=== PATIENT | male | born 1985 | race Two or more races ===

== ENCOUNTER 2021-07-25 11:15 | Inpatient (IN) | payer OTHER ==
[~2021-07-25] VITALS: Ht 170.2 cm; Wt 53.1 kg
[2021-07-25] MEDS ORDERED: LORAZEPAM 1 MG TABLET FOR AGITATION PO PRN (15:00)
[2021-07-25] MEDS ORDERED: IBUPROFEN 200 MG TABLET PO PRN (15:00)
[2021-07-25] MEDS ORDERED: MAG HYDROX/AL HYDROX/SIMETH 30 ML UDC PO PRN (15:00)
[2021-07-25] MEDS ORDERED: MAGNESIUM HYDROXIDE 30 ML UDC PO PRN (15:00)
[2021-07-25 15:25] VITALS: BP 100/80
--- NOTE | 2021-07-25 15:25 | NUR ---
MS ACOUSTICAL LOGGING ENGINEER NOTES RECEIVED PATIENT FROM HOME. FOR CLINICAL TRIAL. PATIENT IS A/O X4. ON ROOM AIR TOLERATING WELL. NO SOB NOTED. NOT IN DISTRESS. WITH NO COMPLAINTS OF PAIN OR DISCOMFORT AT THIS TIME. WITH NO IV LINE. SKIN IS INTACT. MADE COMFORTABLE ON BED. SAFETY MEASURES IN PLACE. CALL LIGHT WITHIN REACH. BED ON LOWEST LOCKED POSITION, SIDE RAILS UP X2. WILL CONTINUE TO MONITOR.
[2021-07-25 16:00] VITALS: BP 100/81
--- NOTE | 2021-07-25 19:30 | NUR ---
MS RN CLOSING NOTES PATIENT RESTING ON BED AND A/O X4. O CLINICAL TRIAL. ON ROOM AIR TOLERATING WELL. NO SOB NOTED. NOT IN DISTRESS. WITH NO COMPLAINTS OF PAIN OR DISCOMFORT AT THIS TIME. SKIN IS INTACT. MADE COMFORTABLE ON BED. SAFETY MEASURES IN PLACE. CALL LIGHT WITHIN REACH. BED ON LOWEST LOCKED POSITION, SIDE RAILS UP X2. WILL ENDORSE TO NEXT SHIFT FOR [facility].
--- NOTE | 2021-07-25 19:40 | NUR ---
MS RN OPENING NOTES PATIENT WAS SEEN SLEEPING IN BED. PATIENT'S A/O X4. PATIENT'S STABLE ON ROOM AIR. NO IV ACCESS NOTED DUE TO CLINICAL TRIAL STATUS. PATIENT'S IN NO ACUTE DISTRESS AT THIS TIME. SAFETY MEASURES IN PLACE: BED LOCKED, SR UPX2, AND CALL LIGHT WITHIN REACH OF THE PATIENT. WILL CONTINUE TO MONITOR THE PATIENT.
[2021-07-25 20:00] VITALS: BP 105/73
[2021-07-25] MEDS ORDERED: RISPERIDONE 2 MG PO SCH (22:00)
--- NOTE | 2021-07-25 23:59 | NUR ---
MS RN NOTES OBTAINED SPECIMEN IN PATIENT'S L NARE TO SCREEN FOR MRSA. SPECIMEN PLACED IN FRIDGE FOR LAB TO CRIME PREVENTION POLICE OFFICER.
--- NOTE | 2021-07-26 07:08 | NUR ---
MS RN CLOSING NOTES PATIENT WAS SEEN SLEEPING IN BED. PATIENT'S A/O X4. PATIENT'S STABLE ON ROOM AIR. NO IV ACCESS NOTED DUE TO CLINICAL TRIAL STATUS. PATIENT'S IN NO ACUTE DISTRESS AT THIS TIME. SAFETY MEASURES IN PLACE: BED LOCKED, SR UP X2, AND CALL LIGHT WITHIN REACH OF THE PATIENT. WILL ENDORSE CARE TO THE DAY SHIFT NURSE.
--- NOTE | 2021-07-26 07:30 | NUR ---
MS RN OPENING NOTES RECEIVED PATIENT SLEEPING ON BED. ON ROOM AIR TOLERATING WELL. NO SOB NOTED. NOT IN DISTRESS. WITH NO IV LINE. ON CLINICAL TRIAL. WITH NO COMPLAINTS OF PAIN OR DISCOMFORT AT THIS TIME. SAFETY MEASURES IN PLACE. CALL LIGHT WITHIN REACH. BED ON LOWEST AND LOCKED POSITION, SIDE RAILS UP X2. WILL CONTINUE TO MONITOR.
--- NOTE | 2021-07-26 18:35 | NUR ---
MS RN CLOSING NOTES PATIENT RESTING ON BED. ON ROOM AIR TOLERATING WELL. NO SOB NOTED. NOT IN DISTRESS. WITH NO IV LINE. ON CLINICAL TRIAL. WITH NO COMPLAINTS OF PAIN OR DISCOMFORT AT THIS TIME. SAFETY MEASURES IN PLACED. CALL LIGHT WITHIN REACH. BED ON LOWEST AND LOCKED POSITION, SIDE RAILS UP X2. WILL ENDORSE TO NEXT SHIFT FOR [facility].
--- NOTE | 2021-07-26 19:50 | NUR ---
MS RN OPENING NOTES RECEIVED PT IN BED, AWAKE. AOx4. ABLE TO MAKE NEEDS KNOWN. ON RA AND TOLERATING WELL/. NO SOB NOTED. NO S/SX OF RESPIRATORY DISTRESS NOTED. CLINICAL TRIAL PATIENT. NO IV ACCESS. SAFETY PRECAUTIONS IN PLACE: BED IN LOWEST, LOCKED POSITION, BRAKES ON AND SIDERAILS UPx2. TABLE AND CALL LIGHT WITHIN REACH. WILL CONTINUE TO MONITOR.
[2021-07-26 20:00] VITALS: BP 123/70
[2021-07-26] MEDS: RISPERIDONE 2 MG PO SCH (21:54)
--- NOTE | 2021-07-27 06:52 | NUR ---
MS RN CLOSING NOTES PT IN BED, AWAKE. AOx4. ABLE TO MAKE NEEDS KNOWN. ON RA AND TOLERATING WELL/. NO SOB NOTED. NO S/SX OF RESPIRATORY DISTRESS NOTED. CLINICAL TRIAL PATIENT. NO IV ACCESS. ALL NEEDS MET. PT KEPT CLEAN AND DRY. SAFETY PRECAUTIONS IN PLACE: BED IN LOWEST, LOCKED POSITION, BRAKES ON AND SIDERAILS UPx2. TABLE AND CALL LIGHT WITHIN REACH. WILL ENDORSE TO ONCOMING SHIFT FOR [facility].
--- NOTE | 2021-07-27 07:38 | NUR ---
RN OPENING NOTES RECEIVED PATIENT SLEEPING ON BED. ON ROOM AIR TOLERATING WELL. NO SOB NOTED, NOT IN ACUTE DISTRESS. WITH NO IV LINE. ON CLINICAL TRIAL. WITH NO COMPLAINTS OF PAIN OR DISCOMFORT AT THIS TIME. SAFETY MEASURES IN PLACE, BED ON LOWEST AND LOCKED POSITION, SIDE RAILS UP X2. CALL LIGHT WITHIN REACH. WILL CONTINUE TO MONITOR.
[2021-07-27 08:00] VITALS: BP 93/55
--- NOTE | 2021-07-27 18:54 | NUR ---
RN CLOSING NOTES PATIENT RESTING ON BED, AWAKE, VERBALLY RESPONSIVE. ON ROOM AIR TOLERATING WELL. NO SOB NOTED, NOT IN ACUTE DISTRESS. ON CLINICAL TRIAL, WITH NO IV ACCESS. NO COMPLAINTS OF PAIN OR DISCOMFORT AT THIS TIME. DENIES ANY HALLUCINATIONS. SAFETY MEASURES IN PLACE, BED ON LOWEST AND LOCKED POSITION, SIDE RAILS UP X2. CALL LIGHT WITHIN REACH. WILL ENDORSE TO ONCOMING SHIFT.
[2021-07-27 20:00] VITALS: BP 100/64
--- NOTE | 2021-07-27 20:09 | NUR ---
MS RN NOTE TRANSFERRED [facility] TO ALLY GLEASON.
[2021-07-27] MEDS: RISPERIDONE 2 MG PO SCH (21:34)
--- NOTE | 2021-07-28 06:30 | NUR ---
MS RN CLOSING NOTE PT REMAINED STABLE THROUGHOUT SHIFT. WILL ENDORSE TO ONCOMING RN FOR [facility].
--- NOTE | 2021-07-28 07:30 | NUR ---
RN NOTES PATIENT RESTING IN ROOM, AWAKE AND VERBALLY RESPONSIVE. ON CLINICAL TRIAL. NO ADVERSE CHANGE NOTED. SAFETY MEASURES IN PLACE. WILL CONTINUE TO MONITOR.
--- NOTE | 2021-07-28 18:15 | NUR ---
RN NOTES SEEN PATIENT IN THE ROOM WATCHING TV, FINISHED EATING DINNER. NO ADVERSE CHANGE NOTED. CONTINUES ON CLINICAL TRIAL. SAFETY MEASURES MAINTAINED. WILL ENDORSE TO CENTRAL SUPPLY AIDE RN FOR AV[facility].
--- NOTE | 2021-07-28 19:10 | NUR ---
RN NOTE RECEIVED PATIENT IN BED RESTING ALERT ORIENTED X4 VERBALLY RESPONSIVE ABLE TO MAKE NEEDS KNOWN,ON ROOM AIR,SAFETY MEASURE IMPLEMENT BED IN LOW POSITION AND LOCKED CALL LIGHT WITHIN REACH CONTINUE TO MONITOR.
[2021-07-28 20:00] VITALS: BP 108/69
[2021-07-28] MEDS: RISPERIDONE 2 MG PO SCH (22:06)
--- NOTE | 2021-07-29 06:45 | NUR ---
RN NOTE PATIENT REMAINS ON ALERT ORIENTEDX4 ABLE TO MAKE NEEDS KNOWN VERBALLY RESPONSIVE ON ROOM AIR NO SOB NOT ACUTE DISTRESS NOTED,ENDORSE NEXT COMING SHIFT FOR CONTINUATION OF CARE.
--- NOTE | 2021-07-29 07:50 | NUR ---
RN OPENING NOTE- PT ALERT ORIENTED X 4 ABLE TO MAKE NEEDS KNOWN / VERBALLY RESPONSIVE ON ROOM AIR NO SOB NOT ACUTE DISTRESS NOTED,MONITOR / ASSIST PRN.
[2021-07-29 08:00] VITALS: BP 90/54
--- NOTE | 2021-07-29 18:24 | NUR ---
RN NOTE- PT LAST SEEN AT AROUND 9AM. PT LEFT TO GO OUTSIDE AND NEVER RETURNED. DR CARBAJAL NOTIFIED THIS MORNING AROUND LUNCHTIME.
--- NOTE | 2021-07-29 18:40 | NUR ---
RN CLOSING NOTE- PT STILL HAS NOT RETURNED TO FACILITY. AWARE
--- NOTE | 2021-07-29 19:30 | NUR ---
MS RN NOTE PATIENT ABSENT FROM PREMISES ON THE AVANI REPORT. ENDORSED TO ME BY KEYONNA THAT PATIENT HAS BEEN GONE SINCE THIS MORNING. WILL RECHECKED ON MY ROUNDINGS.
[2021-07-29 20:00] VITALS: BP 116/82
--- NOTE | 2021-07-29 20:35 | NUR ---
MS RN NOTE PATIENT CAME BACK AT THIS TIME. SIGNED THE LOG BOOK. REMINDED OF HIS 2200 MEDICATION, PATIENT ACKNOWLEDGED.
[2021-07-29] MEDS: RISPERIDONE 2 MG PO SCH (22:10)
--- NOTE | 2021-07-29 22:18 | NUR ---
MS CANALES NOTE PATIENT GIVEN 0.25 MG OF RISPERIDONE HOME MEDICATION ORDERED. Addendum: 07/29/21 at 2221 by MARK KAPLAN RN RN NOTE PATIENT GIVEN 0.25 MG OF RISPERIDONE HOME MEDICATION ORDERED. THE ONE IN THE CASSETTE IS 0.5 MG DOSE AND THE ONE IN THE EMAR IS 2MG DOSE. PILL CUT IN HALF TO GET 0.25 DOSE
--- NOTE | 2021-07-30 07:00 | NUR ---
MS RN NOTE PATIENT IN BED STILL SLEEPING. A/OX4. NO S/S OF APPARENT DISTRESS. NO C/O PAIN. NO SIGNIFICANT CHANGE SINCE LAST ENDORSEMENT. WILL ENDORSE TO MORNING SHIFT RN.
--- NOTE | 2021-07-30 07:49 | NUR ---
RN OPENING NOTE- PT IN BED, ALERT ORIENTED X 4 ABLE TO MAKE NEEDS KNOWN / VERBALLY RESPONSIVE ON ROOM AIR NO SOB, NO ACUTE DISTRESS NOTED, NO PAIN, MONITOR / ASSIST PRN.
[2021-07-30 08:00] VITALS: BP 89/52
[2021-07-30 16:00] VITALS: BP 115/93
--- NOTE | 2021-07-30 18:50 | NUR ---
RN CLOSING NOTE- PT IN BED, ALERT ORIENTED X 4 ABLE TO MAKE NEEDS KNOWN / VERBALLY RESPONSIVE ON ROOM AIR NO SOB, NO ACUTE DISTRESS NOTED, NO PAIN, MONITOR / ASSIST PRN.
--- NOTE | 2021-07-30 19:25 | NUR ---
RN OPENING NOTE RECEIVED PT IN ROOM, AMBULATING WITH STEADY GAIT. ABLE TO MAKE NEEDS KNOWN. DENIES ANY PAIN/DISCOMFORT AT THIS TIME. RESPIRATIONS EVEN/UNLABORED. SAFETY INSTRUCTIONS REINFORCED. PT VERBALIZED UNDERSTANDING. CALL LIGHT WITHIN REACH. WILL CONT TO MONITOR.
[2021-07-30 20:29] VITALS: BP 107/71
[2021-07-30] MEDS: RISPERIDONE 2 MG PO SCH (21:01)
[2021-07-30] MEDS: ZOLPIDEM TARTRATE 10 MG TABLET PO PRN (22:26)
--- NOTE | 2021-07-31 07:12 | NUR ---
RN CLOSING NOTE PT SLEPT WELL DURING THE NIGHT. NO ACUTE DISTRESS NOTED. NO BEHAVIORAL ISSUES THIS SHIFT. SAFETY MEASURES MAINTAINED. ALL NEEDS ATTENDED TO.
--- NOTE | 2021-07-31 07:30 | NUR ---
RN MS NOTES PT IN BED, AWAKE, ALERT AND ORIENTED, DENIES PAIN, NOT IN DISTRESS, NO BEHAVIOR PROBLEM AT THIS TIME, WILL CONTINUE TO MONITOR.
[2021-07-31 08:00] VITALS: BP 116/63
[2021-07-31 16:00] VITALS: BP 115/80
--- NOTE | 2021-07-31 18:22 | NUR ---
RN MS NOTES PT IN BED, RESTING, WATCHING TV, NO COMPLAINT OF PAIN OR ANY DISCOMFORT, NO BEHAVIOR PROBLEM DURING THE SHIFT, CALL LIGHT WITHIN REACH.
--- NOTE | 2021-07-31 19:30 | NUR ---
MS RN OPENING NOTE RECEIVED PT AWAKE IN BED. A/O X4. PT STABLE ON ROOM AIR. NO SOB OR S/S OF RESPIRATORY DISTRESS. NO IV ACCESS DUE TO CLINICAL TRIAL STATUS. SAFETY PRECAUTIONS MAINTAINED. BED IN LOWEST LOCKED POSITION, HOB ELEVATED, SIDE RAILS UP X2, AND CALL LIGHT AND TABLE WITHIN REACH. WILL CONTINUE TO MONITOR.
[2021-07-31] MEDS: ZOLPIDEM TARTRATE 10 MG TABLET PO PRN (23:47)
--- NOTE | 2021-07-31 23:47 | NUR ---
RN NOTE ADMINISTERED AMBIEN ORDERED PER ASSESSMENT OF PATIENT. WILL REASSESS FOR SLEEP WITHIN 1 HOUR.
--- NOTE | 2021-08-01 06:47 | NUR ---
MS RN CLOSING NOTE PT IN BED EYES CLOSED, EASILY AROUSABLE. A/O X4. PT STABLE ON ROOM AIR. NO SOB OR S/S OF RESPIRATORY DISTRESS. NO IV ACCESS DUE TO CLINICAL TRIAL STATUS. ALL NEEDS MET AT THIS TIME. SAFETY PRECAUTIONS MAINTAINED AT ALL TIMES. BED IN LOWEST LOCKED POSITION, HOB ELEVATED, SIDE RAILS UP X2, AND CALL LIGHT AND TABLE WITHIN REACH. WILL ENDORSE TO ONCOMING NURSE FOR [facility].
--- NOTE | 2021-08-01 07:30 | NUR ---
MS RN OPENING NOTES RECEIVED PATIENT RESTING ON BED AND A/O X4. ON ROOM AIR SATURATING WELL AT 95%. NO SOB NOTED. NOT IN DISTRESS. WITH NO COMPLAINTS OF PAIN OR DISCOMFORT AT THIS TIME. WITH NO CHANGE OF BEHAVIORS NOTED. WITH NO IV ACCESS PRESENT. ON CLINICAL TRIAL. SAFETY MEASURES IN PLACE. CALL LIGHT WITHIN REACH. BED ON LOWEST LOCKED POSITION, SIDE RAILS UP X2. WILL CONTINUE TO MONITOR.
[2021-08-01 08:00] VITALS: BP 89/60
--- NOTE | 2021-08-01 18:40 | NUR ---
MS ALLY OPENING NOTES PATIENT RESTING ON BED AND A/O X4. ON ROOM AIR SATURATING WELL AT 98%. NO SOB NOTED. NOT IN DISTRESS. WITH NO COMPLAINTS OF PAIN OR DISCOMFORT AT THIS TIME. WITH NO CHANGE OF BEHAVIORS NOTED. WITH NO IV ACCESS PRESENT. ON CLINICAL TRIAL. SAFETY MEASURES IN PLACE. CALL LIGHT WITHIN REACH. BED ON LOWEST LOCKED POSITION, SIDE RAILS UP X2. WILL ENDORSE TO NEXT SHIFT FOR [facility]. Addendum: 08/01/21 at 1841 by CIARA ARREOLA RN ERROR
--- NOTE | 2021-08-01 19:00 | NUR ---
MS RN CT OPENING NOTE RECEIVED PT AWAKE IN BED AT THIS TIME. A/OX4. PT ABLE TO MAKE NEEDS KNOWN. NO SOB NOTED, NO C/O PAIN AT THIS TIME, NO S/S OF ANY ACUTE DISTRESS NOTED. RESPIRATIONS EVEN AND UNLABORED, STABLE ON RA. NO IV ACCESS IN PLACE. PT DENIES SI/HI, VISUAL/AUDITORY HALLUCINATION. NO C/O TREMORS, EPS, OR AKATHASIA. SAFETY PRECAUTIONS IN PLACE AND MAINTAINED AT ALL TIMES. BED IN LOWEST, LOCKED POSITION, HOB ELEVATED, SIDE RAILS UP X2, CALL LIGHT AND TABLE WITHIN REACH. WILL CONTINUE TO MONITOR.
[2021-08-01 20:00] VITALS: BP 109/76
[2021-08-01] MEDS: ZOLPIDEM TARTRATE 10 MG TABLET PO PRN (21:15)
--- NOTE | 2021-08-01 21:15 | NUR ---
CT RN NOTE PT C/O INABILITY TO SLEEP, PER PT REQUEST AMBIEN 10MG/1 TAB PO HS PRN ADMINISTERED AT THIS TIME PER ORDER FRO SLEEP. WILL CONTINUE WITH PLAN OF CARE
--- NOTE | 2021-08-02 06:26 | NUR ---
MS RN CT CLOSING PT AWAKE IN BED AT THIS TIME. A/OX4. PT REMAINED TABLE THROUGHOUT SHIFT. PT DENIES SI/HI, VISUAL/AUDITORY HALLUCINATION. NO C/O TREMORS, EPS, OR AKATHASIA. SAFETY PRECAUTIONS IN PLACE AND MAINTAINED AT ALL TIMES. BED IN LOWEST, LOCKED POSITION, HOB ELEVATED, SIDE RAILS UP X2, CALL LIGHT AND TABLE WITHIN REACH. WILL ENDORSE TO AM NURSE FOR [facility].
--- NOTE | 2021-08-02 07:53 | NUR ---
RN NOTE RECEIVED PT AWAKE IN BED, ALERT AND ORIENTED X4 , VERBALLY RESPONSIVE. NOT IN DISTRESS. MEASURES FOLLOWED. NO SS OF AKATHISIA AND EPS NOTED AT THIS TIME. WILL CONTINUE TO MONITOR.
[2021-08-02 08:11] VITALS: BP 126/61
[2021-08-02] MEDS ORDERED: LORAZEPAM 1 MG TABLET FOR AGITATION PO PRN (12:00)
[2021-08-02 16:18] VITALS: BP 99/51
[2021-08-02] MEDS: INVEST MED MK-8189-008-02 MISC 1 DOSE PO SCH (20:00)
--- NOTE | 2021-08-02 20:05 | NUR ---
RN NOTES PATIENT WAS STILL NOT IN THE ROOM, LOCATE DOWNSTAIRS FOR DUE MEDICATION AT 1999 NOT SEEN DOWNSTAIRS, CALLED PATIENT CONTACT NUMBER NOBODY ANSWERS LEFT MESSAGE AWAITING FOR REPLY.
--- NOTE | 2021-08-02 20:55 | NUR ---
RN NOTES: PATIENT CAME BACK ON HIS ROOM DUE MEDICATION GIVEN
[2021-08-02] MEDS: ZOLPIDEM TARTRATE 10 MG TABLET PO PRN (22:49)
--- NOTE | 2021-08-03 07:45 | NUR ---
MS CLOSING NOTES PATIENT SLEEP IN BED COMFORTABLY, IN BED, BED IN LOW POSITION, CALL LIGHTS WITHIN REACH, NO COMPLAIN OF PAIN AND DISCOMFORT AT THIS TIME, A/OX4 AMBULATORY ABLE TO MAKE NEEDS KNOWN, ON CLINICAL TRIAL, NO CHANGES ON BEHAVIOR HAS BEEN OBSERVED DURING THE SHIFT, ENDORSE TO INCOMING SHIFT.
[2021-08-03 08:00] VITALS: BP 90/54
--- NOTE | 2021-08-03 08:06 | NUR ---
MS RN OPENING NOTE Patient in bed, awake. A/O x 4, able to make needs known. On room air, breathing evenly and unlabored. No SOB or s/s of distress noted. No IV access due to clinical trial status. Safety precautions in place: bed in low,locked position; siderails up x 2; call light within reach. Will continue to monitor.
--- NOTE | 2021-08-03 19:15 | NUR ---
RN NOTES: RECEIVED AWAKE ON BED, SITTING COMFORTABLY HE IS READING HIS BOOK, A/0X 4, PLEASANT,CONVERSANT.ORIENTED TO UNIT AND STAFF, FOR MONITORING.
--- NOTE | 2021-08-03 19:30 | NUR ---
RN NOTES: PATIENT WAS TRANSFERRED IN FROM ICU, RN/BETS GAVE BED SIDE ENDORSEMENT, PATIENT IS ON MORPHINE DRIP AT 2MG/HR VIA DRIP, DNR-DNI,SHE WAS TRANSFERRED FROM O TO ICU YESTERDAY, PCR AND RAPID BOTH NEGATIVE, MRSA NARES-(=), ON NON RE BREATHER MASK AT 10L/MIN,ON COMFORT MEASURE ONLY, PER ENDORSEMENT SON DOESNT WANT TO COME ONCE PATIENT PASS AWAY, TO NOTIFY [facility]. --UPON ADMISSION PATIENT LOOKS VERY PALE,COMATOSE, RESPIRATION 13 B/MINUTES ASSESSED MANUALLY, [place], WARM TO TOUCH, ON [employer] CATH. Addendum: 08/03/21 at 2058 by KASH SILVERMAN RN added notes: ABOVE CHARTING IS NOT FOR THIS PATIENT. WRONG ENTRY OF CHARTING, NOT FOR THIS PATIENT
--- NOTE | 2021-08-03 19:45 | NUR ---
MS RN CLOSING NOTE Patient in bed, awake. A/O x 4, able to make needs known. Stable on room air. No SOB or s/s of distress noted. No IV access due to clinical trial status. No significant changes noted. Safety precautions maintained: bed in low,locked position; siderails up x 2; call light within reach. Will endorse to electronic heat seal operator nurse for AVANI.
[2021-08-03 20:00] VITALS: BP 103/81
[2021-08-03] MEDS: INVEST MED MK-8189-008-02 MISC 1 DOSE PO SCH (20:14)
[2021-08-03] MEDS: ZOLPIDEM TARTRATE 10 MG TABLET PO PRN (22:39)
--- NOTE | 2021-08-03 22:39 | NUR ---
RN NOTES: PATIENT REQUEST HIS MEDICATION FOR SLEEP, GIVEN PER PATIENT REQUEST, KEEP COMFORTABLE IN BED.
--- NOTE | 2021-08-04 00:40 | NUR ---
RN NOTES: -HE SAID HE CANNOT SLEEP HE WANTS SOME FRESH AIR, HE SIGNED OUT AND WENT DOWN.
--- NOTE | 2021-08-04 03:01 | NUR ---
RN NOTES: DURING ROUNDS HE WAS ALREADY ASLEEP, KEPT CALL LIGHT WITHIN EASY REACH.
--- NOTE | 2021-08-04 06:45 | NUR ---
RN NOTES: ASLEEP IN BED, NO OTHER CHANGE OF BEHAVIOR NOTED, NO CALLS MADE, SLEEP WELL FROM AROUND 0230, NO LABS THIS MORNING, ENDORSED FOR CONTINUITY OF CARE.
[2021-08-04 08:00] VITALS: BP 85/55
--- NOTE | 2021-08-04 18:21 | NUR ---
MS RN CLOSING NOTES PATIENT RESTING ON BED AND A/O X4. ON ROOM AIR SATURATING WELL AT 98%. NO SOB NOTED. NOT IN DISTRESS. WITH NO COMPLAINTS OF PAIN OR DISCOMFORT AT THIS TIME. WITH NO CHANGE OF BEHAVIORS NOTED. WITH NO IV ACCESS PRESENT. ON CLINICAL TRIAL. SAFETY MEASURES IN PLACE. CALL LIGHT WITHIN REACH. BED ON LOWEST LOCKED POSITION, SIDE RAILS UP X2. WILL ENDORSE TO ONCOMING SHIFT
[2021-08-04] MEDS: INVEST MED MK-8189-008-02 MISC 1 DOSE PO SCH (20:07)
[2021-08-04 20:55] VITALS: BP 110/69
--- NOTE | 2021-08-05 07:25 | NUR ---
RN OPENING NOTES RECEIVED PT ON BED. AWAKE AND A/O X4. ABLE TO MAKE NEEDS KNOWN. NO C/O PAIN OR DISCOMFORT AT THIS TIME. REMAINS ON CLINICAL TRIAL, NO IV ACCESS. SAFETY MEASURES IN PLACE: BED LOCKED AND IN LOWEST POSITION, SR UP X2, CALL LIGHT PLACED WITHIN EASY REACH. WILL CONTINUE TO MONITOR.
[2021-08-05 08:00] VITALS: BP 104/52
--- NOTE | 2021-08-05 18:30 | NUR ---
RN NOTES PATIENT STILL NOT BACK FROM [facility] ON PASS. DR CARBAJAL AWARE.
[2021-08-05 20:00] VITALS: BP 114/74
--- NOTE | 2021-08-05 21:00 | NUR ---
RN MS NOTE PATIENT IS NOT IN HIS ROOM. HE HAS BEEN OUT SINCE BEFORE MED PASS. CHARGE NURSE, DAYANA, NOTIFIED. FACE SHEET ONLY REVEALS HOME NUMBER BUT NO CELL NUMBER. PATIENT SIGNED OUT TO GO FOR A SMOKE. WILL FOLLOW-UP TO SEE IF AND WHEN PATIENT RETURNS TO UNIT.
[2021-08-05] MEDS: INVEST MED MK-8189-008-02 MISC 1 DOSE PO SCH ×2 (21:05→23:01)
--- NOTE | 2021-08-05 23:01 | NUR ---
RN MS NOTE PATIENT JUST RETURNED TO UNIT SO MEDICATION WILL BE ADMINISTERED.
[2021-08-06] MEDS: ZOLPIDEM TARTRATE 10 MG TABLET PO PRN ×2 (00:26→19:57)
--- NOTE | 2021-08-06 08:03 | NUR ---
MS RN OPENING NOTES PATIENT IN BED, AWAKE, A/O X4, ABLE TO MAKE NEED KNOWN. PATIENT ON ROOM AIR; BREATHING EVEN AND UNLABORED, NO SOB NOTED AT THIS TIME. NO COMPLAINS OF PAIN AT THE MOMENT. NO IV. SAFETY PRECAUTIONS IN PLACE; BED IN LOW POSITION AND LOCKED, RAILS UP X2, CALL LIGHT WITHIN REACH. WILL CONTINUE TO MONITOR PATIENT.
[2021-08-06 16:00] VITALS: BP 116/78
--- NOTE | 2021-08-06 18:47 | NUR ---
MS RN CLOSING NOTES PATIENT IN BED, AWAKE, A/O X4, ABLE TO MAKE NEED KNOWN. PATIENT ON ROOM AIR; BREATHING EVEN AND UNLABORED, NO SOB NOTED AT THIS TIME. NO COMPLAINS OF PAIN DURING SHIFT. NO IV. SAFETY PRECAUTIONS IN PLACE; BED IN LOW POSITION AND LOCKED, RAILS UP X2, CALL LIGHT WITHIN REACH. WILL ENDORSE TO DISASTER RESPONSE DIRECTOR NURSE FOR [facility].
--- NOTE | 2021-08-06 19:30 | NUR ---
MS RN OPENING NOTE PATIENT RECEIVED AWAKE IN BED. A/OX3. NO S/S OF DISTRESS, BREATHING SYMMETRICAL. SAFETY MEASURES IN PLACE: BED AT LOWEST POSITION, RAILS UP X2, CALL KAUFFMAN WITHIN REACH. WILL CONTINUE TO MONITOR PATIENT.
[2021-08-06] MEDS: INVEST MED MK-8189-008-02 MISC 1 DOSE PO SCH (19:57)
[2021-08-06 20:46] VITALS: BP 135/83
--- NOTE | 2021-08-06 21:01 | NUR ---
MS RN NOTE PATIENT WENT FOR A CIGARETTE BEFORE REASSESSMENT CHECK ON AMBIEN. WILL F/U W/ PATIENT UPON HIS RETURN.
--- NOTE | 2021-08-06 21:05 | NUR ---
MS RN NOTE PATIENT HAS RETURNED FROM HAVING HIS CIGARETTE. HE STATES HE FEELS COMFORTABLE AND READY FOR SLEEP/BED. GIDEONIEN IS SUCCESSFUL.
--- NOTE | 2021-08-07 05:37 | NUR ---
MS RN NOTE PATIENT NOTIFIED ME THAT HE WOULD BE HAVING SEVERAL ERRANDS/APPOINTMENTS TODAY. D/T THIS, THE PATIENT STATED HE WANTED ME TO CANCELL ALL MEALS FOR THE DAY (BREAKFAST, LUNCH, DINNER). I NOTIFIED MY CHARGE NURSE, SUAD. SHE INSTRUCTED ME TO REACH OUT TO DR. CARBAJAL TO VERIFY WHETHER THIS MET WITH THE CONTRACTUAL OBLIGATIONS FOR THE STUDY THE PATIENT IS A PART OF. CONTACTED DR. CARBAJAL AND LEFT A MESSAGE ON HIS LINE ([phone]). WILL CONTINUE TO MONITOR PATIENT.
--- NOTE | 2021-08-07 06:10 | NUR ---
MS RN CLOSING NOTE PATIENT ASLEEP IN BED. A/OX4. PATIENT IS A VERY PLEASANT YOUNG MAN. NO IV INSERTED - NO ORDER. NO PAIN REPORTED THROUGHOUT SHIFT. NO S/S OF DISTRESS, BREATHING SYMMETRICAL. SAFETY MEASURES IN PLACE: BED AT LOWEST POSITION, RAILS UP X2, CALL KAUFFMAN WITHIN REACH. WILL ENDORSE TO DAY SHIFT FOR [facility].
--- NOTE | 2021-08-07 07:20 | NUR ---
MS RN OPENING NOTES RECEIVED PT IN BED, AWAKE, PATIENT IS ALERT AND ORIENTEDx4, ABLE TO MAKE NEEDS KNOWN. ON ROOM AIR, TOLERATING WELL, WITH EQUAL AND UNLABORED BREATHING. NO SOB NOTED. WITH NO IV ACCESS. PATIENT VERBALIZED DESIRE TO GO OUT THE WHOLE DAY TODAY. DR. CARBAJAL NOTIFIED. SAFETY MEASURES ENSURED WITH SIDE RAILS RAISED, BED IN LOWEST, LOCKED POSITION WITH BRAKES ON. CALL LIGHT WITHIN REACH AT ALL TIMES. WILL CONTINUE TO MONITOR PATIENT.
[2021-08-07 08:00] VITALS: BP 90/57
--- NOTE | 2021-08-07 14:10 | NUR ---
MS RN NOTE PATIENT IN STABLE CONDITION, WITH NO UNTOWARD BEHAVIOR NOTED AT THIS TIME.
[2021-08-07 16:00] VITALS: BP 121/81
--- NOTE | 2021-08-07 18:46 | NUR ---
MS RN CLOSING NOTES PT IN BED, AWAKE, PATIENT IS ALERT AND ORIENTEDx4, ABLE TO MAKE NEEDS KNOWN. ON ROOM AIR, TOLERATING WELL, WITH EQUAL AND UNLABORED BREATHING. NO SOB NOTED. WITH NO IV ACCESS. SAFETY MEASURES ENSURED WITH SIDE RAILS RAISED, BED IN LOWEST, LOCKED POSITION WITH BRAKES ON. CALL LIGHT WITHIN REACH AT ALL TIMES. NO UNTOWARD BEHAVIOR NOTED. IN STABLE CONDITION. WILL ENDORSE TO NEXT SHIFT FOR CONTINUITY OF CARE.
--- NOTE | 2021-08-07 19:40 | NUR ---
MS/RN OPENING NOTE RECEIVED PATIENT AMBULATING IN ROOM. ALERT AND ORIENTED X 4. ABLE TO MAKE NEEDS KNOWN. DENIES PAIN AT THIS TIME. CONTINUES ON ROOM AIR WITH NO S/SX OF RESPIRATORY DISTRESS NOTED. NO IV ACCESS AT THIS TIME. CONTINUES ON REGULAR DIET. CONTINUES ON CLINICAL TRIAL AND INVESTIGATIONAL MEDICATIONS. CALL LIGHT WITHIN REACH. ASPIRATION, FALL AND SAFETY PRECAUTIONS MAINTAINED. WILL CONTINUE TO MONITOR.
[2021-08-07 20:00] VITALS: BP 115/60
[2021-08-07] MEDS: INVEST MED MK-8189-008-02 MISC 1 DOSE PO SCH (20:06)
[2021-08-07] MEDS: ZOLPIDEM TARTRATE 10 MG TABLET PO PRN (20:15)
--- NOTE | 2021-08-08 06:50 | NUR ---
MS/RN CLOSING NOTE PATIENT CURRENTLY SLEEPING IN BED. ALERT AND ORIENTED X 4. ABLE TO MAKE NEEDS KNOWN. DENIES PAIN AT THIS TIME. CONTINUES ON ROOM AIR WITH NO S/SX OF RESPIRATORY DISTRESS NOTED. NO IV ACCESS AT THIS TIME. CONTINUES ON REGULAR DIET. CONTINUES ON CLINICAL TRIAL AND INVESTIGATIONAL MEDICATIONS. CALL LIGHT WITHIN REACH. ASPIRATION, FALL AND SAFETY PRECAUTIONS MAINTAINED. WILL ENDORSE PLAN OF CARE TO ONCOMING SHIFT.
--- NOTE | 2021-08-08 07:19 | NUR ---
MS RN OPENING NOTES RECEIVED PT IN BED, AWAKE, PATIENT IS ALERT AND ORIENTEDx4, ABLE TO MAKE NEEDS KNOWN. ON ROOM AIR, TOLERATING WELL, WITH EQUAL AND UNLABORED BREATHING. NO SOB NOTED. WITH NO IV ACCESS. PATIENT VERBALIZED DESIRE TO GO OUT THE WHOLE DAY TODAY. DR. ACRBAJAL NOTIFIED. SAFETY MEASURES ENSURED WITH SIDE RAILS RAISED, BED IN LOWEST, LOCKED POSITION WITH BRAKES ON. CALL LIGHT WITHIN REACH AT ALL TIMES. WILL CONTINUE TO MONITOR PATIENT.
[2021-08-08 08:00] VITALS: BP 79/43
[2021-08-08 16:00] VITALS: BP 115/83
--- NOTE | 2021-08-08 19:01 | NUR ---
MS RN CLOSING NOTES PT IN BED, AWAKE, PATIENT IS ALERT AND ORIENTEDx4, ABLE TO MAKE NEEDS KNOWN. ON ROOM AIR, TOLERATING WELL, WITH EQUAL AND UNLABORED BREATHING. NO SOB NOTED. WITH NO IV ACCESS. SAFETY MEASURES ENSURED WITH SIDE RAILS RAISED, BED IN LOWEST, LOCKED POSITION WITH BRAKES ON. CALL LIGHT WITHIN REACH AT ALL TIMES. WILL CENDORSE PATIENT FOR CONTINUITY OF CARE.
--- NOTE | 2021-08-08 19:30 | NUR ---
RN OPENING NOTE PATIENT IN THE ROOM WATCHING TV, PATIENT IS ABLE TO MAKE NEEDS KNOWN, A/O X 4. PATIENT CALM AND COOPERATIVE AT THIS TIME. INFORMED PATIENT THAT AMBIEN AND ATIVAN WILL BE HELD TONIGHT AT 2200. PATIENT INDEPENDENT. SAFETY MEASURES IN PLACE: BED LOCKED AND IN LOWEST POSITION, CALL LIGHT WITHIN REACH, SIDE RAILS UP. WILL MONITOR PATIENT FOR ANY BEHAVIORAL CHANGES
[2021-08-08 20:00] VITALS: BP 112/77
[2021-08-08] MEDS: INVEST MED MK-8189-008-02 MISC 1 DOSE PO SCH (20:09)
--- NOTE | 2021-08-09 06:53 | NUR ---
RN CLOSING NOTE PATIENT IN BED, SLEEPING. EASILY AWAKENED. PATIENT IS ABLE TO MAKE NEEDS KNOWN, A/O X 4. PATIENT CALM AND COOPERATIVE THROUGHOUT THE SHIFT. INVESTIGATIONAL MED GIVEN ORDERED. PATIENT INDEPENDENT. SAFETY MEASURES IN PLACE: BED LOCKED AND IN LOWEST POSITION, CALL LIGHT WITHIN REACH, SIDE RAILS UP. ALL NEEDS MET AND ATTENDED. ALL ORDERS CARRIED OUT. WILL ENDORSE TO DAY SHIFT NURSE FOR [facility].
--- NOTE | 2021-08-09 07:30 | NUR ---
RN MS NOTES PT IN BED, AWAKE, ALERT AND ORIENTED, NO COMPLAINT AT THIS TIME, CALL LIGHT WITHIN REACH.
[2021-08-09 08:00] VITALS: BP 119/86
[2021-08-09] MEDS ORDERED: LORAZEPAM 1 MG TABLET FOR AGITATION PO PRN (12:00)
[2021-08-09 16:00] VITALS: BP 87/47
--- NOTE | 2021-08-09 18:09 | NUR ---
RN MS NOTES PT IN HIS ROOM RESTING, NO COMPLAINT OF PAIN OR ANY DISCOMFORT, NO BEHAVIOR PROBLEM NOTED DURING THE SHIFT, CALL LIGHT WITHIN REACH, NEEDS ATTENDED.
[2021-08-09 20:00] VITALS: BP 122/73
--- NOTE | 2021-08-09 20:00 | NUR ---
RECEIVED THE PATIENT IN HIS ROOM AMBULATING IN THE ROOM AND STEADY ON HIS FEET SMILING AND JOKING NOTED READING A BOOK TITLED "HOW TO TALK TO WOMEN" WE BOTH LAUGHED OVER THIS HE IS COOPERATIVE ALERT AND ORIENTATED REVIEVED THE CALL LIGHT WITH HIM
[2021-08-09] MEDS: INVEST MED MK-8189-008-02 MISC 1 DOSE PO SCH (20:02)
[2021-08-09 20:03] VITALS: BP 122/73
--- NOTE | 2021-08-09 21:00 | NUR ---
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
--- NOTE | 2021-08-10 05:20 | NUR ---
CLOSING NOTES: SLEPT 8 HOURS OF THIS 12 HOURS COOPERATIVE AND FRIENDLY REMINDED HOW TO USE THE CALL LIGHT WHEN NEEDING ASSIST QUIET COMFORTABLE NUGHT
--- NOTE | 2021-08-10 07:28 | NUR ---
N OPENING NOTES RECEIVED PT RESTING ON BED. A/O X4. ABLE TO MAKE NEEDS KNOWN. NO SOB NOTED, BREATHING EVEN AND UNLABORED. NO C/O PAIN OR DISCOMFORT AT THIS TIME. REMAINS ON CLINICAL TRIAL, NO IV ACCESS. SAFETY MEASURES IN PLACE: BED LOCKED AND IN LOWEST POSITION, SR UP X2, CALL LIGHT PLACED WITHIN EASY REACH. WILL CONTINUE TO MONITOR.
[2021-08-10 08:00] VITALS: BP 98/55
[2021-08-10 16:01] VITALS: BP 107/73
--- NOTE | 2021-08-10 18:49 | NUR ---
MS RN CLOSING NOTES PT IN BED, AWAKE, ALERT AND ORIENTED X4, ABLE TO MAKE NEEDS KNOWN. REMAINS ON ROOM AIR, TOLERATING WELL, BREATHING EVEN AND UNLABORED.NO SOB NOTED. WITH NO IV ACCESS, CONTINUE ON CLINICAL TRIAL. SAFETY MEASURES IN PLACE. BED IN LOWEST, LOCKED POSITION WITH BRAKES ON, SR UP X2, CALL LIGHT PLACED WITHIN REACH AT ALL TIMES. WILL ENDORSE PATIENT TO THE NEXT SHIFT.
--- NOTE | 2021-08-10 19:37 | NUR ---
MS RN OPENING NOTE PATIENT RECEIEVED AWAKE IN HIS BED, SITTING ON THE EDGE READING. PATIENT PRESENTS IN A PLEASANT MOOD. A/OX4. NO S/S OF DISTRESS, BREATHING SYMMETRICAL. NO IV IN PLACE. SAFETY MEASURES IN PLACE: BED AT LOWEST POSITION, RAILS UP X2, CALL KAUFFMAN WITHIN REACH.
[2021-08-10 20:00] VITALS: BP 114/76
[2021-08-10] MEDS: INVEST MED MK-8189-008-02 MISC 1 DOSE PO SCH (20:18)
[2021-08-10] MEDS: ZOLPIDEM TARTRATE 10 MG TABLET PO PRN (20:19)
--- NOTE | 2021-08-11 06:42 | NUR ---
MS RN CLOSING NOTE PATIENT IS ASLEEP IN BED. A/OX4. NO S/S OF DISTRESS, BREATHING SYMMETRICAL; NO IV OR IVF. NO PAIN NOTED. SAFETY MEASURES IN PLACE: BED AT LOWEST POSITION, RAILS UP X2, CALL KAUFFMAN WITHIN REACH. WILL ENDORSE TO NEXT SHIFT FOR AVANI.
--- NOTE | 2021-08-11 07:55 | NUR ---
MS RN OPENING NOTES RECEIVED PT IN BED, AWAKE, PATIENT IS ALERT AND ORIENTEDx 4, ABLE TO MAKE NEEDS KNOWN. ON ROOM AIR, TOLERATING WELL. BREATHING IS UNLABORED AND EVEN. NO SOB NOTED. WITH NO IV ACCESS. SAFETY MEASURES ENSURED WITH SIDE RAILS RAISED, BED IN LOWEST, LOCKED POSITION WITH BRAKES ON. CALL LIGHT WITHIN REACH AT ALL TIMES. WILL CONTINUE TO MONITOR PATIENT.
[2021-08-11 08:00] VITALS: BP 95/58
--- NOTE | 2021-08-11 19:22 | NUR ---
MS RN OPENING NOTE PATIENT RECEIVED IN ROOM. A/OX4. NO S/S OF DISTRESS; NO IV OR IVF. SAFETY MEASURES IN PLACE: BED AT LOWEST POSITION, RAILS UP X2, CALL KAUFFMAN WITHIN REACH. WILL CONTINUE TO MONITOR PATIENT THROUGHOUT SHIFT.
[2021-08-11] MEDS: INVEST MED MK-8189-008-02 MISC 1 DOSE PO SCH (20:32)
[2021-08-11 20:34] VITALS: BP 115/78
--- NOTE | 2021-08-12 06:34 | NUR ---
MS RN CLOSING NOTE PATIENT ASLEEP IN BED. A/OX4. NO S/S OF DISTRESS, BREATHING SYMMETRICAL. SAFETY MEASURES IN PLACE. BED AT LOWEST POSITION, RAILS UP X2, CALL KAUFFMAN WITHIN REACH. WILL ENDORSE TO NEXT SHIFT FOR AVANI.
[2021-08-12 08:00] VITALS: BP 100/60
--- NOTE | 2021-08-12 08:03 | NUR ---
RN note Patient received in bed, AO x 4, able to responds all stimuli. Skin is warm to touch, keep clean/dry. Patient does no c/o pain or discomfort at this time. Patient able to reposition self. Respiratory even and unlabored on room air, no SOB observed. Call light within reach, kept elevated HOB and lower bed position for safety. Will continue to monitor.
--- NOTE | 2021-08-12 18:00 | NUR ---
RN Closing Note Patient remains AO x 4. Respiratory even and unabashed on room air. Denies pain or discomfort. Skin is warm to touch, keep clean/dry, intact. Kept elevated HOB for airway and lower position of the bed for safety. Call light within reach, all needs met. will endorse shift leader.
--- NOTE | 2021-08-12 19:00 | NUR ---
Patient left room at 0800 and has no been back yet. Who investigational med at 1999. Informed Dr. Reynaga.
--- NOTE | 2021-08-12 19:10 | NUR ---
RN NOTES PATIENT CURRENTLY NOT IN HIS ROOM AT THIS TIME. PER ENDORSEMENT FROM DAY SHIFT NURSE PATIENT HAS BEEN GONE SINCE 8:[address] CARBAJAL NOTIFIED BY AM SHIFT RN. WELL CHARGE NURSE DAYANA MADE AWARE.
[2021-08-12] MEDS: INVEST MED MK-8189-008-02 MISC 1 DOSE PO SCH ×2 (20:00→22:27)
[2021-08-12 22:23] VITALS: BP 116/77
--- NOTE | 2021-08-12 22:23 | NUR ---
MS RN NOTES PATIENT CAME BACK TO THE UNIT AT 2222. PATIENT SIGNED THE LOG BOOK. DR. CARBAJAL NOTIFIED THAT PATIENT RETURNED AT THIS TIME. ADMINISTERED INVESTIGATIONAL MEDS AT 7. AWARE. WILL CONTINUE TO MONITOR THROUGHOUT THE SHIFT.
[2021-08-13] VITALS: BP 116/77
--- NOTE | 2021-08-13 06:29 | NUR ---
MS RN CLOSING NOTES PATIENT IN BED SLEEPING COMFORTABLY, AROUSES EASILY. ON ROOM AIR TOLERATING WELL, WITH EQUAL AND UNLABORED BREATHING. NO SOB, NO S/S OF RESPIRATORY DISTRESS NOTED. WITH NO COMPLAINTS OF PAIN OR DISCOMFORT. NO IV ACCESS. AMBULATORY. DENIES SI/HI/AVH AT THIS TIME. PATIENT IS COMPLIANT WITH TREATMENT AND MEDS. SAFETY MEASURES ENSURED WITH BED LOCKED AND AT LOWEST POSITION. CALL LIGHT WITHIN REACH AT ALL TIMES. WILL ENDORSE TO AM NURSE FOR CONTINUITY OF CARE.
--- NOTE | 2021-08-13 07:30 | NUR ---
RN MS NOTES PT IN BED, ASLEEP, EASY TO AROUSE, ALERT AND ORIENTED, NO BEHAVIOR PROBLEM AT THIS TIME.
[2021-08-13 08:00] VITALS: BP 90/52
[2021-08-13 16:00] VITALS: BP 127/79
--- NOTE | 2021-08-13 18:19 | NUR ---
RN MS NOTES PT NOT IN HIS ROOM AT THIS TIME, STEPPED OUT AT AROUND 5:30PM BUT DID NOT LOG OUT, DR. CARBAJAL MADE ROUNDS AND IS AWARE, NO BEHAVIOR PROBLEM NOTED DURING THE SHIFT, PT STAYED MOST OF THE DAY IN HIS ROOM, NO OTHER COMPLAINT NOTED.
--- NOTE | 2021-08-13 19:30 | NUR ---
MS RN OPENING PATIENT BARELY CAME BACK AND LEFT AGAIN PER CHARGE NURSE. PER PATIENT HE'S GOING TO TAKE 15 MINUTES ONLY.
[2021-08-13] MEDS: INVEST MED MK-8189-008-02 MISC 1 DOSE PO SCH (20:09)
--- NOTE | 2021-08-13 20:09 | NUR ---
MS RN NOTE PATIENT CAME BACK AT THIS TIME HENCE INVESTIGATIONAL DRUG GIVEN LATE. AT THIS TIME. PER PATIENT HE WENT TO SEE HIS BROTHER DOWNSTAIRS THAT HE HAS NOT SEEN FOR DECADES.
[2021-08-13 20:41] VITALS: BP 119/87
[2021-08-13] MEDS: ZOLPIDEM TARTRATE 10 MG TABLET PO PRN (22:28)
--- NOTE | 2021-08-13 22:30 | NUR ---
MS RN NOTE PATIENT GIVEN AMBIEN PER PATIENT REQUEST. NEXT HOLD DATE 08/15/21.
--- NOTE | 2021-08-13 22:36 | NUR ---
MS RN NOTE PATIENT SEEMS RESTLESS, JITTERY. TALKED TO THE PATIENT AND DID FURTHER INVESTIGATION. PER PATIENT HE HAS BEEN DRINKING TOO MUCH CAFFEINE HE SUPPOSED AND HE HAS ADHD. I DID SEE TWO LARGE CANS OF RED BULL AT PATIENT BED SIDE TABLE AND A LITTER OF [place]. DID PATIENT TEACHING WITH PATIENT ABOUT LIMITING CAFFEINE INTAKE ESPECIALLY WITH ALL THE MEDICATION HE IS TAKING. PATIENT ACKNOWLEDGED AND PER PATIENT HE JUST HAD 1 CAN OF RED BULL THIS MORNING. ASKED PATIENT IF HE IS EXPERIENCING ANY PILL ROLLING OUT OF NOWHERE AND PATIENT DENIES. PATIENT SEEM TO BE STILL WHEN SITTING DOWN. DENIES ANY HALLUCINATIONS/HEARING VOICES -- WILL CONTINUE TO MONITOR PATIENT FOR NOW.
--- NOTE | 2021-08-14 07:41 | NUR ---
ms rn note report given to Negrita for continuity of care.
[2021-08-14 08:25] VITALS: BP 106/73
--- NOTE | 2021-08-14 18:11 | NUR ---
RN Closing Note Patient remains AO x 4. Respiratory even and unabashed on room air. Denies pain or discomfort. Skin is warm to touch, keep clean/dry, intact. Kept elevated HOB for airway and lower position of the bed for safety. Call light within reach, all needs met. will endorse windows support engineer.
--- NOTE | 2021-08-14 19:45 | NUR ---
MS RN OPENING NOTE PATIENT RECEIVED AWAKE IN BED. A/OX4. NO S/S OF DISTRESS, BREATHING SYMMETRICAL. SAFETY MEASURES IN PLACE: BED AT LOWEST POSITION, RAILS UP X2, CALL KAUFFMAN WITHIN REACH. WILL CONTINUE TO MONITOR PATIENT.
[2021-08-14 20:00] VITALS: BP 117/76
[2021-08-14] MEDS: ZOLPIDEM TARTRATE 10 MG TABLET PO PRN (20:14)
[2021-08-14] MEDS: INVEST MED MK-8189-008-02 MISC 1 DOSE PO SCH (20:14)
--- NOTE | 2021-08-15 07:02 | NUR ---
MS RN CLOSING NOTE PATIENT IS ASLEEP IN BED. A/OX4. NO S/S OF DISTRESS, BREATHING SYMMETRICAL AND UNLABORED. SAFETY MEASURES IN PLACE: BED AT LOWEST POSITION, RAILS UP X2, CALL KAUFFMAN WITHIN REACH. WILL ENDORSE TO NEXT SHIFT FOR AVANI.
--- NOTE | 2021-08-15 07:54 | NUR ---
RN OPENING NOTES PATIENT IN BED RESTING, AWAKE. A/O X4. NO S/S OF PAIN NOTED AT THIS TIME. ON ROOM AIR, NO DISTRESS OR SHORTNESS OF BREATH NOTED. NO IV ACCESS. FALL AND SAFETY MEASURES IN PLACE, BED IN LOW AND LOCK POSITION, CALL LIGHT AND TABLE WITHIN EASY REACH. WILL CONTINUE TO MONITOR.
[2021-08-15 08:26] VITALS: BP 95/52
[2021-08-15] MEDS ORDERED: LORAZEPAM 1 MG TABLET FOR AGITATION PO PRN (12:00)
[2021-08-15 16:24] VITALS: BP 108/78
--- NOTE | 2021-08-15 19:04 | NUR ---
RN CLOSING NOTES PATIENT IN BED RESTING, AWAKE. A/O X4. NO S/S OF PAIN NOTED AT THIS TIME. ON ROOM AIR, NO DISTRESS OR SHORTNESS OF BREATH NOTED. NO IV ACCESS. FALL AND SAFETY MEASURES IN PLACE, BED IN LOW AND LOCK POSITION, CALL LIGHT AND TABLE WITHIN EASY REACH. WILL ENDORSE TO GAS METER REPAIRER.
[2021-08-15 20:00] VITALS: BP 116/79
[2021-08-15] MEDS: INVEST MED MK-8189-008-02 MISC 1 DOSE PO SCH (20:49)
--- NOTE | 2021-08-16 07:53 | NUR ---
RN OPENING NOTES RECEIVED PATIENT IN BED RESTING, AWAKE. A/O X4. NO S/S OF PAIN NOTED AT THIS TIME. ON ROOM AIR, NO DISTRESS OR SHORTNESS OF BREATH NOTED. NO IV ACCESS. FALL AND SAFETY MEASURES IN PLACE, BED IN LOW AND LOCK POSITION, CALL LIGHT AND TABLE WITHIN EASY REACH.
[2021-08-16 08:00] VITALS: BP 104/57
--- NOTE | 2021-08-16 09:28 | NUR ---
RN NOTES RECEIVED REPORT FROM MS HAIRSTON. PATIENT IS ON BED, AWAKE, IN NO ACUTE DISTRESS NOTED. NO UNTOWARD BEHAVIOR NOTED. WILL CONTINUE TO MONITOR ACCORDINGLY.
[2021-08-16 10:28] VITALS: BP 84/47
[2021-08-16 11:58] VITALS: BP 104/57
--- NOTE | 2021-08-16 18:49 | NUR ---
MS RN CLOSING NOTES PATIENT IN BED RESTING, AWAKE. A/O X4. NO S/S OF PAIN NOTED AT THIS TIME. ON ROOM AIR, NO DISTRESS OR SHORTNESS OF BREATH NOTED. NO IV ACCESS. FALL AND SAFETY MEASURES IN PLACE, BED IN LOW AND LOCK POSITION, NO S/SX OF EMS, NO HALLUCINATIONS NOTED DURING THE SHIFT. CALL LIGHT AND TABLE WITHIN EASY REACH. ALL NEEDS ATTENDED AND MET. WILL ENDORSE TO ONCOMING SHIFT FOR AVANI.
--- NOTE | 2021-08-16 19:10 | NUR ---
MS RN OPENING NOTES: RECEIVED PATIENT INSIDE THE ROOM, A/O X4. NO COMPLAIN OF PAIN. NO S/S OF DISTRESS NOTED. PATIENT IS CALM, HAPPY AND COOPERATIVE.
[2021-08-16 20:00] VITALS: BP 110/74
[2021-08-16] MEDS: INVEST MED MK-8189-008-02 MISC 1 DOSE PO SCH (20:55)
--- NOTE | 2021-08-17 07:30 | NUR ---
RN MS NOTES PT IN HIS ROOM SLEEPING, NO SIGN OF PAIN OR DISTRESS, CALL LIGHT WITHIN REACH.
[2021-08-17 08:00] VITALS: BP 105/50
[2021-08-17 16:00] VITALS: BP 108/68
--- NOTE | 2021-08-17 18:26 | NUR ---
RN MS NOTES PT AWAKE, ALERT AND ORIENTED, AMBULATES WITH STEADY GAIT, STATED THAT HE WILL BE GOING DOWN TO SMOKE, REMINDED PT TO SIGN AT THE LOG BOOK, NO BEHAVIOR PROBLEM DURING THE SHIFT.
--- NOTE | 2021-08-17 19:25 | NUR ---
RN NOTE PT IN ROOM, ALERT/ORIENTED, DENIES ANY PAIN OR DISCOMFORT. INDEPENDENT WITH ADL'S. AMBULATORY WITH STEADY GAIT. SAFETY INSTRUCTIONS PROVIDED AND PT VERBALIZED UNDERSTANDING. WILL CONT TO MONITOR.
[2021-08-17 20:00] VITALS: BP 118/74
[2021-08-17] MEDS: INVEST MED MK-8189-008-02 MISC 1 DOSE PO SCH (20:12)
[2021-08-17] MEDS: ZOLPIDEM TARTRATE 10 MG TABLET PO PRN (23:27)
--- NOTE | 2021-08-18 07:06 | NUR ---
RN CLOSING NOTE PT SLEPT WELL DURING THE NIGHT. NO ACUTE EVENTS. NO BEHAVIORAL ISSUES THIS SHIFT. SAFETY MEASURES MAINTAINED.
[2021-08-18 08:00] VITALS: BP 83/49
--- NOTE | 2021-08-18 08:15 | NUR ---
MS RN OPENING NOTE Patient in bed, asleep. A/O x 4, able to make needs known. On room air, breathing evenly and unlabored. No SOB or s/s of distress noted. No IV access due to clinical trial status. Safety measures in place: bed in low, locked position; siderails up x 2; call light within reach. Will continue to monitor.
[2021-08-18 16:00] VITALS: BP 106/77
--- NOTE | 2021-08-18 19:10 | NUR ---
POLL WATCHER OPENING NOTES RECEIVED PATIENT LAYING AWAKE IN BED. A/O X4. PATIENT WITH REGULAR AND UNLABORED BREATHING ON ROOM AIR TOLERATED WELL. NO SIGNS AND SYMPTOMS OF DISTRESS NOTED AT THIS TIME. NO COMPLAINS OF PAIN OR DISCOMFORT AT THIS TIME. SAFETY PRECAUTIONS ENFORCED BED LOCKED AND AT LOWEST POSITION. SIDERAILS UP X2. CALL LIGHT WITHIN REACH AT ALL TIMES. WILL CONTINUE TO MONITOR PATIENT. Addendum: 08/18/21 at 2308 by SAMINA ZUNIGA RN MS RN OPENING NOTES
--- NOTE | 2021-08-18 19:27 | NUR ---
MS RN CLOSING NOTE Patient in bed, awake. A/O x 4, able to make needs known. On room air, breathing evenly and unlabored. No SOB or s/s of distress noted. No IV access due to clinical trial status. Safety measures maintained: bed in low, locked position; siderails up x 2; call light within reach. Will endorse to aircraft maintenance supervisor nurse for AV[facility].
[2021-08-18 20:00] VITALS: BP 111/79
[2021-08-18] MEDS: INVEST MED MK-8189-008-02 MISC 1 DOSE PO SCH (20:18)
[2021-08-18] MEDS: ZOLPIDEM TARTRATE 10 MG TABLET PO PRN (22:52)
--- NOTE | 2021-08-19 07:14 | NUR ---
MS RN CLOSING NOTES PATIENT STILL LAYING AWAKE IN BED. A/O X4. PATIENT WITH REGULAR AND UNLABORED BREATHING ON ROOM AIR TOLERATED WELL. NO SIGNS AND SYMPTOMS OF DISTRESS NOTED AT THIS TIME. NO COMPLAINS OF PAIN OR DISCOMFORT AT THIS TIME. SAFETY PRECAUTIONS ENFORCED BED LOCKED AND AT LOWEST POSITION. SIDERAILS UP X2. CALL LIGHT WITHIN REACH AT ALL TIMES. WILL ENDOSE CONTINUITY OF CARE TO DAY SHIFT NURSE.
--- NOTE | 2021-08-19 07:39 | NUR ---
RN OPENING NOTES Patient seen comfortably lying in bed, no apparent distress noted, respirations even and unlabored, no SOB, denies any pain or discomfort at this time, no grimacing. Call light left within reach, safety precautions in place, brakes locked, side rails up X 2, will monitor closely for any changes.
[2021-08-19 08:16] VITALS: BP 90/56
--- NOTE | 2021-08-19 18:22 | NUR ---
RN CLOSING NOTES Patient lying in bed, AO X 4, no SOB, breathing even and unlabored, denies any pain or discomfort, no apparent distress noted. Patient on monitoring for tremors, none noted during shift, no hallucinations, and no delusions during shift. Kept clean and dry, all needs attended, call light left within reach, safety precautions in place, brakes locked, side rails up X 2, will endorse to next shift for continuity of care.
--- NOTE | 2021-08-19 19:15 | NUR ---
MS RN OPENING NOTES: RECEIVED PATIENT THE ROOM, AWAKE, AMBULATORY. NO S/S OF DISTRESS NOTED. NO COMPLAIN OF PAIN. A/O X4. APPEARS HAPPY.
[2021-08-19] MEDS: INVEST MED MK-8189-008-02 MISC 1 DOSE PO SCH (19:59)
[2021-08-19 20:00] VITALS: BP 114/72
[2021-08-19] MEDS: ZOLPIDEM TARTRATE 10 MG TABLET PO PRN (21:58)
--- NOTE | 2021-08-20 08:00 | NUR ---
RN OPENING NOTES PATIENT IS IN BED RESTING, AWAKE. A/O X4. NO S/S OF PAIN NOTED AT THIS TIME. ON ROOM AIR, NO DISTRESS OR SHORTNESS OF BREATH NOTED. NO IV ACCESS. FALL AND SAFETY MEASURES IN PLACE, BED IN LOW AND LOCK POSITION, CALL LIGHT AND TABLE WITHIN EASY REACH. WILL CONTINUE TO MONITOR.
[2021-08-20 08:34] VITALS: BP 82/52
[2021-08-20 20:00] VITALS: BP 120/79
[2021-08-20] MEDS: INVEST MED MK-8189-008-02 MISC 1 DOSE PO SCH (20:07)
--- NOTE | 2021-08-20 20:10 | NUR ---
RN CLOSING NOTES PATIENT IS IN BED RESTING, AWAKE. A/O X4. NO S/S OF PAIN NOTED AT THIS TIME. ON ROOM AIR, NO DISTRESS OR SHORTNESS OF BREATH NOTED. NO IV ACCESS. FALL AND SAFETY MEASURES IN PLACE, BED IN LOW AND LOCK POSITION, CALL LIGHT AND TABLE WITHIN EASY REACH. WILL ENDORSE TO INDUSTRIAL PLANT CUSTODIAN.
--- NOTE | 2021-08-20 20:11 | NUR ---
PER PATIENT HE WENT OUTSIDE THE BUILDING TO [employer] [facility] AND TO SMOKE. PATIENT IS INSIDE THE ROOM, MEDS GIVEN PO. NO S/S OF DISTRESS NOTED. NO COMPLAIN OF PAIN. A/O X4. ASKED PATIENT IF HE IS HEARING VOICES, PATIENT REPLIED NO, HE SAID" I LIKE MY ROOM". PATIENT APPEARS HAPPY.
--- NOTE | 2021-08-21 07:45 | NUR ---
RN OPENING NOTES RECEIVED Pt RESTING IN BED, AWAKE. A/O X4. NO S/S OF PAIN NOTED AT THIS TIME. ON ROOM AIR, NO DISTRESS OR SHORTNESS OF BREATH NOTED. NO IV ACCESS. FALL AND SAFETY MEASURES IN PLACE, BED IS LOCKED AND IN LOWEST POSITION, CALL LIGHT AND BED SIDE TABLE WITHIN REACH. WILL CONTINUE TO MONITOR THROUGHOUT THE SHIFT.
[2021-08-21 08:18] VITALS: BP 90/48
[2021-08-21 16:21] VITALS: BP 116/72
--- NOTE | 2021-08-21 18:27 | NUR ---
RN MS CLOSING NOTES Pt IS IN HIS ROOM RESTING, AWAKE. A/O X4. NO S/S OF PAIN NOTED AT THIS TIME. ON ROOM AIR, NO DISTRESS OR SHORTNESS OF BREATH NOTED. NO IV ACCESS DUE TO CLINICAL TRIAL. FALL AND SAFETY MEASURES IN PLACE, BED IS LOCKED AND IN LOWEST POSITION, CALL LIGHT AND BEDSIDE TABLE WITHIN EASY REACH. WILL ENDORSE TO ONCOMING SHIFT.
[2021-08-21 20:00] VITALS: BP 118/76
[2021-08-21] MEDS: INVEST MED MK-8189-008-02 MISC 1 DOSE PO SCH (20:00)
[2021-08-21] MEDS: ZOLPIDEM TARTRATE 10 MG TABLET PO PRN (20:06)
--- NOTE | 2021-08-22 07:30 | NUR ---
RN MS NOTES PT IN BED, ASLEEP, EASY TO AROUSE, ALERT AND ORIENTED, NO COMPLAINT OF PAIN OR ANY DISCOMFORT, NO BEHAVIOR PROBLEM AT THIS TIME.
[2021-08-22 08:00] VITALS: BP 88/48
[2021-08-22 10:49] VITALS: BP 88/48
[2021-08-22 16:00] VITALS: BP 103/61
--- NOTE | 2021-08-22 18:23 | NUR ---
RN MS NOTES PT AWAKE, WALKING INSIDE HIS ROOM, ALERT AND ORIENTED, NO BEHAVIOR PROBLEM DURING THE SHIFT, COOPERATIVE WITH STAFF.
--- NOTE | 2021-08-22 19:43 | NUR ---
RN OPENING NOTES RECEIVED PT IN BED, AWAKE. AOx4, ABLE TO MAKE NEEDS KNOWN. ON RA AND TOLERATING WELL. NO SOB NOTED. CLINICAL TRIAL PATIENT SO NO IV ACCESS. SAFETY PRECAUTIONS IN PLACE: BED IN LOWEST, LOCKED POSITION, SIDERAILS UPx2, AND BRAKES ON. TABLE AND CALL LIGHT WITHIN REACH. WILL CONTINUE TO MONITOR.
[2021-08-22] MEDS: INVEST MED MK-8189-008-02 MISC 1 DOSE PO SCH (19:58)
--- NOTE | 2021-08-22 20:00 | NUR ---
ADMINISTERED ATIVAN PER PATIENT REQUEST. VS WNL. WILL CONTINUE TO MONITOR.
[2021-08-22 21:04] VITALS: BP 109/79
--- NOTE | 2021-08-23 06:29 | NUR ---
RN CLOSING NOTES PT IN BED, AWAKE. AOx4, ABLE TO MAKE NEEDS KNOWN. ON RA AND TOLERATING WELL. NO SOB NOTED. CLINICAL TRIAL PATIENT SO NO IV ACCESS. ALL NEEDS MET. PT KEPT CLEAN AND DRY. ADMINISTERED INVESTIGATIONAL MEDICATION. SAFETY PRECAUTIONS IN PLACE: BED IN LOWEST, LOCKED POSITION, SIDERAILS UPx2, AND BRAKES ON. TABLE AND CALL LIGHT WITHIN REACH. WILL ENDORSE TO ONCOMING SHIFT FOR AVANI.
--- NOTE | 2021-08-23 07:45 | NUR ---
MS RN OPENING NOTES PT IN BED, AWAKE. AOx4, ABLE TO MAKE NEEDS KNOWN. ON RA AND TOLERATING WELL. NO SOB NOTED. CLINICAL TRIAL PATIENT SO NO IV ACCESS. SAFETY PRECAUTIONS IN PLACE: BED IN LOWEST, LOCKED POSITION, SIDE RAILS UPx2, AND BRAKES ON, CALL LIGHT WITHIN REACH. WILL CONTINUE TO MONITOR PATIENT.
[2021-08-23 08:37] VITALS: BP 96/49
[2021-08-23] MEDS ORDERED: ZOLPIDEM TARTRATE 10 MG TABLET PO PRN (12:00)
[2021-08-23 16:18] VITALS: BP 110/81
[2021-08-23 20:00] VITALS: BP 106/72
[2021-08-23] MEDS: INVEST MED MK-8189-008-02 MISC 1 DOSE PO SCH (20:10)
[2021-08-23] MEDS: LORAZEPAM 1 MG TABLET FOR AGITATION PO PRN (20:44)
--- NOTE | 2021-08-23 20:58 | NUR ---
MS RN NOTES PRN ATIVAN GIVEN PER PT REQUEST PT TOLERATED WELL. WILL CONTINUE TO MONITOR.
[2021-08-24] MEDS: ACETAMINOPHEN ES 500 MG TABLET PO PRN ×2 (04:39→04:43)
--- NOTE | 2021-08-24 06:57 | NUR ---
MS RN CLOSING NOTES PT IN BED, AWAKE. AOx4, ABLE TO MAKE NEEDS KNOWN. ON RA AND TOLERATING WELL. NO SOB NOTED. CLINICAL TRIAL PATIENT SO NO IV ACCESS. SAFETY PRECAUTIONS IN PLACE: BED IN LOWEST, LOCKED POSITION, SIDE RAILS UPx2, AND BRAKES ON, CALL LIGHT WITHIN REACH. WILL ENDORSE CARE TO DAY SHIFT NURSE.
--- NOTE | 2021-08-24 07:30 | NUR ---
M/S TIMBER TREATMENT PLANT OPERATOR: NOTES RECEIVED PT IN BED ASLEEP, BUT EASILY AROUSABLE. NO DISTRESS NOTED. WILL CONTINUE TO MONITOR.
--- NOTE | 2021-08-24 10:00 | NUR ---
m/s carbide grinder: notes up and about in floor. no distress noted. will continue to monitor.
[2021-08-24 16:00] VITALS: BP 102/62
--- NOTE | 2021-08-24 19:00 | NUR ---
m/s medical billing associate: notes report given to yamileth (rn) for continuity of care.
--- NOTE | 2021-08-24 19:50 | NUR ---
MS RN OPENING NOTES RECEIVED PATIENT LAYING AWAKE IN BED. A/O X4. PATIENT WITH REGULAR AND UNLABORED BREATHING ON ROOM AIR TOLERATED WELL. NO SIGNS AND SYMPTOMS OF DISTRESS NOTED AT THIS TIME. NO COMPLAINS OF PAIN OR DISCOMFORT AT THIS TIME. SAFETY PRECAUTIONS ENFORCED BED LOCKED AND AT LOWEST POSITION. SIDERAILS UP X2. CALL LIGHT WITHIN REACH AT ALL TIMES. WILL CONTINUE TO MONITOR PATIENT.
[2021-08-24 20:00] VITALS: BP 114/80
[2021-08-24] MEDS: INVEST MED MK-8189-008-02 MISC 1 DOSE PO SCH (21:31)
[2021-08-24] MEDS: LORAZEPAM 1 MG TABLET FOR AGITATION PO PRN (21:40)
[2021-08-25 08:00] VITALS: BP 91/61
--- NOTE | 2021-08-25 08:01 | NUR ---
MS RN CLOSING NOTES PATIENT STILL LAYING AWAKE IN BED. A/O X4. PATIENT WITH REGULAR AND UNLABORED BREATHING ON ROOM AIR TOLERATED WELL. NO SIGNS AND SYMPTOMS OF DISTRESS NOTED AT THIS TIME. NO COMPLAINS OF PAIN OR DISCOMFORT AT THIS TIME. SAFETY PRECAUTIONS ENFORCED BED LOCKED AND AT LOWEST POSITION. SIDERAILS UP X2. CALL LIGHT WITHIN REACH AT ALL TIMES. WILL ENDORSE AVANI TO DAY SHIFT NURSE..
--- NOTE | 2021-08-25 08:02 | NUR ---
MS RN OPENING NOTE Patient in bed, asleep. A/O x 4. On room air, breathing evenly and unlabored. No SOB or s/s of distress noted. No IV access due to clinical trial status. Safety precautions in place: bed in low, locked position; siderails up x 2; call light within reach. Will continue to monitor.
[2021-08-25 16:00] VITALS: BP 115/81
--- NOTE | 2021-08-25 18:59 | NUR ---
MS RN CLOSING NOTE Patient in bed, awake. A/O x 4, able to make needs known. Stable on room air. No SOB or s/s of distress noted. Patient denies any tremors or hallucinations at this time. No IV access due to clinical trial status. Safety precautions maintained: bed in low, locked position; siderails up x 2; call light within reach. Will endorse to ergonomics consultant nurse for AVANI.
--- NOTE | 2021-08-25 20:00 | NUR ---
PATIENT IN ROOM, ENJOYING DINNER, CALM, PLEASANT, NO REPORT OF HALLUCINATIONS, VISUAL OR AUDITORY, WILL GIVE INVESTIGATIONAL DRUG ON TIME.
[2021-08-25] MEDS: INVEST MED MK-8189-008-02 MISC 1 DOSE PO SCH (20:28)
[2021-08-25 20:36] VITALS: BP 112/78
[2021-08-25] MEDS: LORAZEPAM 1 MG TABLET FOR AGITATION PO PRN (22:55)
[2021-08-26 09:26] VITALS: BP 86/46
[2021-08-26 16:05] VITALS: BP 113/65
--- NOTE | 2021-08-26 19:25 | NUR ---
MS RN CLOSING NOTE Patient standing in room, talking to someone on the phone. A/O x 4, able to make needs known. Stable on room air. No SOB or s/s of distress noted. Patient denies any tremors or hallucinations, auditory or visual, at this time. No IV access due to clinical trial status. Safety precautions maintained: bed in low, locked position; siderails up x 2; call light within reach. Will endorse to shift production associate nurse for [facility].
--- NOTE | 2021-08-26 19:50 | NUR ---
MS RN OPENING NOTE Patient in bed, awake. A/O x 4. On room air, breathing evenly and unlabored. No SOB or s/s of distress noted. No IV access due to clinical trial status. goes for smoke breaks. Safety precautions in place: bed in low, locked position; side rails up x 2; call light within reach. Will continue to monitor.
[2021-08-26 19:55] VITALS: BP 98/73
--- NOTE | 2021-08-26 20:15 | NUR ---
RN NOTE PATIENT WENT FOR SMOKE BREAK AND CAM BACK TO THE UNIT.
[2021-08-26] MEDS: INVEST MED MK-8189-008-02 MISC 1 DOSE PO SCH (20:23)
[2021-08-26 20:41] VITALS: BP 98/73
[2021-08-26] MEDS: LORAZEPAM 1 MG TABLET FOR AGITATION PO PRN (21:27)
--- NOTE | 2021-08-26 21:29 | NUR ---
MS RN NOTE: ANXIETY PATIENT C/O FEELING ANXIOUS AND RESTLESS AND REQUESTED TO TAKE ATIVAN AT THIS TIME. PER PATIENT REQUEST, PRN ATIVAN 1 MG PO ADMINISTERED.
--- NOTE | 2021-08-27 06:25 | NUR ---
MS RN CLOSING NOTE PATIENT SLEPT WELL AT NIGHT. A & O X 4, NO BEHAVIOR EPISODE NOTED. PATIENT WAS CALM, COOPERATIVE AND REDIRECTABLE. PATIENT DENIES TREMORS, AUDITORY/VISUAL HALLUCINATIONS. HAD SNACK AT NIGHT AND TOLERATED WELL. MED COMPLAINT. AMBULATORY, STEADY, TAKES SMOKE BREAKS. WILL ENDORSE TO AM RN FOR CONTINUITY OF CARE.
--- NOTE | 2021-08-27 08:00 | NUR ---
RN Note Patient received in bed AO x 4, able to responds all stimuli. Respiratory even and unlabored on room air, no SOB observed. Skin is warm to touch, keep clean/dry. Patient does no appears pain or discomfort this morning. Call light within reach, kept elevated HOB for ensure airway and lower bed position for safety. Will continue to monitor.
--- NOTE | 2021-08-27 18:31 | NUR ---
RN Closing Note Patient remains AO x 4. Denies pain or discomfort, respiratory even and unlabored on room air. Skin is warm to touch, keep clean/dry, intact. Kept elevated HOB for ensure airway and lower position of the bed for safety. Call light within reach, all needs met. will endorse warehouse shift supervisor.
[2021-08-27 20:00] VITALS: BP 111/74
[2021-08-27] MEDS: INVEST MED MK-8189-008-02 MISC 1 DOSE PO SCH (20:05)
--- NOTE | 2021-08-28 06:52 | NUR ---
RN NOTE: Patient resting his room, awake alert. A/O x 4. On room air, breathing evenly and unlabored. No SOB or s/s of distress noted. pt. clinical trial status. goes for smoke breaks. Safety precautions in place: bed in low, locked position; side rails up x 2; call light within reach. Will continue to monitor.
--- NOTE | 2021-08-28 06:53 | NUR ---
RN NOTE: PATIENT SLEPT WELL AT NIGHT, NO BEHAVIOR EPISODE NOTED. PATIENT WAS CALM, COOPERATIVE AND REDIRECTABLE. PATIENT DENIES TREMORS, AUDITORY/VISUAL HALLUCINATIONS. HAD SNACK AT NIGHT AND TOLERATED WELL. MED COMPLAINT. AMBULATORY, STEADY, TAKES SMOKE BREAKS. WILL ENDORSE TO AM RN FOR CONTINUITY OF CARE.
--- NOTE | 2021-08-28 07:50 | NUR ---
RN OPENING NOTES PATIENT AWAKE IN BED RESTING, AWAKE. A/O X4. NO S/S OF PAIN NOTED AT THIS TIME,ON ROOM AIR NO DISTRESS OR SHORTNESS OF BREATH NOTED. NO IV ACCESS, INTACT AND PATENT. FALL AND SAFETY MEASURES IN PLACE, BED IN LOW AND LOCK POSITION, CALL LIGHT AND TABLE WITHIN EASY REACH, SIDE RAILS UP X2. WILL CONTINUE TO MONITOR.
[2021-08-28 08:25] VITALS: BP 83/53
[2021-08-28 16:14] VITALS: BP 111/75
--- NOTE | 2021-08-28 19:12 | NUR ---
RN CLOSING NOTES PATIENT AWAKE IN BED RESTING, AWAKE. A/O X4. NO S/S OF PAIN NOTED AT THIS TIME,ON ROOM AIR NO DISTRESS OR SHORTNESS OF BREATH NOTED. NO IV ACCESS, INTACT AND PATENT. FALL AND SAFETY MEASURES IN PLACE, BED IN LOW AND LOCK POSITION, CALL LIGHT AND TABLE WITHIN EASY REACH, SIDE RAILS UP X2. WILL ENDORSE TO TREATMENT COUNSELOR.
[2021-08-28] MEDS: INVEST MED MK-8189-008-02 MISC 1 DOSE PO SCH (20:03)
--- NOTE | 2021-08-28 21:50 | NUR ---
CT RN NOTE PATIENT AWAKE IN ROOM WATCHING TV, ALERT/ORIENTED X 4, PT ABLE TO MAKE NEEDS KNOWN. PATIENT DENIES PAIN OR DISCOMFORT AT THIS TIME. PATIENT AMBULATORY AND STEADY. NO IV ACCESS DUE TO CLINICAL TRIAL STATUS. PT STABLE ON RA, NO S/S OF DISTRESS OR SOB NOTED, BREATHING EVEN AND UNLABORED. SAFETY MEASURES IN PLACE: CALL LIGHT WITHIN REACH, SIDE RAILS UP X 2, BED LOCKED IN LOW POSITION. WILL CONTINUE TO MONITOR PATIENT
--- NOTE | 2021-08-29 07:22 | NUR ---
RN CLOSING NOTES PATIENT RESTING IN BED. NO S/S OF DISTRESS OR SOB NOTED AT THIS TIME, PT STABLE ON ROOM AIR, BREATHING EVEN AND UNLABORED. PT DENIES ADVERSE SYMPTOMS FROM INVESTIGATIONAL MEDS. MEDICATION GIVEN ORDERED, PT NEEDS MET THROUGHOUT SHIFT. SAFETY PRECAUTIONS IN PLACE: BED LOCKED IN LOW POSITION, SIDE RAILS UP X 2, CALL LIGHT AND TABLE WITHIN EASY REACH. WILL ENDORSE TO DAY SHIFT NURSE FOR CONTINUITY OF CARE
--- NOTE | 2021-08-29 19:30 | NUR ---
MS RN OPENING RECEIVED PATIENT IN ROOM DURING [facility] REPORT. NO S/S OF APPARENT DISTRESS. NO C/O PAIN. PATIENT REMINDED THAT HE IS TO BE NPO AFTER TONIGHT, PATIENT STATE ACKNOWLEDGEMENT. ALSO HOLDING ATIVAN AND GIDEONIEN, PATIENT AWARE. WILL CONTINUE WITH PLAN OF CARE.
--- NOTE | 2021-08-29 19:46 | NUR ---
RN CLOSING NOTES PATIENT AWAKE IN BED RESTING, AWAKE. A/O X4. NO S/S OF PAIN NOTED AT THIS TIME,ON ROOM AIR NO DISTRESS OR SHORTNESS OF BREATH NOTED. NO IV ACCESS, INTACT AND PATENT. FALL AND SAFETY MEASURES IN PLACE, BED IN LOW AND LOCK POSITION, CALL LIGHT AND TABLE WITHIN EASY REACH, SIDE RAILS UP X2. WILL CONTINUE TO MONITOR. Addendum: 08/29/21 at 1950 by Dorothy Rivas RN WILL ENDORSE TO BULB TESTER.
[2021-08-29 20:00] VITALS: BP 106/69
[2021-08-29] MEDS: INVEST MED MK-8189-008-02 MISC 1 DOSE PO SCH (20:21)
--- NOTE | 2021-08-29 20:24 | NUR ---
RN NOTE INVESTIGATIONAL DRUG GIVEN LATE. PATIENT WENT DOWN AND JUST GOT BACK AT THIS TIME.
--- NOTE | 2021-08-30 06:35 | NUR ---
CT RN CLOSING NOTE NO SIGNIFICANT CHANGE THE WHOLE SHIFT. DID NOT EXHIBIT ANY EPS, AKATHISIA, NOR ANY PSYCH INSTABILITY. NO S/S OF APPARENT DISTRESS. NO PAIN. KEPT NPO THE WHOLE SHIFT, NO PRN'S GIVEN DOCTOR'S ORDER. PATIENT AWARE AND ACKNOWLEDGES BEING NPO AND CANNOT TAKE ANY AMBIEN AND ATIVAN. WILL ENDORSE TO MORNING SHIFT RN FOR CONTINUITY OF CARE.
[2021-08-30 08:27] VITALS: BP 95/65
--- NOTE | 2021-08-30 08:37 | NUR ---
MS RN OPENING NOTE Patient in bed, awake. A/O x 4, able to make needs known. On room air, breathing evenly and unlabored. No SOB or s/s of distress noted. No IV access due to clinical trial status. Patient kept on NPO, per MD order; for labs this AM. Patient aware and acknowledged being NPO. Safety precautions in place: bed in low, locked position; siderails up x 2; call light within reach. Will continue to monitor.
[2021-08-30] MEDS ORDERED: ZOLPIDEM TARTRATE 10 MG TABLET PO PRN (12:00)
[2021-08-30 16:12] VITALS: BP 116/63
[2021-08-30 20:00] VITALS: BP 114/63
--- NOTE | 2021-08-30 20:04 | NUR ---
MS RN CLOSING NOTE Patient in bed, awake. A/O x 4, able to make needs known. Stable on room air, breathing evenly and unlabored. No SOB or s/s of distress noted. No IV access due to clinical trial status. Patient denies any hallucinations and tremors. Safety precautions maintained: bed in low, locked position; siderails up x 2; call light within reach. Will endorse to security shift manager nurse for AVANI.
--- NOTE | 2021-08-30 20:15 | NUR ---
MS RN OPENING NOTE: RECEIVED REPORT. APPROACHED PATIENT IN ROOM. PATIENT IS COMMUNICATIVE, PLEASANT AND COOPERATIVE. ALERT AND ORIENTED TO PERSON, PLACE, TIME AND SITUATION. PATIENT IS ON UNIT FOR CLINICAL TRIAL MEDICAL DX SCHIZOPHRENIA -- DENIES SI/HI/AH/VH AT PRESENT. NO ASE OBSERVED R/T RX TREATMENT. IN NAD AND VSS AT THIS TIME. OBSERVED TO AMBULATE WITH STEADY GAIT. BED IN LOW, LOCKED POSITION. SIDE RAILS UP X2. DEMONSTRATES ABILITY TO USE CALL LIGHT AND VERBALIZE NEEDS EFFECTIVELY. CALL LIGHT AND FREQUENTLY USED ITEMS WITHIN REACH.
[2021-08-30] MEDS: INVEST MED MK-8189-008-02 MISC 1 DOSE PO SCH (20:30)
--- NOTE | 2021-08-31 06:18 | NUR ---
MS RN CLOSING NOTE: PATIENT SLEPT THROUGHOUT MAJORITY OF SHIFT. EASILY AROUSED BY VOICE COMMAND. MENTATION TO BASELINE. PATIENT IS ON UNIT FOR CLINICAL TRIAL MEDICAL DX SCHIZOPHRENIA -- DENIES SI/HI/AH/VH AT PRESENT. RECEIVED CLINICAL TRIAL MEDICATION PER ORDER. NO ASE OBSERVED/REPORTED R/T RX TREATMENT. IN NAD AND VSS AT THIS TIME. OBSERVED TO AMBULATE WITH STEADY GAIT. BED IN LOW, LOCKED POSITION. SIDE RAILS UP X2. DEMONSTRATES ABILITY TO USE CALL LIGHT AND VERBALIZE NEEDS EFFECTIVELY. CALL LIGHT AND FREQUENTLY USED ITEMS WITHIN REACH.
[2021-08-31 08:00] VITALS: BP 95/57
--- NOTE | 2021-08-31 09:00 | NUR ---
ms rn received patient in room,awake,alert,oriented x4,clinical trial patient,not in any form of distress, will monitor accordingly.
--- NOTE | 2021-08-31 10:00 | NUR ---
ms rn ate breakfast, no due meds at this time.
[2021-08-31 16:00] VITALS: BP 107/67
--- NOTE | 2021-08-31 18:59 | NUR ---
ms rn in the room ,no distress noted,all needs attended.
--- NOTE | 2021-08-31 19:25 | NUR ---
RN OPENING NOTE PATIENT IN THE ROOM, JUST CAME BACK FROM DOWNSTAIRS. PATIENT IS ABLE TO MAKE NEEDS KNOWN, A/O X 4. PATIENT CALM AND COOPERATIVE AT THIS TIME. PATIENT IS ON RA, NO APPARENT DISTRESS TOLERATING WELL. NO REPORTS OF PAIN OR DISCOMFORT. NO IV ACCESS NOTED. SAFETY MEASURES IN PLACE: BED LOCKED AND IN LOWEST POSITION, CALL LIGHT WITHIN REACH, SIDE RAILS UP. WILL MONITOR PATIENT CLOSELY.
--- NOTE | 2021-08-31 20:00 | NUR ---
RN NOTE PATIENT TOOK INVESTIGATIONAL MEDS SUCCESSFULLY. WILL MONITOR PATIENT FOR ANY ADVERSE EFFECTS.
[2021-08-31] MEDS: INVEST MED MK-8189-008-02 MISC 1 DOSE PO SCH (20:01)
--- NOTE | 2021-09-01 07:02 | NUR ---
RN CLOSING NOTE PATIENT IN THE ROOM, SLEEPING. PATIENT IS ABLE TO MAKE NEEDS KNOWN, A/O X 4. PATIENT CALM AND COOPERATIVE AT THIS TIME. PATIENT IS ON RA, NO APPARENT DISTRESS TOLERATING WELL. NO REPORTS OF PAIN OR DISCOMFORT. NO IV ACCESS NOTED. SAFETY MEASURES IN PLACE: BED LOCKED AND IN LOWEST POSITION, CALL LIGHT WITHIN REACH, SIDE RAILS UP. ENDORSED TO DAY SHIFT NURSE FOR AVANI.
--- NOTE | 2021-09-01 07:17 | NUR ---
RN OPENING NOTE RECEIVED PATIENT IN BED A&O X 4. PATIENT IS ABLE TO MAKE NEEDS KNOWN. PATIENT CALM AND COOPERATIVE AT THIS TIME. PATIENT IS ON RA, NO APPARENT DISTRESS TOLERATING WELL. NO REPORTS OF PAIN OR DISCOMFORT. NO IV ACCESS NOTED. SAFETY MEASURES IN PLACE: BED LOCKED AND IN LOWEST POSITION, CALL LIGHT WITHIN REACH, SIDE RAILS UP. WILL MONITOR PATIENT CLOSELY.
[2021-09-01 08:58] VITALS: BP 88/51
[2021-09-01 16:03] VITALS: BP 92/64
--- NOTE | 2021-09-01 18:40 | NUR ---
RN CLOSING NOTE PATIENT IN THE ROOM, WATCHING TV. PATIENT IS ABLE TO MAKE NEEDS KNOWN, A/O X 4. PATIENT CALM AND COOPERATIVE AT THIS TIME. PATIENT IS ON RA, NO APPARENT DISTRESS TOLERATING WELL. NO REPORTS OF PAIN OR DISCOMFORT. NO IV ACCESS NOTED. SAFETY MEASURES IN PLACE: BED LOCKED AND IN LOWEST POSITION, CALL LIGHT WITHIN REACH, SIDE RAILS UP. NO BEHAVIORAL INSTABILITY NOTED. WILL ENDORSE TO ONCOMING SHIFT FOR AVANI.
[2021-09-01 20:00] VITALS: BP 112/82
[2021-09-01] MEDS: INVEST MED MK-8189-008-02 MISC 1 DOSE PO SCH (20:13)
[2021-09-01] MEDS: LORAZEPAM 1 MG TABLET FOR AGITATION/ANXIETY PO PRN (23:26)
[2021-09-02 08:00] VITALS: BP 90/46
--- NOTE | 2021-09-02 18:35 | NUR ---
RN Closing Note Patient remains AO x 4. No distress observed, respiratory even and unlabored on room air. Skin is warm to touch, keep clean/dry, intact. Kept elevated HOB for ensure airway and lower position of the bed for safety. Call light within reach, all needs met. will endorse rn shift mgr.
--- NOTE | 2021-09-02 19:40 | NUR ---
MSRN PATIENT IN HIS ROOM JUST CAME BACK, STATED WILL TAKE HIS MEDS ON TIME. HAS BEEN OFF THE FLOOR FOR AWHILE PER OUTGOING RN. DENIES ANY DISCOMFORTS, NO COMPLAINTS MADE, NO NEEDS AT THIS TIME. BEHAVIOR CALM, CONVERSANT.
[2021-09-02 20:00] VITALS: BP 113/78
[2021-09-02] MEDS: INVEST MED MK-8189-008-02 MISC 1 DOSE PO SCH (20:07)
--- NOTE | 2021-09-03 06:54 | NUR ---
MS RN CLOSING NOTES PATIENT SLEPT WELL AT NIGHT. A/O X4. PATIENT WITH REGULAR AND UNLABORED BREATHING. ON ROOM AIR AND TOLERATED WELL. NO C/O HALLUCINATIONS VERBALIZED BY THE PATIENT THROUGH OUT THE NIGHT. NO PRN'S REQUESTED AT NIGHT. NO SIGNS AND SYMPTOMS OF DISTRESS NOTED AT THIS TIME. NO COMPLAINS OF PAIN OR DISCOMFORT AT THIS TIME. SAFETY PRECAUTIONS ENFORCED. BED LOCKED AND AT LOWEST POSITION. SIDE RAILS UP X2. CALL LIGHT WITHIN REACH AT ALL TIMES. WILL ENDORSE CONTINUITY OF CARE TO DAY SHIFT NURSE.
[2021-09-03 08:00] VITALS: BP 96/50
--- NOTE | 2021-09-03 08:00 | NUR ---
m/s rosin barrel filler: notes resting comfortable in bed. no distress noted.
--- NOTE | 2021-09-03 12:00 | NUR ---
m/s guest house manager: notes up and about in unit. no distress noted.
[2021-09-03 16:00] VITALS: BP 119/78
--- NOTE | 2021-09-03 19:05 | NUR ---
m/s life scientist: notes report given to lolita (barbara) for continuity of care. pt resting quietly in his room at this time.
[2021-09-03 20:00] VITALS: BP 105/70
--- NOTE | 2021-09-03 20:00 | NUR ---
MSRN AWAKE, PATIENT VERY PLEASANT. BEHAVIOR CALM AND COOPERATIVE. NO OTHER NEEDS MADE. DUE MEDS ADMINISTERED,SAFETY PRECAUTIONS EMPHASIZED WELL UNDERSTOOD.
[2021-09-03] MEDS: INVEST MED MK-8189-008-02 MISC 1 DOSE PO SCH (20:06)
--- NOTE | 2021-09-04 07:06 | NUR ---
MSRN IN THE ROOM. NO NEEDS THIS TIME
--- NOTE | 2021-09-04 07:30 | NUR ---
MS RN OPENING NOTES RECEIVED PATIENT ON BED AWAKE AND A/O X4. ON ROOM AIR TOLERATING WELL. NO SOB NOTED. NOT IN DISTRESS. WITH NO IV ACCESS. ON CLINICAL TRIAL. SAFETY MEASURES IN PLACED. CALL LIGHT WITHIN REACH. BED ON LOWEST LOCKED POSITION, SIDE RAILS UP X2. WILL CONTINUE TO MONITOR.
[2021-09-04 08:00] VITALS: BP 110/68
[2021-09-04 16:00] VITALS: BP 108/65
--- NOTE | 2021-09-04 19:36 | NUR ---
MS RN CLOSING NOTES PATIENT ON BED AWAKE AND A/O X4. ON ROOM AIR TOLERATING WELL. NO SOB NOTED. NOT IN DISTRESS. WITH NO IV ACCESS. ON CLINICAL TRIAL. SAFETY MEASURES IN PLACED. CALL LIGHT WITHIN REACH. BED ON LOWEST LOCKED POSITION, SIDE RAILS UP X2. WILL ENDORSE TO NEXT SHIFT FOR AVANI.
[2021-09-04 20:00] VITALS: BP 119/69
[2021-09-04] MEDS: INVEST MED MK-8189-008-02 MISC 1 DOSE PO SCH (20:35)
[2021-09-04] MEDS: LORAZEPAM 1 MG TABLET FOR AGITATION/ANXIETY PO PRN (22:44)
--- NOTE | 2021-09-05 08:05 | NUR ---
MS RN OPENING NOTES PATIENT LAYING AWAKE IN BED. A/O X4. PATIENT WITH REGULAR AND UNLABORED BREATHING ON ROOM AIR TOLERATED WELL. NO SIGNS AND SYMPTOMS OF DISTRESS NOTED AT THIS TIME. NO COMPLAINS OF PAIN. SAFETY PRECAUTIONS IN PLACE; BED IN LOW POSITION AND LOCKED, RAILS UP X2, CALL LIGHT WITHIN REACH. WILL CONTINUE TO MONITOR PATIENT.
[2021-09-05] MEDS ORDERED: ZOLPIDEM TARTRATE 10 MG TABLET PO PRN (12:00)
--- NOTE | 2021-09-05 18:42 | NUR ---
MS RN CLOSING NOTES PATIENT IN ROOM, A/O X4. PATIENT WITH REGULAR AND UNLABORED BREATHING ON ROOM AIR TOLERATED WELL. NO SIGNS AND SYMPTOMS OF DISTRESS NOTED AT THIS TIME. NO COMPLAINS OF PAIN. ALL NEEDS ATTENDED DURING THE DAY. SAFETY PRECAUTIONS IN PLACE; BED IN LOW POSITION AND LOCKED, RAILS UP X2, CALL LIGHT WITHIN REACH. WILL ENDORSE TO QUALITY IMPROVEMENT CONSULTANT NURSE FOR AV[facility].
--- NOTE | 2021-09-05 19:23 | NUR ---
MS RN OPENING NOTES: RECEIVED PATIENT AWAKE IN BED, BED IN LOW POSITION CALL LIGHTS WITHIN REACH, ON ROOM AIR SATURATING WELL, NO COMPLAIN OF PAIN AND DISCOMFORT AT THIS TIME, PATIENT IS ON CLINICAL TRIAL A/OX4 AMBULATORY AND ABLE TO MAKE NEEDS KNOWN, WILL CONTINUE TO MONITOR.
[2021-09-05 20:00] VITALS: BP_SYST 108; BP_SYST 118; BP_DIAS 63; BP_DIAS 83
[2021-09-05] MEDS: INVEST MED MK-8189-008-02 MISC 1 DOSE PO SCH (20:23)
--- NOTE | 2021-09-05 21:00 | NUR ---
RN NOTES: PATRICIA ARTIE REPORTED THAT PATIENT WAS KEEPING AMBIEN AND BUSPIRONE ON HER BEDSIDE PACCORDING TO GIFT BASKET PACKER THESE MEDICATIONS WAS TAKEN/REFILL AT [facility] WENT TO HIS ROOM VALIDATE THE INFORMATION AND REMIND PATIENT THAT MEDICATIONS LIKE THAT WAS NOT ALLOWED IN HIS ROOM, THERE ARE DAYS THAT SOME MEDICATIONS ARE PUT ON HOLD, MEDICATIONS WAS TAKEN FOR SAFEKEEPING, CHARGE NURSE WAS MADE AWARE.
[2021-09-06 04:00] VITALS: BP 135/89
--- NOTE | 2021-09-06 06:36 | NUR ---
RN CLOSING NOTES: PATIENT SLEEP IN BED COMFORTABLY, BED IN LOW POSITION, CALL LIGHTS WITHIN REACH, NO COMPLAIN OF PAIN AND DISCOMFORT AT THIS TIME, PATIENT ON CLINICAL TRIAL, A/O X4 AMBULATORY, ON ROOM AIR SATURATING WELL, NO CHANGES IN BEHAVIOR HAS BEEN OBSERVE, PATIENT KEPT CLEAN AND DRY ALL NEEDS MET ENDORSE TO INCOMING SHIFT.
--- NOTE | 2021-09-06 07:30 | NUR ---
MS RN OPENING NOTES: RECEIVED PATIENT AWAKE IN BED, BED IN LOW POSITION CALL LIGHTS WITHIN REACH, ON ROOM AIR SATURATING WELL, NO COMPLAIN OF PAIN AND DISCOMFORT AT THIS TIME, PATIENT IS ON CLINICAL TRIAL A/OX4 AMBULATORY AND ABLE TO MAKE NEEDS KNOWN. VALVE AND REGULATOR REPAIRER NURSE ENDORSED THAT THEY FOUND AMBIEN AND BUSPAR BOTTLES OF PILLS AT THE PATIENT'S BED SIDE. CALLED DR. CARBAJAL OFFICE AND INFORMED THEM. THEY WILL COME FROM OFFICE TO PICK THE PILLS UP. WILL CONTINUE TO MONITOR.
[2021-09-06 10:35] VITALS: BP 98/52
--- NOTE | 2021-09-06 19:00 | NUR ---
MS RN CLOSING NOTES: PATIENT AWAKE IN BED, BED IN LOW POSITION CALL LIGHTS WITHIN REACH, ON ROOM AIR SATURATING WELL, NO COMPLAIN OF PAIN AND DISCOMFORT AT THIS TIME, PATIENT IS ON CLINICAL TRIAL A/OX4 AMBULATORY AND ABLE TO MAKE NEEDS KNOWN. NO BEHAVIORAL ISSUE NOTED DURING SHIFT. PATIENT COMPLIANT AND COOPERATIVE. WILL ENDORSE INCOMING SHIFT FOR AVANI.
--- NOTE | 2021-09-06 19:30 | NUR ---
MS RN OPENING NOTES: RECEIVED PATIENT INSIDE THE ROOM, A/O X4. NO S/S OF DISTRESS NOTED. NO COMPLAIN OF PAIN. AMBULATORY.
[2021-09-06 20:00] VITALS: BP 135/85
[2021-09-06] MEDS: INVEST MED MK-8189-008-02 MISC 1 DOSE PO SCH (20:13)
--- NOTE | 2021-09-07 07:17 | NUR ---
MS RN OPENING NOTES: RECEIVED PATIENT AWAKE IN BED IN NO ACUTE SIGNS OF DISTRESS. A/OX4. ABLE TO MAKE NEEDS KNOWN, DENIES PAIN OR ANY DISCOMFORTS AT THIS TIME. ON ROOM AIR, TOLERATING WELL, BREATHING EVEN AND UNLABORED. SAFETY MEASURES IN PLACE; BED IN LOWEST LOCKED POSITION WITH SR-UP X2. CALL LIGHT W/I EASY REACH OF PT. WILL CONTINUE TO MONITOR.
[2021-09-07 08:00] VITALS: BP 124/76
[2021-09-07 16:00] VITALS: BP 125/76
--- NOTE | 2021-09-07 18:45 | NUR ---
MS RN CLOSING NOTES: PATIENT RESTING IN BED WATCHING TV AT THIS TIME. A/OX4. ABLE TO MAKE NEEDS KNOWN. AMBULATORY WITH STEADY GAIT. ON ROOM AIR, TOLERATING WELL, BREATHING EVEN AND UNLABORED. NO INAPPROPRIATE BEHAVIOR NOTED DURING SHIFT. SAFETY MEASURES IN PLACE; BED IN LOWEST LOCKED POSITION WITH SR-UP X2. CALL LIGHT W/I EASY REACH OF PT. WILL ENDORSED AVANI TO HARDWARE TEST ENGINEER NURSE.
--- NOTE | 2021-09-07 19:30 | NUR ---
MS RN OPENING NOTE: RECEIVED PATIENT IN ROOM, AWAKE, A/O X4. ANXIOUS, COOPERATIVE. DENIES ANY PAIN. RESPIRATION EVEN AND UNLABORED WITH EQUAL RISE AND FALL OF THE CHEST, ON ROOM AIR. DENIES SI/HI AT THIS TIME. DENIES V/A HALLUCINATIONS. OFFERED FLUID AND SNACKS TOLERATED. BED IN LOWEST POSITION AND LOCKED. WILL CONTINUE TO MONITOR.
[2021-09-07 20:00] VITALS: BP 116/82
[2021-09-07] MEDS: INVEST MED MK-8189-008-02 MISC 1 DOSE PO SCH (20:29)
--- NOTE | 2021-09-08 07:00 | NUR ---
GPS RN CLOSING NOTES: PATIENT IS CURRENTLY IN BED, AWAKE A/O X4. PATIENT HAS NO S/S OF DISTRESS. RESPIRATION EVEN AND UNLABORED WITH EQUAL RISE AND FALL OF THE CHEST, ON ROOM AIR. NO BEHAVIORAL ISSUES THIS SHIFT. ALL PATIENT CARE NEEDS HAVE BEEN MET ANTICIPATED. WILL CONTINUE TO MONITOR AND ENDORSE TO AM SHIFT.
[2021-09-08 08:00] VITALS: BP 116/86
--- NOTE | 2021-09-08 08:07 | NUR ---
RN OPENING NOTES PATIENT IS AWAKE IN BED RESTING, A/O X4. NO S/S OF PAIN NOTED AT THIS TIME. ON ROOM AIR, NO DISTRESS OR SHORTNESS OF BREATH NOTED. NO IV ACCESS. FALL AND SAFETY MEASURES IN PLACE, BED ALARM ON, BED IN LOW AND LOCK POSITION, CALL LIGHT AND TABLE WITHIN EASY REACH, SIDE RAIL UP X2. WILL CONTINUE TO MONITOR.
[2021-09-08] MEDS: LORAZEPAM 1 MG TABLET FOR AGITATION/ANXIETY PO PRN ×2 (08:21→16:31)
[2021-09-08 11:00] VITALS: BP 121/65
[2021-09-08 13:36] VITALS: BP 118/62
[2021-09-08 16:00] VITALS: BP 114/87
--- NOTE | 2021-09-08 19:00 | NUR ---
RN CLOSING NOTES PATIENT IS AWAKE IN BED RESTING, A/O X4. NO S/S OF PAIN NOTED AT THIS TIME. ON ROOM AIR, NO DISTRESS OR SHORTNESS OF BREATH NOTED. NO IV ACCESS. FALL AND SAFETY MEASURES IN PLACE, BED ALARM ON, BED IN LOW AND LOCK POSITION, CALL LIGHT AND TABLE WITHIN EASY REACH, SIDE RAIL UP X2. WILL ENDORSE TO ENERGY EFFICIENT SITE MANAGER.
--- NOTE | 2021-09-08 19:15 | NUR ---
MS RN NOTES: RECEIVED REPORT AT PATIENT'S BEDSIDE. PATIENT IN NAD AND VSS AT THIS TIME. PATIENT IS A&O X4. COMMUNICATIVE AND COOPERATIVE WITH CARE. DENIES SI/HI/AH/VH. BED IN LOW/LOCKED POSITION. SIDE RAILS UP X2. DEMONSTRATES ABILITY TO USE CALL LIGHT AND VERBALIZE NEEDS EFFECTIVELY. CALL LIGHT AND FREQUENTLY USED ITEMS WITHIN REACH.
[2021-09-08] MEDS: INVEST MED MK-8189-008-02 MISC 1 DOSE PO SCH (20:15)
[2021-09-08 21:22] VITALS: BP 96/71
--- NOTE | 2021-09-09 07:30 | NUR ---
MS RN OPENING NOTES RECEIVED PATIENT ON BED RESTING AND A/O X4. ON ROOM AIR BREATHING EVENLY AND UNLABORED. NO SOB NOTED. NOT IN DISTRESS. WITH NO COMPLAINTS OF PAIN OR DISCOMFORT AT THIS TIME. WITH NO IV ACCESS PRESENT. ON CLINICAL TRIAL STATUS. SAFETY MEASURES IN PLACED. CALL LIGHT WITHIN REACH. BED ON LOWEST LOCKED POSITION, SIDE RAILS UP X2. WILL CONTINUE TO MONITOR.
--- NOTE | 2021-09-09 07:39 | NUR ---
MS RN CLOSING NOTES: REPORTED OFF TO AM RN. PATIENT IN NAD AND VSS AT THIS TIME. PATIENT SLEEPING AROUSES EASILY TO VOICE COMMAND. PATIENT IS A&O X4. COMMUNICATIVE AND COOPERATIVE WITH CARE. DENIES SI/HI/AH/VH. BED IN LOW/LOCKED POSITION. SIDE RAILS UP X2. DEMONSTRATES ABILITY TO USE CALL LIGHT AND VERBALIZE NEEDS EFFECTIVELY. CALL LIGHT AND FREQUENTLY USED ITEMS WITHIN REACH.
[2021-09-09 08:00] VITALS: BP 85/53
[2021-09-09 16:00] VITALS: BP 109/72
--- NOTE | 2021-09-09 18:28 | NUR ---
MS RN CLOSING NOTES PATIENT ON BED RESTING AND A/O X4. ON ROOM AIR BREATHING EVENLY AND UNLABORED. NO SOB NOTED. NOT IN DISTRESS. WITH NO COMPLAINTS OF PAIN OR DISCOMFORT AT THIS TIME. WITH NO IV ACCESS PRESENT. ON CLINICAL TRIAL STATUS. SAFETY MEASURES IN PLACED. CALL LIGHT WITHIN REACH. BED ON LOWEST LOCKED POSITION, SIDE RAILS UP X2. WILL ENDORSE TO NEXT SHIFT FOR AVANI.
--- NOTE | 2021-09-09 19:20 | NUR ---
RN NOTE: PATIENT IN ROOM, AWAKE, A/O X4, COOPERATIVE AT THIS TIME. NO ACUTE DISTRESS NOTED. DENIES SI/HI AT THIS TIME. DENIES V/A HALLUCINATIONS. OFFERED FLUID AND SNACKS TOLERATED. WILL CONTINUE TO MONITOR.
[2021-09-09] MEDS: INVEST MED MK-8189-008-02 MISC 1 DOSE PO SCH ×2 (20:29→20:30)
[2021-09-09 21:27] VITALS: BP 131/76
[2021-09-09 23:00] VITALS: BP 113/76
[2021-09-10 08:00] VITALS: BP 90/50
--- NOTE | 2021-09-10 08:00 | NUR ---
m/s photo technologist: notes received pt in bed asleep, but easily arousable. no distress noted. call light within reach.
[2021-09-10 16:00] VITALS: BP 103/72
--- NOTE | 2021-09-10 18:00 | NUR ---
m/s structured cabling technician: notes resting comfortable in bed. no distress noted. needs attended. will continue to monitor.
--- NOTE | 2021-09-10 19:05 | NUR ---
m/s sucker machine operator: notes report given to lópez (rn) for continuity of care.
--- NOTE | 2021-09-10 19:22 | NUR ---
MS RN OPENING NOTES PATIENT IN ROOM, AWAKE, A/O X4, COOPERATIVE AT THIS TIME. NO ACUTE DISTRESS NOTED. DENIES SI/HI AT THIS TIME. DENIES V/A HALLUCINATIONS. OFFERED FLUID AND SNACKS TOLERATED. WILL CONTINUE TO MONITOR.
[2021-09-10] MEDS: INVEST MED MK-8189-008-02 MISC 1 DOSE PO SCH (20:17)
[2021-09-10 22:50] VITALS: BP 104/78
--- NOTE | 2021-09-11 07:00 | NUR ---
MS RN NOTES PATIENT IN ROOM, AWAKE, A/O X4, COOPERATIVE AT THIS TIME. NO ACUTE DISTRESS NOTED. DENIES SI/HI AT THIS TIME. DENIES V/A HALLUCINATIONS. OFFERED FLUID AND SNACKS TOLERATED. WILL ENDORSE CARE TO DAY SHIFT NURSE.
--- NOTE | 2021-09-11 07:30 | NUR ---
MS RN OPENING NOTES RECEIVED PATIENT AWAKE AND A/O X4. ON ROOM AIR TOLERATING WELL. NO SOB NOTED. NOT IN DISTRESS.. WITH NO COMPLAINTS OF PAIN OR DISCOMFORT AT THIS TIME. WITH NO IV LINE. ON CLINICAL TRIAL. SAFETY MEASURES IN PLACED. CALL LIGHT WITHIN REACH. BED ON LOWEST LOCKED POSITION, SIDE RAILS UP X2. WILL CONTINUE TO MONITOR.
[2021-09-11 08:55] VITALS: BP 75/37
--- NOTE | 2021-09-11 12:30 | NUR ---
MS RN OPENING NOTES RECEIVED PATIENT AWAKE AND A/O X4. ON ROOM AIR TOLERATING WELL. NO SOB NOTED. NOT IN DISTRESS.. WITH NO COMPLAINTS OF PAIN OR DISCOMFORT AT THIS TIME. WITH NO IV LINE. ON CLINICAL TRIAL. SAFETY MEASURES IN PLACED. CALL LIGHT WITHIN REACH. BED ON LOWEST LOCKED POSITION, SIDE RAILS UP X2. WILL CONTINUE TO MONITOR. Addendum: 09/11/21 at 1319 by CIARA ARREOLA RN ERROR
--- NOTE | 2021-09-11 12:30 | NUR ---
RN NOTES PATIENT IS TRANSFERRED TO [facility] UNIT FOR AVANI AND ENDORSED TO RN NOVEM.
[2021-09-11 12:35] VITALS: BP 94/71
--- NOTE | 2021-09-11 12:35 | NUR ---
PATIENT ADMITTED FROM [facility], REPORT GIVEN BY ALLY URBINA. PATIENT IS ON A VOLUNTARY STATUS FOR CLINICAL TRIAL UNDER THE CARE OF DR CARBAJAL. DR. CARBAJAL WAS NOTIFIED OF PATIENT'S ADMISSION TO [facility]. PATIENT IS ALERT AND ORIENTED X3. PATIENT IS CALM, COOPERATIVE, SPEECH IS CLEAR. NO S/S OF ACUTE DISTRESS NOTED. PATIENT IS CONTINENT AND AMBULATORY WITH GOOD STEADY GAIT. PATIENT IS ORIENTED TO UNIT. PT DENIES SUICIDAL AND HOMICIDAL IDEATION AT THIS TIME. PT DENIES AUDITORY/VISUAL HALLUCINATION. NO C/O PAIN OR DISCOMFORT. PT PRESENTS WITH INTACT SKIN. SAFETY MEASURES IN PLACE. WILL CONTINUE TO MONITOR FOR SAFETY, COMFORT AND BEHAVIOR Q15 MINUTES PER [facility] PROTOCOL.
[2021-09-11 16:00] VITALS: BP 112/71
[2021-09-11 20:00] VITALS: BP 104/66
--- NOTE | 2021-09-11 20:10 | NUR ---
GPS RN OPENING NOTE: PATIENT IS RESTING IN HIS ROOM, A & O X 3, CALM/COOPERATIVE AT THIS TIME, ANXIOUS AT TIMES BUT REDIRECTABLE. MED COMPLAINT. AMBULATORY/STEADY. SMOKER AND TAKES SMOKE BREAKS OUT SIDE OF [facility] UNIT. NO BEHAVIOR EPISODES NOTED AT THIS TIME. SAFETY MEASURES IN PLACE. WILL CONTINUE TO MONITOR Q 15 MIN FOR SAFETY AND BEHAVIOR PER PROTOCOL.
[2021-09-11] MEDS: INVEST MED MK-8189-008-02 MISC 1 DOSE PO SCH (20:11)
[2021-09-11 20:43] VITALS: BP 104/66
--- NOTE | 2021-09-11 22:00 | NUR ---
RN NOTE PATIENT WENT OUT OF [facility] UNIT FOR SMOKE BREAK.
--- NOTE | 2021-09-11 22:51 | NUR ---
RN NOTE PATIENT IS BACK FROM HIS SMOKE BREAK. WILL CONTINUE TO MONITOR.
[2021-09-12 08:00] VITALS: BP 100/59
--- NOTE | 2021-09-12 10:00 | NUR ---
RN Notes: Received pt. awake in bed, responsive to staffs, no distress and no agitation noted. Pt. refused to eat breakfast, isolates in room. Encouraged to verbalize feelings and motivated to attend group activity. Needs attended and will continue to monitor for safety.
--- NOTE | 2021-09-12 14:03 | NUR ---
Pt. refused to eat breakfast and lunch and went to the station and asking permission if he can go to [employer] to buy something to eat. Called the office of Dr. Reynaga and said ok to go to [employer].
[2021-09-12 16:00] VITALS: BP 115/69
--- NOTE | 2021-09-12 19:30 | NUR ---
GPS RN NOTE, RECEIVED PATIENT AWAKE AND IN BED, NO S/S OR COMPLAINTS OF PAIN AT THIS TIME. PATIENT IS DISPLAYING NO S/S OF APPARENT DISTRESS AT THIS TIME. PATIENT BREATHING IS UNLABORED WITH EQUAL RISE AND FALL OF THE CHEST. PATIENT IS ALERT AND ORIENTED X 2 ON ROOM AIR WITH A SPO2 97%. PATIENT IS COMPLIANT WITH MEDICATIONS, CALM, POLITE, MAKES NEEDS KNOWN, ISOLATIVE, AND COOPERATIVE. PATIENT DENIES SUICIDAL AND HOMICIDAL IDEATIONS AT THIS TIME. PATIENT ASSISTED WITH TURNING AND REPOSITIONING Q2HR AND PRN FOR COMFORT AND CIRCULATION. PATIENT HAS NO NEEDS AT THIS TIME. PATIENT EDUCATED ON THE USE OF THE CALL KAUFFMAN. PATIENT BED SIDE RAILS UP X 2 FOR SAFETY. PATIENT BED IS LOCKED, LOW, WITH BED ALARM ON. WILL CONTINUE TO MONITOR THIS PATIENT Q15 MINUTES WITH THE HELP OF STAFF TO MAINTAIN SAFETY.
[2021-09-12 20:00] VITALS: BP 108/69
[2021-09-12] MEDS: INVEST MED MK-8189-008-02 MISC 1 DOSE PO SCH (20:15)
[2021-09-13 08:00] VITALS: BP 100/50
--- NOTE | 2021-09-13 09:14 | NUR ---
RN Notes: Received pt. awake in bed, responsive to staffs, no distress and no agitation noted. Pt. refused to eat breakfast and in room most of the time. Pt. was picked up by Dr. Reynaga's staff at 0900. Pt. left in the unit, ambulatory and without distress.
--- NOTE | 2021-09-13 11:33 | NUR ---
Pt. came from the office and escorted by the staff.
[2021-09-13] MEDS ORDERED: ZOLPIDEM TARTRATE 10 MG TABLET PO PRN (12:00)
[2021-09-13] MEDS ORDERED: LORAZEPAM 1 MG TABLET FOR AGITATION/ANXIETY PO PRN (12:00)
[2021-09-13 16:00] VITALS: BP 90/51
--- NOTE | 2021-09-13 19:30 | NUR ---
GPS RN NOTE, RECEIVED PATIENT AWAKE AND IN BED, NO S/S OR COMPLAINTS OF PAIN AT THIS TIME. PATIENT IS DISPLAYING NO S/S OF APPARENT DISTRESS AT THIS TIME. PATIENT BREATHING IS UNLABORED WITH EQUAL RISE AND FALL OF THE CHEST. PATIENT IS ALERT AND ORIENTED X 3 ON ROOM AIR WITH A SPO2 97%. PATIENT IS COMPLIANT WITH MEDICATIONS, CALM, POLITE, MAKES NEEDS KNOWN, ISOLATIVE, AND COOPERATIVE. PATIENT DENIES SUICIDAL AND HOMICIDAL IDEATIONS AT THIS TIME. PATIENT ASSISTED WITH TURNING AND REPOSITIONING Q2HR AND PRN FOR COMFORT AND CIRCULATION. PATIENT HAS NO NEEDS AT THIS TIME. PATIENT EDUCATED ON THE USE OF THE CALL KAUFFMAN. PATIENT BED SIDE RAILS UP X 2 FOR SAFETY. PATIENT BED IS LOCKED, LOW, WITH BED ALARM ON. WILL CONTINUE TO MONITOR THIS PATIENT Q15 MINUTES WITH THE HELP OF STAFF TO MAINTAIN SAFETY.
[2021-09-13] MEDS: INVEST MED MK-8189-008-02 MISC 1 DOSE PO SCH (20:36)
[2021-09-13 21:48] VITALS: BP 116/69
--- NOTE | 2021-09-14 03:14 | NUR ---
GPS RN NOTE, PATIENT HAS A COMPLAINT OF FEELING ANXIOUS AND IS REQUESTING ATIVAN AT THIS TIME. PATIENT VITAL SIGNS ARE STABLE. GAVE ATIVAN 1MG PO Q6HR PRN ORDERED. WILL REASSESS FOR ANXIETY AND I WILL CONTINUE TO MONITOR THIS PATIENT WITH THE HELP OF STAFF.
[2021-09-14 08:00] VITALS: BP 111/73
[2021-09-14 16:00] VITALS: BP 116/86
[2021-09-14 20:00] VITALS: BP 133/94
[2021-09-14] MEDS: INVEST MED MK-8189-008-02 MISC 1 DOSE PO SCH (20:26)
[2021-09-15 08:00] VITALS: BP 92/58
[2021-09-15 16:00] VITALS: BP 102/79
--- NOTE | 2021-09-15 19:30 | NUR ---
GPS RN NOTE: RECEIVED PATIENT AWAKE AND IN BED, NO S/S OR COMPLAINTS OF PAIN AT THIS TIME. PATIENT IS DISPLAYING NO S/S OF APPARENT DISTRESS AT THIS TIME. PATIENT BREATHING IS UNLABORED WITH EQUAL RISE AND FALL OF THE CHEST. PATIENT IS ALERT AND ORIENTED X 3 ON ROOM AIR WITH A SPO2 97%, VSS. PATIENT IS COMPLIANT WITH MEDICATIONS, CALM, POLITE, MAKES NEEDS KNOWN, ISOLATIVE, AND COOPERATIVE. PATIENT DENIES SUICIDAL AND HOMICIDAL IDEATIONS AT THIS TIME. PATIENT ASSISTED WITH TURNING AND REPOSITIONING Q2HR AND PRN FOR COMFORT AND CIRCULATION. PATIENT HAS NO NEEDS AT THIS TIME. PATIENT EDUCATED ON THE USE OF THE CALL KAUFFMAN. PATIENT BED SIDE RAILS UP X 2 FOR SAFETY. PATIENT BED IS LOCKED, LOW, WITH BED ALARM ON. WILL CONTINUE TO MONITOR THIS PATIENT Q15 MINUTES WITH THE HELP OF STAFF TO MAINTAIN SAFETY.
[2021-09-15] MEDS: INVEST MED MK-8189-008-02 MISC 1 DOSE PO SCH (20:17)
[2021-09-15 21:07] VITALS: BP 119/66
--- NOTE | 2021-09-16 07:00 | NUR ---
RN NOTE: PATIENT RESTING WELL , CALM/COOPERATIVE THROUGH OUT IN SHIFT, REDIRECTABLE. MED COMPLAINT. AMBULATORY. NO BEHAVIOR EPISODES NOTED IN SHIFT. SAFETY MEASURES IN PLACE. WILL CONTINUE TO MONITOR Q 15 MIN FOR SAFETY AND BEHAVIOR .
[2021-09-16 08:00] VITALS: BP 90/55
--- NOTE | 2021-09-16 08:43 | NUR ---
RN NOTE: PATIENT IS RESTING IN HIS ROOM, CALM/COOPERATIVE AT THIS TIME, EASILY AGITED BUT REDIRECTABLE. MED COMPLAINT. AMBULATORY. NO BEHAVIOR EPISODES NOTED AT THIS TIME. SAFETY MEASURES IN PLACE. WILL CONTINUE TO MONITOR Q 15 MIN FOR SAFETY AND BEHAVIOR .
[2021-09-16 16:00] VITALS: BP 115/70
--- NOTE | 2021-09-16 18:32 | NUR ---
RN NOTE: Pt. RESTING IN HIS ROOM, CALM/COOPERATIVE AT THIS TIME, EASILY AGITED BUT REDIRECTABLE. MED COMPLAINT. AMBULATORY. NO BEHAVIOR EPISODES NOTED AT THIS TIME. SAFETY MEASURES IN PLACE. WILL CONTINUE TO MONITOR Q 15 MIN FOR SAFETY AND BEHAVIOR .
[2021-09-16 19:40] VITALS: BP 108/66
--- NOTE | 2021-09-16 19:50 | NUR ---
GPS RN OPENING NOTE: RECEIVED PATIENT AWAKE AND IN BED, NO S/S OR C/O PAIN AT THIS TIME. NO S/S OF APPARENT DISTRESS AT THIS TIME. PATIENT BREATHING IS UNLABORED WITH EQUAL RISE AND FALL OF THE CHEST. PATIENT IS A & O X 3, ON ROOM AIR. PATIENT IS COMPLIANT WITH MEDICATIONS, CALM, COOPERATIVE, PASSIVE, RESTLESS AT TIMES BUT MAKES NEEDS KNOWN, ISOLATIVE, PATIENT DENIES SUICIDAL AND HOMICIDAL IDEATIONS AT THIS TIME. PATIENT EDUCATED ON THE USE OF THE CALL [employer]. AMBULATORY/STEADY. PATIENT BED SIDE RAILS UP X 2 FOR SAFETY. PATIENT BED IS LOCKED, LOW. WILL CONTINUE TO MONITOR THIS PATIENT Q15 MINUTES WITH THE HELP OF STAFF TO MAINTAIN SAFETY.
[2021-09-16] MEDS: INVEST MED MK-8189-008-02 MISC 1 DOSE PO SCH (20:09)
--- NOTE | 2021-09-17 06:25 | NUR ---
GPS RN NOTE PATIENT SLEPT WELL AT NIGHT, CALM, COOPERATIVE, ALL NEEDS MET. MED COMPLAINT. WILL ENDORSE TO AM RN FOR CONTINUITY OF CARE.
[2021-09-17 08:00] VITALS: BP 98/55
--- NOTE | 2021-09-17 09:00 | NUR ---
Patient alert ,verbally responsive ,poor insight ,poor judgment ,isolative and withdrawn,stay in his room all day ,mood depressed, will continue to monitor for safety q15 minutes, redirect as needed.
--- NOTE | 2021-09-17 13:00 | NUR ---
Patient resting in his room, isolative and withdrawn .preoccupied with his own thoughts no plan for self care .Will continue to monitor for safety q15 minutes . Addendum: 09/17/21 at 1833 by SIMÓN HUMPHRIES [id number] Patient resting in his room, isolative and withdrawn .preoccupied with his own thoughts no plan for self care .Will continue to monitor for safety q15 minutes .
--- NOTE | 2021-09-17 16:50 | NUR ---
Patient resting in his room, isolative and withdrawn .preoccupied with his own thoughts no plan for self care .Will continue to monitor for safety q15 minutes . Addendum: 09/17/21 at 1836 by SIMÓN HUMPHRIES Error
--- NOTE | 2021-09-17 18:36 | NUR ---
DOCTOR YAMIL NOTIFIED PATIENT OUT OFF UNIT FROM 1300 ,HE SAID IS OKAY .PATIENT CONTACTED HE" STATED HE WILL BE IN HOSPITAL IN 10 MINUTES ". HE IS STILL NOT IN THE UNIT NURSING PAYROLL AND BENEFITS MANAGER ,TOMAS DANIELSON AWARE .
--- NOTE | 2021-09-17 19:14 | NUR ---
Patient back in the unit ,left message for Dr. Reynaga .C Software Developer and [employer] carey . .
--- NOTE | 2021-09-17 19:25 | NUR ---
GPS RN NOTE: AM CHARGE NURSE CALLED DR. CARBAJAL AND INFORMED HIM THAT PATIENT IS BACK IN THE UNIT AT 1910. DR. CARBAJAL SPOKE TO THE PATIENT AND ORDERED URINE DRUG SCREEN ROUTINE. PATIENT MADE AWARE. ORDER NOTED AND CARRIED OUT.
--- NOTE | 2021-09-17 19:45 | NUR ---
GPS RN OPENING NOTE: PATIENT CAME BACK TO THE UNIT AT 1910, PER PATIENT,"I HAD AN DOCTOR'S APPOINTMENT TODAY AT 5 PM IN [place] FOR MY HAND SCARS." NO S/S OR C/O PAIN AT THIS TIME. NO S/S OF APPARENT DISTRESS AT THIS TIME. PATIENT IS A & O X 3, ON ROOM AIR. PATIENT IS COMPLIANT WITH MEDICATIONS, CALM, COOPERATIVE, PASSIVE, RESTLESS AT TIMES BUT MAKES NEEDS KNOWN AND REDIRECTABLE, ISOLATIVE, PATIENT DENIES SUICIDAL AND HOMICIDAL IDEATIONS AT THIS TIME. PATIENT EDUCATED ON THE USE OF THE CALL KAUFFMAN. AMBULATORY/STEADY. PATIENT BED SIDE RAILS UP X 2 FOR SAFETY. PATIENT BED IS LOCKED, LOW. WILL CONTINUE TO MONITOR THIS PATIENT Q15 MINUTES WITH THE HELP OF STAFF TO MAINTAIN SAFETY.
[2021-09-17 19:50] VITALS: BP 131/64
--- NOTE | 2021-09-17 20:15 | NUR ---
GPS RN NOTE: URINE SPECIMEN COLLECTED, CALLED LAB & INFORMED LADIES LOCKER ROOM ATTENDANT THAT URINE SPECIMEN IS READY TO BE PICKED UP FOR THIS PATIENT. WAITING FOR LAB TO AUDIENCE DEVELOPMENT MANAGER URINE SPECIMEN.
[2021-09-17] MEDS: INVEST MED MK-8189-008-02 MISC 1 DOSE PO SCH (20:30)
--- NOTE | 2021-09-18 06:40 | NUR ---
GPS RN NOTE: URINE SPECIMEN PICKED UP BY NICU RN.
--- NOTE | 2021-09-18 06:45 | NUR ---
GPS RN CLOSING NOTE PATIENT SLEPT WELL AT NIGHT, CALM, COOPERATIVE, ALL NEEDS MET. MED COMPLAINT. HAD SNACK AT NIGHT AND TOLERATED WELL. WILL ENDORSE TO AM RN FOR CONTINUITY OF CARE.
[2021-09-18 08:03] VITALS: BP 92/61
--- NOTE | 2021-09-18 13:24 | NUR ---
RN-CO: PATIENT WENT TO [facility] BETWEEN 12:24 TO 1300. HE PROMISED ME THAT HE WONT GO ANYWHERE WITHOUT PERMISSION LIKE WHAT HE DID YESTERDAY. HIS AFFECT IS APPROPRIATE AND HE DENIED ANY DISCOMFORTS AT THIS TIME.
[2021-09-18 15:39] VITALS: BP 106/77
--- NOTE | 2021-09-18 19:40 | NUR ---
GPS RN OPENING NOTES: RECEIVED PATIENT IN BED, AWAKE, A/O X3, CALM AND COOPERATIVE, ISOLATIVE, PASSIVE, NOT INTERACTING WITH PEERS. PATIENT DENIES SI, HI, PAIN AT THIS TIME. NO S/S OF DISTRESS NOTED. RESPIRATION EVEN AND UNLABORED WITH EQUAL RISE AND FALL OF THE CHEST, ON ROOM AIR. PATIENT IS ABLE TO MAKE NEEDS KNOWN. BED IN LOW LOCKED POSITION, SIDE RAILS UP X2 FOR SAFETY. CALL KAUFFMAN WITHIN REACH. OFFERED FLUID AND SNACKS TOLERATED. WILL CONTINUE TO MONITOR Q15 MIN FOR SAFETY, MOOD AND BEHAVIOR.
[2021-09-18] MEDS: INVEST MED MK-8189-008-02 MISC 1 DOSE PO SCH (21:06)
[2021-09-18 21:47] VITALS: BP 130/79
--- NOTE | 2021-09-19 07:25 | NUR ---
GPS RN CLOSING NOTES: PATIENT IS LAYING IN BED AWAKE, A/O X4. PATIENT SLEPT 7.5HR THIS SHIFT. PATIENT LEFT THE UNIT TWICE FOR SMOKE BREAKS. NO BEHAVIORAL ISSUES THIS SHIFT. NO S/S OF DISTRESS. RESPIRATION EVEN AND UNLABORED WITH EQUAL RISE AND FALL OF THE CHEST, ON ROOM AIR. NO C/O PAIN THIS SHIFT. ALL PATIENT CARE NEEDS HAVE BEEN MET ANTICIPATED. ENDORSING TO AM SHIFT.
--- NOTE | 2021-09-19 14:44 | NUR ---
RN-CO: Received pt, no acute distress and no agitation noted. Pt.is in his room most of the time. Encouraged to verbalize feelings and motivated to attend group activity. Needs attended and anticiptated. will continue to monitor q15min for safety.Patient refused hospital food 2x.
[2021-09-19 15:49] VITALS: BP 115/73
--- NOTE | 2021-09-19 19:30 | NUR ---
GPS RN NOTE, RECEIVED PATIENT AWAKE AND IN BED, NO S/S OR COMPLAINTS OF PAIN AT THIS TIME. PATIENT IS DISPLAYING NO S/S OF APPARENT DISTRESS AT THIS TIME. PATIENT BREATHING IS UNLABORED WITH EQUAL RISE AND FALL OF THE CHEST. PATIENT IS ALERT AND ORIENTED X 3 ON ROOM AIR WITH A SPO2 99%. PATIENT IS COMPLIANT WITH MEDICATIONS, CALM, POLITE, MAKES NEEDS KNOWN, AND COOPERATIVE. PATIENT DENIES SUICIDAL AND HOMICIDAL IDEATIONS AT THIS TIME. PATIENT ASSISTED WITH TURNING AND REPOSITIONING Q2HR AND PRN FOR COMFORT AND CIRCULATION. PATIENT HAS NO NEEDS AT THIS TIME. PATIENT EDUCATED ON THE USE OF THE CALL KAUFFMAN. PATIENT BED SIDE RAILS UP X 2 FOR SAFETY. PATIENT BED IS LOCKED, LOW, WITH BED ALARM ON. WILL CONTINUE TO MONITOR THIS PATIENT Q15 MINUTES WITH THE HELP OF STAFF TO MAINTAIN SAFETY.
[2021-09-19 20:00] VITALS: BP 124/88
[2021-09-19] MEDS: INVEST MED MK-8189-008-02 MISC 1 DOSE PO SCH (20:42)
[2021-09-20 08:00] VITALS: BP 91/54
--- NOTE | 2021-09-20 10:30 | NUR ---
RN Notes: Received pt. awake in bed, responsive to staffs, quiet and isolates in room. Ate 25% for breakfast, needs attended. Encouraged to verbalize feelings and motivated attend group activity. No distress and no agitation noted. Will continue to monitor for safety.
--- NOTE | 2021-09-20 11:30 | NUR ---
Pt. went to Dr. Reynaga's office and picked up by staff. Left without distress and ambulatory.
--- NOTE | 2021-09-20 12:58 | NUR ---
Pt. is back from the office of dr. Reynaga by himself.
[2021-09-20 16:00] VITALS: BP 112/71
[2021-09-20 20:00] VITALS: BP 116/70
[2021-09-20] MEDS: INVEST MED MK-8189-008-02 MISC 1 DOSE PO SCH (20:14)
[2021-09-21 08:00] VITALS: BP 91/51
--- NOTE | 2021-09-21 10:27 | NUR ---
RN Notes: Received pt. asleep in bed, breathing is even and unlabored. Ate 25% for breakfast, quiet, isolates in room. Encouraged to verbalize feelings and motived to attend group activity. Needs attended, no distress and no agitation noted. Will continue to monitor for safety.
[2021-09-21 16:00] VITALS: BP 125/93
--- NOTE | 2021-09-21 19:30 | NUR ---
GPS RN NOTE, RECEIVED PATIENT AWAKE AND IN BED, NO S/S OR COMPLAINTS OF PAIN AT THIS TIME. PATIENT IS DISPLAYING NO S/S OF APPARENT DISTRESS AT THIS TIME. PATIENT BREATHING IS UNLABORED WITH EQUAL RISE AND FALL OF THE CHEST. PATIENT IS ALERT AND ORIENTED X 3 ON ROOM AIR WITH A SPO2 99%. PATIENT IS COMPLIANT WITH MEDICATIONS, CALM, POLITE, MAKES NEEDS KNOWN, AND COOPERATIVE. PATIENT STATES, " I'VE BEEN PACING OFTEN IN MY ROOM AND I WANT TO GET A SCARE REMOVED FROM MY HAND ". PATIENT DENIES SUICIDAL AND HOMICIDAL IDEATIONS AT THIS TIME. PATIENT ASSISTED WITH TURNING AND REPOSITIONING Q2HR AND PRN FOR COMFORT AND CIRCULATION. PATIENT HAS NO NEEDS AT THIS TIME. PATIENT EDUCATED ON THE USE OF THE CALL KAUFFMAN. PATIENT BED SIDE RAILS UP X 2 FOR SAFETY. PATIENT BED IS LOCKED, LOW, WITH BED ALARM ON. WILL CONTINUE TO MONITOR THIS PATIENT Q15 MINUTES WITH THE HELP OF STAFF TO MAINTAIN SAFETY.
[2021-09-21 20:00] VITALS: BP 123/89
[2021-09-21] MEDS: INVEST MED MK-8189-008-02 MISC 1 DOSE PO SCH (20:23)
[2021-09-22 08:00] VITALS: BP 101/68
--- NOTE | 2021-09-22 13:00 | NUR ---
Patient remains isolative and withdrawn .Mood depressed ,flat affect Patient stay in her room Continue to monitor for safety q15 minutes encourage patient to verbalize feelings and thoughts redirect as needed.
[2021-09-22 16:00] VITALS: BP 104/68
[2021-09-22 20:00] VITALS: BP 119/72
--- NOTE | 2021-09-22 20:02 | NUR ---
GPS RN NOTE: PATIENT RESTING IN HIS BED. SLEEPING INTERMITTENTLY, CALM, COOPERATIVE, ISOLATIVE, WITHDRAWN, REDIRECTABLE. NO C/O PAIN VERBALIZED. NO ACUTE DISTRESS NOTED. PATIENT IS AMBULATORY/STEADY. MED COMPLAINT. PATIENT IS ABLE TO MAKE HIS NEEDS KNOWN. WILL CONTINUE TO MONITOR THE PATIENT Q 15 MIN FOR SAFETY AND BEHAVIOR.
[2021-09-22] MEDS: INVEST MED MK-8189-008-02 MISC 1 DOSE PO SCH (20:05)
--- NOTE | 2021-09-23 06:13 | NUR ---
GPS RN NOTE: PATIENT RESTING WELL, CALM, COOPERATIVE, THROUGH OUT SHIFT.NO BEHAVIOR PROBLEM NOTED NO ACUTE DISTRESS NOTED. WILL CONTINUE TO MONITOR THE PATIENT Q 15 MIN FOR SAFETY AND BEHAVIOR.
[2021-09-23 08:00] VITALS: BP 80/53
--- NOTE | 2021-09-23 09:00 | NUR ---
Patient alert ,verbally responsive ,isolative and withdrawn .Patient mood depressed ,flat affect ,isolative and withdrawn ,no interaction with peers.Patient stay in his room all day ,refused to attend groups. Continue to monitor for safety q15 minutes encourage patient to verbalize feelings and thoughts .
--- NOTE | 2021-09-23 13:00 | NUR ---
Patient remains isolative and withdrawn .Patient stay in his room all day Continue to monitor for saftey q15 minutes encourage patient to verbalize feelings and thoughts ,redirect as needed.
[2021-09-23 16:00] VITALS: BP 124/71
[2021-09-23 19:50] VITALS: BP 111/53
--- NOTE | 2021-09-23 20:13 | NUR ---
GPS RN NOTES: RECEIVED PATIENT IN BED, AWAKE, A/O X 4, APPROPRIATE AFFECT, CALM, COOPERATIVE, PASSIVE, WITHDRAWN, ISOLATIVE. DENIES SI, HI, A/V HALLUCINATIONS. DENIES PAIN AT THIS TIME. NO S/S OF DISTRESS NOTED. RESPIRATION EVEN AND UNLABORED WITH EQUAL RISE AND FALL OF THE CHEST, ON ROOM AIR. PATIENT IS ABLE TO MAKE HIS NEEDS KNOWN. OFFERED FLUID AND SNACKS TOLERATED. BED IN LOW LOCKED POSITION, SIDE RAILS UP X2 FOR SAFETY. WILL CONTINUE TO MONITOR Q15 MIN FOR SAFETY, MOOD AND BEHAVIOR.
[2021-09-23] MEDS: INVEST MED MK-8189-008-02 MISC 1 DOSE PO SCH (20:19)
[2021-09-24 08:00] VITALS: BP 97/50
--- NOTE | 2021-09-24 09:00 | NUR ---
Patient alert ,verbally responsive .Patient mood depressed ,flat affect isolative and withdrawn ,no interaction with peers.Patient stay in his room all day ,refused to attend groups. Continue to monitor for safety q15 minutes encourage patient to verbalize feelings and thoughts.
--- NOTE | 2021-09-24 13:00 | NUR ---
Patient remains isolative and withdrawn .Patient stay in his room all day Continue to monitor for safety q15 minutes encourage patient to verbalize feelings and thoughts ,redirect as needed.
[2021-09-24 16:00] VITALS: BP 120/69
--- NOTE | 2021-09-24 19:35 | NUR ---
GPS RN OPENING NOTE: RECEIVED PATIENT AWAKE, RESTING IN HIS BED. A & O X 3, CALM, COOPERATIVE, ISOLATIVE, NO C/O PAIN VERBALIZED. NO ACUTE DISTRESS NOTED. PATIENT IS AMBULATORY/STEADY. MED COMPLAINT. PATIENT IS ABLE TO MAKE HIS NEEDS KNOWN. BED IN LOW LOCKED POSITION. SIDE RAILS X 2 UP. WILL CONTINUE TO MONITOR THE PATIENT Q 15 MIN FOR SAFETY AND BEHAVIOR.
[2021-09-24 19:38] VITALS: BP 109/89
[2021-09-24 20:00] VITALS: BP 109/89
[2021-09-24] MEDS: INVEST MED MK-8189-008-02 MISC 1 DOSE PO SCH (20:07)
--- NOTE | 2021-09-25 06:08 | NUR ---
GPS RN CLOSING NOTE: PATIENT SLEPT WELL, CALM, COOPERATIVE THROUGH OUT THE SHIFT. NO BEHAVIOR PROBLEM NOTED. NO ACUTE DISTRESS NOTED. WILL CONTINUE TO MONITOR THE PATIENT Q 15 MIN FOR SAFETY AND BEHAVIOR.
[2021-09-25 08:00] VITALS: BP 95/70
[2021-09-25 16:00] VITALS: BP 122/65
--- NOTE | 2021-09-25 19:53 | NUR ---
GPS RN NOTES: RECEIVED PATIENT IN BED, AWAKE, A/O X 4, APPROPRIATE AFFECT, CALM, COOPERATIVE, PASSIVE, WITHDRAWN, ISOLATIVE. NOT INTERACTING WITH PEERS. DENIES PAIN AT THIS TIME. NO S/S OF DISTRESS NOTED. RESPIRATION EVEN AND UNLABORED WITH EQUAL RISE AND FALL OF THE CHEST, ON ROOM AIR. PATIENT IS ABLE TO MAKE HIS NEEDS KNOWN. OFFERED FLUID AND SNACKS TOLERATED. BED IN LOW LOCKED POSITION, SIDE RAILS UP X2 FOR SAFETY. WILL CONTINUE TO MONITOR Q15 MIN FOR SAFETY, MOOD AND BEHAVIOR.
[2021-09-25] MEDS: INVEST MED MK-8189-008-02 MISC 1 DOSE PO SCH (20:20)
[2021-09-25 20:43] VITALS: BP 142/68
--- NOTE | 2021-09-26 06:53 | NUR ---
GPS RN CLOSING NOTES: PATIENT IS CURRENTLY SLEEPING. PATIENT SLEPT 3.5 HR THIS SHIFT. PATIENT WAS UP MOST OF THE NIGHT WATCHING MOVIES. NO S/S OF DISTRESS. RESPIRATION EVEN AND UNLABORED WITH EQUAL RISE AND FALL OF THE CHEST, ON ROOM AIR. NO C/O PAIN THIS SHIFT. ALL PATIENT CARE NEEDS HAVE BEEN MET ANTICIPATED. WILL CONTINUE TO MONITOR AND ENDORSE TO AM SHIFT.
--- NOTE | 2021-09-26 07:15 | NUR ---
RN-NOTES RECEIVED PATIENT SLEEPING WITH BREATHING EVEN AND NONLABORED EASILY AROUSED,NO ACUTE DISTRESS NOTED. CALM AND COOPERATIVE. ABLE TO MAKE NEEDS KNOWN TO THE STAFF.
[2021-09-26 08:00] VITALS: BP 100/64
[2021-09-26 16:10] VITALS: BP 110/67
--- NOTE | 2021-09-26 19:01 | NUR ---
RN-NOTES PATIENT LYING IN BED AWAKE,ALERT ,CALM NO ACUTE DISTRESS NOTED. PATIENT WENT OUT THE UNIT SEVERAL TIMES FOR SMOKING. PATIENT WAS CALM AND COOPERATIVE THIS SHIFT. ALL NEEDS ATTENDED AND MET. WILL ENDORSE TO INCOMING NURSE FOR CONTINUITY OF CARE.
--- NOTE | 2021-09-26 19:30 | NUR ---
GPS RN NOTE, PATIENT IS OUTSIDE SMOKING AT THIS TIME.
--- NOTE | 2021-09-26 20:55 | NUR ---
GPS RN NOTE, PATIENT IS STILL OUT SMOKING UNABLE TO GIVE INVESTIGATIONAL MED AT THIS TIME.
--- NOTE | 2021-09-26 21:27 | NUR ---
GPS RN NOTE, PATIENT IS STILL OUT SMOKING. PAGED DR CARBAJAL AND INFORMED HIM OF MY FINDINGS. DR CARBAJAL GAVE ORDER TO GIVE INVESTIGATIONAL MEDS WHEN PATIENT RETURNS [facility]EN IF IT'S LATE. ALL ORDERS NOTED AND CARRIED OUT.
--- NOTE | 2021-09-26 21:30 | NUR ---
GPS RN NOTE, PATIENT IS BACK FROM SMOKING. WHEN ASKED WERE DID HE GO. PATIENT STATED, " I NEEDED TO BYE SOME THINGS FROM HOME DEPO. PATIENT CHECKED FOR CONTRABAND. NO NEW CONTRABAND FOUND. GAVE INVESTIGATIONAL MEDS LATE ORDERED. WILL CONTINUE TO MONITOR THIS PATIENT WITH THE HELP OF STAFF.
[2021-09-26] MEDS: INVEST MED MK-8189-008-02 MISC 1 DOSE PO SCH (21:34)
--- NOTE | 2021-09-27 07:10 | NUR ---
RN-NOTES RECEIVED PATIENT IN THE HALLWAY ABOUT TO GO OUT THE UNIT,STATED" I'M GOING HOME TODAY, I JUST BRINGING MY STAFF DOWNSTAIR AND I WILL BE BACK".
--- NOTE | 2021-09-27 07:25 | NUR ---
RN-NOTES CALLED DR. CARBAJAL TO VERIFY ABOUT THE DISCHARGE PATIENT CLAIMING. RECEIVED CALL FROM DR. CARBAJAL WITH T.O DISCHARGE ORDER. NOTED AND CARRIED OUT.
--- NOTE | 2021-09-27 09:00 | NUR ---
RN-NOTES DILLON CARBAJAL STAFF HUNTER PATIENT AND DILLON STATED THAT MR. MAXX QUEZADA WILL BE BACK IN THE UNIT FOR THE DISCHARGE.
--- NOTE | 2021-09-27 11:56 | NUR ---
RN-DISCHARGE NOTES PATIENT HAD A DISCHARGE ORDER FROM DR. CARBAJAL (PSYCHIATRIST). PATIENT LEFT THE UNIT IN STABLE CONDITION ,A/O X4,NO ACUTE DISTRESS NOTED. AMBULATORY WITH STEADY GAIT. PATIENT DID NOT VERBALIZE SI/HI,DENIES VISUAL/AUDITORY HALLUCINATIONS AT THE TIME OF DISCHARGE. PATIENT WAS DISCHARGE WITH ALL HER BELONGINGS .ASSISTANT HEALTH EDUCATOR INSTRUCTED PATIENT TO CALL 911 OR GO TO THE NEAREST ER FACILITY [facility]. ALSO ADVICE PATIENT TO FOLLOW WITH PSYCHIATRIST. PATIENT WAS ACCOMPANIED BY DILLON ( STAFF) OFF THE UNIT.
== END 2021-09-27 11:55 | disposition home or self-care (01) | DRG 951 ==
LOC: MEDOV2 14:47 → UNDOADMIN 14:47 → MED 14:47 → GPS 09-11 12:30 → MED 09-11 12:30 → MEDOV2 09-11 19:00
PROVIDERS: ADMIT Psychiatry & Neurology Psychiatry; ATTEND Psychiatry & Neurology Psychiatry
DX: Z00.6 Encounter for examination for normal comparison and control in clinical research program (principal); F20.0 Paranoid schizophrenia; G47.9 Sleep disorder, unspecified; F29 Unspecified psychosis not due to a substance or known physiological condition; Z79.899 Other long term (current) drug therapy; Z81.8 Family history of other mental and behavioral disorders
CPT/HCPCS: 87081-TC; G0378

== ENCOUNTER 2021-11-04 11:43 | Inpatient (IN) | payer OTHER ==
[~2021-11-04] VITALS: Ht 170.2 cm; Wt 54.4 kg
[2021-11-04] MEDS ORDERED: IBUPROFEN 200 MG TABLET PO PRN ×2 (14:30→17:00)
[2021-11-04] MEDS ORDERED: ACETAMINOPHEN ES 500 MG TABLET PO PRN (14:30)
[2021-11-04] MEDS ORDERED: MAG HYDROX/AL HYDROX/SIMETH 30 ML UDC PO PRN ×2 (14:30→17:00)
[2021-11-04] MEDS ORDERED: LORAZEPAM 1 MG TABLET FOR AGITATION/ANXIETY PO PRN (14:30)
[2021-11-04] MEDS ORDERED: MAGNESIUM HYDROXIDE 30 ML UDC PO PRN ×2 (14:30→16:30)
[2021-11-04 16:00] VITALS: BP 130/78
[2021-11-04] MEDS ORDERED: LORAZEPAM 0.5 MG TABLET PO PRN (16:30)
[2021-11-04] MEDS ORDERED: ZOLPIDEM TARTRATE 10 MG TABLET PO PRN (16:30)
[2021-11-04] MEDS ORDERED: ACETAMINOPHEN 325 MG TABLET PO PRN (16:30)
[2021-11-04] MEDS ORDERED: BLOOD SUGAR DIAGNOSTIC 1 EACH STRIP IN ONE (16:30)
--- NOTE | 2021-11-04 16:36 | NUR ---
CLINICAL TRIAL Pt admitted. Full Code. NKA. Pt is a 36 year old male. Alert and oriented x3. Admitted for clinical trial @ 1440. Pt is COVID RAPID negative as of 11/04/2021. Pt. is under the services of Dr. Reynaga. Pt. arrived to the unit, ambulatory and escorted by Dr. Reynaga's staff. Bed locked. bed on lowest position. bed alarm on. side rails up x2. Pt. denies suicidal and homicidal ideation at this time. Pt denies a/v hallucinations at this time. Pt is calm and cooperative upon admission. V/S taken: 130/78, 98.1, 20, 92, 98% RA. Accu check done 98. Covid vaccine hx imputed. MRSA swab done. All belongings in possession of patient. Pt. signed admission papers with RN. Pt skin is intact. Needs attended and will continue to monitor Q15 minutes for safety, comfort and behavior.
[2021-11-04 16:42] VITALS: BP 130/78
--- NOTE | 2021-11-04 19:35 | NUR ---
RN NOTES: PATIENT IN HIS ROOM AWAKE, ALERT AND ORIENTED X3, NO ACUTE DISTRESS NO SOB NOTED. PATIENT REMAINS ISOLATIVE, COOPERTIVE. PT. DENIES SI/HI AT THIS TIME. SAFETY PRECAUTIONS MAINTAINED. WILL CONTINUE TO MONITOR Q15MIN ROUNDS FOR SAFETY AND BEHAVIOR.
[2021-11-04 20:59] VITALS: BP 127/89
[2021-11-04] MEDS: risperiDONE 1 MG TABLET PO SCH (21:34)
--- NOTE | 2021-11-05 06:42 | NUR ---
RN NOTES: PATIENT IS RESTING COMFORTABLY IN BED. PATIENT SLEPT 8 HR THIS SHIFT. NO C/O PAIN THIS SHIFT. NO BEHAVIORAL ISSUES THIS SHIFT. NO S/S OF DISTRESS. RESPIRATION EVEN AND UNLABORED WITH EQUAL RISE AND FALL OF THE CHEST, ON ROOM AIR. ALL PATIENT CARE NEEDS HAVE BEEN MET ANTICIPATED. WILL CONTINUE TO MONITOR AND ENDORSE TO AM SHIFT.
[2021-11-05 07:12] LABS: ALBUMIN 3.7 g/dL (3.4-5.0); BILIRUBIN,TOTAL 0.4 mg/dL (0.2-1.0); CALCIUM, SERUM 8.5 mg/dL (8.5-10.1); CREATININE 0.9 mg/dL (0.6-1.3); POTASSIUM 3.8 mmol/L (3.5-5.1)
[2021-11-05 08:00] VITALS: BP 79/44
--- NOTE | 2021-11-05 08:47 | NUR ---
RN OPENING NOTE: PATIENT IN HIS ROOM AWAKE RESTING IN BED NO S/S DISTRESS NOTED PT ALERT AND ORIENTED X3, PATIENT REMAINS , COOPERATIVE. PT. DENIES SI/HI AVH AT THIS TIME. SAFETY PRECAUTIONS MAINTAINED. WILL CONTINUE TO MONITOR Q15MIN ROUNDS FOR SAFETY AND BEHAVIOR.
[2021-11-05 09:08] LABS: CHOLESTEROL 169 mg/dL (<200); HDL CHOLESTEROL 48 mg/dL (40-60); LDL 98 mg/dL (0-99); TRIGLYCERIDES 89 mg/dL (30-150)
--- NOTE | 2021-11-05 19:45 | NUR ---
RN NOTES, PATIENT IN HIS ROOM IN BED AWAKE, ALERT AND ORIENTED X3, AT ROOM AIR, NO SOB/ACUTE DISTRESS NOTED, NO C/O PAIN OR DISCOMFORT, . COOPERATIVE WITH CARE, DENIES SI/HI AT THIS TIME, SAFETY PRECAUTIONS MAINTAINED AT ALL TIME, WILL CONTINUE TO MONITOR Q15MIN ROUNDS FOR SAFETY AND BEHAVIOR, NO DISRUPTIVE BEHAVIOR NOTED AT TIS TIME.
[2021-11-05 20:00] VITALS: BP 113/76
[2021-11-05] MEDS: risperiDONE 1 MG TABLET PO SCH (21:24)
[2021-11-05] MEDS: ZOLPIDEM TARTRATE 10 MG TABLET PO PRN (21:31)
--- NOTE | 2021-11-06 07:40 | NUR ---
RN OPENING NOTES Patient seen comfortably lying in bed, no SOB, no apparent distress noted, breathing even and unlabored, denies any pain or discomfort at this time, no grimacing. Call light left within reach, safety precautions in place, brakes locked, side rails up X 2, will monitor closely for safety and behavior.
[2021-11-06 08:00] VITALS: BP 105/54
--- NOTE | 2021-11-06 18:11 | NUR ---
RN CLOSING NOTES Patient lying in bed, no shortness of breath, breathing even and unlabored, denies any pain or discomfort, no apparent distress noted. Patient on monitoring for tremors, none noted during shift, no hallucinations, and no delusions during shift. Kept clean and dry, all needs attended, call light left within reach, safety precautions in place, frequent visual check rendered, brakes locked, side rails up X 2, will endorse to next shift for continuity of care.
--- NOTE | 2021-11-06 21:30 | NUR ---
GPS RN NOTE PT WENT DOWN TO SMOKE CAME BACK IN 10 MINUTES.
[2021-11-06] MEDS ORDERED: risperiDONE 1 MG TABLET PO SCH (22:00)
--- NOTE | 2021-11-06 22:00 | NUR ---
GPS RN NOTE DUE MEDS GIVEN. PT REQUESTING FOR SLEEPING MED, AMBIEN 10 MG PO GIVEN.
[2021-11-06] MEDS: ZOLPIDEM TARTRATE 10 MG TABLET PO PRN (22:01)
--- NOTE | 2021-11-06 22:45 | NUR ---
GPS RN NOTE PT WANTS TO GO DOWN TO SMOKE, CAME BACK IN 15 MINUTES, STATES "IT'S LAST SMOKING BREAK FOR TONIGHT".
[2021-11-07 08:00] VITALS: BP 100/64
--- NOTE | 2021-11-07 13:42 | NUR ---
RN-NOTES PATIENT OFF THE UNIT FOR SMOKING .
--- NOTE | 2021-11-07 14:49 | NUR ---
RN-notes Patient back in the unit at 1415.
[2021-11-07 16:00] VITALS: BP 110/81
[2021-11-07 20:00] VITALS: BP 127/72
[2021-11-07] MEDS: ZOLPIDEM TARTRATE 10 MG TABLET PO PRN (23:37)
--- NOTE | 2021-11-07 23:37 | NUR ---
GPS RN NOTE, PATIENT HAS A COMPLAINT OF NOT BEING ABLE TO SLEEP AND IS REQUESTING AMBIEN AT THIS TIME. PATIENT VITAL SIGNS ARE STABLE. GAVE AMBIEN 10MG PO HS PRN ORDERED. WILL REASSESS FOR INSOMNIA AND I WILL CONTINUE TO MONITOR THIS PATIENT WITH THE HELP OF STAFF.
[2021-11-08 08:00] VITALS: BP 153/77
[2021-11-08 16:00] VITALS: BP 108/71
--- NOTE | 2021-11-08 19:00 | NUR ---
RN NOTES: UPON ENDORSEMENT PATIENT IS LYING ON BED, READING HIS BOOK, A/OX3-4, NO SIGN OF ANY DISCOMFORT,FALL AND SAFETY PRECAUTION OBSERVED, KEPT CALL LIGHT WITHIN EASY REACH.NO SIGN SI/HI.
[2021-11-08 20:00] VITALS: BP 94/54
[2021-11-08 20:37] VITALS: BP 94/54
--- NOTE | 2021-11-09 00:05 | NUR ---
ALLY NOTES: -ASKED PERMISSION TO GO OUT FOR FRESH AIR AND SMOKE, CN AWARE. Addendum: 11/09/21 at 41 by KASH SILVERMAN RN ADDED NOTES: HE CAME BACK FROM OUTSIDE AT 40.
[2021-11-09 08:00] VITALS: BP 90/50
[2021-11-09 16:00] VITALS: BP 112/60
[2021-11-09 19:56] VITALS: BP 101/69
[2021-11-10] MEDS: ZOLPIDEM TARTRATE 10 MG TABLET PO PRN (00:26)
[2021-11-10 08:00] VITALS: BP 99/59
[2021-11-10 16:00] VITALS: BP 143/61
[2021-11-10 20:00] VITALS: BP 106/74
--- NOTE | 2021-11-10 20:00 | NUR ---
GPS RN OPENING NOTE: RECEIVED PATIENT RESTING IS IN HIS BED. A & O X 3, ISOLATIVE, DENIES SI/HI AT THIS TIME. VSS. CALM AND COOPERATIVE. NO ACUTE DISTRESS NOTED. AMBULATORY, STEADY GAIT. ABLE TO MAKE NEEDS KNOWN. ALL NEEDS ATTENDED AND ANTICIPATED. SAFETY MEASURES IN PLACE. WILL CONTINUE MONITORING Q15MIN FOR SAFETY AND BEHAVIOR.
--- NOTE | 2021-11-10 20:20 | NUR ---
GPS RN NOTE PATIENT WENT OUT OF GPS UNIT TO SMOKE.
--- NOTE | 2021-11-10 20:50 | NUR ---
PATIENT CAME BACK TO GPS UNIT FROM SMOKE BREAK.
[2021-11-11 08:00] VITALS: BP 100/53
--- NOTE | 2021-11-11 09:00 | NUR ---
Patient alert ,verbally responsive ,poor insight ,poor judgment ,easily irritable and anxious ,no plan for self care .
--- NOTE | 2021-11-11 13:00 | NUR ---
Patient remains isolative and withdrawn ,no interaction with peers ,no plan for self care ,labile and uncooperative ,will continue to monitor for safety q15 minutes ,encourage patient to verbalize feelings and thoughts redirect as needed.
[2021-11-11 16:00] VITALS: BP 108/71
[2021-11-11 20:04] VITALS: BP 122/68
--- NOTE | 2021-11-11 20:31 | NUR ---
Patient remains isolative,withdrawn,no social interactions ,blunted affect,denies SI/HI,no s/s of acute distress noted.Will continue to monitor q15 min rounds for safety.
[2021-11-12 08:00] VITALS: BP 100/59
--- NOTE | 2021-11-12 09:00 | NUR ---
Patient alert ,verbally responsive ,poor insight, poor judgment ,easily irritable and anxious,disheveled and unkempt ,refused to shower ,no plan for self care .
--- NOTE | 2021-11-12 13:00 | NUR ---
Patient easily irritable and anxious,disheveled and unkempt ,refused to shower no plan for self care .
[2021-11-12 16:00] VITALS: BP 108/59
[2021-11-12 20:36] VITALS: BP 101/62
[2021-11-12] MEDS: ZOLPIDEM TARTRATE 10 MG TABLET PO PRN (21:50)
[2021-11-13 08:00] VITALS: BP 100/57
--- NOTE | 2021-11-13 10:58 | NUR ---
RN-CO: PATIENT REMAINS COOPERATIVE TO CARE. HE SAID HE HAS AH AND VH BUT DENIED COMMAND HALLUCINATIONS. HE DENIED ADVERSE REACTION FROM INVESTIGATIONAL MEDICATIONS.
[2021-11-13 16:00] VITALS: BP 132/69
--- NOTE | 2021-11-13 20:05 | NUR ---
Patient appears to be anxious,labile mood with blunted affect but pleasant upon approach.Patient requested to go downstairs for smoke break.No s/s of acute distress noted .Will continue to monitor q15 min rounds for safety.
[2021-11-13 20:16] VITALS: BP 109/76
[2021-11-14 08:00] VITALS: BP 114/71
--- NOTE | 2021-11-14 09:30 | NUR ---
RN-CO: Patient is polite to staff, he denied pain and discomforts. He listens to music inside his room most of the time and every 2-3 hours he goes out to smoke.
[2021-11-14 16:00] VITALS: BP 97/61
--- NOTE | 2021-11-14 19:20 | NUR ---
gps risk management intern opening noted: received patient sitting in bed, awake, calm. a/o x3. on room air, breathing even an unlabored. no acute distress noted. no c/o pain. patient denies si/hi at this time. all needs attended. safety measures in place. will continue monitoring q15 mins for safety and behavior.
[2021-11-14 20:00] VITALS: BP 101/68
[2021-11-15 08:00] VITALS: BP 91/57
[2021-11-15] MEDS: INVEST MED Kar XT OR PLACEBO 50/20 MG PO SCH ×2 (10:05→21:50)
--- NOTE | 2021-11-15 10:30 | NUR ---
RN Notes: Received pt. asleep in bed, breathing is even and unlabored. Refused for breakfast, compliant on meds. Encouraged to take shower and needs attended. No distress and no agitation noted. Will continue to monitor for safety.
--- NOTE | 2021-11-15 12:11 | NUR ---
Pt. went to the doctor's office and being picked up by staff.Left ambulatory and without distress.
[2021-11-15 16:00] VITALS: BP 109/73
--- NOTE | 2021-11-15 18:49 | NUR ---
Pt. left the unit about 1614 and until now not back yet and Dr. Reynaga made aware.
--- NOTE | 2021-11-15 19:00 | NUR ---
Pt. came back to the unit. dr. Reynaga made aware spoke to the pt.
--- NOTE | 2021-11-15 19:35 | NUR ---
RN OPENING NOTES: RECEIVED PATIENT IN BED, AWAKE, A/O X3. APPROPRIATE AFFECT, CALM AND COOPERATIVE, PASSIVE. PER PATIENT HE HEARS VOICES AND SEES THINGS ALWAYS. EDUCATION PROVIDED ON COPING STRATEGIES. NO S/S OF DISTRESS. RESPIRATION EVEN AND UNLABORED WITH EQUAL RISE AND FALL OF THE CHEST, ON ROOM AIR. OFFERED FLUID AND SNACKS TOLERATED. BED IN LOWEST POSITION AND LOCKED, SIDE RAILS UP X2 FOR SAFETY. CALL KAUFFMAN WITHIN REACH. WILL CONTINUE TO MONITOR Q15 MIN FOR SAFETY, MOOD AND BEHAVIOR.
[2021-11-15 20:09] VITALS: BP 106/77
[2021-11-16] MEDS: INVEST MED Kar XT OR PLACEBO 50/20 MG PO SCH ×2 (09:35→22:01)
[2021-11-16 16:00] VITALS: BP 113/78
[2021-11-16 20:00] VITALS: BP 104/68
[2021-11-16] MEDS: ZOLPIDEM TARTRATE 10 MG TABLET PO PRN (22:28)
[2021-11-17 08:00] VITALS: BP 98/57
--- NOTE | 2021-11-17 09:34 | NUR ---
RN-CO: PATIENT IS AWAKE, DENIED PAIN AND DISCOMFORTS. HE IS ISOLATIVE AND WITHDRAWN AND UP FOR NEEDS ONLY OTHERWISE PLEASANT TO STAFF. I WILL CONTINUE TO MONITOR.TODAY HE DENIED AH AND VH. I WILL CONTINUE TO MONITOR AND NOTIFY DR CARBAJAL.
--- NOTE | 2021-11-17 09:45 | NUR ---
RN-CO: MADE A FOLLOW UP ON THE INVESTIGATIONAL MEDICINE TO DELIVER IN THE UNIT.PER PHARMACY STAFF, "THEY" WILL DELIVER IT LATE.
--- NOTE | 2021-11-17 11:10 | NUR ---
RN-CO: MADE A FOLLOW UP AGAIN ON THE INVESTIGATIONAL MEDICINE TO DELIVER IN THE UNIT.PER PHARMACY STAFF, "THEY" WILL DELIVER IT LATE.
--- NOTE | 2021-11-17 14:01 | NUR ---
RN-CO: MADE A FOLLOW UP AGAIN 3x, ON THE INVESTIGATIONAL MEDICINE TO DELIVER IN THE UNIT.PER PHARMACY STAFF, "THEY" WILL DELIVER IT LATE.
[2021-11-17] MEDS: INVEST MED Kar XT OR PLACEBO 50/20 MG PO SCH ×2 (14:04→22:08)
[2021-11-17 16:00] VITALS: BP 99/62
--- NOTE | 2021-11-17 21:41 | NUR ---
Patient in bed bed awake,isolative,withdrawn,focused on his own thoughts and feelings.He goes out to smoke with MD order.No s/s of acute distress noted.Will continue to monitor q15min rounds for safety.
[2021-11-18 08:00] VITALS: BP 100/55
--- NOTE | 2021-11-18 09:00 | NUR ---
Patient alert ,verbally responsive ,poor insight ,poor judgment ,easily irritable and anxious ,isolative and withdrawn ,no plan for self care .
[2021-11-18] MEDS: INVEST MED Kar XT OR PLACEBO 50/20 MG PO SCH ×2 (10:07→22:02)
--- NOTE | 2021-11-18 13:00 | NUR ---
Patient remains isolative and withdrawn ,no interaction with peers ,no plan for self care ,labile,will continue to monitor for saftey q15 minutes encourage patient to verbalize feelings and thoughts redirect as needed.
[2021-11-18 16:00] VITALS: BP 112/71
--- NOTE | 2021-11-18 20:29 | NUR ---
Received patient in bed awake,blunted affect,goes out side the unit to smoke,appears to be restless,anxious.No s/s of tremors and EPS noted.Will continue to monitor q15 min rounds for safety.
[2021-11-18 20:47] VITALS: BP 101/64
[2021-11-19 08:00] VITALS: BP 101/55
--- NOTE | 2021-11-19 09:00 | NUR ---
Patient alert ,verbally responsive ,poor insight ,poor judgment ,easily irritable and anxious, preoccupied wit his own thought ,isolative and withdrawn ,no plan for self care .
[2021-11-19] MEDS: INVEST MED Kar XT OR PLACEBO 50/20 MG PO SCH ×2 (09:56→22:15)
--- NOTE | 2021-11-19 13:00 | NUR ---
Patient remains isolative and withdrawn ,labile,will continue to monitor for safety q15 minutes encourage patient to verbalize feelings and thoughts redirect as needed.
[2021-11-19 16:00] VITALS: BP 100/67
[2021-11-19 20:51] VITALS: BP 100/61
--- NOTE | 2021-11-20 05:39 | NUR ---
Patient is isolative,withdrawn,but pleasant upon approach,compliant with medication,no s/s of tremor and EPS noted.Will continue to m onitor q15 min rounds for safety.
[2021-11-20 08:00] VITALS: BP 98/67
[2021-11-20] MEDS: INVEST MED Kar XT OR PLACEBO 50/20 MG PO SCH ×2 (09:50→22:00)
--- NOTE | 2021-11-20 10:33 | NUR ---
RN-CO: PATIENT IS COOPERATIVE TO STAFF. HE STATED THAT HIS AH/VH IS BETTER. HE GOES OUT TO SMOKE BUT COMES BACK AFTER 15 MIN. HE DENIED S/E NOR ADVERSE REACTION TO IP.
[2021-11-20 16:00] VITALS: BP 109/63
[2021-11-20 20:30] VITALS: BP 115/84
[2021-11-21 08:00] VITALS: BP 105/69
--- NOTE | 2021-11-21 09:00 | NUR ---
PATIENT IN THE ROOM RESTING PATIENT IS COOPERATIVE COMPLIANT WITH MEDICATION NO S/S DISTRESS NOTED HE GOES OUT TO SMOKE BUT COMES BACK AFTER 15 MIN. HE DENIED S/S ADVERSE REACTION TO MEDICATION.
[2021-11-21] MEDS: INVEST MED Kar XT OR PLACEBO 50/20 MG PO SCH ×2 (10:00→21:54)
[2021-11-21 16:00] VITALS: BP 96/51
[2021-11-21 20:00] VITALS: BP 104/69
[2021-11-21] MEDS: ZOLPIDEM TARTRATE 10 MG TABLET PO PRN (22:10)
--- NOTE | 2021-11-22 03:48 | NUR ---
RN NOTES: Pleasent and Polite. Steady Gait. Investigational med given 2199 as ordered.
[2021-11-22 08:00] VITALS: BP 90/63
[2021-11-22] MEDS: INVEST MED Kar XT OR PLACEBO 50/20 MG PO SCH ×2 (10:05→22:10)
[2021-11-22 16:00] VITALS: BP 127/77
[2021-11-22 20:00] VITALS: BP 108/69
[2021-11-23 08:00] VITALS: BP 93/57
[2021-11-23] MEDS: INVEST MED Kar XT OR PLACEBO 50/20 MG PO SCH ×2 (10:12→21:52)
[2021-11-23 20:00] VITALS: BP 105/61
[2021-11-23] MEDS: ZOLPIDEM TARTRATE 10 MG TABLET PO PRN (21:53)
[2021-11-24] MEDS: INVEST MED Kar XT OR PLACEBO 50/20 MG PO SCH ×3 (09:53→23:37)
--- NOTE | 2021-11-24 21:14 | NUR ---
PATIENT OUT OF GPS UNIT ON SMOKE BREAK.
--- NOTE | 2021-11-24 23:36 | NUR ---
RN NOTES PATIENT CAME BACK TO GPS UNIT FROM SMOKE BREAK. AND PT. INVESTIGATIONAL MEDS GIVEN.
[2021-11-25 06:37] VITALS: BP 105/62
--- NOTE | 2021-11-25 06:44 | NUR ---
RN NOTES: PATIENT IS RESTING COMFORTABLY IN BED. PATIENT SLEPT 6 HR THIS SHIFT. NO C/O PAIN THIS SHIFT. NO BEHAVIORAL ISSUES THIS SHIFT. NO S/S OF DISTRESS. RESPIRATION EVEN AND UNLABORED WITH EQUAL RISE AND FALL OF THE CHEST, ON ROOM AIR. ALL PATIENT CARE NEEDS HAVE BEEN MET ANTICIPATED. WILL CONTINUE TO MONITOR AND ENDORSE TO AM SHIFT.
--- NOTE | 2021-11-25 07:27 | NUR ---
GPS RN NOTE PATIENT WAS OUT OF UNIT FOR ABOUT TWO HOURS AT NIGHT FOR SMOKE BREAK. NURSING SIMULATION ANALYST NOTIFIED. AM CHARGE NURSE ALSO NOTIFIED TO INFORM DR. CARBAJAL ABOUT PATIENT'S LONG OUTINGS FROM THE UNIT. PATIENT IS RESTING IN HIS BED AT THIS TIME.
[2021-11-25 08:00] VITALS: BP 99/52
--- NOTE | 2021-11-25 09:00 | NUR ---
Patient alert ,verbally responsive ,poor insight ,poor judgment,preoccupied with his own thoughts ,easily irritable and anxious no plan for self care.
--- NOTE | 2021-11-25 09:00 | NUR ---
Patient alert ,verbally responsive ,poor insight ,poor judgment,preoccupied with his own thoughts ,easily irritable and anxious ,no plan for self care.
[2021-11-25] MEDS: INVEST MED Kar XT OR PLACEBO 50/20 MG PO SCH ×2 (09:43→21:24)
--- NOTE | 2021-11-25 13:00 | NUR ---
Patient remains isolative and withdrawn ,no interaction with peers ,no plan for self care ,labile and cooperative ,will continue to monitor for safety q15 minutes ,encourage patient to verbalize feelings and thoughts redirect as needed.
[2021-11-25 16:00] VITALS: BP 104/70
[2021-11-25 20:12] VITALS: BP 118/69
[2021-11-25] MEDS: ZOLPIDEM TARTRATE 10 MG TABLET PO PRN (22:01)
--- NOTE | 2021-11-25 22:03 | NUR ---
GPS RN NOTES: PATIENT REQUESTED FOR AMBIEN D/T INSOMNIA. AMBIEN 10MG GIVEN PO AT 2201. WILL CONTINUE TO MONITOR.
--- NOTE | 2021-11-26 06:50 | NUR ---
GPS RN CLOSING NOTES: PATIENT IS CURRENTLY SLEEPING IN BED. PATIENT SLEPT 7HR THIS SHIFT. PATIENT LEFT THE UNIT TWICE FOR A SMOKE THIS SHIFT. NO S/S OF DISTRESS NOTED. RESPIRATION EVEN AND UNLABORED WITH EQUAL RISE AND FALL OF THE CHEST, ON ROOM AIR. ALL PATIENT CARE NEEDS HAVE BEEN MET ANTICIPATED. WILL CONTINUE TO MONITOR AND ENDORSE TO AM SHIFT.
[2021-11-26] MEDS: INVEST MED Kar XT OR PLACEBO 50/20 MG PO SCH ×2 (10:02→22:02)
--- NOTE | 2021-11-26 19:35 | NUR ---
GPS RN OPENING NOTE: RECEIVED PATIENT RESTING IS IN HIS BED. A & O X 3, VSS, CALM AND COOPERATIVE. TALKS TO HIMSELF AT TIMES, REDIRECTABLE. NO ACUTE DISTRESS NOTED. AMBULATORY STEADY GAIT. TAKES SMOKE BREAKS. ABLE TO MAKE NEEDS KNOWN. ALL NEEDS ATTENDED AND ANTICIPATED. WILL CONTINUE MONITORING Q15MIN FOR SAFETY AND BEHAVIOR.
[2021-11-26 19:59] VITALS: BP 101/52
--- NOTE | 2021-11-26 21:30 | NUR ---
GPS RN NOTE: PATIENT WENT OUT OF UNIT TO SMOKE BREAK. REMINDED THE PATIENT TO COME BACK IN 15-20 MINUTE SINCE PATIENT IS DUE FOR HIS SCHEDULED MEDICATION AT 2200. PATIENT AGREED.
--- NOTE | 2021-11-26 21:49 | NUR ---
PATIENT CAME BACK TO GPS UNIT AFTER SMOKE BREAK.
[2021-11-26] MEDS: ZOLPIDEM TARTRATE 10 MG TABLET PO PRN (22:04)
--- NOTE | 2021-11-26 22:06 | NUR ---
GPS RN NOTE: INSOMNIA PATIENT VERBALIZED INABILITY TO SLEEP AND REQUESTED TO TAKE AMBIEN. PRN AMBIEN 10 MG 1 TAB PO ADMINISTERED.
[2021-11-26] MEDS: LORAZEPAM 1 MG TABLET FOR AGITATION/ANXIETY PO PRN (23:32)
--- NOTE | 2021-11-26 23:34 | NUR ---
GPS RN NOTE: PATIENT VERBALIZED FEELING ANXIOUS/RESTLESS AND REQUESTED TO TAKE ATIVAN. PRN ATIVAN 1 MG PO ADMINISTERED.
--- NOTE | 2021-11-27 07:01 | NUR ---
PATIENT SLEPT WELL AT NIGHT. COOPERATIVE. MED COMPLAINT. NO BEHAVIORAL EPISODE NOTED.
[2021-11-27 08:00] VITALS: BP 100/67
--- NOTE | 2021-11-27 09:46 | NUR ---
RN-CO:PATIENT IN HIS ROOM, CALM AND COOPERATIVE TO CARE. POLITE TO STAFF, AND WAIT PATIENTLY IF HE NEEDS SOMETHING. PATIENT STATED HE STILL HAS AUDITORY AND VISUAL HALLUCINATIONS BUT GOT BETTER AFTER TAKING INVESTIGATIONAL DRUG.
[2021-11-27] MEDS: INVEST MED Kar XT OR PLACEBO 50/20 MG PO SCH ×2 (09:58→22:01)
[2021-11-27 16:00] VITALS: BP 108/71
[2021-11-27 20:00] VITALS: BP 107/79
--- NOTE | 2021-11-27 20:05 | NUR ---
Patient is in room,quiet,blunted affect,appears to be depressed,no verbalization of thoughts and feelings,no c/o tremors .Will continue to monitor q15 min rounds for safety.
[2021-11-27] MEDS: ZOLPIDEM TARTRATE 10 MG TABLET PO PRN (22:09)
[2021-11-27] MEDS: LORAZEPAM 1 MG TABLET FOR AGITATION/ANXIETY PO PRN (23:27)
[2021-11-28 08:00] VITALS: BP 90/60
--- NOTE | 2021-11-28 09:49 | NUR ---
RN-CO: PATIENT IS CALM AND COOPERATIVE TO CARE. RESPECTFUL TO STAFF. DENIED ADVERSE REACTION FROM INVESTIGATIONAL MEDICATIONS. HE DID NOT C/O PAIN AND DISCOMFORTS THIS MORNING. I WILL CONTINUE TO MONITOR.
[2021-11-28] MEDS: INVEST MED Kar XT OR PLACEBO 50/20 MG PO SCH ×2 (09:52→21:58)
[2021-11-28 16:00] VITALS: BP_SYST 100; BP_SYST 105; BP_DIAS 60
[2021-11-28] MEDS: LORAZEPAM 1 MG TABLET FOR AGITATION/ANXIETY PO PRN ×2 (17:43→23:55)
--- NOTE | 2021-11-28 17:43 | NUR ---
RN-CO: REQUESTED FOR ATIVAN FOR C/O ANXIETY. ATIVAN 1MG PO GIVEN.
[2021-11-28] MEDS: ZOLPIDEM TARTRATE 10 MG TABLET PO PRN (21:59)
--- NOTE | 2021-11-28 21:59 | NUR ---
GPS RN NOTE, PATIENT HAS A COMPLAINT OF NOT BEING ABLE TO SLEEP AND IS REQUESTING AMBIEN AT THIS TIME. PATIENT VITAL SIGNS ARE STABLE. GAVE AMBIEN 10 MG PO HS PRN ORDERED. WILL REASSESS FOR INSOMNIA AND I WILL CONTINUE TO MONITOR THIS PATIENT WITH THE HELP OF STAFF.
[2021-11-29 08:00] VITALS: BP_SYST 90; BP_SYST 92; BP_DIAS 60; BP_DIAS 67
[2021-11-29] MEDS: INVEST MED Kar XT OR PLACEBO 50/20 MG PO SCH ×2 (10:02→21:57)
--- NOTE | 2021-11-29 10:36 | NUR ---
RN Notes: Received pt. asleep inbed, breating is even and unlabored. Pt. refused to eat breakfast and said he is not hungry and compliant on the investigational meds. Encouraged to take shower and encouraged to attend group activity. Needs attended and will continue to monitor for safety.
[2021-11-29 16:00] VITALS: BP 92/67
--- NOTE | 2021-11-29 19:30 | NUR ---
GPS RN NOTE, RECEIVED PATIENT AWAKE AND IN BED, NO S/S OR COMPLAINTS OF PAIN AT THIS TIME. PATIENT IS DISPLAYING NO S/S OF APPARENT DISTRESS AT THIS TIME. PATIENT BREATHING IS UNLABORED WITH EQUAL RISE AND FALL OF THE CHEST. PATIENT IS ALERT AND ORIENTED X 3 ON ROOM AIR WITH A SPO2 99%. PATIENT IS COMPLIANT WITH MEDICATIONS, ANXIOUS, POLITE, MAKES NEEDS KNOWN, AND COOPERATIVE. PATIENT DENIES SUICIDAL AND HOMICIDAL IDEATIONS AT THIS TIME. PATIENT ASSISTED WITH TURNING AND REPOSITIONING Q2HR AND PRN FOR COMFORT AND CIRCULATION. PATIENT HAS NO NEEDS AT THIS TIME. PATIENT EDUCATED ON THE USE OF THE CALL KAUFFMAN. PATIENT BED SIDE RAILS UP X 2 FOR SAFETY. PATIENT BED IS LOCKED, LOW, WITH BED ALARM ON. WILL CONTINUE TO MONITOR THIS PATIENT Q15 MINUTES WITH THE HELP OF STAFF TO MAINTAIN SAFETY.
[2021-11-29] MEDS: LORAZEPAM 1 MG TABLET FOR AGITATION/ANXIETY PO PRN (19:37)
[2021-11-29 20:00] VITALS: BP 107/68
[2021-11-29] MEDS: ZOLPIDEM TARTRATE 10 MG TABLET PO PRN (22:00)
[2021-11-30 08:00] VITALS: BP 100/69
[2021-11-30] MEDS: INVEST MED Kar XT OR PLACEBO 50/20 MG PO SCH ×2 (10:00→21:59)
--- NOTE | 2021-11-30 10:37 | NUR ---
RN Notes: Received pt. asleep in bed, breathing is even and unlabored. Pt. refused to eat breakfast and said Im ok and compliant on the investigational meds. Encouraged to take shower and encouraged to attend group activity. Needs attended and will continue to monitor for safety.
[2021-11-30 16:00] VITALS: BP 100/69
--- NOTE | 2021-11-30 19:30 | NUR ---
GPS RN NOTE, RECEIVED PATIENT AWAKE AND IN BED, NO S/S OR COMPLAINTS OF PAIN AT THIS TIME. PATIENT IS DISPLAYING NO S/S OF APPARENT DISTRESS AT THIS TIME. PATIENT BREATHING IS UNLABORED WITH EQUAL RISE AND FALL OF THE CHEST. PATIENT IS ALERT AND ORIENTED X 3 ON ROOM AIR WITH A SPO2 96%. PATIENT IS COMPLIANT WITH MEDICATIONS, ANXIOUS, POLITE, MAKES NEEDS KNOWN, AND COOPERATIVE. PATIENT DENIES SUICIDAL AND HOMICIDAL IDEATIONS AT THIS TIME. PATIENT ASSISTED WITH TURNING AND REPOSITIONING Q2HR AND PRN FOR COMFORT AND CIRCULATION. PATIENT HAS NO NEEDS AT THIS TIME. PATIENT EDUCATED ON THE USE OF THE CALL KAUFFMAN. PATIENT BED SIDE RAILS UP X 2 FOR SAFETY. PATIENT BED IS LOCKED, LOW, WITH BED ALARM ON. WILL CONTINUE TO MONITOR THIS PATIENT Q15 MINUTES WITH THE HELP OF STAFF TO MAINTAIN SAFETY.
[2021-11-30 20:00] VITALS: BP 104/76
[2021-11-30] MEDS: LORAZEPAM 1 MG TABLET FOR AGITATION/ANXIETY PO PRN (21:01)
[2021-11-30] MEDS: ZOLPIDEM TARTRATE 10 MG TABLET PO PRN (22:00)
[2021-12-01 08:00] VITALS: BP 99/55
[2021-12-01] MEDS: INVEST MED Kar XT OR PLACEBO 50/20 MG PO SCH ×2 (09:55→21:58)
--- NOTE | 2021-12-01 10:24 | NUR ---
RN-CO: PATIENT IS AWAKE, TOOK HIS MEDICATIONS. DENIED PAIN AND DISCOMFORTS. HE STATED THAT HE DOES NOT HAVE AH/VH. HE REMAIN POLITE TO PEERS AND STAFF.
[2021-12-01 16:00] VITALS: BP 104/66
[2021-12-01 20:19] VITALS: BP 98/80
--- NOTE | 2021-12-01 20:38 | NUR ---
Received patient in the hallway @ 1900,but requested to go out to smoke.Patient was allowed to smoke outside as ordered by psych MD.Awaiting patient to come back from smoking outside.Will monitor for s/s of EPS and tremors from the investigational medication that they are taking .No s/s of acute distress noted when I saw him in the hallway earlier.Will continue to monitor q15 min rounds for safety.
[2021-12-01] MEDS: ZOLPIDEM TARTRATE 10 MG TABLET PO PRN (22:00)
--- NOTE | 2021-12-01 23:47 | NUR ---
Patient refused skin assessment.
[2021-12-02 08:00] VITALS: BP 100/58
--- NOTE | 2021-12-02 09:08 | NUR ---
GPS RN NOTE: RECEIVED PATIENT AWAKE AND IN BED, NO S/S DISTRESS NOTED AT THIS TIME. PATIENT VITAL SIGNS WNL PATIENT BREATHING IS UNLABORED WITH EQUAL RISE AND FALL OF THE CHEST. PATIENT IS ALERT AND ORIENTED X 3 ON ROOM AIR WITH A SPO2 96%. PATIENT IS COMPLIANT WITH MEDICATIONS, ANXIOUS, POLITE, MAKES NEEDS KNOWN, AND COOPERATIVE. PATIENT DENIES SUICIDAL AND HOMICIDAL IDEATIONS AT THIS TIME. WILL CONTINUE MONITORING FOR SAFETY AND BEHAVIOR Q 15 MIN.
[2021-12-02] MEDS: INVEST MED Kar XT OR PLACEBO 50/20 MG PO SCH ×2 (10:00→22:02)
[2021-12-02 16:00] VITALS: BP 108/82
[2021-12-02 19:35] VITALS: BP 100/70
--- NOTE | 2021-12-02 19:56 | NUR ---
Received patient in his room,awake,quiet,blunted affect,no c/o adverse reaction of the medication he is taking.Patient appears to be depressed,blunted affect,no verbalization of thoughts and feelings.Patient requested to go out to smoke and was allowed to smoke outside as ordered by psych MD.Will continue to monitor q15 min rounds fo safety.
[2021-12-02] MEDS: ZOLPIDEM TARTRATE 10 MG TABLET PO PRN (22:02)
[2021-12-02] MEDS: LORAZEPAM 1 MG TABLET FOR AGITATION/ANXIETY PO PRN (23:13)
[2021-12-03 08:44] VITALS: BP 84/59
[2021-12-03] MEDS: INVEST MED Kar XT OR PLACEBO 50/20 MG PO SCH ×2 (10:03→22:05)
--- NOTE | 2021-12-03 10:54 | NUR ---
bp rechecked as earlier bp low.at this time bp 88/59,heart rate 62.
[2021-12-03 10:56] VITALS: BP 88/59
--- NOTE | 2021-12-03 14:02 | NUR ---
mostly isolative,no complaints offered.
[2021-12-03 15:16] VITALS: BP 104/77
--- NOTE | 2021-12-03 19:30 | NUR ---
RN OPENING NOTE: RECEIVED PATIENT RESTING IS IN HIS BED, CALM AND COOPERATIVE. TALKS TO HIMSELF AT TIMES, REDIRECTABLE. NO ACUTE DISTRESS NOTED. AMBULATORY STEADY GAIT. TAKES SMOKE BREAKS. ABLE TO MAKE NEEDS KNOWN. ALL NEEDS ATTENDED AND ANTICIPATED. WILL CONTINUE MONITORING Q15MIN FOR SAFETY AND BEHAVIOR.
[2021-12-03] MEDS: LORAZEPAM 1 MG TABLET FOR AGITATION/ANXIETY PO PRN (20:24)
--- NOTE | 2021-12-03 20:25 | NUR ---
RN NOTES: PT. C/O ANXIETY PRN ATIVAN 1 MG PO GIVEN PER PT. REQUEST, WILL CONTINUE TO MONITOR.
[2021-12-03 20:28] VITALS: BP 110/77
[2021-12-03] MEDS: ZOLPIDEM TARTRATE 10 MG TABLET PO PRN (22:46)
--- NOTE | 2021-12-03 22:47 | NUR ---
RN NOTES:INSOMNIA PT. C/O INSOMNIA PRN AMBIEN 10 MG PO GIVEN PER PT. REQUEST , WILL CONTINUE TO MONITOR.
--- NOTE | 2021-12-04 09:31 | NUR ---
RN-CO: PATIENT DENIED PAIN AND DISCOMFORTS. HE STATED THAT HE STILL HAS MINIMAL AH AND VH HOWEVER GETTING BETTER. DENIED SIDE EFFECTS FRO, EPS. HE IS RESPECTFUL TO STAFF AND PEERS. I WILL CONTINUE TO MONITOR.
[2021-12-04] MEDS: INVEST MED Kar XT OR PLACEBO 50/20 MG PO SCH ×2 (09:58→22:00)
--- NOTE | 2021-12-04 15:31 | NUR ---
RN-CO: PT EQUESTED FOR ATIVAN FOR ANXIETY.
--- NOTE | 2021-12-04 19:32 | NUR ---
GPS RN NOTES Received patient in his room, alert and oriented x3. No s/s of acute respiratory distress noted. Patient is calm, cooperative to care, quiet, blunted affect, appears depressed. No verbalization of thoughts and feelings. Pt interacts pleasantly to staff. No s/s of EPS or tremors noted. Denies SI/HI/AVH at this time. Safety precautions in place. Will continue to monitor q15 min rounds for safety and behavior.
[2021-12-04 20:00] VITALS: BP 108/80
[2021-12-05 08:00] VITALS: BP 90/63
--- NOTE | 2021-12-05 09:10 | NUR ---
Pt. went to the doctor's office and escorted by staff. Ambulatory and without distress.
--- NOTE | 2021-12-05 10:00 | NUR ---
Pt. came back just to take the investigational meds and went back to the doctor's office after the meds and escorted by staff.
[2021-12-05] MEDS: INVEST MED Kar XT OR PLACEBO 50/20 MG PO SCH ×2 (10:03→22:01)
--- NOTE | 2021-12-05 11:29 | NUR ---
Pt. is back from the office, ambulatory and without distress. Will continue to monitor for safety.
[2021-12-05 16:00] VITALS: BP 108/73
--- NOTE | 2021-12-05 19:45 | NUR ---
GPS RN OPENING NOTES: RECEIVED PATIENT IN BED, AWAKE, A/O X3. APPROPRIATE AFFECT, PASSIVE, CALM AND COOPERATIVE. DENIES A/V HALLUCINATIONS, DENIES SI/HI AT THIS TIME. NO S/S OF DISTRESS. RESPIRATION EVEN AND UNLABORED WITH EQUAL RISE AND FALL OF THE CHEST, ON ROOM AIR. OFFERED FLUID AND SNACKS TOLERATED. BED IN LOW LOCKED POSITION, CALL KAUFFMAN WITHIN REACH. WILL CONTINUE TO MONITOR Q15 FOR MOOD, SAFETY AND BEHAVIOR.
[2021-12-05 20:00] VITALS: BP 106/80
[2021-12-05] MEDS: ZOLPIDEM TARTRATE 10 MG TABLET PO PRN (22:38)
--- NOTE | 2021-12-05 22:39 | NUR ---
GPS RN NOTES: PATIENT REQUESTED FOR SLEEP MEDICATION. AMBIEN 10MG GIVEN PO AT 2238. WILL CONTINUE TO MONITOR.
--- NOTE | 2021-12-06 06:34 | NUR ---
GPS RN CLOSING NOTES: PATIENT IS SLEEPING COMFORTABLY IN BED. PATIENT SLEPT 7HR THIS SHIFT. PATIENT LEFT THE UNIT ONCE FOR A SMOKE THIS SHIFT. NO S/S OF DISTRESS NOTED. RESPIRATION EVEN AND UNLABORED WITH EQUAL RISE AND FALL OF THE CHEST, ON ROOM AIR. ALL PATIENT CARE NEEDS HAVE BEEN MET ANTICIPATED. WILL CONTINUE TO MONITOR AND ENDORSE TO AM SHIFT.
[2021-12-06 08:00] VITALS: BP 90/54
[2021-12-06] MEDS: INVEST MED Kar XT OR PLACEBO 50/20 MG PO SCH ×2 (10:04→22:10)
--- NOTE | 2021-12-06 10:20 | NUR ---
RN Notes: Received pt. asleep in bed, breathing is even and unlabored. Pt. refused to eat breakfast and said he is good, compliant on investigational meds. Pt. isolates in room with poor hygiene. Encouraged to take shower and encouraged to attend group activity. Will continue to monitor for safety.
--- NOTE | 2021-12-06 13:09 | NUR ---
RN Notes: Pt. ate 100% for lunch, with minimal visibility in the unit and in room most of the time. Pt. had shower, no distress and no agitation noted. Will continue to monitor for safety.
[2021-12-06 16:00] VITALS: BP 107/70
--- NOTE | 2021-12-06 19:50 | NUR ---
GPS RN OPENING NOTES: RECEIVED PATIENT IN BED, AWAKE, A/O X3. PASSIVE, WITHDRAWN, CALM AND COOPERATIVE. DENIES A/V HALLUCINATIONS, DENIES SI/HI AT THIS TIME. NO S/S OF DISTRESS. RESPIRATION EVEN AND UNLABORED WITH EQUAL RISE AND FALL OF THE CHEST, ON ROOM AIR. OFFERED FLUID AND SNACKS TOLERATED. BED IN LOW LOCKED POSITION, CALL KAUFFMAN WITHIN REACH. WILL CONTINUE TO MONITOR Q15 FOR MOOD, SAFETY AND BEHAVIOR.
[2021-12-06 20:16] VITALS: BP 109/74
[2021-12-06] MEDS: ZOLPIDEM TARTRATE 10 MG TABLET PO PRN (22:39)
--- NOTE | 2021-12-06 22:43 | NUR ---
GPS RN NOTES: PATIENT REQUESTED FOR SLEEP MEDICATION. AMBIEN 10MG GIVEN PO AT 2239. WILL CONTINUE TO MONITOR.
--- NOTE | 2021-12-07 07:01 | NUR ---
GPS RN CLOSING NOTES: PATIENT LAYING CALMLY IN BED. PATIENT SLEPT 7HR THIS SHIFT. NO S/S OF DISTRESS NOTED. RESPIRATION EVEN AND UNLABORED WITH EQUAL RISE AND FALL OF THE CHEST, ON ROOM AIR. ALL PATIENT CARE NEEDS HAVE BEEN MET ANTICIPATED. BED IN LOW LOCKED POSITION, SIDE RAILS UP X2 FOR SAFETY. CALL KAUFFMAN WITHIN REACH. WILL CONTINUE TO MONITOR AND ENDORSE TO AM SHIFT.
--- NOTE | 2021-12-07 07:30 | NUR ---
GPS/RN RECEIVED PATIENT RESTING IN THE ROOM NO S/S DISTRESS NOTED AT THIS TIME DENIES SI/HI AVH. DENIED PAIN AND DISCOMFORTS. DAILY MEDS COMPLIANT.ALL NEEDS ATTENDED AND ANTICIPATED. WILL CONTINUE MONITORING FOR SAFETY AND BEHAVIOR Q 15 MIN
[2021-12-07 08:00] VITALS: BP 90/52
[2021-12-07] MEDS: INVEST MED Kar XT OR PLACEBO 50/20 MG PO SCH ×2 (10:01→21:56)
[2021-12-07 16:00] VITALS: BP 133/83
[2021-12-07] MEDS: LORAZEPAM 1 MG TABLET FOR AGITATION/ANXIETY PO PRN (20:15)
[2021-12-07 20:19] VITALS: BP 106/68
[2021-12-07] MEDS: ZOLPIDEM TARTRATE 10 MG TABLET PO PRN (21:56)
[2021-12-08 08:00] VITALS: BP 97/59
--- NOTE | 2021-12-08 09:50 | NUR ---
RN-CO: PATIENT IS IN HIS ROOM, RESPECTFUL TO STAFF AND COMPLAINT WITH MEDICATIONS. DENIED PAIN AND DISCOMFORTS. SHE STATED HE FEELS BETTER , LESSER AH/VH. I WILL CONTINUE TO MONITOR.
[2021-12-08] MEDS: INVEST MED Kar XT OR PLACEBO 50/20 MG PO SCH ×2 (10:02→22:02)
[2021-12-08 16:00] VITALS: BP 112/83
[2021-12-08 20:58] VITALS: BP 101/56
[2021-12-08] MEDS: ZOLPIDEM TARTRATE 10 MG TABLET PO PRN (21:53)
--- NOTE | 2021-12-08 22:00 | NUR ---
patient c/o difficulty falling asleep,requested and given Ambien 10 mg PO as ordered.
--- NOTE | 2021-12-08 22:45 | NUR ---
Patient took his investigational medications,no s/s pof EPS and tremors noted.Patient appears to hyperactive,restless and requested to step out for cigarette or smoke outside the unit and was allowed to smoke outside as per psych MD order.Patient came back from the outside with 2 bags of food and soda .Patient is compliant and encourage him to inform staff on any s/s of EPS or tremors.Will continue to monitor q15 min rounds for safety.
--- NOTE | 2021-12-08 23:27 | NUR ---
Refused skin assessment.
--- NOTE | 2021-12-09 06:33 | NUR ---
patient awake,requested to go outside to smoke,no s/s of acute distress noted.No c/o EPS or tremors.Will continue to monitor q15 min rounds for safety.
[2021-12-09 08:00] VITALS: BP 111/75
--- NOTE | 2021-12-09 09:00 | NUR ---
Received patient alert verbally responsive disorganized thoughts ,med compliant ,preoccupied with his own thoughts .Continue to monitor for safety q15 minutes ,redirect as needed .Encourage patient to verbalize feelings and thoughts .
[2021-12-09] MEDS: INVEST MED Kar XT OR PLACEBO 50/20 MG PO SCH ×2 (10:00→21:54)
--- NOTE | 2021-12-09 13:00 | NUR ---
Patient sitting in his bed ,isolative and withdrawn ,refused to attend groups ,preoccupied with his own thoughts ,no plan for self care .will continue to monitor for Safety ,encourage patient to verbalize feelings and thoughts ,redirect as needed.
[2021-12-09 16:00] VITALS: BP 100/56
--- NOTE | 2021-12-09 19:20 | NUR ---
GPS RN OPENING NOTE RECEIVED PATIENT RESTING IN BED. ALERT AND ORIENTED X 4. DENIES PAIN AT THIS TIME. WITHDRAWN AND QUIET. AMBULATORY WITH STEADY GAIT. CONTINUES ON CLINICAL TRIAL. ENCOURAGED PATIENT TO VERBALIZE FEELINGS OR NEEDS. HAS SMOKE BREAKS. WILL CONTINUE TO MONITOR FOR SAFETY.
[2021-12-09 19:57] VITALS: BP 108/72
[2021-12-09] MEDS: LORAZEPAM 1 MG TABLET FOR AGITATION/ANXIETY PO PRN (21:54)
--- NOTE | 2021-12-09 22:03 | NUR ---
GPS NOTE PATIENT REQUESTING ATIVAN FOR INCREASED ANXIETY. PRN ATIVAN ADMINISTERED PER MD ORDER.
[2021-12-09] MEDS: ZOLPIDEM TARTRATE 10 MG TABLET PO PRN (22:43)
--- NOTE | 2021-12-10 06:19 | NUR ---
GPS RN CLOSING NOTE PATIENT IS CURRENTLY SLEEPING IN BED. ALERT AND ORIENTED X 4. DENIES PAIN AT THIS TIME. WITHDRAWN AND QUIET. AMBULATORY WITH STEADY GAIT. COMPLIANT WITH MEDICATIONS. CONTINUES ON CLINICAL TRIAL. ENCOURAGED PATIENT TO VERBALIZE FEELINGS OR NEEDS. HAS SMOKE BREAKS. WILL ENDORSE PLAN OF CARE TO ONCOMING SHIFT.
[2021-12-10] MEDS: INVEST MED Kar XT OR PLACEBO 50/20 MG PO SCH ×2 (09:24→22:00)
--- NOTE | 2021-12-10 19:15 | NUR ---
GPS RN NOTES: Received patient in his room, alert and oriented x3, No s/s of acute distress noted. Able to make needs known. Patient goes out to smoke. Patient is anxious, cooperative to care, quiet, blunted affect, interacts pleasantly to staff. No s/s of EPS or tremors noted. Denies SI/HI at this time. Patient still hearing voices. Patient states "Aliens are telling him to go to [employer]". No visual hallucinations at this time. Safety precautions in place. Will continue to monitor q15 min rounds for safety and behavior.
[2021-12-10 19:46] VITALS: BP 102/62
[2021-12-10] MEDS: LORAZEPAM 1 MG TABLET FOR AGITATION/ANXIETY PO PRN (22:23)
--- NOTE | 2021-12-11 09:57 | NUR ---
RN-CO: PATIENT IS AWAKE, DENIED PAIN AND DISCOMFORTS. HE STATED THAT HIS HALLUCINATIONS ARE BETTER. HE DENIED THAT HE EXPERIENCE SIDE EFFECTS FROM THE MEDICATIONS. HE IS POLITE TO STAFF. I WILL CONTINUE TO MONITOR.
[2021-12-11] MEDS: INVEST MED Kar XT OR PLACEBO 50/20 MG PO SCH ×2 (10:01→22:07)
--- NOTE | 2021-12-11 19:44 | NUR ---
GPS RN OPENING NOTES: RECEIVED PATIENT IN ROOM, AWAKE, A/O X3. APPROPRIATE AFFECT, CALM AND COOPERATIVE, PASSIVE. DENIES A/V HALLUCINATIONS, DENIES SI/HI AT THIS TIME. PATIENT IS COMPLIANT WITH TREATMENT REGIMEN. NO S/S OF DISTRESS. RESPIRATION EVEN AND UNLABORED WITH EQUAL RISE AND FALL OF THE CHEST, ON ROOM AIR. OFFERED FLUID AND SNACKS TOLERATED. BED IN LOW LOCKED POSITION, CALL KAUFFMAN WITHIN REACH. WILL CONTINUE TO MONITOR Q15 FOR MOOD, SAFETY AND BEHAVIOR.
[2021-12-11 20:00] VITALS: BP 108/62
[2021-12-11] MEDS: LORAZEPAM 1 MG TABLET FOR AGITATION/ANXIETY PO PRN (22:32)
--- NOTE | 2021-12-11 22:35 | NUR ---
GPS RN NOTES: PATIENT REQUESTED FOR ATIVAN D/T ANXIETY. ATIVAN 1MG GIVEN PO AT 2232. PATIENT IS COMPLIANT WITH MEDICATIONS THIS SHIFT.
[2021-12-12 08:00] VITALS: BP 90/56
[2021-12-12] MEDS: INVEST MED Kar XT OR PLACEBO 50/20 MG PO SCH ×2 (10:00→22:02)
[2021-12-12 16:00] VITALS: BP 115/75
--- NOTE | 2021-12-12 19:30 | NUR ---
GPS RN NOTE, RECEIVED PATIENT AWAKE AND IN BED, NO S/S OR COMPLAINTS OF PAIN AT THIS TIME. PATIENT IS DISPLAYING NO S/S OF APPARENT DISTRESS AT THIS TIME. PATIENT BREATHING IS UNLABORED WITH EQUAL RISE AND FALL OF THE CHEST. PATIENT IS ALERT AND ORIENTED X 3 ON ROOM AIR WITH A SPO2 97%. PATIENT IS COMPLIANT WITH MEDICATIONS, ANXIOUS, POLITE, MAKES NEEDS KNOWN, AND COOPERATIVE. PATIENT DENIES SUICIDAL AND HOMICIDAL IDEATIONS AT THIS TIME. PATIENT ASSISTED WITH TURNING AND REPOSITIONING Q2HR AND PRN FOR COMFORT AND CIRCULATION. PATIENT HAS NO NEEDS AT THIS TIME. PATIENT EDUCATED ON THE USE OF THE CALL KAUFFMAN. PATIENT BED SIDE RAILS UP X 2 FOR SAFETY. PATIENT BED IS LOCKED, LOW, WITH BED ALARM ON. WILL CONTINUE TO MONITOR THIS PATIENT Q15 MINUTES WITH THE HELP OF STAFF TO MAINTAIN SAFETY.
[2021-12-12 20:00] VITALS: BP 105/69
[2021-12-13] MEDS: ZOLPIDEM TARTRATE 10 MG TABLET PO PRN ×2 (00:26→23:05)
[2021-12-13 08:00] VITALS: BP 97/60
[2021-12-13] MEDS: INVEST MED Kar XT OR PLACEBO 50/20 MG PO SCH ×2 (10:00→22:00)
--- NOTE | 2021-12-13 10:15 | NUR ---
Received pt. asleep inbed, breathing is even and unlabored. Refused to eat breakfast and said he is good and compliant on the investigational meds. Pt. isolates in room and quiet. Needs attended, no distress and no agitation noted. Will continue to monitor for safety.
[2021-12-13 16:00] VITALS: BP 103/69
[2021-12-13 19:56] VITALS: BP 107/69
[2021-12-13 20:00] VITALS: BP 107/69
--- NOTE | 2021-12-13 20:00 | NUR ---
GPS RN OPENING NOTES: RECEIVED PATIENT RESTING IN ROOM, AWAKE, A/O X3. APPROPRIATE AFFECT, CALM AND COOPERATIVE, PASSIVE. DENIES A/V HALLUCINATIONS, DENIES SI/HI AT THIS TIME. PATIENT IS COMPLIANT WITH TREATMENT REGIMEN. NO S/S OF DISTRESS. RESPIRATION EVEN AND UNLABORED WITH EQUAL RISE AND FALL OF THE CHEST, ON ROOM AIR. OFFERED FLUID AND SNACKS TOLERATED. BED IN LOW LOCKED POSITION, CALL KAUFFMAN WITHIN REACH. WILL CONTINUE TO MONITOR Q15 FOR MOOD, SAFETY AND BEHAVIOR.
--- NOTE | 2021-12-13 23:08 | NUR ---
GPS RN NOTE: INSOMNIA PATIENT C/O INABILITY TO SLEEP AND REQUESTED TO TAKE AMBIEN AT THIS TIME. PRN AMBIEN 10 MG PO ADMINISTERED.
[2021-12-14 08:00] VITALS: BP 101/63
[2021-12-14] MEDS: INVEST MED Kar XT OR PLACEBO 50/20 MG PO SCH ×2 (10:01→21:59)
--- NOTE | 2021-12-14 10:15 | NUR ---
Received pt. awake in bed abd responsive to staffs. No distress and no agitation noted. Refused to eat breakfast and said he is good and compliant on the investigational meds. Pt. isolates in room and quiet. Pt. took shower and needs attneded. Will continue to monitor for safety.
[2021-12-14 16:00] VITALS: BP 100/60
[2021-12-14 20:22] VITALS: BP 104/70
[2021-12-14] MEDS: ZOLPIDEM TARTRATE 10 MG TABLET PO PRN (21:59)
[2021-12-15 08:00] VITALS: BP 114/79
[2021-12-15] MEDS: INVEST MED Kar XT OR PLACEBO 50/20 MG PO SCH ×2 (10:00→22:04)
[2021-12-15 16:00] VITALS: BP 111/79
[2021-12-15 20:06] VITALS: BP 102/51
--- NOTE | 2021-12-15 22:36 | NUR ---
Patient appears to be labile,unpredictable mood,easily gets irritable stating "F....when he requested to have Ambien or Ativan at 10 pm and was informed to him that his Ambien and Ativan was being held tonight as per psych MD.Patient apologized right away after explanations was given.No s/s of EPS ,tremors noted at this time.Will c cruz to monitor q15 min rounds for safety.
--- NOTE | 2021-12-16 09:00 | NUR ---
Patient alert verbally responsive, flat affect ,easily irritable and anxious ,isolative and withdrawn .Patient stay in his room all day ,no s/s of distress noted will continue to monitor for safety q15 minutes .
[2021-12-16] MEDS: INVEST MED Kar XT OR PLACEBO 50/20 MG PO SCH ×2 (09:06→22:01)
--- NOTE | 2021-12-16 13:00 | NUR ---
Patient isolative and withdrawn ,refused to attend groups ,preoccupied with his own thoughts ,no plan for self care .will continue to monitor for safety ,encourage patient to verbalize feelings and thoughts ,redirect as needed.
[2021-12-16 20:36] VITALS: BP 138/66
[2021-12-17] MEDS: ZOLPIDEM TARTRATE 10 MG TABLET PO PRN ×2 (00:05→21:12)
--- NOTE | 2021-12-17 09:00 | NUR ---
Received patient alert verbally responsive ,poor insight ,poor judgment easily irritable and anxious , med compliant. Continue to monitor for safety q15 minutes ,redirect as needed. Encourage patient to verbalize feelings and thoughts .
[2021-12-17] MEDS: INVEST MED Kar XT OR PLACEBO 50/20 MG PO SCH ×2 (09:54→22:01)
--- NOTE | 2021-12-17 13:00 | NUR ---
Patient isolative and withdrawn ,refused to attend groups, stay in his room all day ,no plan for self care will continue to monitor for safety ,encourage patient to verbalize feelings and thoughts ,redirect as needed.
[2021-12-17 16:00] VITALS: BP 117/76
--- NOTE | 2021-12-18 06:54 | NUR ---
Remain isolative,hyperactive,compliant with medications,no s/s of EPS /tremors noted.Will continue to monitor q15 min rounds for safety.
[2021-12-18] MEDS: INVEST MED Kar XT OR PLACEBO 50/20 MG PO SCH ×2 (09:55→22:16)
--- NOTE | 2021-12-18 11:25 | NUR ---
RN-CO: Patient is awake, denied pain and discomforts. He denied adverse reactions and side effects from investigational meds. He is polite to staff and motivated to self care.
[2021-12-18 16:00] VITALS: BP 119/85
--- NOTE | 2021-12-18 19:30 | NUR ---
GPS RN OPENING NOTES: RECEIVED PATIENT IN ROOM, AWAKE, A/O X3. APPROPRIATE AFFECT, CALM AND COOPERATIVE, PASSIVE. EXPLAINED TO PATIENT HE IS NPO TONIGHT(NO FOOD). PATIENT VERBALIZED UNDERSTANDING. DENIES A/V HALLUCINATIONS, DENIES SI/HI AT THIS TIME. PATIENT IS COMPLIANT WITH TREATMENT REGIMEN. NO S/S OF DISTRESS. RESPIRATION EVEN AND UNLABORED WITH EQUAL RISE AND FALL OF THE CHEST, ON ROOM AIR. OFFERED FLUID AND SNACKS TOLERATED. BED IN LOW LOCKED POSITION, CALL KAUFFMAN WITHIN REACH. WILL CONTINUE TO MONITOR Q15 FOR MOOD, SAFETY AND BEHAVIOR.
[2021-12-18 20:00] VITALS: BP 115/83
[2021-12-18] MEDS: ZOLPIDEM TARTRATE 10 MG TABLET PO PRN (22:59)
--- NOTE | 2021-12-18 23:02 | NUR ---
GPS RN NOTES: PATIENT REQUESTED FOR SLEEP MEDICATION. AMBIEN 10MG GIVEN PO AT 2259. WILL CONTINUE TO MONITOR.
[2021-12-19 08:00] VITALS: BP 98/60
--- NOTE | 2021-12-19 09:22 | NUR ---
RN-CO: PATIENT IN BED , AWAKE WITH APPROPRIATE AFFECT. COOPERATIVE TO CARE. HE BUYS HIS FOOD OUTSIDE. HE STATED HE HAS AH/VH BUT DOES NOT BOTHER HIM . HE DENIED PAIN AND DISCOMFORTS. HE DENIED SIDE EFFECTS OR ADVERSE REACTION FROM INVESTIGATIONAL MEDICATION.
[2021-12-19] MEDS: INVEST MED Kar XT OR PLACEBO 50/20 MG PO SCH (10:01)
[2021-12-19 16:00] VITALS: BP 126/70
[2021-12-19 20:00] VITALS: BP 120/78
--- NOTE | 2021-12-19 20:33 | NUR ---
RN NOTES: RECEIVED PATIENT AWAKE AND IN BED, NO S/S OR C/O PAIN AT THIS TIME. NO S/S OF APPARENT DISTRESS AT THIS TIME. PATIENT IS COMPLIANT WITH MEDICATIONS, ANXIOUS, POLITE, MAKES NEEDS KNOWN, AND COOPERATIVE. PATIENT DENIES SUICIDAL AND HOMICIDAL IDEATIONS AT THIS TIME. WILL CONTINUE TO MONITOR Q15 MINUTES WITH MAINTAIN SAFETY AND BEHAVIOR .
[2021-12-20] MEDS: LORAZEPAM 1 MG TABLET FOR AGITATION/ANXIETY PO PRN (00:14)
--- NOTE | 2021-12-20 00:16 | NUR ---
RN NOTES: ANXIETY PT. C/O FEELING ANXIOUS , PARANOID, LOUD HYPERVERBAL ,PACING PRN ATIVAN 1MG PO GIVEN PER PT. REQUEST , WILL CONTINUE TO MONITOR.
[2021-12-20 08:00] VITALS: BP 90/60
--- NOTE | 2021-12-20 09:00 | NUR ---
GPS/RN RECEIVED PATIENT RESTING IN THE ROOM NO S/S DISTRESS NOTED AT THIS TIME DENIES SI/HI AVH.DENIED PAIN AND DISCOMFORTS. DAILY MEDS COMPLIANT.ALL NEEDS ATTENDED AND ANTICIPATED. WILL CONTINUE MONITOING FOR SAFETY AND BEHAVIOR Q 15 MIN
[2021-12-20] MEDS: INVEST MED Kar XT OR PLACEBO 50/20 MG PO SCH ×2 (10:19→22:07)
--- NOTE | 2021-12-20 19:43 | NUR ---
RN NOTES: PATIENT AWAKE ALERT LISTING MUSIC , NO S/S OR C/O PAIN AT THIS TIME. NO S/S OF APPARENT DISTRESS AT THIS TIME. PATIENT IS COMPLIANT WITH MEDICATIONS, ANXIOUS, POLITE, MAKES NEEDS KNOWN, AND COOPERATIVE. PATIENT DENIES SUICIDAL AND HOMICIDAL IDEATIONS AT THIS TIME. WILL CONTINUE TO MONITOR Q15 MINUTES WITH MAINTAIN SAFETY AND BEHAVIOR .
[2021-12-20] MEDS: ZOLPIDEM TARTRATE 10 MG TABLET PO PRN (22:28)
--- NOTE | 2021-12-20 22:29 | NUR ---
RN NOTES: INSOMNIA PT. C/O UNABLE TO SLEEP PRN AMBIEN 10 MG PO GIVEN PER PT. REQUEST , WILL CONTINUE TO MONITOR.
--- NOTE | 2021-12-21 06:45 | NUR ---
RN NOTES: PATIENT IS RESTING COMFORTABLY IN BED. NO C/O PAIN THIS SHIFT. NO BEHAVIORAL ISSUES THIS SHIFT. NO S/S OF DISTRESS. RESPIRATION EVEN AND UNLABORED WITH EQUAL RISE AND FALL OF THE CHEST, ON ROOM AIR. ALL PATIENT CARE NEEDS HAVE BEEN MET ANTICIPATED. WILL CONTINUE TO MONITOR AND ENDORSE TO AM SHIFT.
[2021-12-21 08:00] VITALS: BP 92/56
[2021-12-21] MEDS: INVEST MED Kar XT OR PLACEBO 50/20 MG PO SCH ×2 (10:00→22:00)
--- NOTE | 2021-12-21 10:44 | NUR ---
RN Notes: Received pt. awake in bed, responsive to staffs, no distress and no agitation noted. Refused to eat breakfast and said he is normally not eat breakfast, Pt. is compliant on the investigational med. Encouraged to take shower and encouraged to attend group activity. Needs attended and will continue to monitor for safety.
[2021-12-21 17:00] VITALS: BP 115/81
--- NOTE | 2021-12-21 19:30 | NUR ---
GPS RN NOTE, RECEIVED PATIENT AWAKE AND IN BED, NO S/S OR COMPLAINTS OF PAIN AT THIS TIME. PATIENT IS DISPLAYING NO S/S OF APPARENT DISTRESS AT THIS TIME. PATIENT BREATHING IS UNLABORED WITH EQUAL RISE AND FALL OF THE CHEST. PATIENT IS ALERT AND ORIENTED X 3 ON ROOM AIR WITH A SPO2 95%. PATIENT IS COMPLIANT WITH MEDICATIONS, ANXIOUS, POLITE, MAKES NEEDS KNOWN, AND COOPERATIVE. PATIENT DENIES SUICIDAL AND HOMICIDAL IDEATIONS AT THIS TIME. PATIENT ASSISTED WITH TURNING AND REPOSITIONING Q2HR AND PRN FOR COMFORT AND CIRCULATION. PATIENT HAS NO NEEDS AT THIS TIME. PATIENT EDUCATED ON THE USE OF THE CALL KAUFFMAN. PATIENT BED SIDE RAILS UP X 2 FOR SAFETY. PATIENT BED IS LOCKED, LOW, WITH BED ALARM ON. WILL CONTINUE TO MONITOR THIS PATIENT Q15 MINUTES WITH THE HELP OF STAFF TO MAINTAIN SAFETY.
[2021-12-21 20:08] VITALS: BP 122/79
[2021-12-21] MEDS: LORAZEPAM 1 MG TABLET FOR AGITATION/ANXIETY PO PRN (21:20)
[2021-12-21] MEDS: ZOLPIDEM TARTRATE 10 MG TABLET PO PRN (22:07)
[2021-12-22 08:00] VITALS: BP 99/59
[2021-12-22] MEDS: [UNRECOGNIZED DRUG - OTHER] PO SCH ×2 (09:59→22:05)
[2021-12-22 16:00] VITALS: BP 120/79
--- NOTE | 2021-12-22 19:20 | NUR ---
GPS RN NOTES: PATIENT NOT IN UNIT, PER AM SHIFT PATIENT WENT OUT FOR A SMOKE.
--- NOTE | 2021-12-22 19:47 | NUR ---
GPS RN NOTES: PATIENT IS BACK IN UNIT FROM A SMOKE BREAK OUTSIDE
--- NOTE | 2021-12-22 19:50 | NUR ---
GPS RN OPENING NOTES: PATIENT IS LAYING IN BED, AWAKE, A/O X3. APPROPRIATE AFFECT, GUARDED, PASSIVE, CALM AND COOPERATIVE. ABLE TO MAKE NEEDS KNOWN. DENIES A/V HALLUCINATIONS, DENIES SI/HI AT THIS TIME. NO S/S OF DISTRESS. RESPIRATION EVEN AND UNLABORED WITH EQUAL RISE AND FALL OF THE CHEST, ON ROOM AIR. OFFERED FLUID AND SNACKS TOLERATED. BED IN LOW LOCKED POSITION, CALL KAUFFMAN WITHIN REACH. WILL CONTINUE TO MONITOR Q15 FOR MOOD, SAFETY AND BEHAVIOR.
[2021-12-22 19:57] VITALS: BP 122/80
--- NOTE | 2021-12-22 21:25 | NUR ---
GPS RN NOTES: PATIENT REFUSED WEEKLY SKIN ASSESSMENT. PER PATIENT, "I'M OK".
--- NOTE | 2021-12-23 01:09 | NUR ---
GPS RN NOTES: Patient c/o indigestion. Maalox 30ml given PO at 0107. Will continue to monitor.
[2021-12-23] MEDS: ZOLPIDEM TARTRATE 10 MG TABLET PO PRN (01:33)
--- NOTE | 2021-12-23 01:34 | NUR ---
GPS RN NOTES: PATIENT REQUESTED FOR SLEEP MEDICATION. AMBIEN 10MG GIVEN PO AT 0133. BARCODE MANUALLY ENTERED, UNABLE TO SCAN. WILL CONTINUE TO MONITOR.
--- NOTE | 2021-12-23 07:30 | NUR ---
MS LYN RN OPENING NOTES: PATIENT IN BED, A/O X3. APPROPRIATE AFFECT, GUARDED, PASSIVE, CALM AND COOPERATIVE. ABLE TO MAKE NEEDS KNOWN. DENIES A/V HALLUCINATIONS, DENIES SI/HI AT THIS TIME. NO S/S OF DISTRESS. RESPIRATION EVEN AND UNLABORED, ON ROOM AIR. OFFERED FLUID AND SNACKS TOLERATED. BED IN LOW LOCKED POSITION, CALL KAUFFMAN WITHIN REACH. WILL CONTINUE TO MONITOR Q15 FOR MOOD, SAFETY AND BEHAVIOR.
[2021-12-23 08:00] VITALS: BP 98/66
[2021-12-23] MEDS: [UNRECOGNIZED DRUG - OTHER] PO SCH (10:00)
--- NOTE | 2021-12-23 11:54 | NUR ---
RN NOTES PATIENT DISCHARGED TO HOME PER MD, STABLE VS, PROVIDED DC INSTRUCTIONS AND HEALTH TEACHINGS. NO MEDICATIONS. ALL BELONGINGS CHECKED AND RETURNED. ALL PAPERWORKS SIGNED. PATIENT TO FOLLOW UP WITH HIS MD AND WILL MAKE OWN APPOINTMENT, VERBALIZED UNDERSTANDINGS. ACCOMPANIED TO LOBBY BY GABRIELA HERNANDEZ. TO GO HOME VIA PRIVATE TRANSPORTATION.
== END 2021-12-23 11:54 | disposition home or self-care (01) | DRG 951 ==
LOC: GPS 14:12 → MEDOV2 11-06 10:04 → GPSOV 11-26 18:51 → MEDOV2 11-26 18:58
PROVIDERS: ADMIT Psychiatry & Neurology Psychiatry; ATTEND Psychiatry & Neurology Psychiatry
DX: Z00.6 Encounter for examination for normal comparison and control in clinical research program (principal); F20.0 Paranoid schizophrenia; Z79.899 Other long term (current) drug therapy; Z81.8 Family history of other mental and behavioral disorders
CPT/HCPCS: 36415; 80053-TC; 80061-TC; 87081-TC; G0378

== ENCOUNTER 2022-03-20 11:36 | Inpatient (IN) | payer OTHER ==
[~2022-03-20] VITALS: Ht 170.2 cm; Wt 54.0 kg
[2022-03-20] MEDS ORDERED: MAG HYDROX/AL HYDROX/SIMETH 30 ML UDC PO PRN (15:00)
[2022-03-20] MEDS ORDERED: IBUPROFEN 200 MG TABLET PO PRN (15:00)
[2022-03-20] MEDS ORDERED: ACETAMINOPHEN ES 500 MG TABLET PO PRN (15:00)
[2022-03-20] MEDS ORDERED: MAGNESIUM HYDROXIDE 30 ML UDC PO PRN (15:00)
[2022-03-20] MEDS ORDERED: LORAZEPAM 1 MG TABLET FOR AGITATION PO PRN (15:00)
--- NOTE | 2022-03-20 15:30 | NUR ---
GAUGER CHIEF NOTE: RECEIVED PT. IN CHAIR, AWAKE, A0X4. ABLE TO MAKE NEEDS KNOWN. ON CLINICAL TRIAL UNDER DR. CARBAJAL. ON RA, BREATHING EVEN AND UNLABORED. ABLE TO AMBULATE INDEPENDENTLY. VS: BP - 101/41; RI - 74 BPM; RESP - 20; TEMP - 97.5 F; SPO2 - 99% ON ROOM AIR. PATIENT BELONGING LIST FORM SIGNED. PT. HAS NO IV ACCESS. SKIN INTACT. SAFETY PRECAUTIONS IN PLACE: BED IN LOWEST AND LOCKED POSITION, SIDE RAILS UP X2, CALL LIGHT AND BELONGINGS WITHIN EASY REACH. WILL CONTINUE TO MONITOR PT. FOR ANY CHANGES.
[2022-03-20 16:00] VITALS: BP 101/41
--- NOTE | 2022-03-20 19:15 | NUR ---
MS RN CLOSING NOTE: PT. IN BED, WATCHING TV, AWAKE, A0X4. ABLE TO VERBALIZE NEEDS. ON CLINICAL TRIAL UNDER DR. CARBAJAL. ON RA, NO S/S OF RESPIRATORY DISTRESS. ABLE TO AMBULATE INDEPENDENTLY. PT. HAS NO IV ACCESS. SKIN INTACT. SAFETY PRECAUTIONS MAINTAINED: BED IN LOWEST AND LOCKED POSITION, SIDE RAILS UP X2, CALL LIGHT AND BELONGINGS WITHIN EASY REACH. WILL ENDORSE CONTINUITY OF CARE TO SALES AND DISTRIBUTION CLERK RN.
--- NOTE | 2022-03-20 19:40 | NUR ---
RN OPENING NOTE PATIENT AWAKE IN ROOM. A/OX4. NO S/S OF DISTRESS, BREATHING W/O DIFFICULTY ON ROOM AIR. SAFETY MEASURES IN PLACE: BED LOCKED AND AT LOWEST POSITION, RAILS UP X2, CALL KAUFFMAN WITHIN REACH. WILL CONTINUE TO MONITOR PATIENT. Addendum: 03/20/22 at 1941 by MECHELLE DECKER RN RECEIVED REPORT FROM
[2022-03-20 20:00] VITALS: BP 102/77
[2022-03-20] MEDS: risperiDONE 1 MG TABLET PO SCH (21:37)
[2022-03-20] MEDS: ZOLPIDEM TARTRATE 10 MG TABLET PO PRN (21:37)
--- NOTE | 2022-03-21 06:53 | NUR ---
RN CLOSING NOTE PATIENT ASLEEP IN BED. A/OX4. NO S/S OF DISTRESS, BREATHING W/O DIFFICULTY ON ROOM AIR. SAFETY MEASURES IN PLACE: BED LOCKED AND AT LOWEST POSITION, RAILS UP X2, CALL KAUFFMAN WITHIN REACH. WILL ENDORSE TO NEXT SHIFT FOR AVANI.
--- NOTE | 2022-03-21 07:30 | NUR ---
RN OPENING NOTES RECEIVED PATIENT ON BED AWAKE AND A/O X4. ON ROOM AIR TOLERATING WELL. NO SOB NOTED. NOT IN DISTRESS. WITH NO COMPLAINTS OF PAIN OR DISCOMFORT AT THIS TIME. WITH NO IV ACCESS. ON CLINICAL TRIAL STATUS. SAFETY MEASURES IN PLACED. CALL LIGHT WITHIN REACH. BED ON LOWEST LOCKED POSITION, SIDE RAILS UP X2. WILL CONTINUE TO MONITOR.
[2022-03-21 08:00] VITALS: BP 85/52
[2022-03-21 16:00] VITALS: BP 117/66
--- NOTE | 2022-03-21 18:50 | NUR ---
RN CLOSING NOTES PATIENT IN BED AWAKE AND A/O X4. STABLE ON ROOM AIR TOLERATING WELL. NO SOB NOTED. NOT IN ACUTE DISTRESS. NO COMPLAINTS OF PAIN OR DISCOMFORT. NO IV ACCESS. REMAINS ON CLINICAL TRIAL STATUS. SAFETY MEASURES IN PLACED. CALL LIGHT WITHIN REACH. BED ON LOWEST LOCKED POSITION, SIDE RAILS UP X2. WILL ENDORSE TO NEXT SHIFT FOR AVANI.
[2022-03-21 20:00] VITALS: BP 105/65
--- NOTE | 2022-03-21 20:25 | NUR ---
MS/TELE/RN PATIENT IS INI ROOM AWAKE, ALERT, ORIENTED, NO C/O PAIN, NO DISTRESS NOTED, CALL LIGHT IN REACH, WILL MONITOR.
[2022-03-21] MEDS: risperiDONE 1 MG TABLET PO SCH (22:16)
[2022-03-21] MEDS: ZOLPIDEM TARTRATE 10 MG TABLET PO PRN (22:18)
--- NOTE | 2022-03-22 06:09 | NUR ---
MS/TELE/RN PATIENT IS SLEEPING, NO SIGNS OF DISTRESS NOTED, ALL NEEDS ATTENDED AT THIS TIME, WILL CONTINUE TO MONITOR.
--- NOTE | 2022-03-22 08:13 | NUR ---
RN OPENING NOTE PATIENT AWAKE IN BED RESTING. A/O X4. NO S/S OF PAIN NOTED AT THIS TIME. ON ROOM AIR, NO DISTRESS OR SHORTNESS OF BREATH NOTED. NO IV ACCESS, CLINICAL TRIAL PATIENT. FALL AND SAFETY MEASURES IN PLACE, BED IN LOW AND LOCK POSITION, CALL LIGHT AND TABLE WITHIN EASY REACH, SIDE RAILS UP X2. WILL CONTINUE TO MONITOR.
--- NOTE | 2022-03-22 18:44 | NUR ---
RN CLOSING NOTE PATIENT AWAKE IN BED RESTING. A/O X4. NO S/S OF PAIN NOTED AT THIS TIME. ON ROOM AIR, NO DISTRESS OR SHORTNESS OF BREATH NOTED. NO IV ACCESS, CLINICAL TRIAL PATIENT. FALL AND SAFETY MEASURES IN PLACE, BED IN LOW AND LOCK POSITION, CALL LIGHT AND TABLE WITHIN EASY REACH, SIDE RAILS UP X2. WILL ENDORSE TO MANAGER PROGRESSIVE CARE.
--- NOTE | 2022-03-22 20:00 | NUR ---
PATIENT IN ROOM, CALM, IN GOOD MOOD. JUMPY AT TIMES. KEPT SAFE, WILL CONTINUE TO MONITOR.
[2022-03-22 20:57] VITALS: BP 110/75
[2022-03-22] MEDS: risperiDONE 1 MG TABLET PO SCH (22:08)
[2022-03-22] MEDS: ZOLPIDEM TARTRATE 10 MG TABLET PO PRN (22:13)
--- NOTE | 2022-03-23 06:21 | NUR ---
CALM, COOPERATIVE, NO BEHAVIOR, GIVEN RISPERDAL AND REQUESTED AMBIEN, STAYED IN ROOM MOST OF THE NIGHT.
--- NOTE | 2022-03-23 07:30 | NUR ---
RN OPENING NOTE PATIENT AWAKE , VERBALLY RESPONSIVE . A/O X4. NO S/S OF PAIN NOTED AT THIS TIME. ON ROOM AIR, NO DISTRESS OR SHORTNESS OF BREATH NOTED. NO IV ACCESS, CLINICAL TRIAL PATIENT. FALL AND SAFETY MEASURES IN PLACE, BED IN LOW AND LOCK POSITION, CALL LIGHT AND TABLE WITHIN EASY REACH, SIDE RAILS UP X2. WILL CONTINUE TO MONITOR.
--- NOTE | 2022-03-23 18:48 | NUR ---
NUMERICAL CONTROL TOOL PROGRAMMER CLOSING NOTES PATIENT AWAKE , VERBALLY RESPONSIVE . A/O X4. NO S/S OF PAIN NOTED AT THIS TIME. ON ROOM AIR, NO DISTRESS OR SHORTNESS OF BREATH NOTED. NO IV ACCESS, CLINICAL TRIAL PATIENT. FALL AND SAFETY MEASURES IN PLACE, BED IN LOW AND LOCK POSITION, CALL LIGHT AND TABLE WITHIN EASY REACH, SIDE RAILS UP X2. ENDORSED TO NEXT SHIFT
--- NOTE | 2022-03-23 19:15 | NUR ---
MS RN NOTES: Received patient in his room, alert and oriented x3, No s/s of acute distress noted. Able to make needs known. Patient goes out to smoke. Patient is anxious, cooperative to care, quiet, blunted affect, interacts pleasantly to staff. Denies SI/HI at this time. Patient still hearing voices. Patient states "I hear aliens all the time". No visual hallucinations at this time. Safety precautions in place. Will continue to monitor q15 min rounds for safety and behavior.
[2022-03-23 20:00] VITALS: BP 112/58
[2022-03-23] MEDS: ZOLPIDEM TARTRATE 10 MG TABLET PO PRN (22:00)
--- NOTE | 2022-03-24 06:44 | NUR ---
RN MS CLOSING NOTES PATIENT IN BED ASLEEP, EASILY AROUSABLE. ABLE TO MAKE NEEDS KNOWN. ON ROOM AIR AND TOLERATING WELL. NO S/SX OF PAIN OR DISCOMFORT AT THIS TIME. NO IV ACCESS, CLINICAL TRIAL PATIENT. DENIES SI/HI AT THIS TIME. FALL AND SAFETY MEASURES IN PLACE, BED IN LOW AND IN LOCKED POSITION, CALL LIGHT AND TABLE WITHIN EASY REACH, SIDE RAILS UP X2. WILL ENDORSE TO DAY SHIFT NURSE FOR CONTINUITY OF CARE.
--- NOTE | 2022-03-24 07:49 | NUR ---
N OPENING NOTE PATIENT ABSENT FROM, UNIT. PER PM STAFF, PT STEPPED OUT, WILL ASSESS WHEN BACK IN THE UNIT.
--- NOTE | 2022-03-24 08:30 | NUR ---
RN OPENING NOTE PATIENT IS BACK TO UNIT, AWAKE , VERBALLY RESPONSIVE . A/O X4. NO S/S OF PAIN NOTED AT THIS TIME. ON ROOM AIR, NO DISTRESS OR SHORTNESS OF BREATH NOTED. NO IV ACCESS, CLINICAL TRIAL PATIENT. FALL AND SAFETY MEASURES IN PLACE, BED IN LOW AND LOCK POSITION, CALL LIGHT AND TABLE WITHIN EASY REACH, SIDE RAILS UP X2. WILL CONTINUE TO MONITOR.
--- NOTE | 2022-03-24 18:00 | NUR ---
MS RN NOTES: CALLED PT LEFT MSG ON VM TO CALL BACK AND CHECK IN, HAS BEEN AWAY FROM MS UNIT SINCE [id number].
--- NOTE | 2022-03-24 19:43 | NUR ---
MS RN CLOSING NOTES: PT HAS NOT CALLED BACK, CONTACT NUMBER ENDORSED TO PM SHIFT. LOG SHOWED PT LEFT AT 1650.
--- NOTE | 2022-03-24 19:45 | NUR ---
RN CALLED PT, LEFT MESSAGE ON VM TO CALL BACK. MADE PM RN AWARE.
[2022-03-24 20:00] VITALS: BP 122/87
--- NOTE | 2022-03-24 20:22 | NUR ---
RN OPENING NOTES: PATIENT WAS ENDORSE OUT OF THE FLOOR SINCE 0450 PER RN NURSE CALLED AND LEAVE MESSAGE TO PHONE BUT STILL NO REPLY WILL CONTINUE TO FOLLOW UP. Addendum: 03/25/22 at 0604 by CAMELIA LEWIS RN PATIENT CAME BACK AT 2130 ON STABLE CONDITION, V/S ARE TAKEN AND WNR,, WILL CONTINUE TO MONITOR.
[2022-03-24] MEDS: ZOLPIDEM TARTRATE 10 MG TABLET PO PRN (23:14)
--- NOTE | 2022-03-25 06:04 | NUR ---
MS RN CLOSING NOTES: PATENT SLEEP IN BED COMFORTABLY, AROUSABLE TO VERBAL STIMULI, PATIENT IS A/O4 AMBULATORY ABLE TO MAKE NEEDS KNOWN, ON CLINICAL TRIAL, NO CHANGES IN BEHAVIOR WAS OBSERVED, PATIENT KEPT CLEAN AND DRY ALL NEEDS MET ENDORSE TO INCOMING SHIFT.
[2022-03-25 08:00] VITALS: BP 92/66
--- NOTE | 2022-03-25 08:00 | NUR ---
RN OPENING NOTE PATIENT RECEIVED IN BED SLEEPING. A/O X4 AND AMBULATORY THROUGHOUT UNIT NEEDED. REMAINS ON CLINICAL TRIAL STATUS. NO S/SX OF DISTRESS, NO C/O PAIN. SAFETY MEASURES IN PLACE, CALL LIGHT WITHIN REACH. WILL CONTINUE TO MONITOR.
--- NOTE | 2022-03-25 18:45 | NUR ---
RN CLOSING NOTE PATIENT REMAINED IN ROOM AND OBSERVED AMBULATING THROUGHOUT UNIT. REMAINS ON CLINICAL TRIAL STATUS. ABLE TO VERBALIZE ALL NEEDS. NO S/SX OF PAIN OR DISTRESS OBSERVED OR REPORTED ON SHIFT. CONTINUES WITH NO IV ACCESS. SAFETY MEASURES IN PLACE, BED IN LOW AND IN LOCKED POSITION, CALL LIGHT AND TABLE WITHIN EASY REACH, SIDE RAILS UP X2. WILL CONTINUE TO MONITOR.
--- NOTE | 2022-03-25 19:58 | NUR ---
MS RN OPENING NOTE PATIENT IN ROOM DURING AVANI REPORT. A/OX4. NO S/S OF APPARENT DISTRESS IN ROOM AIR. NO C/O PAIN. WILL CONTINUE WITH PATIENT'S PLAN OF CARE.
[2022-03-25 20:00] VITALS: BP 116/76
[2022-03-25] MEDS: ZOLPIDEM TARTRATE 10 MG TABLET PO PRN (21:50)
--- NOTE | 2022-03-25 22:00 | NUR ---
MS RN NOTE GIVEN AMBIEN PRN PER PATIENT REQUEST.
--- NOTE | 2022-03-26 06:56 | NUR ---
MS RN NOTE DID NOT EXHIBIT ANY BEHAVIORAL CHANGES. WILL ENDORSE TO AM SHIFT FOR CONTINUITY OF CARE PLAN.
[2022-03-26 08:00] VITALS: BP 113/71
[2022-03-26 16:00] VITALS: BP 104/79
--- NOTE | 2022-03-26 19:30 | NUR ---
RN OPENING NOTES RECEIVED PT IN ROOM, AWAKE. AOx4, ABLE TO MAKE NEEDS KNOWN. ON RA AND TOLERATING WELL. NO SOB NOTED. NO S/SX OF RESPIRATORY DISTRESS NOTED.ON IV ACCESS DUE TO CLINICAL TRIAL. SAFETY PRECAUTIONS IN PLACE: BED IN LOWEST, LOCKED POSITION, SIDERAILS UPx2, AND BRAKES ON. TABLE AND CALL LIGHT WITHIN REACH. WILL CONTINUE TO MONITOR.
[2022-03-26] MEDS: ZOLPIDEM TARTRATE 10 MG TABLET PO PRN (19:58)
--- NOTE | 2022-03-26 19:58 | NUR ---
RN NOTES ADMINISTERED AMBIEN FOR SLEEP PER PT REQUEST.
[2022-03-26 20:00] VITALS: BP 129/68
--- NOTE | 2022-03-27 07:53 | NUR ---
RN CLOSING NOTES REPORT GIVEN TO DAYSHIFT RN. PT STABLE. NO DISTRESS NOTED.
[2022-03-27 08:00] VITALS: BP 95/57
--- NOTE | 2022-03-27 18:44 | NUR ---
RN CLOSING NOTES PATIENT IN BED AWAKE, A/O X4. REMAINS STABLE ON ROOM AIR TOLERATING WELL. NO SOB NOTED. NOT IN ACUTE DISTRESS. NO COMPLAINTS OF PAIN OR DISCOMFORT. NO IV ACCESS. REMAINS ON CLINICAL TRIAL STATUS. GOES OUT FOR SMOKE. SAFETY MEASURES IN PLACED. CALL LIGHT WITHIN REACH. BED ON LOWEST LOCKED POSITION, SIDE RAILS UP X2. WILL ENDORSE TO NEXT SHIFT FOR CONTINUITY OF CARE.
--- NOTE | 2022-03-27 19:30 | NUR ---
RN OPENING NOTE RECEIVED PATIENT AWAKE, A/O X4. PATIENT ON RA TOLERATING WELL. NO SOB NOTED. NOT S/S OF ACUTE DISTRESS. NO COMPLAINTS OF PAIN OR DISCOMFORT. NO IV ACCESS. PATIENT IS ON CLINICAL TRIAL. PATIENT IS AMBULATORY AND GOES OUTSIDE FOR SMOKE BREAKS. . SAFETY MEASURES IN PLACED. CALL LIGHT WITHIN REACH. BED ON LOWEST LOCKED POSITION, SIDE RAILS UP X2. WILL ENDORSE TO NEXT SHIFT FOR CONTINUITY OF CARE.
[2022-03-27 20:00] VITALS: BP 118/86
[2022-03-27 20:50] VITALS: BP 118/86
[2022-03-27] MEDS: ZOLPIDEM TARTRATE 10 MG TABLET PO PRN (22:01)
--- NOTE | 2022-03-28 06:50 | NUR ---
RN CLOSING NOTE PATIENT IN BED AWAKE, A/O X4. REMAINS STABLE ON ROOM AIR TOLERATING WELL. NO S/S OF ACUTE DISTRESS NOTED, NO COMPLAINTS OF PAIN OR DISCOMFORT. AMBEIN GIVEN SO PATIENT CAN SLEEP. PATIENT ABLE TO MAKE NEEDS KNOWN, NO IV ACCESS. PATIENT ABLE TO GO OUT TO SMOKE, REMAINS ON CLINICAL TRIAL STATUS. SAFETY MEASURES IN PLACED. CALL LIGHT WITHIN REACH. BED ON LOWEST LOCKED POSITION, SIDE RAILS UP X2. WILL ENDORSE TO MORNING SHIFT FOR CONTINUITY OF CARE
--- NOTE | 2022-03-28 07:30 | NUR ---
RN Opening Notes Pt AOx4, stable, no signs of distress, pt able to express needs and concerns . Pt states he is waiting on discharge info, will follow up with case management. Report received from RN. All safety precautions taken, bed at lowest procedure, table and call light within reach.
[2022-03-28 08:22] VITALS: BP 94/56
--- NOTE | 2022-03-28 09:30 | NUR ---
ms rn breakfast served,no due meds at this time,all needs attended.
--- NOTE | 2022-03-28 18:57 | NUR ---
ms rn inside the room, no distress noted.
--- NOTE | 2022-03-28 19:20 | NUR ---
MS RN OPENING NOTE RECEIVED PATIENT RESTING IN BED; AWAKE, AWAKE AND ORIENTED X4. BREATHING EVENLY AND NONLABORED. ON ROOM AIR; TOLERATING WELL. NOT IN ANY FORM OF RESPIRATORY DISTRESS. DENIES ANY PAIN OR DISCOMFORT OF THIS TIME. NO IV ACCESS. ON CLINICAL TRIAL. ABLE TO MAKE NEEDS KNOWN. SAFETY MEASURES IMPLEMENTED: CALL LIGHT AND TABLE WITHIN REACH, SIDE RAILS UP X2, BED IN LOWEST LOCKED POSITION. WILL CONTINUE TO MONITOR
[2022-03-28 20:00] VITALS: BP 104/68
[2022-03-28 20:33] VITALS: BP 104/68
[2022-03-28] MEDS: ZOLPIDEM TARTRATE 10 MG TABLET PO PRN (22:09)
--- NOTE | 2022-03-29 06:55 | NUR ---
MS RN CLOSING NOTE PATIENT IS RESTING IN BED; AWAKE, A/O X4. TOLERATED TREATMENT WELL. ALL NEEDS MET. SAFETY MEASURES MAINTAINED. ENDORSED TO MORNING SHIFT FOR AVANI.
--- NOTE | 2022-03-29 07:20 | NUR ---
ms rn received on bed, awake,alert,oriented x4,a clinical trial patient,no distress noted,all needs attended.
[2022-03-29 08:00] VITALS: BP 95/66
--- NOTE | 2022-03-29 09:00 | NUR ---
ms rn inside room, no due meds at this time.all needs attended.
[2022-03-29 15:53] VITALS: BP 111/78
--- NOTE | 2022-03-29 18:14 | NUR ---
ms rn inside roon,no distress noted.
--- NOTE | 2022-03-29 19:45 | NUR ---
MS RN NOTES RECEIVED INSIDE ROOM WATCHING TV PROGRAM,VERBALLY AGGRESSIVE WITH HIS NEEDS,CLINICAL TRIAL,NO IV ACCESS PER PSYCHE PROTOCOL,CALL LIGHT IN REACH,WILL CONTINUE TO MONITOR BEHAVIOR.
[2022-03-29 20:00] VITALS: BP 108/80
[2022-03-29] MEDS: ZOLPIDEM TARTRATE 10 MG TABLET PO PRN (21:55)
--- NOTE | 2022-03-29 21:55 | NUR ---
MS RN NOTES/CLINICAL TRIAL C/O INSOMNIA,AMBIEN 10MG PO GIVEN PER PATIENT REQUEST.WILL MONITOR HOUR OF SLEEP.
--- NOTE | 2022-03-29 23:08 | NUR ---
RN NOTE/CLINICAL TRIAL REPORT GIVEN TO MARK CANALES FOR AVANI
--- NOTE | 2022-03-30 07:00 | NUR ---
MS RN OPENING NOTE PATIENT LAYING IN BED, A/O X 4, ABLE TO MAKE NEEDS KNOWN. TOLERATING WELL ON ROOM AIR WITH NO S/S RESPIRATORY DISTRESS. NO COMPLAINTS OF PAIN OR DISCOMFORT AT THIS TIME. SAFETY MEASURES IN PLACE: BED IN LOWEST LOCKED POSITION, SIDE RAILS UP X 2, CALL LIGHT WITHIN REACH. WILL CONTINUE TO MONITOR.
--- NOTE | 2022-03-30 07:27 | NUR ---
MS RN CLOSING NOTE NEEDS ATTENDED. REPORT GIVEN TO ILEANA FOR CONTINUITY OF CARE.
[2022-03-30 08:00] VITALS: BP 87/47
[2022-03-30 16:00] VITALS: BP 105/83
--- NOTE | 2022-03-30 19:00 | NUR ---
MS RN CLOSING NOTE PATIENT LAYING IN BED, A/O X 4, ABLE TO MAKE NEEDS KNOWN. TOLERATING WELL ON ROOM AIR WITH NO S/S RESPIRATORY DISTRESS. NO COMPLAINTS OF PAIN OR DISCOMFORT AT THIS TIME. SAFETY MEASURES IN PLACE: BED IN LOWEST LOCKED POSITION, SIDE RAILS UP X 2, CALL LIGHT WITHIN REACH. ALL NEEDS MET. WILL ENDORSE TO STATE APPELLATE CLERK FOR AVANI.
--- NOTE | 2022-03-30 19:30 | NUR ---
MS RN OPENING NOTE RECEIVED PT AWAKE IN BED. A/O X4 AND ABLE TO MAKE NEEDS KNOWN. PT STABLE ON ROOM AIR. NO SOB OR S/S OF RESPIRATORY DISTRESS. BREATHING EVEN AND UNLABORED. NO IV ACCESS DUE TO CLINICAL TRAIL STATUS. SAFETY PRECAUTIONS IN PLACE. BED IN LOWEST LOCKED POSITION, HOB ELEVATED, SIDE RAILS UP X2, AND CALL LIGHT AND TABLE WITHIN REACH. ALL NEEDS MET AT THIS TIME.
[2022-03-30 20:17] VITALS: BP 105/72
--- NOTE | 2022-03-31 06:37 | NUR ---
MS RN CLOSING NOTE PT AWAKE IN BED. A/O X4 AND ABLE TO MAKE NEEDS KNOWN. PT STABLE ON ROOM AIR. NO SOB OR S/S OF RESPIRATORY DISTRESS. BREATHING EVEN AND UNLABORED. NO IV ACCESS DUE TO CLINICAL TRAIL STATUS. KEPT NPO AFTER 2100. SAFETY PRECAUTIONS IN PLACE. BED IN LOWEST LOCKED POSITION, HOB ELEVATED, SIDE RAILS UP X2, AND CALL LIGHT AND TABLE WITHIN REACH. ALL NEEDS MET AT THIS TIME AND WILL ENDORSE TO ONCOMING NURSE FOR AVANI.
--- NOTE | 2022-03-31 07:20 | NUR ---
MS RN OPENING NOTE RECEIVED PT AWAKE IN BED. A/O X4 AND ABLE TO MAKE NEEDS KNOWN. PT STABLE ON ROOM AIR. NO SOB OR S/S OF RESPIRATORY DISTRESS. BREATHING EVEN AND UNLABORED. NO IV ACCESS. PATIENT ON TO CLINICAL TRAIL STATUS. PATIENT KEPT ON NPO ORDERED, VERBALIZED UNDERSTANDING ON NPO STATUS. SAFETY PRECAUTIONS IN PLACE. BED IN LOWEST LOCKED POSITION, BED LOCKED, HOB ELEVATED, SIDE RAILS UP X2, AND CALL LIGHT AND TABLE WITHIN REACH. WILL CONTINUE WITH PLAN OF CARE.
--- NOTE | 2022-03-31 08:20 | NUR ---
MS RN NOTE PATIENT ACCOMPANIED BY NURSE TO CLINIC FOR BLOOD DRAW. IN STABLE CONDITION.
[2022-03-31 08:28] VITALS: BP 86/64
--- NOTE | 2022-03-31 11:30 | NUR ---
MS RN NOTE PATIENT BACK FROM CLINIC IN STABLE CONDITION. WITH GOOD DISPOSITION.
[2022-03-31] MEDS ORDERED: LORAZEPAM 1 MG TABLET FOR AGITATION PO PRN (13:00)
--- NOTE | 2022-03-31 13:00 | NUR ---
MS RN NOTE RECEIVED A CALL FROM DR. CARBAJAL. UPDATED OF PATIENT OBSERVATION. WILL CONTINUE WITH PLAN OF CARE.
[2022-03-31 15:54] VITALS: BP 103/75
--- NOTE | 2022-03-31 19:00 | NUR ---
MS RN CLOSING NOTE PT AWAKE IN BED. FA/O X3 AND ABLE TO MAKE NEEDS KNOWN. PT STABLE ON ROOM AIR. NO SOB OR S/S OF RESPIRATORY DISTRESS. BREATHING EVEN AND UNLABORED. NO COMPLAIN OF PAIN OR DISCOMFORT AT THIS TIME. SAFETY PRECAUTIONS IN PLACE. BED IN LOWEST LOCKED POSITION, HOB ELEVATED, SIDE RAILS UP X3, AND CALL LIGHT AND TABLE WITHIN REACH. PATIENT IN GOOD SPIRIT WITH NO UNTOWARD BEHAVIOR NOTED. WILL ENDORSE TO NEXT SHIFT FOR CONTINUITY OF CARE.
--- NOTE | 2022-03-31 19:44 | NUR ---
RN OPENING NOTE PATIENT AWAKE IN ROOM. A/OX4. NO S/S OF DISTRESS, BREATHING WITHOUT DIFFICULTY ON ROOM AIR. SAFETY MEASURES IN PLACE: 4 RAILS UP DUE TO SEIZURE PRECAUTIONS, BED LOCKED AND AT LOWEST POSITION, CALL KAUFFMAN WITHIN REACH. WILL CONTINUE TO MONITOR PATIENT. Addendum: 03/31/22 at 1945 by MECHELLE DECKER RN CORRECTION: RAILS UP X2.
[2022-03-31 20:00] VITALS: BP 106/57
[2022-03-31] MEDS: ZOLPIDEM TARTRATE 10 MG TABLET PO PRN (21:26)
--- NOTE | 2022-04-01 06:46 | NUR ---
RN CLOSING NOTE PATIENT ASLEEP IN BED. A/OX4. NO S/S OF DISTRESS, BREATHING WITHOUT DIFFICULT ON ROOM AIR. NO BEHAVIORAL ISSUES; COMPLETELY COMPLIANT; HAS BEEN IN A PLEASANT MOOD. SAFETY MEASURES IN PLACE: BED AT LOWEST POSITION, AND LOCKED, RAILS UP X2, CALL KAUFFMAN WITHIN REACH. WILL ENDORSE TO NEXT SHIFT FOR AVANI.
[2022-04-01 08:00] VITALS: BP 81/43
--- NOTE | 2022-04-01 08:03 | NUR ---
MS RN OPENING NOTE Patient in bed, asleep. A/O x 4, able to make needs known. On room air, breathing evenly and unlabored. No SOB or s/s of distress noted. No IV access due to clinical trial status. Patient denies any pain or discomfort at this time. Safety precautions in place: bed in low, locked position; siderails up x 2; call light within reach. Will continue to monitor.
[2022-04-01] MEDS: INVEST MED CVL-231-2002 PO SCH (10:35)
--- NOTE | 2022-04-01 19:12 | NUR ---
MS RN CLOSING NOTE Patient in bed, resting. A/O x 4, able to make needs known. Stable on room air, breathing evenly and unlabored. No SOB or s/s of distress noted. No IV access due to clinical trial status. Patient denies any pain or discomfort at this time. Safety precautions in place: bed in low, locked position; siderails up x 2; call light within reach. Will endorse to mine shifter nurse for AVANI. Addendum: 04/01/22 at 1913 by MARINA JOHNSON RN ADD: Investigational drug started today.
--- NOTE | 2022-04-01 19:30 | NUR ---
MS RN OPENING NOTE RECEIVED PT AWAKE IN BED. A/O X4 AND ABLE TO MAKE NEEDS KNOWN. PT STABLE ON ROOM AIR. NO SOB OR S/S OF RESPIRATORY DISTRESS. BREATHING EVEN AND UNLABORED. NO IV ACCESS. PATIENT ON TO CLINICAL TRAIL STATUS. SAFETY PRECAUTIONS IN PLACE. BED IN LOWEST LOCKED POSITION, BED LOCKED, HOB ELEVATED, SIDE RAILS UP X2, AND CALL LIGHT AND TABLE WITHIN REACH. WILL CONTINUE WITH PLAN OF CARE.
[2022-04-01 20:00] VITALS: BP 102/81
[2022-04-01 20:26] VITALS: BP 102/81
[2022-04-01] MEDS: ZOLPIDEM TARTRATE 10 MG TABLET PO PRN (21:32)
--- NOTE | 2022-04-01 21:34 | NUR ---
RN NOTE: INSOMNIA PATIENT VERBALIZED BEING UNABLE TO SLEEP AND PER PATIENT REQUEST AMBIEN 10 MG PO ADMINISTERED. WILL CONTINUE TO MONITOR FOR ANY CHANGES.
--- NOTE | 2022-04-02 07:03 | NUR ---
RN CLOSING NOTE PATIENT ASLEEP IN BED AT THIS TIME. A/OX4. NO S/S OF DISTRESS, BREATHING WITHOUT DIFFICULTY. ON ROOM AIR. NO BEHAVIORAL ISSUES NOTED. COOPERATIVE/COMPLIANT. SAFETY MEASURES IN PLACE: BED AT LOWEST POSITION, AND LOCKED, RAILS UP X2, CALL KAUFFMAN WITHIN REACH. WILL ENDORSE TO NEXT SHIFT FOR AVANI.
[2022-04-02 08:00] VITALS: BP 80/39
[2022-04-02] MEDS: INVEST MED CVL-231-2002 PO SCH (10:11)
[2022-04-02 16:07] VITALS: BP 115/83
--- NOTE | 2022-04-02 18:14 | NUR ---
RN CLOSING NOTE PATIENT RECEIVED LAYING IN BED; A/O X 4 & CONTINUES TO AMBULATE WITHOUT ASSIST THROUGHOUT UNIT. ABLE TO VERBALIZE NEEDS. RECEIVED SCHEDULED INVESTIGATIONAL DRUG FOR CLINICAL TRIAL ON SHIFT. TOLERATED WELL. REMAINS ON ROOM AIR WITH NO S/S RESPIRATORY DISTRESS. NO COMPLAINTS OF PAIN OR DISCOMFORT AT THIS TIME. SAFETY MEASURES IN PLACE: BED IN LOWEST LOCKED POSITION, SIDE RAILS UP X 2, CALL LIGHT WITHIN REACH. ALL NEEDS MET. WILL CONTINUE TO MONITOR.
[2022-04-02 20:00] VITALS: BP 110/86
--- NOTE | 2022-04-02 20:00 | NUR ---
RECEIVED PATIENT IN BED, ALERT/ORIENTED X4, CALM, NO DISTRESS, DISHEVELLED, FULL FACIAL HENRY. KEPT SAFE, WILL CONTINUE TO MONITOR.
[2022-04-02 20:56] VITALS: BP 110/86
[2022-04-02] MEDS: ZOLPIDEM TARTRATE 10 MG TABLET PO PRN (23:49)
--- NOTE | 2022-04-03 07:30 | NUR ---
MS RN OPENING NOTE PATIENT RECEIVED IN BED. PATIENT IS ALERT AND ORIENTED X4. PATIENT IS AMBULATORY. ABLE TO VERBALIZE NEEDS. PATIENT IS CURRENTLY ON CLINICAL TRIAL FOR INVESTIGATIONAL DRUG. PATIENT IS ON ROOM AIR WITH NO SIGNS OF PAIN OR DISCOMOFRT. ALL SAFETY MEASURES IN PLACE. BED LOCKED IN LOWEST POSITION, SIDE RAILS UP X2, CALL LIGHT WITHIN REACH. WILL CONTINUE TO ASSESS THROUGHOUT SHIFT
[2022-04-03 08:00] VITALS: BP 101/55
--- NOTE | 2022-04-03 09:45 | NUR ---
ms rn note lab [facility] labs before drug administration
[2022-04-03] MEDS: INVEST MED CVL-231-2002 PO SCH (10:00)
--- NOTE | 2022-04-03 10:00 | NUR ---
ms rn note administered investigational drug at 1000
--- NOTE | 2022-04-03 19:30 | NUR ---
ms rn closing note patient is alert and oriented x4. patient is ambulatory and independent. patient is on investigation drug clinical trial.
--- NOTE | 2022-04-03 19:36 | NUR ---
MS RN NOTE PATIENT IN ROOM DURING [facility] REPORT. INTRODUCED MY SELF. PATIENT IS A/OX4, AMBULATORY. NO S/S OF APPARENT DISTRESS. WILL MONITOR.
[2022-04-03 20:00] VITALS: BP 120/76
[2022-04-03] MEDS: ZOLPIDEM TARTRATE 10 MG TABLET PO PRN (21:12)
--- NOTE | 2022-04-04 07:04 | NUR ---
MS RN NOTE PATIENT IN ROOM. DID NO EXHIBIT ANY BEHAVIORAL CHANGES. WILL ENDORSE TO MORNING SHIFT RN FOR CONTINUITY OF CARE.
--- NOTE | 2022-04-04 07:30 | NUR ---
MS RN OPENING NOTES RECEIVED PATIENT ON BED, AWAKE AND A/O X4. ON ROOM AIR TOLERATING WELL. NO SOB NOTED. NOT IN DISTRESS. WITH NO SIGNS OF BEHAVIORAL CHANGES. WITH NO IV ACCESS. ON CLINICAL TRIAL STATUS. SAFETY MEASURES IN PLACED. CALL LIGHT WITHIN REACH. BED ON LOWEST LOCKED POSITION, SIDE RAILS UP X2. WILL CONTINUE TO MONITOR.
[2022-04-04 08:00] VITALS: BP 94/62
[2022-04-04] MEDS: INVEST MED CVL-231-2002 PO SCH (10:00)
[2022-04-04 17:15] VITALS: BP 96/75
--- NOTE | 2022-04-04 18:16 | NUR ---
MS RN CLOSING NOTES PATIENT ON BED, AWAKE AND A/O X4. ON ROOM AIR TOLERATING WELL. NO SOB NOTED. NOT IN DISTRESS. WITH NO SIGNS OF BEHAVIORAL CHANGES. WITH NO IV ACCESS. ON CLINICAL TRIAL STATUS. DUE MEDS GIVEN. SAFETY MEASURES IN PLACED. CALL LIGHT WITHIN REACH. BED ON LOWEST LOCKED POSITION, SIDE RAILS UP X2. WILL ENDORSE TO NEXT SHIFT FOR [facility].
[2022-04-04 20:00] VITALS: BP 115/81
[2022-04-04] MEDS: ZOLPIDEM TARTRATE 10 MG TABLET PO PRN (20:24)
--- NOTE | 2022-04-04 20:35 | NUR ---
MS RN OPENING NOTES PATIENT ON BED, AWAKE AND A/O X4. ON ROOM AIR TOLERATING WELL. NO SOB NOTED. NOT IN DISTRESS. WITH NO SIGNS OF BEHAVIORAL CHANGES. WITH NO IV ACCESS. ON CLINICAL TRIAL STATUS.SAFETY MEASURES IN PLACED. CALL LIGHT WITHIN REACH. BED ON LOWEST LOCKED POSITION, SIDE RAILS UP X2. PRN AMBIEN GIVEN PER PT REQUEST. WILL CONTINUE TO MONITOR.
--- NOTE | 2022-04-05 06:37 | NUR ---
MS RN CLOSING NOTES PATIENT ON BED, AWAKE AND A/O X4. ON ROOM AIR TOLERATING WELL. NO SOB NOTED. NOT IN DISTRESS. WITH NO SIGNS OF BEHAVIORAL CHANGES. WITH NO IV ACCESS. ON CLINICAL TRIAL STATUS.SAFETY MEASURES IN PLACED. CALL LIGHT WITHIN REACH. BED ON LOWEST LOCKED POSITION, SIDE RAILS UP X2. PRN AMBIEN GIVEN PER PT REQUEST. WILL ENDORSE CARE.
--- NOTE | 2022-04-05 07:20 | NUR ---
RN OPENING NOTES RECEIVED PATIENT IN BED AWAKE, A/O X4, NO SIGNS OF ACUTE DISTRESS NOTED.STABLE ON ROOM AIR, NO SOB NOTED, BREATHING EVEN AND UNLABORED. NO C/O PAIN OR DISCOMFORT. REMAINS ON CLINICAL TRIAL, NO IV ACCESS. SAFETY MEASURE IN PLACE. WILL CONTINUE TO MONITOR PATIENT.
[2022-04-05 08:00] VITALS: BP 78/55
[2022-04-05] MEDS: INVEST MED CVL-231-2002 PO SCH (10:14)
[2022-04-05 16:00] VITALS: BP 110/78
--- NOTE | 2022-04-05 18:58 | NUR ---
RN CLOSING NOTES PATIENT IN BED AWAKE, A/O X4. REMAINS STABLE ON ROOM AIR TOLERATING WELL. NO SOB NOTED. NOT IN ACUTE DISTRESS. NO COMPLAINTS OF PAIN OR DISCOMFORT. NO IV ACCESS. REMAINS ON CLINICAL TRIAL STATUS. GOES OUT FOR SMOKE. INVESTIGATIONAL MEDS GIVEN ORDERED. NO ADVERSE REACTION NOTED. SAFETY MEASURES IN PLACED. CALL LIGHT WITHIN REACH. BED ON LOWEST LOCKED POSITION, SIDE RAILS UP X2. WILL ENDORSE TO NEXT SHIFT FOR CONTINUITY OF CARE.
[2022-04-05 20:00] VITALS: BP 116/78
[2022-04-05] MEDS: ZOLPIDEM TARTRATE 10 MG TABLET PO PRN (20:17)
--- NOTE | 2022-04-05 20:43 | NUR ---
MS/RN OPENING NOTE RECEIVED PATIENT UP IN ROOM. ALERT AND ORIENTED X 4. ABLE TO MAKE NEEDS KNOWN. DENIES PAIN AT THIS TIME. CONTINUES ON ROOM AIR WITH NO S/SX OF RESPIRATORY DISTRESS NOTED. NO IV ACCESS AT THIS TIME. CONTINUES ON CLINICAL TRIAL AND INVESTIGATIONAL MEDICATIONS. CONTINUES ON REGULAR DIET. PATIENT IS AMBULATORY WITH STEADY GAIT. SMOKE BREAKS PERMITTED PER DR. CARBAJAL. CALL LIGHT WITHIN REACH. ASPIRATION, FALL AND SAFETY PRECAUTIONS MAINTAINED. ALL NEEDS ATTENDED TO AT THIS TIME.
--- NOTE | 2022-04-05 20:45 | NUR ---
MS/RN NOTE PATIENT WITH C/O INSOMNIA. REQUESTING MEDICATION. ADMINISTERED AMBIEN PRN PER MD ORDERS.
[2022-04-05 23:58] VITALS: BP 116/78
--- NOTE | 2022-04-06 06:10 | NUR ---
MS/RN CLOSING NOTE PATIENT CURRENTLY RESTING IN BED. ALERT AND ORIENTED X 4. ABLE TO MAKE NEEDS KNOWN. DENIES PAIN AT THIS TIME. CONTINUES ON ROOM AIR WITH NO S/SX OF RESPIRATORY DISTRESS NOTED. NO IV ACCESS AT THIS TIME. CONTINUES ON CLINICAL TRIAL AND INVESTIGATIONAL MEDICATIONS. CONTINUES ON REGULAR DIET. PATIENT IS AMBULATORY WITH STEADY GAIT. SMOKE BREAKS PERMITTED PER DR. CARBAJAL. CALL LIGHT WITHIN REACH. ASPIRATION, FALL AND SAFETY PRECAUTIONS MAINTAINED. WILL ENDORSE PLAN OF CARE TO ONCOMING SHIFT RN.
[2022-04-06 08:25] VITALS: BP 108/71
[2022-04-06] MEDS: INVEST MED CVL-231-2002 PO SCH (10:05)
--- NOTE | 2022-04-06 13:40 | NUR ---
MS ALLY OPENING NOTES RECEIVED PATIENT IN ROOM. A/O X 4. ABLE TO MAKE NEEDS KNOWN. DENIES PAIN AT THIS TIME. STABLE ON RA WITH NO SOB OR DISTRESS NOTED. NO IV ACCESS AT THIS TIME. CONTINUES ON CLINICAL TRIAL AND INVESTIGATIONAL MEDICATIONS. SMOKE BREAKS PERMITTED PER DR. CARBAJAL. CALL LIGHT WITHIN REACH. ASPIRATION, FALL AND SAFETY PRECAUTIONS IN PLACE. WILL CONTINUE TO MONITOR Addendum: 04/06/22 at 1342 by CANDELARIA SHAW RN ABOVE NOTE FOR 0715 THIS AM
--- NOTE | 2022-04-06 18:51 | NUR ---
RN CLOSING NOTES PATIENT IN BED AWAKE, A/O X4. REMAINS STABLE IN ROOM AIR TOLERATING WELL. NO SOB NOTED. NOT IN ACUTE DISTRESS. NO COMPLAINTS OF PAIN OR DISCOMFORT. NO IV ACCESS. REMAINS ON CLINICAL TRIAL STATUS. INVESTIGATIONAL MEDS GIVEN ORDERED. NO ADVERSE REACTION NOTED. PATIENT COOPERATIVE. SAFETY MEASURES IN PLACED. CALL LIGHT WITHIN REACH. BED ON LOWEST LOCKED POSITION, SIDE RAILS UP X2. WILL ENDORSE TO NEXT SHIFT FOR CONTINUITY OF CARE.
[2022-04-06 18:57] VITALS: BP 96/58
--- NOTE | 2022-04-06 19:30 | NUR ---
RN OPENING NOTES RECEIVED PT IN BED, AWAKE. AOx4, ABLE TO MAKE NEEDS. NO IV ACCESS D/T CLINICAL TRIAL STATUS. SAFETY PRECAUTIONS IN PLACE: BED IN LOWEST, LOCKED POSITION, SIDERAILS UPx2, AND BRAKES ON. TABLE AND CALL LIGHT WITHIN REACH. WILL CONTINUE TO MONITOR.
[2022-04-06 20:00] VITALS: BP 109/77
[2022-04-06] MEDS: ZOLPIDEM TARTRATE 10 MG TABLET PO PRN (20:13)
--- NOTE | 2022-04-06 20:13 | NUR ---
RN NOTES ADMINISTERED AMBIEN FOR SLEEP PER PT REQUEST.
--- NOTE | 2022-04-07 06:41 | NUR ---
RN CLOSING NOTES PT IN BED, AWAKE. AOx4, ABLE TO MAKE NEEDS. NO IV ACCESS D/T CLINICAL TRIAL STATUS. ALL ORDERS CARRIED OUT. ALL NEEDS MET. PT KEPT CLEAN AND DRY. SAFETY PRECAUTIONS IN PLACE: BED IN LOWEST, LOCKED POSITION, SIDERAILS UPx2, AND BRAKES ON. TABLE AND CALL LIGHT WITHIN REACH. WILL ENDORSE TO ONCOMING SHIFT FOR [facility].
--- NOTE | 2022-04-07 07:37 | NUR ---
RN OPENING NOTES RECEIVED PT IN BED, AWAKE. AOx4, ABLE TO MAKE NEEDS. NO IV ACCESS D/T CLINICAL TRIAL STATUS. SAFETY PRECAUTIONS IN PLACE: BED IN LOWEST, LOCKED POSITION, SIDERAILS UPx2, AND BRAKES ON. TABLE AND CALL LIGHT WITHIN REACH. WILL CONTINUE PLAN OF CARE.
[2022-04-07 08:00] VITALS: BP 90/50
[2022-04-07] MEDS: INVEST MED CVL-231-2002 PO SCH (10:01)
[2022-04-07] MEDS ORDERED: LORAZEPAM 1 MG TABLET FOR AGITATION PO PRN (13:00)
--- NOTE | 2022-04-07 17:00 | NUR ---
RN NOTES PATIENT LEFT THE FLOOR BEFORE LUNCH, DR CARBAJAL WAS DOING ROUNDS AND INFORMED THAT THE PATIENT HAS NOT RETURNED YET SINCE. DR CARBAJAL STATED THAT HE WILL CALL HIM.
--- NOTE | 2022-04-07 19:25 | NUR ---
RN CLOSING NOTES RECEIVED PATIENT IN STANDING IN ROOM, AWAKE. AOx4, ABLE TO MAKE NEEDS. NO IV ACCESS D/T CLINICAL TRIAL STATUS. ALL ORDERS CARRIED OUT. ALL NEEDS MET. PATIENT DIDN'T HAVE ANY PHYSICAL AND BEHAVIORAL CHANGES DURING MY SHIFT. PT KEPT CLEAN AND DRY. SAFETY PRECAUTIONS IN PLACE: BED IN LOWEST, LOCKED POSITION, SIDERAILS UPx2, AND BRAKES ON. TABLE AND CALL LIGHT WITHIN REACH. ENDORSED TO NIGHT NURSE DEMARIO.
--- NOTE | 2022-04-07 19:30 | NUR ---
RN OPENING NOTES RECEIVED PT IN ROOM, AWAKE. AOx4. ON RA AND TOLERATING WELL. NO SOB NOTED. NO S/SX OF RESPIRATORY DISTRESS NOTED. NO IV ACCESS DUE TO CLINICAL TRIAL PATIENT. SAFETY PRECAUTIONS IN PLACE: BED IN LOWEST, LOCKED POSITION, SIDERAILS UPx2, AND BRAKES ON. TABLE AND CALL LIGHT WITHIN REACH. WILL CONTINUE TO MONITOR.
[2022-04-07] MEDS: ZOLPIDEM TARTRATE 10 MG TABLET PO PRN (21:51)
--- NOTE | 2022-04-08 07:20 | NUR ---
MS RN OPENING NOTES RECEIVED PATIENT AWAKE AND RESTING IN BED. A/O X4, ABLE TO VERBALIZED NEEDS. DENIES ANY DISCOMFORTS AT THIS TIME. STABLE ON ROOM AIR, NO SOB NOTED, BREATHING EVEN AND UNLABORED. PT ON CLINICAL TRIAL, NO IV ACCESS PER PROTOCOL. CALL LIGHT W/I REACH. WILL CONTINUE TO MONITOR PATIENT.
--- NOTE | 2022-04-08 07:35 | NUR ---
RN CLOSING NOTES PT STABLE IN ROOM. NO DISTRESS NOTED. REPORT GIVEN TO DAYSHIFT RN FOR [facility].
[2022-04-08] MEDS: INVEST MED CVL-231-2002 PO SCH (09:59)
--- NOTE | 2022-04-08 18:44 | NUR ---
MS RN CLOSING NOTES PATIENT IN HIS ROOM TALKING TO SOMEBODY ON HIS CELLPHONE. A/O x4, ABLE TO MAKE NEEDS KNOWN. AMBULATORY. NO IV ACCESS D/T CLINICAL TRIAL STATUS. PATIENT EXHIBITS NO PHYSICAL AND BEHAVIORAL CHANGES DURING SHIFT. SAFETY PRECAUTIONS IN PLACE: CALL LIGHT WITHIN REACH. WILL ENDORSE PLAN OF CARE TO ORNAMENTER HAND NURSE.
--- NOTE | 2022-04-08 19:30 | NUR ---
MS RN OPENING NOTE RECEIVED PATIENT, WAS IN THE HALLWAY, GOING D0WN. NO S/S OF APPARENT DISTRESS IN ROOM AIR, AND AMBULATES. A/OX4. WILL CONTINUE WITH PATIENT'S CARE PLAN.
[2022-04-08 20:00] VITALS: BP 102/65
[2022-04-08] MEDS: ZOLPIDEM TARTRATE 10 MG TABLET PO PRN (22:13)
--- NOTE | 2022-04-09 07:30 | NUR ---
MS RN CLOSING NOTE REPORT GIVEN TO ILYA FOR CONTINUITY OF CARE. NEEDS ATTENDED.
--- NOTE | 2022-04-09 07:42 | NUR ---
MS RN OPENING NOTE Patient sitting in bed. A/O x 4, able to make needs known. On room air, breathing evenly and unlabored. No SOB or s/s of distress noted. No IV access due to clinical trial status. Patient denies any pain or discomfort at this time. Safety precautions in place: bed in low, locked position; siderailsup x 2; call light within reach. Will continue to monitor.
[2022-04-09] MEDS: INVEST MED CVL-231-2002 PO SCH (09:59)
--- NOTE | 2022-04-09 18:45 | NUR ---
MS RN CLOSING NOTE Patient in bed, resting. A/O x 4, able to make needs known. Stable on room air, breathing evenly and unlabored. No SOB or s/s of distress noted. No IV access due to clinical trial status. Patient denies any adverse reactions to investigational drug. All needs attended to. Safety precautions maintained: bed in low, locked position; siderails up x 2; call light within reach. Will endorse to early breastfeeding care specialist nurse for AVANI.
--- NOTE | 2022-04-09 19:29 | NUR ---
MS RN OPENING NOTE Patient in bed, resting. A/O x 4, able to make needs known. Stable on room air, breathing evenly and unlabored. No SOB or s/s of distress noted. No IV access due to clinical trial status. Patient denies any adverse reactions to investigational drug. All needs attended to. Safety precautions maintained: bed in low, locked position; siderails up x 2; call light within reach. Will continue to monitor.
[2022-04-09 20:17] VITALS: BP 112/79
[2022-04-09] MEDS: ZOLPIDEM TARTRATE 10 MG TABLET PO PRN (23:13)
[2022-04-10 08:00] VITALS: BP 69/37
--- NOTE | 2022-04-10 08:02 | NUR ---
RN OPENING NOTE PATIENT RECEIVED IN BED, AO X 4, ABLE TO RESPONDS ALL STIMULI. IN NO ACUTE DISTRESS NOTED. RESPIRATORY EVEN AND UNLABORED ON ROOM AIR. SKIN IS WARM TO TOUCH, KEEP CLEAN/DRY. KEPT ELEVATED HOB FOR ENSURE AIRWAY AND ASPIRATION PRECAUTION, ALSO LOWEST POSITION OF THE BED, S/R UP X 2, BED ALARM IS ON AT ALL THE TIMES. ALL SAFETY PRECAUTION APPLIED. CALL LIGHT WITHIN REACH, WILL CONTINUE TO MONITOR.
[2022-04-10] MEDS: INVEST MED CVL-231-2002 PO SCH (10:03)
--- NOTE | 2022-04-10 18:46 | NUR ---
RN CLOSING NOTE PATIENT IN BED RESTING. IN NO ACUTE DISTRESS NOTED. RESPIRATORY EVEN AND UNLABORED ON ROOM AIR. SKIN IS WARM TO TOUCH, KEEP CLEAN/DRY, INTACT IV LINE. KEPT ELEVATED HOB FOR ENSURE AIRWAY AND ASPIRATION PRECAUTION. BED IN LOWEST POSITION AND LOCKED. BED ALARM IS ON AT ALL THE TIMES. ALL SAFETY MEASURED IN PLACED. CALL LIGHT WITHIN REACH, WILL ENDORSED TO NEXT SHIFT.
--- NOTE | 2022-04-10 19:30 | NUR ---
MS RN OPENING NOTE PATIENT ALERT X3,PT. WAS IN THE HALLWAY. NO S/S OF APPARENT DISTRESS IN ROOM AIR, WILL CONTINUE WITH PATIENT'S CARE PLAN.
[2022-04-10 20:00] VITALS: BP 112/61
[2022-04-10] MEDS: ZOLPIDEM TARTRATE 10 MG TABLET PO PRN (22:08)
--- NOTE | 2022-04-10 22:09 | NUR ---
RN NOTES: INSOMNIA PT. C/O UNABLE TO SLEEP , PRN AMBIEN 10 MG PO GIVEN PER PT. REQUEST, WILL CONTINUE TO MONITOR.
--- NOTE | 2022-04-11 06:24 | NUR ---
RN NOTES PATIENT ON BED RESTING. NO SOB NOTED. NOT IN DISTRESS. WITH NO COMPLAINTS OF PAIN OR DISCOMFORT AT THIS TIME.. SAFETY MEASURES IN PLACED. CALL LIGHT WITHIN REACH. BED ON LOWEST LOCKED POSITION, SIDE RAILS UP X2. WILL ENDORSE TO NEXT SHIFT FOR [facility].
--- NOTE | 2022-04-11 07:00 | NUR ---
MS RN OPENING NOTES: RECEIVED PATIENT IN BED ASLEEP, EASILY AROUSED WITH STIMULI. A/O X3 AND ABLE TO VERBALIZED NEEDS. NO SOB OR CARDIAC DISTRESS NOTED. NO CHANGES IN BEHAVIOR NOTED PER VB DEVELOPER. KEPT RESTED AND COMFORTABLE. SAFETY PRECAUTIONS MAINTAINED: BED LOCKED AND IN LOWEST POSITION, SIDE RAILS UP X 2, CALL LIGHT IN EASY REACH FOR HELP. WILL MONITOR PATIENT FOR ANY SIGNIFICANT CHANGES.
[2022-04-11 08:00] VITALS: BP 90/69
[2022-04-11] MEDS: INVEST MED CVL-231-2002 PO SCH (09:57)
[2022-04-11 16:00] VITALS: BP 100/65
--- NOTE | 2022-04-11 18:40 | NUR ---
MS RN CLOSING NOTES: PATIENT IN BED, AWAKE. A/O X4 VERBALIZED NEEDS. NO SOB OR CARDIAC DISTRESS NOTED. NO CHANGES IN BEHAVIOR NOTED. NO IV ACCESS NOTED. KEPT RESTED AND COMFORTABLE. SAFETY PRECAUTIONS MAINTAINED: BED LOCKED AND IN LOWEST POSITION, SIDE RAILS UP X 2, CALL LIGHT IN EASY REACH FOR HELP. ENDORSED TO IMAGE CONSULTANT IN [facility].
--- NOTE | 2022-04-11 19:28 | NUR ---
MS RN OPENING NOTES: PATIENT IN BED, AWAKE. A/O X4 VERBALIZED NEEDS. NO SOB OR CARDIAC DISTRESS NOTED. NO CHANGES IN BEHAVIOR NOTED. NO IV ACCESS NOTED. KEPT RESTED AND COMFORTABLE. SAFETY PRECAUTIONS MAINTAINED: BED LOCKED AND IN LOWEST POSITION, SIDE RAILS UP X 2, CALL LIGHT IN EASY REACH FOR HELP. WILL CONTINEU TO MONITOR.
[2022-04-11 20:00] VITALS: BP 104/76
[2022-04-11] MEDS: ZOLPIDEM TARTRATE 10 MG TABLET PO PRN (21:49)
--- NOTE | 2022-04-12 06:45 | NUR ---
MS RN CLOSING NOTES: PATIENT IN BED, AWAKE. A/O X4 VERBALIZED NEEDS. NO SOB OR CARDIAC DISTRESS NOTED. NO CHANGES IN BEHAVIOR NOTED. NO IV ACCESS NOTED. KEPT RESTED AND COMFORTABLE. SAFETY PRECAUTIONS MAINTAINED: BED LOCKED AND IN LOWEST POSITION, SIDE RAILS UP X 2, CALL LIGHT IN EASY REACH FOR HELP. WILL ENDORSE CARE TO DAY SHIFT NURSE.
[2022-04-12 08:00] VITALS: BP 90/69
[2022-04-12] MEDS: INVEST MED CVL-231-2002 PO SCH (10:00)
--- NOTE | 2022-04-12 18:17 | NUR ---
MS RN CLOSING NOTES PATIENT ON BED, RESTING AND A/O X4. ON ROOM AIR TOLERATING WELL. NO SOB NOTED. NOT IN DISTRESS. WITH NO SIGNS OF BEHAVIORAL CHANGES. WITH NO IV ACCESS. ON CLINICAL TRIAL STATUS. DUE MEDS GIVEN. SAFETY MEASURES IN PLACED. CALL LIGHT WITHIN REACH. BED ON LOWEST LOCKED POSITION, SIDE RAILS UP X2. WILL ENDORSE TO NEXT SHIFT FOR [facility].
--- NOTE | 2022-04-12 19:50 | NUR ---
MS RN OPENING NOTES: PATIENT IN ROOM, AWAKE, PATIENT A/O X 4, PT ABLE TO MAKE NEEDS KNOWN. PATIENT STABLE ON RA, NO S/S OF DISTRESS OR SOB NOTED, BREATHING EVEN AND UNLABORED. NO IV ACCESS NOTED. SAFETY PRECAUTIONS IN PLACE: BED LOCKED AND IN LOWEST POSITION, SIDE RAILS UP X 2, CALL LIGHT WITHIN REACH. WILL CONTINUE TO MONITOR
[2022-04-12 20:00] VITALS: BP 116/57
[2022-04-12] MEDS: ZOLPIDEM TARTRATE 10 MG TABLET PO PRN (21:04)
--- NOTE | 2022-04-12 21:05 | NUR ---
RN NOTE PATIENT REQUESTED AMBIEN, PART OF BARCODE ON MEDICATION MISSING SO UNABLE TO SCAN. AMBIEN 10 MG ADMINISTERED WITNESSED BY ALLY JEWELL
--- NOTE | 2022-04-13 06:36 | NUR ---
MS RN CLOSING NOTE PATIENT IN ROOM, AWAKE, PATIENT A/O X 4, PT ABLE TO MAKE NEEDS KNOWN. PATIENT STABLE ON RA, NO S/S OF DISTRESS OR SOB NOTED, BREATHING EVEN AND UNLABORED. NO IV ACCESS NOTED. NO BEHAVIOR CHANGES, EPS OR TREMORS NOTED. MEDICATIONS GIVEN ORDERED, PT NEEDS MET THROUGHOUT SHIFT. SAFETY PRECAUTIONS IN PLACE: BED LOCKED AND IN LOWEST POSITION, SIDE RAILS UP X 2, CALL LIGHT WITHIN REACH. WILL ENDORSE TO DAY SHIFT NURSE FOR CONTINUITY OF CARE
--- NOTE | 2022-04-13 07:50 | NUR ---
MS RN OPENING NOTES PATIENT LAYING IN BED, A/O X 4, ABLE TO MAKE NEEDS KNOWN. TOLERATING WELL ON ROOM AIR WITH NO S/S RESPIRATORY DISTRESS. NO IV ACCESS, MD AWARE. SAFETY MEASURES IN PLACE: BED IN LOWEST LOCKED POSITION, SIDE RAILS UP X 2, CALL LIGHT WITHIN REACH. WILL CONTINUE TO MONITOR.
[2022-04-13] MEDS: INVEST MED CVL-231-2002 PO SCH (09:07)
--- NOTE | 2022-04-13 19:00 | NUR ---
MS RN CLOSING NOTES PATIENT LAYING IN BED, A/O X 4, ABLE TO MAKE NEEDS KNOWN. TOLERATING WELL ON ROOM AIR WITH NO S/S RESPIRATORY DISTRESS. NO IV ACCESS, MD AWARE. SAFETY MEASURES IN PLACE: BED IN LOWEST LOCKED POSITION, SIDE RAILS UP X 2, CALL LIGHT WITHIN REACH. ALL NEEDS MET. WILL ENDORSE TO CHEF [place]ENCH FOR [facility].
--- NOTE | 2022-04-13 19:37 | NUR ---
MS RN NOTES RECEIVED PATIENT EXERCISING AROUND THE UNIT; A/OX3, ABLE TO MAKE NEEDS KNOWN; DENIES PAIN AT THIS TIME; BREATHING EVEN AND UNLABORED; NO SOB NOTED; TOLERATING ROOM AIR WELL; NO IV NOTED; PER ORION, HOLD LORAZEPAM AND AMBIEN @2100 AND RESUME ON 04/14 @1300. PATIENT AMBULATING WELL, WITH STEADY GAIT;
[2022-04-13 20:00] VITALS: BP 119/70
[2022-04-13] MEDS: ZOLPIDEM TARTRATE 10 MG TABLET PO PRN (20:36)
--- NOTE | 2022-04-14 06:23 | NUR ---
MS RN CLOSING NOTES PATIENT RESTING IN BED; A/OX4, ABLE TO MAKE NEEDS KNOWN; DENIES PAIN AT THIS TIME; BREATHING EVEN AND UNLABORED; NO SOB NOTED; TOLERATING ROOM AIR WELL; NO IV NOTED; ALL NEEDS RENDERED; SAFETY PRECAUTIONS IMPLEMENTED; BED LOCKED IN LOW POSITION; SIDE RAILSX2, CALL LIGHT WITHIN REACH; WILL ENDORSE [facility] TO ONCOMING SHIFT
--- NOTE | 2022-04-14 07:30 | NUR ---
RN OPENING NOTES RECEIVED PATIENT RESTING IN BED. NO SIGNS OF ACUTE DISTRESS NOTED. STABLE ON ROOM AIR, BREATHING EVEN AND UNLABORED. REMAINS ON CLINICAL TRIAL. NO IV ACCESS. SAFETY MEASURE IN PLACE. BED IN LOWEST AND LOCKED POSITION, SIDE RAILS UP X2, CALL LIGHT PLACED WITHIN EASY REACH. WILL CONTINUE TO MONITOR PATIENT FOR SAFETY AND BEHAVIOR.
--- NOTE | 2022-04-14 10:00 | NUR ---
RN NOTES WENT TO PATIENT ROM TO GIVE INVESTIGATIONAL MEDICATION, BUT PATIENT IS NOT IN HIS ROOM. WILL WAIT FOR PATIENT TO COME BACK.
[2022-04-14] MEDS ORDERED: LORAZEPAM 1 MG TABLET FOR AGITATION PO PRN (13:00)
--- NOTE | 2022-04-14 14:03 | NUR ---
RN NOTE CALLED DR. CARBAJAL'S OFFICE, SPOKE WITH BRITNEY. PER BRITNEY PATIENT IS IN THEIR OFFICE AND I MAY GIVE THE INVESTIGATIONAL MEDS ONCE PATIENT COMES BACK.
[2022-04-14] MEDS: INVEST MED CVL-231-2002 PO SCH (15:03)
[2022-04-14 16:00] VITALS: BP 112/76
--- NOTE | 2022-04-14 18:46 | NUR ---
RN CLOSING NOTES PATIENT IN BED AWAKE, A/O X4. REMAINS STABLE ON ROOM AIR TOLERATING WELL. NO SOB NOTED. NOT IN ACUTE DISTRESS. NO COMPLAINTS OF PAIN OR DISCOMFORT. NO IV ACCESS. REMAINS ON CLINICAL TRIAL STATUS. INVESTIGATIONAL MEDS GIVEN. NO ADVERSE REACTION NOTED. SAFETY MEASURES IN PLACED. CALL LIGHT WITHIN REACH. BED ON LOWEST LOCKED POSITION, SIDE RAILS UP X2. WILL ENDORSE TO NEXT SHIFT FOR CONTINUITY OF CARE.
--- NOTE | 2022-04-14 19:21 | NUR ---
MS RN OPENING NOTES RECEIVED PATIENT RESTING IN BED; A/OX4, ABLE TO MAKE NEEDS KNOWN; DENIES PAIN AT THIS TIME; BREATHING EVEN AND UNLABORED; NO SOB NOTED; TOLERATING ROOM AIR WELL; NO IV NOTED; PER NOTES, OK TO RESUME LORAZEPAM AND AMBIEN; SAFETY PRECAUTIONS IMPLEMENTED; BED LOCKED IN LOW POSITION; SIDE RAILSX2, CALL LIGHT WITHIN REACH; PATIENT MENTIONED HE WILL WATCH [facility]; WILL CONT PLAN OF CARE
[2022-04-14 20:00] VITALS: BP 114/68
[2022-04-14] MEDS: ZOLPIDEM TARTRATE 10 MG TABLET PO PRN (20:46)
--- NOTE | 2022-04-15 07:19 | NUR ---
MS RN OPENING NOTE RECEIVED PATIENT RESTING IN BED ASLEEP. PATIENT EASILY WOKEN UP, A/OX4, ABLE TO MAKE NEEDS KNOWN; DENIES ANY PAIN. ON ROOM AIR WITH EQUAL AND UNLABORED BREATHING, NOT IN DISTRESS. PATIENT IS UNDER CLINICAL TRIAL AND BEING MONITORED FOR ANY BEHAVIORAL ISSUES. NONE NOTED AT THIS TIME. SAFETY PRECAUTIONS IMPLEMENTED WITH BED IN LOW LOCKED POSITION; SIDE RAILSX2, CALL LIGHT WITHIN REACH. IN STABLE CONDITION. WILL CONTINUE TO MONITOR PATIENT.
--- NOTE | 2022-04-15 07:25 | NUR ---
RN OPENING NOTE PATIENT AWAKE, ALERT X4. ON ROOM AIR, NO SOB OR RESPIRATORY DISTRESS NOTED. NO IV SITE. PATIENT IS ON A CLINICAL TRIAL BEING MONITORED FOR BEHAVIORAL CHANGES. NONE NOTED AT THIS TIME. PATIENT IS RESTING COMFORTABLY IN BED. SAFETY CHECK: BED IN LOWEST POSITION, BED LOCKED, SIDE RAILS UP X2, CALL LIGHT IS WITHIN REACH. WILL CONTINUE TO MONITOR PT.
[2022-04-15 08:24] VITALS: BP 88/46
[2022-04-15] MEDS: INVEST MED CVL-231-2002 PO SCH (10:00)
[2022-04-15 16:02] VITALS: BP 100/67
--- NOTE | 2022-04-15 18:49 | NUR ---
MS RN CLOSING NOTE PATIENT AWAKE, ALERT X4. ON ROOM AIR, NO SOB OR RESPIRATORY DISTRESS NOTED. NO IV SITE. PATIENT IS ON A CLINICAL TRIAL BEING MONITORED FOR BEHAVIORAL CHANGES. NONE NOTED AT THIS TIME. PATIENT IS RESTING COMFORTABLY IN BED. SAFETY CHECK: BED IN LOWEST POSITION, BED LOCKED, SIDE RAILS UP X2, CALL LIGHT IS WITHIN REACH. PATIENT DID NOT EXHIBIT ANY UNTOWARD BEHAVIOR THE ENTIRE SHIFT. WILL ENDORSE PATIENT FOR CONTINUITY OF CARE.
--- NOTE | 2022-04-15 19:35 | NUR ---
MS RN OPENING NOTE PATIENT AWAKE, ALERT X4. ON ROOM AIR, NO SOB OR RESPIRATORY DISTRESS NOTED. NO IV SITE. PATIENT IS ON A CLINICAL TRIAL BEING MONITORED FOR BEHAVIORAL CHANGES. NONE NOTED AT THIS TIME. PATIENT IS RESTING COMFORTABLY IN BED. SAFETY CHECK: BED IN LOWEST POSITION, BED LOCKED, SIDE RAILS UP X2, CALL LIGHT IS WITHIN REACH.
[2022-04-15] MEDS: ZOLPIDEM TARTRATE 10 MG TABLET PO PRN (21:06)
--- NOTE | 2022-04-15 21:09 | NUR ---
RN NOTES PRN AMBIEN GIVEN AND TOLERATED WELL.
--- NOTE | 2022-04-16 06:44 | NUR ---
MS RN CLOSING NOTE PATIENT AWAKE, ALERT X4. ON ROOM AIR, NO SOB OR RESPIRATORY DISTRESS NOTED. NO IV SITE. PATIENT IS ON A CLINICAL TRIAL BEING MONITORED FOR BEHAVIORAL CHANGES. NONE NOTED AT THIS TIME. PATIENT IS RESTING COMFORTABLY IN BED. SAFETY CHECK: BED IN LOWEST POSITION, BED LOCKED, SIDE RAILS UP X2, CALL LIGHT IS WITHIN REACH.
--- NOTE | 2022-04-16 07:45 | NUR ---
MS RN OPENING NOTE PATIENT ASLEEP ALERT X4. ON ROOM AIR, NO SOB OR RESPIRATORY DISTRESS NOTED. NO IV SITE. PATIENT IS ON A CLINICAL TRIAL BEING MONITORED FOR BEHAVIORAL CHANGES. NONE NOTED AT THIS TIME. SAFETY CHECK: BED IN LOWEST POSITION, BED LOCKED, SIDE RAILS UP X2, CALL LIGHT IS WITHIN REACH.
[2022-04-16 08:00] VITALS: BP 101/60
[2022-04-16] MEDS: INVEST MED CVL-231-2002 PO SCH (09:54)
--- NOTE | 2022-04-16 19:15 | NUR ---
MS CANALES OPENING NOTE PATIENT IS RESTING COMFORTABLY IN BED. AWAKE, ALERT AND ORIENTED X4. ON ROOM AIR, NO SOB OR RESPIRATORY DISTRESS NOTED. NO IV SITE. PATIENT IS ON A CLINICAL TRIAL. ON INVESTIGATIONAL DRUG WITH NO ADVERSE REACTIONS NOTED. DENIES SI/HI AT THIS TIME. SAFETY CHECK. BED IN LOWEST POSITION, BED LOCKED, SIDE RAILS UP X2, CALL LIGHT IS WITHIN REACH. Addendum: 04/17/22 at 0226 by DARI REYES RN PATIENT STILL HEARING VOICES. PATIENT STATES "ALIENS ARE TELLING HIM TO GO TO THE STORE". NO VISUAL HALLUCINATIONS AT THIS TIME.
--- NOTE | 2022-04-16 19:30 | NUR ---
MS RN OPENING NOTE PATIENT ASLEEP ALERT X4. ON ROOM AIR, NO SOB OR RESPIRATORY DISTRESS NOTED. NO IV SITE. PATIENT IS ON A CLINICAL TRIAL BEING MONITORED FOR BEHAVIORAL CHANGES. NONE NOTED AT THIS TIME. SAFETY CHECK: BED IN LOWEST POSITION, BED LOCKED, SIDE RAILS UP X2, CALL LIGHT IS WITHIN REACH, ENDORSED TO PM SHIFT.
[2022-04-16 20:00] VITALS: BP 117/71
[2022-04-16] MEDS: ZOLPIDEM TARTRATE 10 MG TABLET PO PRN (23:56)
--- NOTE | 2022-04-17 06:20 | NUR ---
MS CANALES OPENING NOTE PATIENT IS ASLEEP, AROUSES EASILY. ON ROOM AIR, NO SOB OR RESPIRATORY DISTRESS NOTED. PT HAS NO IV SITE. PATIENT IS ON A CLINICAL TRIAL. ON INVESTIGATIONAL DRUG WITH NO ADVERSE REACTIONS NOTED. NO EPS OR TREMORS NOTED. DENIES SI/HI AT THIS TIME. PATIENT STILL HEARING VOICES. PATIENT STATES "ALIENS ARE TELLING HIM TO GO TO THE STORE". NO VISUAL HALLUCINATIONS AT THIS TIME. SAFETY CHECK. BED IN LOWEST POSITION, BED LOCKED, SIDE RAILS UP X2, CALL LIGHT IS WITHIN REACH. WILL ENDORSE TO THE DAY SHIFT NURSE FOR CONTINUITY OF CARE. Addendum: 04/17/22 at 0624 by DARI REYES RN MS CANALES CLOSING NOTE
--- NOTE | 2022-04-17 07:45 | NUR ---
MS RN OPENING NOTES: PATIENT AWAKE, ALERT X4. ON ROOM AIR, NO SOB OR RESPIRATORY DISTRESS NOTED. NO IV SITE. PATIENT IS ON A CLINICAL TRIAL BEING MONITORED FOR BEHAVIORAL CHANGES. NONE NOTED AT THIS TIME. PATIENT IS RESTING COMFORTABLY IN BED. SAFETY CHECK: BED IN LOWEST POSITION, BED LOCKED, SIDE RAILS UP X2, CALL LIGHT IS WITHIN REACH, WILL CONT TO MONITOR.
[2022-04-17 08:00] VITALS: BP 85/57
[2022-04-17] MEDS: INVEST MED CVL-231-2002 PO SCH (10:38)
--- NOTE | 2022-04-17 19:35 | NUR ---
MS RN OPENING NOTES RECEIVED PATIENT RESTING IN BED; AWAKE, ALERT AND ORIENTED X4. VERBALLY RESPONSIVE. ON ROOM AIR; TOLERATING WELL. RESPIRATIONS EVEN AND NONLABORED. NO S/SX OF RESPIRATORY DISTRESS. DENIES ANY PAIN OR DISCOMFORT AT THIS TIME. ON CLINICAL TRIAL. NO IV ACCESS NOTED. ABLE TO MAKE NEEDS KNOWN. FALL AND SAFETY PRECAUTIONS IMPLEMENTED: CALL LIGHT AND TABLE WITHIN EASY REACH, SIDE RAILS UP X2, BED IN LOWEST LOCKED POSITION. WILL CONTINUE PLAN OF CARE
[2022-04-17 20:00] VITALS: BP 99/53
[2022-04-17 20:47] VITALS: BP 99/53
[2022-04-17] MEDS: ZOLPIDEM TARTRATE 10 MG TABLET PO PRN (22:57)
--- NOTE | 2022-04-18 06:50 | NUR ---
MS RN CLOSING NOTES PATIENT RESTING IN BED; AWAKE, A/O X4. VERBALLY RESPONSIVE. STABLE ON ROOM AIR. RESPIRATIONS EVEN AND NONLABORED. NO S/SX OF RESPIRATORY DISTRESS. NO C/O PAIN OR DISCOMFORT AT THIS TIME. ON CLINICAL TRIAL. NO IV ACCESS NOTED. ALL NEEDS MET. FALL AND SAFETY PRECAUTIONS IMPLEMENTED: CALL LIGHT AND TABLE WITHIN EASY REACH, SIDE RAILS UP X2, BED IN LOWEST LOCKED POSITION. ENDORSED TO MORNING SHIFT FOR AVANI.
--- NOTE | 2022-04-18 07:30 | NUR ---
MS RN OPENING NOTES RECEIVED PATIENT RESTING ON BED, AWAKE AND A/O X4. ON ROOM AIR TOLERATING WELL. NO SOB NOTED. NOT IN DISTRESS. WITH NO SIGNS OF BEHAVIORAL CHANGES. WITH NO IV ACCESS. ON CLINICAL TRIAL STATUS. SAFETY MEASURES IN PLACED. CALL LIGHT WITHIN REACH. BED ON LOWEST LOCKED POSITION, SIDE RAILS UP X2. WILL CONTINUE TO MONITOR.
[2022-04-18 08:00] VITALS: BP 100/60
[2022-04-18] MEDS: INVEST MED CVL-231-2002 PO SCH (10:00)
[2022-04-18 16:00] VITALS: BP 100/54
--- NOTE | 2022-04-18 19:10 | NUR ---
MS RN OPENING NOTES: RECEIVED PATIENT AWAKE IN BED, BED IN LOW POSITION CALL LIGHTS WITHIN REACH, NO COMPLAIN OF PAIN AND DISCOMFORT AT THIS TIME ON ROOM AIR SATURATING WELL, PATIENT IS A/OX4 ON CLINICAL TRIAL NO CHANGES IN BEHAVIOR HAS BEEN OBSERVED, WILL CONTINUE TO MONITOR.
--- NOTE | 2022-04-18 19:30 | NUR ---
MS RN CLOSING NOTES PATIENT RESTING ON BED, AWAKE AND A/O X4. ON ROOM AIR TOLERATING WELL. NO SOB NOTED. NOT IN DISTRESS. WITH NO SIGNS OF BEHAVIORAL CHANGES. WITH NO IV ACCESS. ON CLINICAL TRIAL STATUS. DUE MEDS GIVEN. SAFETY MEASURES IN PLACED. CALL LIGHT WITHIN REACH. BED ON LOWEST LOCKED POSITION, SIDE RAILS UP X2. WILL ENDORSE TO NEXT SHIFT FOR AVANI.
[2022-04-18 20:00] VITALS: BP 92/54
[2022-04-18] MEDS: ZOLPIDEM TARTRATE 10 MG TABLET PO PRN (23:55)
--- NOTE | 2022-04-19 07:00 | NUR ---
MS RN OPENING NOTES PATIENT LAYING IN BED, A/O X 4, ABLE TO MAKE NEEDS KNOWN. TOLERATING WELL ON ROOM AIR WITH NO S/S RESPIRATORY DISTRESS. NO COMPLAINTS OF PAIN OR DISCOMFORT AT THIS TIME. SAFETY MEASURES IN PLACE: BED IN LOWEST LOCKED POSITION, SIDE RAILS UP X 2, CALL LIGHT WITHIN REACH. WILL CONTINUE TO MONITOR.
--- NOTE | 2022-04-19 07:15 | NUR ---
MS RN CLOSING NOTES: PATIENT SLEEP IN BED COMFORTABLY, AROUSABLE TO VERBAL STIMULI, BED IN LOW POSITION, CALL LIGHTS WITHIN REACH, NO COMPLAIN OF PAIN AN D DISCOMFORT AT THIS TIME, ON ROOM AIR SATURATING WELL, PATIENT IS AMBULATORY ABLE TO MAKE NEEDS KNOWN, ON CLINICAL TRIAL, NO CHANGES IN BEHAVIOR WAS OBSERVED, ENDORSE TO INCOMING SHIFT.
[2022-04-19 08:00] VITALS: BP 96/52
[2022-04-19] MEDS: INVEST MED CVL-231-2002 PO SCH (09:00)
[2022-04-19 16:00] VITALS: BP 103/72
[2022-04-19 20:00] VITALS: BP 106/76
--- NOTE | 2022-04-19 20:00 | NUR ---
RECEIVED IN ROOM, NO COMPLAIN OF PAIN, CALM, UNKEMPT, ROOM IS MESSY. WILL CONTINUE TO MONITOR.
[2022-04-19 20:33] VITALS: BP 106/76
--- NOTE | 2022-04-20 06:54 | NUR ---
CLINICAL TRIAL, NO PRN MEDICATION GIVEN DURING SHIFT, INDEPENDENT, KEPT TO SELF, AT 2100, NPO AND HOLD AMBIEN
--- NOTE | 2022-04-20 07:40 | NUR ---
MS RN OPENING NOTES RECEIVED PATIENT AWAKE AND RESTING IN BED. A/O X4, ABLE TO VERBALIZED NEEDS. DENIES ANY DISCOMFORTS AT THIS TIME. STABLE ON ROOM AIR, NO SOB NOTED, BREATHING EVEN AND UNLABORED. PT ON CLINICAL TRIAL, NO IV ACCESS PER PROTOCOL. CALL LIGHT W/I REACH. REMINDED THE PATIENT NPO TODAY AFTER 2100. WILL INFORM NURSE TO HOLD AMBIEN AND LORAZEPAM WILL CONTINUE TO MONITOR PATIENT.
[2022-04-20 08:00] VITALS: BP_SYST 103; BP_SYST 110; BP_DIAS 65; BP_DIAS 70
[2022-04-20] MEDS: INVEST MED CVL-231-2002 PO SCH (10:01)
--- NOTE | 2022-04-20 18:50 | NUR ---
MS RN CLOSING NOTES PATIENT AWAKE AND RESTING IN BED. A/O X4, ABLE TO VERBALIZED NEEDS. DENIES ANY DISCOMFORTS AT THIS TIME. STABLE ON ROOM AIR, NO SOB NOTED, BREATHING EVEN AND UNLABORED. PT ON CLINICAL TRIAL, NO IV ACCESS PER PROTOCOL. CALL LIGHT W/I REACH. REMINDED THE PATIENT NPO TODAY AFTER 2100. WILL INFORM NURSE TO HOLD AMBIEN AND LORAZEPAM AT 2100 WELL. ALL NEEDS MET. WILL ENDORSE TO THE SENIOR ANIMAL TRAINER NURSE.
--- NOTE | 2022-04-20 19:45 | NUR ---
MS RN OPENING NOTES RECEIVED PATIENT AWAKE, ROAMING AROUND THE HALLWAY, ALERT AND ORIENTED X4. VERBALLY RESPONSIVE. ON ROOM AIR; TOLERATING WELL. RESPIRATIONS EVEN AND NONLABORED. NO S/SX OF RESPIRATORY DISTRESS. DENIES ANY PAIN OR DISCOMFORT AT THIS TIME. ON CLINICAL TRIAL. NO IV ACCESS NOTED. ABLE TO MAKE NEEDS KNOWN. FALL AND SAFETY PRECAUTIONS IMPLEMENTED: CALL LIGHT AND TABLE WITHIN EASY REACH, SIDE RAILS UP X2, BED IN LOWEST AND LOCKED POSITION. WILL CONTINUE TO MONITOR.
[2022-04-20 20:00] VITALS: BP 90/53
[2022-04-20] MEDS: ZOLPIDEM TARTRATE 10 MG TABLET PO PRN (20:53)
[2022-04-20 22:00] VITALS: BP 114/62
--- NOTE | 2022-04-21 06:56 | NUR ---
MS RN CLOSING NOTES PATIENT IN BED SLEEPING BUT EASILY AROUSABLE TO TOUCH AND VOICE, A/O X4. VERBALLY RESPONSIVE. ON ROOM AIR; TOLERATING WELL. RESPIRATIONS EVEN AND UNLABORED. NO S/SX OF RESPIRATORY DISTRESS. DENIES ANY PAIN OR DISCOMFORT AT THIS TIME. ON CLINICAL TRIAL. NO IV ACCESS NOTED. NPO STATUS MAINTAINED THROUGHOUT THE SHIFT. FALL AND SAFETY PRECAUTIONS IMPLEMENTED: CALL LIGHT AND TABLE WITHIN EASY REACH, SIDE RAILS UP X2, BED IN LOWEST AND LOCKED POSITION. WILL ENDORSE TO AM SHIFT NURSE.
--- NOTE | 2022-04-21 07:30 | NUR ---
MS RN OPENING NOTES RECEIVED PATIENT AWAKE AND RESTING IN BED. A/O X4, ABLE TO VERBALIZED NEEDS. DENIES ANY DISCOMFORTS AT THIS TIME. STABLE ON ROOM AIR, NO SOB NOTED, BREATHING EVEN AND UNLABORED. PT ON CLINICAL TRIAL, NO IV ACCESS PER PROTOCOL. CALL LIGHT WITHIN REACH. REMINDED THE PATIENT NPO TODAY UNITL BLOOD WILL BE DRAWN AND RESUME WHEN DONE . WILL CONTINUE TO MONITOR PATIENT.
[2022-04-21] MEDS: INVEST MED CVL-231-2002 PO SCH (09:26)
[2022-04-21] MEDS ORDERED: LORAZEPAM 1 MG TABLET FOR AGITATION PO PRN (13:00)
[2022-04-21 16:15] VITALS: BP 100/66
--- NOTE | 2022-04-21 19:05 | NUR ---
MS RN CLOSING NOTES PATIENT AWAKE AND RESTING IN BED. A/O X4, ABLE TO VERBALIZED NEEDS. INVESTIGATIONAL DRUG GIVEN AT 1000 AND TOLERATED WELL , WENT TO DR LIAT DANIELS FOR LAB DRAW AND CAME BACK STABLE , DENIES ANY DISCOMFORTS AT THIS TIME. STABLE ON ROOM AIR, NO SOB NOTED, BREATHING EVEN AND UNLABORED. PT ON CLINICAL TRIAL, NO IV ACCESS PER PROTOCOL. CALL LIGHT WITHIN REACH. NPO DONE AND RESUME DIET ORDERED . WILL ENDORSED TO NEXT SHIFT .
--- NOTE | 2022-04-21 19:46 | NUR ---
RN NOTES RECEIVED REPORT. PT NOT IN ROOM AT THIS TIME.
[2022-04-21 20:00] VITALS: BP 115/82
[2022-04-21] MEDS: ZOLPIDEM TARTRATE 10 MG TABLET PO PRN (21:46)
--- NOTE | 2022-04-21 21:46 | NUR ---
RN NOTES ADMINISTERED AMBIEN PER PT REQUEST FOR INSOMNIA.
--- NOTE | 2022-04-22 07:27 | NUR ---
RN CLOSING NOTES PT IN ROOM, AWAKENS TO VERBAL STIMULI. AOx4, ABLE TO MAKE NEEDS KNOWN. ON RA AND TOLERATING WELL. NO SOB NOTED. NO S/SX OF RESPIRATORY DISTRESS NOTED. IV ACCESS NOT PRESENT DUE TO CLINICAL TRIAL STATUS. ALL ORDERS CARRIED OUT. ALL NEEDS MET. PT KEPT CLEAN AND DRY. SAFETY PRECAUTIONS IN PLACE: BED IN LOWEST, LOCKED POSITION, SIDERAILS UPx2, AND BRAKES ON. TABLE AND CALL LIGHT WITHIN REACH. WILL ENDORSE TO ONCOMING SHIFT FOR AVANI.
--- NOTE | 2022-04-22 07:40 | NUR ---
RN OPENING NOTE PATIENT RECEIVED IN BED AND ASLEEP. A/O X4. NO C/O OF PAIN OR RESPIRATORY DISTRESS DURING ASSESSMENT. NO IV ACCESS PATIENT IS A CLINICAL TRIAL. SAFETY MEASURES INTACT WITH BED IN LOWEST POSITION AND LOCKED. SIDERAIL UPX2, CALL LIGHT WITHIN REACH. WILL CONTINUE TO MONITOR.
[2022-04-22 08:00] VITALS: BP 80/50
[2022-04-22] MEDS: INVEST MED CVL-231-2002 PO SCH (09:59)
--- NOTE | 2022-04-22 18:08 | NUR ---
RN CLOSING NOTE PATIENT REMAINED A/O X4. ABLE TO AMBULATE AND VERBALIZE ALL NEEDS. INVESTIGATIONAL MEDICATION ADMINISTERED ON SHIFT @ 1000AM. TOLERATED WELL. NO S/SX OF PAIN OR DISTRESS OBSERVED OR REPORTED. SAFETY MEASURES IN PLACE, CALL LIGHT WITHIN REACH. WILL CONTINUE TO MONITOR.
--- NOTE | 2022-04-22 19:25 | NUR ---
RN OPENING NOTE PATIENT SEEN IN ROOM, A/O X 4, ABLE TO MAKE NEEDS KNOWN. PATIENT IS A CLINICAL TRIAL PATIENT OF DR. CARBAJAL. DANIEL IS ONRA, TOLERATING WELL, NO SOB OR RESPIRATORY DISTRESS NOTED. DOES NOT REPORT ANY PAIN AT THIS TIME. INDEPENDENT WITH ACTIVITIES. PATIENT IS CALM AND COOPERATIVE AT THIS TIME. SAFETY MEASURES IN PLACE: BED LOCKED AND IN LOWEST POSITION, CALL LIGHT WITHIN REACH, SIDE RAILS UP. WILL MONITOR PATIENT CLOSELY.
[2022-04-22 20:00] VITALS: BP 112/77
[2022-04-23] MEDS: ZOLPIDEM TARTRATE 10 MG TABLET PO PRN ×2 (00:53→21:05)
--- NOTE | 2022-04-23 00:55 | NUR ---
ALLY OPENING NOTE ADMINISTERED ELIU PATIENT REQUESTED TO HELP HIM SLEEP. Addendum: 04/23/22 at 0625 by ADEEL ROMERO RN ALLY NOTE
--- NOTE | 2022-04-23 06:58 | NUR ---
RN CLOSING NOTE PATIENT IN ROOM, A/O X 4, ABLE TO MAKE NEEDS KNOWN. PATIENT IS ON RA, TOLERATING WELL, NO SOB OR RESPIRATORY DISTRESS NOTED. DOES NOT REPORT ANY PAIN AT THIS TIME. PATIENT WAS CALM AND COOPERATIVE DURING THE SHIFT. SAFETY MEASURES IN PLACE: BED LOCKED AND IN LOWEST POSITION, CALL LIGHT WITHIN REACH, SIDE RAILS UP. ALL NEEDS MET AND ATTENDED. ALL ORDERS CARRIED OUT. WILL ENDORSE TO DAY SHIFT FOR AVANI.
--- NOTE | 2022-04-23 07:10 | NUR ---
RN OPENING NOTE PT IS A CLINICAL TRIAL. PT IS AWAKE AND ALERT X4. COOPERATIVE AND CALM. ON RA, NO SIGNS OF RESPIRATORY DISTRESS OR SOB NOTED. NO IV. PT IS INDEPENDENT WITH ALL ACTIVITIES. SAFETY CHECKS: CALL LIGHT IS WITHIN REACH, BED IN LOWEST POSITION, SIDE RAILS UP X2. WILL CONTINUE TO MONITOR.
[2022-04-23 08:10] VITALS: BP 74/41
[2022-04-23] MEDS: INVEST MED CVL-231-2002 PO SCH (09:59)
--- NOTE | 2022-04-23 19:51 | NUR ---
MS RN OPENING NOTES: RECEIVED PATIENT AWAKE IN BED, BE DIN LOW POSITION CALL LIGHTS WITHIN REACH, NOC OMPLAIN OF APIN AND DISCOMFORT AT THIS TIME, ON ROOM AIR SATURATING WELL, PATIENT IS A/O4 ABLE TO MAKE NEEDS KNOWN, ON CLINICAL TRIAL, NO CHANGES IN BEHAVIOR HAS BEEN OBSERVED PATIENT KEPT CLEAN AND DRY ALL NEEDS MET WILL CONTINUE TO MONITOR.
[2022-04-23 20:00] VITALS: BP 110/72
--- NOTE | 2022-04-24 06:49 | NUR ---
MS RN CLOSING NOTES: PATIENT SLEEP IN BED COMFORTABLY, AROUSABLE TO VERBAL STIMULI, BED IN LOW POSITION CALL LIGHTS WITHIN REACH, NO COMPLAIN OF PAIN AND DISCOMFORT AT THIS TIME , ON ROOM AIR SATURATING WELL, PATIENT IS A/OX4 AMBULATORY ABLE TO MAKE NEEDS KNOWN, NO CHANGES IN BEHAVIOR WAS OBSERVED, PATIENT KEPT CLEAN AND DRY ALL NEED MET ENDORSE TO INCOMING SHIFT.
--- NOTE | 2022-04-24 07:25 | NUR ---
RN OPENING NOTE RECEIVED PT AWAKE IN BED A/O X4. NO SIGNS OF RESPIRATORY DISTRESS OR SOB NOTED, STABLE ON RA. NO IV SITE. NO PAIN AT THIS TIME. ABLE TO MAKE NEEDS KNOWN. CALM AND COOPERATIVE. SAFETY MEASURES: BED LOCKED, IN LOWEST POSITION,SIDE RAILS X2, CALL LIGHT WITHIN REACH. WILL CONTINUE TO MONITOR CLOSELY.
[2022-04-24 08:00] VITALS: BP 100/59
[2022-04-24] MEDS: INVEST MED CVL-231-2002 PO SCH ×2 (09:52→10:00)
[2022-04-24 16:00] VITALS: BP 97/66
--- NOTE | 2022-04-24 18:30 | NUR ---
RN CLOSING NOTE PT IS RESTING COMFORTABLY IN ROOM. PT IS ON CLINICAL TRIAL, CLINICAL MEDS GIVEN AT SCHEDULED TIME. ABLE TO MAKE NEEDS KNOWN. NO RESPIRATORY DISTRESS NOTED. VITAL SIGNS WITHIN NORMAL LIMITS. SAFETY MEASURES: CALL LIGHT WITHIN REACH, BED LOCKED IN LOW POSITION, SIDE RAILS UP X2. WILL ENDORSE TO PROCESS HELPER FOR AVANI.
--- NOTE | 2022-04-24 19:46 | NUR ---
RN OPENING NOTES RECEIVED PT IN ROOM, AWAKE. AOx4, ABLE TO MAKE NEEDS KNOWN. ON RA AND TOLERATING SETTINGS WELL. NO SOB NOTED. NO S/SX OF RESPIRATORY DISTRESS NOTED. NO IV ACCESS SINCE PATIENT IS IN CLINICAL TRIAL. SAFETY PRECAUTIONS IN PLACE: BED IN LOWEST, LOCKED POSITION, SIDERAILS UPx2, AND BRAKES ON. TABLE AND CALL LIGHT WITHIN REACH. ALL NEEDS MET AT THIS TIME.
[2022-04-24 20:00] VITALS: BP 110/84
[2022-04-24] MEDS: ZOLPIDEM TARTRATE 10 MG TABLET PO PRN (20:08)
--- NOTE | 2022-04-24 20:08 | NUR ---
RN NOTES ADMINISTERED AMBIEN PER PT REQUEST.
--- NOTE | 2022-04-25 06:49 | NUR ---
RN CLOSING NOTES PT IN ROOM, ASLEEP, AWAKENS TO VERBAL STIMULI. AOx4, ABLE TO MAKE NEEDS KNOWN. ON RA AND TOLERATING SETTINGS WELL. NO SOB NOTED. NO S/SX OF RESPIRATORY DISTRESS NOTED. NO IV ACCESS SINCE PATIENT IS IN CLINICAL TRIAL. ALL ORDERS CARRIED OUT. ALL NEEDS MET. PT KEPT CLEAN AND DRY. SAFETY PRECAUTIONS IN PLACE: BED IN LOWEST, LOCKED POSITION, SIDERAILS UPx2, AND BRAKES ON. TABLE AND CALL LIGHT WITHIN REACH. ALL NEEDS MET AT THIS TIME. WILL ENDORSE TO ONCOMING SHIFT FOR AVANI.
--- NOTE | 2022-04-25 07:00 | NUR ---
MS RN OPENING NOTES: RECEIVED PATIENT IN BED, ASLEEP, EASILY AROUSED WITH STIMULI. NO SOB OR CARDIAC DISTRESS NOTED. DENIES ANY PAIN AT THIS TIME. NO IV ACCESS. NO BEHAVIORAL CHANGES REPORTED FROM STRATEGIC CONSULTANT. WILL MONITOR FOR ANY SIGNIFICANT CHANGES ESPECIALLY IN BEHAVIOR. SAFETY PRECAUTIONS MAINTAINED: BED LOCKED AND IN LOWEST POSITION, SIDE RAILS UP X 2. CALL LIGHT IN EASY REACH FOR HELP. KEPT RESTED AND COMFORTABLE.
[2022-04-25 08:00] VITALS: BP_SYST 86; BP_SYST 96; BP_DIAS 54; BP_DIAS 56
[2022-04-25] MEDS: INVEST MED CVL-231-2002 PO SCH (10:05)
--- NOTE | 2022-04-25 11:32 | NUR ---
RN NOTES: RECEIVED A CALL FROM SECURITY. PATIENT LEFT THE HOSPITAL RIDING UBER CAR WITHOUT INFORMING STAFFS. INFORMED DR CARBAJAL, DR CARBAJAL STATED: " PATIENT HAS APPOINTMENT".
--- NOTE | 2022-04-25 12:00 | NUR ---
RN NOTES: PATIENT CAME BACK, REMIND HIM TO INFORM HIS NURSES IF HE WILL LEAVE THE UNIT/HOSPITAL. PATIENT VERBALIZED UNDERSTANDING. PATIENT CALM AND POLITE.
[2022-04-25 16:00] VITALS: BP 108/60
--- NOTE | 2022-04-25 19:21 | NUR ---
MS RN OPENING NOTES: RECEIVED PATIENT IN BED, AWAKE, EASILY AROUSED WITH STIMULI. NO SOB OR CARDIAC DISTRESS NOTED. DENIES ANY PAIN AT THIS TIME. NO IV ACCESS. NO BEHAVIORAL CHANGES REPORTED FROM DAY SHIFT. WILL MONITOR FOR ANY SIGNIFICANT CHANGES ESPECIALLY IN BEHAVIOR. SAFETY PRECAUTIONS MAINTAINED: BED LOCKED AND IN LOWEST POSITION, SIDE RAILS UP X 2. CALL LIGHT IN EASY REACH FOR HELP. KEPT RESTED AND COMFORTABLE.
[2022-04-25 20:00] VITALS: BP 108/77
--- NOTE | 2022-04-26 06:39 | NUR ---
MS RN CLOSING NOTES: PATIENT IN BED, AWAKE, EASILY AROUSED WITH STIMULI. NO SOB OR CARDIAC DISTRESS NOTED. DENIES ANY PAIN AT THIS TIME. NO IV ACCESS. NO BEHAVIORAL CHANGES. NO SIGNIFICANT CHANGES ESPECIALLY IN BEHAVIOR. SAFETY PRECAUTIONS MAINTAINED: BED LOCKED AND IN LOWEST POSITION, SIDE RAILS UP X 2. CALL LIGHT IN EASY REACH FOR HELP. KEPT RESTED AND COMFORTABLE.
--- NOTE | 2022-04-26 07:15 | NUR ---
RN OPENING NOTE RECEIVED PT IN BED RESTING COMFORTABLY. NO RESPIRATORY DISTRESS OR SOB NOTED. ABLE TO MAKE NEEDS KNOWN. CLINICAL TRAIL PT. NO BEHAVIORAL CHANGES REPORTED. CALM AND COOPERATIVE. NO IV ACCESS. SAFETY CHECKS: BED LOCKED IN LOWEST POSITION, CALL LIGHT WITHIN REACH, SIDE RAILS UP X2. WILL CONTINUE TO MONITOR.
[2022-04-26 08:00] VITALS: BP 90/50
[2022-04-26] MEDS: INVEST MED CVL-231-2002 PO SCH (10:00)
--- NOTE | 2022-04-26 18:35 | NUR ---
RN CLOSING NOTES PT IS AWAKE IN BED RESTING COMFORTABLY. NO CHANGE IN BEHAVIOR NOTED. CALM AND COOPERATIVE. SCHEDULED CLINICAL TRIAL MED GIVEN ON TIME. NO SIGNS OF SOB OR RESPIRATORY DISTRESS NOTED. VITAL SIGNS STABLE. SAFETY PRECAUTIONS: BED LOCKED IN LOWEST POSITION, SIDE RAILS X2, CALL LIGHT WITHIN REACH. WILL ENDORSE TO NEXT SHIFT FOR AVANI.
[2022-04-26 20:00] VITALS: BP 111/78
--- NOTE | 2022-04-26 20:18 | NUR ---
RN OPENING NOTES PT IS AWAKE IN BED RESTING COMFORTABLY. CALM AND COOPERATIVE. NO SIGNS OF SOB OR RESPIRATORY DISTRESS NOTED. VITAL SIGNS STABLE. SAFETY PRECAUTIONS: BED LOCKED IN LOWEST POSITION, SIDE RAILS X2, CALL LIGHT WITHIN REACH.
[2022-04-26] MEDS: ZOLPIDEM TARTRATE 10 MG TABLET PO PRN (23:17)
--- NOTE | 2022-04-26 23:20 | NUR ---
RN NOTES MD REQUESTED PRN GIDEONIEN GIVE AND TOLERATED WELL.
--- NOTE | 2022-04-27 06:48 | NUR ---
RN CLOSING NOTES PT IS AWAKE IN BED RESTING COMFORTABLY. CALM AND COOPERATIVE. NO SIGNS OF SOB OR RESPIRATORY DISTRESS NOTED. VITAL SIGNS STABLE. SAFETY PRECAUTIONS: BED LOCKED IN LOWEST POSITION, SIDE RAILS X2, CALL LIGHT WITHIN REACH.
--- NOTE | 2022-04-27 07:43 | NUR ---
RN NOTE PT RECEIVED IN ROOM, AWAKE. PT ON RA WITH NO SIGN SOF LABORED BREATHING. A&OX4. NO IV ACCESS. BED LOCKED AND IN LOWEST POSITION, CALL LIGHT WITHIN REACH, 2 SIDE RAILS UP.
[2022-04-27] MEDS: INVEST MED CVL-231-2002 PO SCH (09:53)
--- NOTE | 2022-04-27 19:29 | NUR ---
RN OPENING NOTE PATIENT AWAKE IN ROOM. A/OX4. NO S/S OF DISTRESS, BREATHING WITHOUT DIFFICULTY ON ROOM AIR. PATIENT APPEARS RELAXED, WITH NO ANXIETY OR AGITATION NOTED. SAFETY MEASURES IN PLACE: BED LOCKED AND AT LOWEST POSITION, RAILS UP X2, CALL KAUFFMAN WITHIN REACH. WILL CONTINUE TO MONITOR PATIENT.
[2022-04-27 20:00] VITALS: BP 108/82
[2022-04-27] MEDS ORDERED: ZOLPIDEM TARTRATE 10 MG TABLET ONE (21:31)
[2022-04-27] MEDS: ZOLPIDEM TARTRATE 10 MG TABLET PO PRN (21:35)
--- NOTE | 2022-04-28 06:16 | NUR ---
RN CLOSING NOTE PATIENT IS ASLEEP IN BED. A/OX4. NO S/S OF DISTRESS, BREATHING WITHOUT DIFFICULTY ON ROOM AIR. SAFETY MEASURES IN PLACE: BED LOCKED AND AT LOWEST POSITION, RAILS UP X2, CALL KAUFFMAN WITHIN REACH. WILL ENDORSE TO NEXT SHIFT FOR AVANI.
--- NOTE | 2022-04-28 07:13 | NUR ---
MS RN OPENING NOTES: RECEIVED PATIENT IN BED ASLEEP EASILY AWAKE WITH STIMULI. PATIENT ALERT ANS ORIENT X 4 AND ABLE TO VERBALIZED NEEDS. NO BEHAVIORAL ISSUES NOTED PER ENDORSEMENT FROM NOC SHIFT NURSE. NO IV ACCESS NOTED. KEPT RESTED AND COMFORTABLE. SAFETY MEASURES MAINTAINED: BED LOCKED AND IN LOWEST POSITION, SIDE RETAILS UP X 2. CALL LIGHT IN EASY REACH FOR HELP. WILL MONITOR ACCORDINGLY.
[2022-04-28 08:00] VITALS: BP 90/50
[2022-04-28] MEDS: INVEST MED CVL-231-2002 PO SCH (10:03)
[2022-04-28] MEDS ORDERED: LORAZEPAM 1 MG TABLET FOR AGITATION PO PRN (13:00)
[2022-04-28 16:00] VITALS: BP 106/76
[2022-04-28 20:00] VITALS: BP 133/79
--- NOTE | 2022-04-28 20:03 | NUR ---
MS RN OPENING NOTE RECEIVED PATIENT IN HIS ROOM. A/OX4. NO S/S OF APPARENT DISTRESS ON ROOM AIR. DENIES ANY PAIN NOR DISCOMFORT. WILL CONTINUE WITH PATIENT'S PLAN OF CARE.
[2022-04-28] MEDS: ZOLPIDEM TARTRATE 10 MG TABLET PO PRN (21:44)
--- NOTE | 2022-04-28 21:59 | NUR ---
GIVEN AMBIEN WHICH IS TO BE HOLD FOR TONIGHT, CALLED DOCTOR CARBAJAL TO REPORT ERROR. Addendum: 04/28/22 at 2246 by MARK KAPLAN RN GIVEN AMBIEN WHICH IS TO BE HOLD FOR TONIGHT, CALLED DOCTOR CARBAJAL TO REPORT ERROR. VOICE MAIL TO ANSWER. LEFT A MESSAGE.
--- NOTE | 2022-04-29 07:34 | NUR ---
report given to Dorothy for continuity of patient care. Charge Nurse Sourav aware of Ambien situation.
--- NOTE | 2022-04-29 07:42 | NUR ---
RN OPENING NOTE PATIENT AWAKE IN BED RESTING. A/O X 4. NO PAIN NOTED AT THIS TIME. ON ROOM AIR, NO DISTRESS OR SHORTNESS OF BREATH NOTED. NO IV ACCESS, CLINICAL TRIAL. FALL AND SAFETY MEASURES IN PLACE, BED IN LOW AND LOCK POSITION, CALL LIGHT AND TABLE WITHIN EASY REACH, SIDE RAILS UP X2. WILL CONTINUE TO MONITOR.
[2022-04-29 08:00] VITALS: BP 95/42
[2022-04-29] MEDS: INVEST MED CVL-231-2002 PO SCH (10:02)
[2022-04-29 16:00] VITALS: BP 92/59
--- NOTE | 2022-04-29 18:51 | NUR ---
RN CLOSING NOTE PATIENT AWAKE IN BED RESTING. A/O X 4. NO PAIN NOTED AT THIS TIME. ON ROOM AIR, NO DISTRESS OR SHORTNESS OF BREATH NOTED. NO IV ACCESS, CLINICAL TRIAL. FALL AND SAFETY MEASURES IN PLACE, BED IN LOW AND LOCK POSITION, CALL LIGHT AND TABLE WITHIN EASY REACH, SIDE RAILS UP X2. WILL ENDORSE TO LAUNDRY ROUTE DRIVER.
--- NOTE | 2022-04-29 19:19 | NUR ---
RN OPENING NOTE PATIENT SEEN IN ROOM, A/O X 4, ABLE TO MAKE NEEDS KNOWN. PATIENT IS A CLINICAL TRIAL PATIENT OF DR. CARBAJAL. DANIEL IS ON RA, TOLERATING WELL, NO SOB OR RESPIRATORY DISTRESS NOTED. DOES NOT REPORT ANY PAIN AT THIS TIME. INDEPENDENT WITH ACTIVITIES. PATIENT IS CALM AND COOPERATIVE AT THIS TIME. SAFETY MEASURES IN PLACE: BED LOCKED AND IN LOWEST POSITION, CALL LIGHT WITHIN REACH, SIDE RAILS UP. WILL MONITOR PATIENT CLOSELY.
[2022-04-29 20:00] VITALS: BP 112/74
[2022-04-29] MEDS: ZOLPIDEM TARTRATE 10 MG TABLET PO PRN (21:05)
--- NOTE | 2022-04-29 21:05 | NUR ---
RN NOTE AMBIEN GIVEN TO PATIENT REQUESTED. WILL REASSESS EFFECTIVENESS AT A LATER TIME
--- NOTE | 2022-04-30 06:58 | NUR ---
RN CLOSING NOTE PATIENT SEEN IN ROOM SLEEPING, ABLE TO MAKE NEEDS KNOWN. PATIENT IS A CLINICAL TRIAL PATIENT OF DR. CARBAJAL. PATIENT IS ON RA, TOLERATING WELL, NO SOB OR RESPIRATORY DISTRESS NOTED. DOES NOT REPORT ANY PAIN AT THIS TIME. SAFETY MEASURES IN PLACE: BED LOCKED AND IN LOWEST POSITION, CALL LIGHT WITHIN REACH, SIDE RAILS UP. ALL NEEDS MET AND ATTENDED. ALL ORDERS CARRIED OUT. WILL ENDORSE TO DAY SHIFT NURSE FOR AVANI.
--- NOTE | 2022-04-30 07:40 | NUR ---
RN OPENING NOTE RECEIVED PATIENT IN ROOM, A/O X 4, ABLE TO MAKE NEEDS KNOWN. PATIENT IS A CLINICAL TRIAL PATIENT OF DR. CARBAJAL. ON RA, TOLERATING WELL. NO SOB OF RESPIRATORY DISTRESS SEEN. DENIES PAIN OR DISCOMFORT AT THIS TIME. INDEPENDENT WITH ADLS. PATIENT IS CALM AND COOPERATIVE. BED IN LOW POSITION, CALL LIGHT WITHIN REACH, SIDE RAILS UP X 2. WILL CONTINUE TO MONITOR PATIENT.
[2022-04-30] MEDS: INVEST MED CVL-231-2002 PO SCH (09:55)
--- NOTE | 2022-04-30 19:08 | NUR ---
RN CLOSING NOTE LEFT PATIENT IN ROOM. PT A/O X 4, ABLE TO MAKE NEEDS KNOWN. NO S/S OF RESPIRATORY DISTRESS SEEN. RESPIRATIONS EVEN, AND UNLABORED. NO C/O PAIN OR DISCOMFORT AT THIS TIME. VS STABLE. PT COOPERATIVE. BED IN LOW POSITION, CALL LIGHT WITHIN REACH. WILL ENDORSE PT'S CARE TO ONCOMING NURSE.
--- NOTE | 2022-04-30 19:25 | NUR ---
RN OPENING NOTE PATIENT SEEN IN ROOM, A/O X 4, ABLE TO MAKE NEEDS KNOWN. PATIENT IS A CLINICAL TRIAL PATIENT OF DR. CARBAJAL. PATIENT IS ON RA, TOLERATING WELL, NO SOB OR RESPIRATORY DISTRESS NOTED. DOES NOT REPORT ANY PAIN AT THIS TIME. INDEPENDENT WITH ACTIVITIES. PATIENT IS CALM AND COOPERATIVE AT THIS TIME. SAFETY MEASURES IN PLACE: BED LOCKED AND IN LOWEST POSITION, CALL LIGHT WITHIN REACH, SIDE RAILS UP. WILL MONITOR PATIENT CLOSELY.
[2022-04-30 20:00] VITALS: BP 111/75
[2022-04-30] MEDS: ZOLPIDEM TARTRATE 10 MG TABLET PO PRN (21:27)
--- NOTE | 2022-04-30 21:27 | NUR ---
RN NOTE ADMINISTERED AMBIEN PER PATIENT'S REQUEST TO HELP HIM FALL ASLEEP.
--- NOTE | 2022-05-01 06:45 | NUR ---
RN CLOSING NOTE PATIENT SEEN IN HALLWAY GOING DOWN TO SMOKE, ABLE TO MAKE NEEDS KNOWN. PATIENT IS A CLINICAL TRIAL PATIENT OF DR. CARBAJAL. PATIENT IS ON RA, TOLERATING WELL, NO SOB OR RESPIRATORY DISTRESS NOTED. DOES NOT REPORT ANY PAIN AT THIS TIME. SAFETY MEASURES IMPLEMENTED. ALL ORDERS CARRIED OUT. WILL ENDORSE TO DAY SHIFT NURSE FOR AVANI.
[2022-05-01 08:00] VITALS: BP 121/57
[2022-05-01] MEDS: INVEST MED CVL-231-2002 PO SCH (09:55)
[2022-05-01 16:00] VITALS: BP 98/62
--- NOTE | 2022-05-01 18:24 | NUR ---
RN CLOSING NOTE PATIENT RECEIVED AWAKE AND AMBULATING ON UNIT. REMAINED A/O X4. ABLE TO AMBULATE AND VERBALIZE ALL NEEDS. INVESTIGATIONAL MEDICATION ADMINISTERED ON SHIFT @ 1000AM. TOLERATED WELL. NO S/SX OF PAIN OR DISTRESS OBSERVED OR REPORTED. NO PRN MEDICATION REQUESTED. SAFETY MEASURES IN PLACE, CALL LIGHT WITHIN REACH. WILL CONTINUE TO MONITOR.
--- NOTE | 2022-05-01 19:30 | NUR ---
CT RN OPENING NOTE PT AWAKE IN BED. A/O X4 AND ABLE TO MAKE NEEDS KNOWN. PT STABLE ON ROOM AIR. NO SOB OR S/S OF RESPIRATORY DISTRESS. BREATHING EVEN AND UNLABORED. NO IV ACCESS D/T CLINICAL TRAIL STATUS. SAFETY PRECAUTIONS IN PLACE. BED IN LOWEST LOCKED POSITION, SIDE RAILS UP X2, AND CALL LIGHT AND TABLE WITHIN REACH. ALL NEEDS MET AT THIS TIME.
[2022-05-01 20:00] VITALS: BP 118/65
[2022-05-01] MEDS: ZOLPIDEM TARTRATE 10 MG TABLET PO PRN (22:47)
--- NOTE | 2022-05-01 22:49 | NUR ---
RN NOTE PT REQUESTED SLEEPING PILL. ADMINISTERED AMBIEN FOR INSOMNIA ORDERED. ALL NEEDS MET AT THIS TIME.
--- NOTE | 2022-05-02 06:45 | NUR ---
CT RN CLOSING NOTE PT AWAKE IN BED. A/O X4 AND ABLE TO MAKE NEEDS KNOWN. PT STABLE ON ROOM AIR. NO SOB OR S/S OF RESPIRATORY DISTRESS. BREATHING EVEN AND UNLABORED. NO IV ACCESS D/T CLINICAL TRAIL STATUS. ALL DUE MEDS GIVEN ORDERED. SAFETY PRECAUTIONS IN PLACE AT ALL TIMES. BED IN LOWEST LOCKED POSITION, SIDE RAILS UP X2, AND CALL LIGHT AND TABLE WITHIN REACH. ALL NEEDS MET AT THIS TIME AND WILL ENDORSE TO ONCOMING NURSE FOR AVANI.
--- NOTE | 2022-05-02 07:15 | NUR ---
RN OPENING NOTE PT IN ROOM AWAKE. A/OX4. NO SIGNS OF RESPIRATORY DISTRESS OR SOB NOTED. CALM AND COOPERATIVE. PT IS A CLINICAL TRIAL. ABLE TO MAKE NEEDS KNOWN. SAFETY CHECKS: BED LOCKED IN LOWEST POSITION, CALL LIGHT WITHIN REACH, SIDE RAILS X2. WILL CONTINUE TO MONITOR.
[2022-05-02 09:28] VITALS: BP 132/90
[2022-05-02] MEDS: INVEST MED CVL-231-2002 PO SCH (10:00)
--- NOTE | 2022-05-02 18:50 | NUR ---
RN CLOSING NOTE PT IN ROOM AWAKE, A/OX4. NO SOB OR RESPIRATORY DISTRESS AT THIS TIME. CALM AND COOPERATIVE. NO BEHAVIORAL CHANGES DURING SHIFT. CLINICAL TRIAL MEDS GIVEN AT 1000. ALL SCHEDULED MEDS GIVEN. ALL NEEDS ATTENDED TO. SAFETY CHECKS IN PLACE: BED LOCKED, BED IN LOWEST POSITION, CALL LIGHT WITHIN REACH. WILL ENDORSE TO ORDER RUNNER NURSE FOR AVANI.
--- NOTE | 2022-05-02 19:30 | NUR ---
RN OPENING NOTES RECEIVED PT AWAKE IN ROOM. AOx4, PLEASANT AND COOPERATIVE. AOx4, ABLE TO MAKE NEEDS KNOWN. ON RA AND TOLERATING WELL. NO SOB NOTED. NO S/SX OF RESPIRATORY DISTRESS NOTED. NO IV ACCESS D/T CLINICAL TRIAL STATUS. SAFETY PRECAUTIONS IN PLACE: BED IN LOWEST, LOCKED POSITION, SIDERAILS UPx2, AND BRAKES ON. TABLE AND CALL LIGHT WITHIN REACH. ALL NEEDS MET AT THIS TIME.
[2022-05-02 20:00] VITALS: BP 101/76
--- NOTE | 2022-05-02 21:45 | NUR ---
RN NOTES ADMINISTERED AMBIEN PER PT REQUEST.
[2022-05-02] MEDS: ZOLPIDEM TARTRATE 10 MG TABLET PO PRN (22:44)
--- NOTE | 2022-05-03 06:44 | NUR ---
RN CLOSING NOTES PT AWAKE IN ROOM. AOx4, PLEASANT AND COOPERATIVE.ON RA AND TOLERATING WELL. NO SOB NOTED. NO S/SX OF RESPIRATORY DISTRESS NOTED. NO IV ACCESS D/T CLINICAL TRIAL STATUS. ALL ORDERS CARRIED OUT. ALL NEEDS MET. PT KEPT CLEAN AND DRY. SAFETY PRECAUTIONS IN PLACE: BED IN LOWEST, LOCKED POSITION, SIDERAILS UPx2, AND BRAKES ON. TABLE AND CALL LIGHT WITHIN REACH. WILL ENDORSE TO ONCOMING SHIFT FOR AVANI.
[2022-05-03] MEDS: INVEST MED CVL-231-2002 PO SCH (09:59)
[2022-05-03 16:00] VITALS: BP 105/68
[2022-05-03 20:00] VITALS: BP 102/77
[2022-05-03] MEDS: ZOLPIDEM TARTRATE 10 MG TABLET PO PRN (22:01)
--- NOTE | 2022-05-03 22:01 | NUR ---
RN NOTE PATIENT GIVEN AMBIEN PER REQUEST TO HELP PATIENT SLEEP
--- NOTE | 2022-05-04 07:08 | NUR ---
RN CLOSING NOTE PATIENT IN BED, SLEEPING EASILY AWAKENED, ABLE TO MAKE NEEDS KNOWN. PATIENT IS A CLINICAL TRIAL PATIENT OF DR. CARBAJAL. PATIENT IS ON RA, TOLERATING WELL, NO SOB OR RESPIRATORY DISTRESS NOTED. DOES NOT REPORT ANY PAIN AT THIS TIME. SAFETY MEASURES IMPLEMENTED. ALL ORDERS CARRIED OUT. WILL ENDORSE TO DAY SHIFT NURSE FOR AVANI.
[2022-05-04 08:43] VITALS: BP 86/52
[2022-05-04] MEDS: INVEST MED CVL-231-2002 PO SCH (09:59)
--- NOTE | 2022-05-04 19:40 | NUR ---
MS RN OPENING NOTES PATIENT OUT OF HOSPITAL DURING CHANGE OF SHIFT, WILL AWAIT FOR PATIENT ARRIVAL BACK ON UNIT, CHARGE NURSE AND HEAD AND NECK SURGEON BOTH AWARE
--- NOTE | 2022-05-04 21:00 | NUR ---
MS RN NOTES PATIENT BACK ON UNIT, A/OX4, BREATHING EVEN AND UNLABORED; NO SOB NOTED; NO DISTRESS, TOLERATING ROOM AIR WELL; PATIENT HAS NO IV ACCESS D/T CLINICAL TRIAL; PATIENT AWARE PRN MEDS ARE HELD TODAY; SAFETY PRECAUTIONS IMPLEMENTED; BED LOCKED IN LOW POSITION; SIDE RAILX2, CALL LIGHT WITHIN REACH; WILL CONT PLAN OF CARE
--- NOTE | 2022-05-05 07:15 | NUR ---
MS RN OPENING NOTES: RECEIVED PATIENT IN BED, ASLEEP, EASILY AROUSED WITH STIMULI. NO SOB OR CARDIAC DISTRESS NOTED. DENIES ANY PAIN AT THIS TIME. NO IV ACCESS. NO BEHAVIORAL CHANGES REPORTED FROM REFRIGERATION PERSON. WILL MONITOR FOR ANY SIGNIFICANT CHANGES ESPECIALLY IN BEHAVIOR. SAFETY PRECAUTIONS MAINTAINED: BED LOCKED AND IN LOWEST POSITION, SIDE RAILS UP X 2. CALL LIGHT IN EASY REACH FOR HELP. KEPT RESTED AND COMFORTABLE. WILL MONITOR ACCORDINGLY.
[2022-05-05 08:00] VITALS: BP 99/60
[2022-05-05] MEDS: INVEST MED CVL-231-2002 PO SCH (10:00)
[2022-05-05 10:17] VITALS: BP 89/57
[2022-05-05] MEDS ORDERED: LORAZEPAM 1 MG TABLET FOR AGITATION PO PRN (13:00)
[2022-05-05 16:00] VITALS: BP 106/68
[2022-05-05 18:13] VITALS: BP 106/68
--- NOTE | 2022-05-05 18:59 | NUR ---
MS RN CLOSING NOTES: PATIENT IN BED AWAKE. A/O X4 AND ABLE TO VERBALIZED NEEDS. ON ROOM AIR AND TOLERATING WELL. NO S/SX OF PAIN OR DISCOMFORT AT THIS TIME. NO IV ACCESS, CLINICAL TRIAL PATIENT.NO CHANGES IN BEHAVIOR NOTED IN OUR SHIFT, PATIENT REMAINED CALM AND PLEASANT. FALL AND SAFETY MEASURES IN PLACE, BED IN LOW AND IN LOCKED POSITION, CALL LIGHT AND TABLE WITHIN EASY REACH, SIDE RAILS UP X2. WILL ENDORSE TO NOC SHIFT NURSE FOR CONTINUITY OF CARE.
--- NOTE | 2022-05-05 19:15 | NUR ---
RN OPENING NOTE RECEIVED PT IN BED, AWAKE A/OX4. CLINICAL TRAIL. CALM AND COOPERATIVE. NO SOB OR RESPIRATORY DISTRESS NOTED. STABLE ON RA. NO IV ACCESS. SAFETY CHECKS IN PLACE: BED LOCKED, BED IN LOWEST POSITION, CALL LIGHT IS WITHIN REACH. WILL CONT PLAN OF CARE.
[2022-05-05 20:00] VITALS: BP 123/69
[2022-05-05] MEDS: ZOLPIDEM TARTRATE 10 MG TABLET PO PRN (23:11)
--- NOTE | 2022-05-06 06:55 | NUR ---
RN CLOSING NOTE PT IN BED, AWAKE A/OX4. CLINICAL TRIAL. CALM AND COOPERATIVE. NO SOB OR RESPIRATORY DISTRESS NOTED. STABLE ON RA. NO IV ACCESS. SAFETY CHECKS IN PLACE: BED LOCKED, BED IN LOWEST POSITION, CALL LIGHT IS WITHIN REACH. WILL ENDORSE TO DAY SHIFT FOR AVANI.
--- NOTE | 2022-05-06 07:29 | NUR ---
MS RN OPENING NOTE RECEIVED PT ASLEEP IN BED, EASILY AROUSED. A/O X4, ABLE TO MAKE NEEDS KNOWN. ON RA, TOLERATING WELL. NO SOB NOTED. NOT IN ANY SIGN OF RESPIRATORY DISTRESS. NO IV ACCESS. SAFETY MEASURES IN PLACE: BED IN LOWEST AND LOCKED POSITION, BED ALARM ON, SIDE RAILS UPX2, AND CALL LIGHT WITHIN REACH. WILL CONTINUE TO MONITOR PT.
[2022-05-06 08:00] VITALS: BP 108/69
[2022-05-06] MEDS: INVEST MED CVL-231-2002 PO SCH (10:01)
[2022-05-06 16:00] VITALS: BP 113/86
--- NOTE | 2022-05-06 19:28 | NUR ---
MS RN CLOSING NOTE PT ASLEEP IN BED, EASILY AROUSED. A/O X4, ABLE TO MAKE NEEDS KNOWN. ON RA, TOLERATING WELL. NO SOB NOTED. NOT IN ANY SIGN OF RESPIRATORY DISTRESS. NO IV ACCESS. PT IS CALM WITH NO EPISODES OF UNTOWARD BEHAVIOR TOWARDS STAFF. ALL NEEDS ATTENDED. KEPT CLEAN AND COMFORTABLE. SAFETY MEASURES IN PLACE: BED IN LOWEST AND LOCKED POSITION, BED ALARM ON, SIDE RAILS UPX2, AND CALL LIGHT WITHIN REACH. ENDORSED TO ENVELOPE ADJUSTER NURSE FOR AVANI.
--- NOTE | 2022-05-06 19:39 | NUR ---
MS RN OPENING NOTES PATIENT CURRENTLY OUT OF ROOM, PATIENT WENT DOWNSTAIRS; A/OX4, SIGNED SIGN OUT SHEET. PATIENT AMBULATORY WITH STEADY GAIT; WILL AWAIT FOR PATIENT ARRIVAL BACK ON UNIT
[2022-05-06 20:00] VITALS: BP 106/78
[2022-05-06] MEDS: ZOLPIDEM TARTRATE 10 MG TABLET PO PRN (21:13)
[2022-05-07 08:00] VITALS: BP 96/55
[2022-05-07] MEDS: INVEST MED CVL-231-2002 PO SCH (10:16)
[2022-05-07 16:00] VITALS: BP 126/72
--- NOTE | 2022-05-07 19:37 | NUR ---
CT RN OPENING NOTE RECEIVED PT AWAKE IN BED. A/O X4 AND ABLE TO MAKE NEEDS KNOWN. PT STABLE ON ROOM AIR. NO SOB OR S/S OF RESPIRATORY DISTRESS. BREATHING EVEN AND UNLABORED. NO IV ACCES D/T CLINICAL TRAIL STATUS. SAFETY PRECAUTIONS IN PLACE. BED IN LOWEST LOCKED POSITION, HOB ELEVATED, SIDE RAILS UP X2, AND CALL LIGHT AND TABLE WITHIN REACH. ALL NEEDS MET AT THIS TIME.
--- NOTE | 2022-05-07 19:40 | NUR ---
MS RN CLOSING NOTE PT ASLEEP IN BED, EASILY AROUSED. A/O X4, ABLE TO MAKE NEEDS KNOWN. ON RA, TOLERATING WELL. NO SOB NOTED. NOT IN ANY SIGN OF RESPIRATORY DISTRESS. NO IV ACCESS. PT IS CALM WITH NO EPISODES OF UNTOWARD BEHAVIOR TOWARDS STAFF. ALL NEEDS ATTENDED. KEPT CLEAN AND COMFORTABLE. SAFETY MEASURES IN PLACE: BED IN LOWEST AND LOCKED POSITION, BED ALARM ON, SIDE RAILS UPX2, AND CALL LIGHT WITHIN REACH. ENDORSED TO CAR PILOT NURSE FOR AVANI.
[2022-05-07] MEDS: ZOLPIDEM TARTRATE 10 MG TABLET PO PRN (23:05)
--- NOTE | 2022-05-08 00:13 | NUR ---
RN NOTE PATIENT CARE TRANSFERRED TO CHARGE NURSE LORETTA.
--- NOTE | 2022-05-08 07:30 | NUR ---
MS RN OPENING NOTES: RECEIVED PATIENT IN BED, ASLEEP, EASILY AROUSED WITH STIMULI. NO SOB OR CARDIAC DISTRESS NOTED. DENIES ANY PAIN AT THIS TIME. NO IV ACCESS. NO BEHAVIORAL CHANGES REPORTED FROM ELECTRICIAN SECOND. WILL MONITOR FOR ANY SIGNIFICANT CHANGES ESPECIALLY IN BEHAVIOR. SAFETY PRECAUTIONS MAINTAINED: BED LOCKED AND IN LOWEST POSITION, SIDE RAILS UP X 2. CALL LIGHT IN EASY REACH FOR HELP. KEPT RESTED AND COMFORTABLE. WILL MONITOR ACCORDINGLY.
[2022-05-08 08:00] VITALS: BP 104/68
[2022-05-08] MEDS: INVEST MED CVL-231-2002 PO SCH (10:02)
[2022-05-08 12:00] VITALS: BP 103/71
--- NOTE | 2022-05-08 19:04 | NUR ---
MS RN CLOSING NOTES: PATIENT IN BED WATCHING TELEVISION. AWAKE, ALERT AND ORIENTED X 4 AND ABLE TO VERBALIZED NEEDS. NO SOB OR CARDIAC DISTRESS NOTED, DENIES ANY PAIN AT THIS TIME,NO IV ACCESS.PATIENT AMBULATORY. NO BEHAVIORAL CHANGES NOTED THROUGHT OUT THE SHIFT, PATIENT PLEASANT.SAFETY MEASURES MAINTAINED: BED LOCKED AND IN LOWEST POSITION, SIDE RAILS UP X 2. CALL LIGHT IN EASY REACH FOR HELP. WILL NONITOR ACCORDINGLY. ENDORSED TO [facility] SHIFT NURSE FOR AVANI.
--- NOTE | 2022-05-08 19:50 | NUR ---
RN NOTES PATIENT NOT IN ROOM AT THIS TIME.
[2022-05-08 20:00] VITALS: BP 99/67
[2022-05-08 20:30] VITALS: BP 107/64
[2022-05-08] MEDS: ZOLPIDEM TARTRATE 10 MG TABLET PO PRN (20:37)
--- NOTE | 2022-05-08 20:38 | NUR ---
RN NOTES ADMINISTERED AMBIEN PER PT REQUEST.
--- NOTE | 2022-05-09 05:32 | NUR ---
RN NOTES PATIENT RESTING IN BED; A/OX3, ABLE TO MAKE NEEDS KNOWN; DENIES PAIN AT THIS TIME; BREATHING EVEN AND UNLABORED; NO SOB NOTED, NO BEHAVIOR PROBLEMS NOTED ALL NEEDS MET SAFETY PRECAUTIONS IMPLEMENTED; BED LOCKED IN LOW POSITION; SIDE RAILSX2, CALL LIGHT WITHIN REACH.
--- NOTE | 2022-05-09 07:55 | NUR ---
MS RN OPENING NOTES: RECEIVED PATIENT IN BED, ASLEEP, EASILY AROUSED WITH STIMULI. NO SOB OR CARDIAC DISTRESS NOTED. DENIES ANY PAIN AT THIS TIME. NO IV ACCESS. NO BEHAVIORAL CHANGES REPORTED FROM PULLER THROUGH. WILL MONITOR FOR ANY SIGNIFICANT CHANGES ESPECIALLY IN BEHAVIOR. SAFETY PRECAUTIONS MAINTAINED: BED LOCKED AND IN LOWEST POSITION, SIDE RAILS UP X 2. CALL LIGHT IN EASY REACH FOR HELP. KEPT RESTED AND COMFORTABLE. WILL MONITOR ACCORDINGLY.
[2022-05-09 08:00] VITALS: BP_SYST 74; BP_SYST 83; BP_DIAS 43; BP_DIAS 52
[2022-05-09] MEDS: INVEST MED CVL-231-2002 PO SCH (09:31)
[2022-05-09 16:00] VITALS: BP 93/63
--- NOTE | 2022-05-09 19:17 | NUR ---
MS RN CLOSING NOTES: PATIENT STANDING TO HIS BED SAYING HE IS LISTENING TO MUSIC. AWAKE, ALERT AND ORIENTED X 4 AND ABLE TO VERBALIZED NEEDS. NO SOB OR CARDIAC DISTRESS NOTED, DENIES ANY PAIN AT THIS TIME,NO IV ACCESS.PATIENT AMBULATORY. NO BEHAVIORAL CHANGES NOTED THROUGH OUT THE SHIFT, PATIENT PLEASANT.SAFETY MEASURES MAINTAINED: BED LOCKED AND IN LOWEST POSITION, SIDE RAILS UP X 2. CALL LIGHT IN EASY REACH FOR HELP. WILL MONITOR ACCORDINGLY. ENDORSED TO [facility] SHIFT NURSE FOR AVANI.
--- NOTE | 2022-05-09 19:30 | NUR ---
RN OPENING NOTE RECEIVED PT FROM OBED FOR AVANI. PT AWAKE IN BED, A/O X 4. NO SOB, PAIN OR CARDIAC DISTRESS NOTED UPON INITIAL ASSESSMENT. NO IV ACCESS. NO BEHAVIORAL CHANGES REPORTED FROM MORNING SHIFT. WILL MONITOR FOR ANY SIGNIFICANT CHANGES ESPECIALLY IN HIS BEHAVIOR. ALL SAFETY PRECAUTIONS IN PLACE: BED LOCKED AND IN LOWEST POSITION, SIDE RAILS UP X 2. CALL LIGHT IN EASY REACH FOR HELP. KEPT RESTED AND COMFORTABLE. WILL CONTINUE TO MONITOR THE PT.
[2022-05-09 20:00] VITALS: BP 108/69
[2022-05-09] MEDS: ZOLPIDEM TARTRATE 10 MG TABLET PO PRN (20:58)
[2022-05-10] VITALS: BP 108/69
--- NOTE | 2022-05-10 06:10 | NUR ---
RN CLOSING NOTE: NO BEHAVIORAL CHANGES NOTED THROUGHOUT THE SHIFT, PATIENT PLEASANT. ALL SAFETY MEASURES MAINTAINED: BED LOCKED AND IN LOWEST POSITION, SIDE RAILS UP X 2. CALL LIGHT IN EASY REACH FOR HELP. WILL MONITOR ACCORDINGLY. WILL ENDORSE TO AM SHIFT NURSE FOR AVANI.
[2022-05-10] MEDS: INVEST MED CVL-231-2002 PO SCH (10:00)
[2022-05-10 16:00] VITALS: BP 109/78
[2022-05-10 20:00] VITALS: BP 109/73
[2022-05-11] MEDS: ZOLPIDEM TARTRATE 10 MG TABLET PO PRN ×2 (00:27→20:59)
--- NOTE | 2022-05-11 06:03 | NUR ---
END SHIFT REPORT Patient is Alert Oriented x4. Stable Oxygenation on room air. Ambulatory, independent with ADL's. Patient unable to sleep and was given Ambien, hours of sleep 6. No agitation, behavior calm and cooperative. Continue with Clinical trial medication for treatment Schizophrenia, plan of care discussed to patient, verbalized understanding. Will endorse to oncoming RN.
--- NOTE | 2022-05-11 07:30 | NUR ---
RN Opening Note PT AOx4, able to express his own concerns. Patient shows no signs of distress or discomfort. Discussed plan of care and patient verbalized agreement. All safety precautions taken, call light and table within reach, bed at lowest position.
[2022-05-11 08:34] VITALS: BP 84/54
[2022-05-11] MEDS: INVEST MED CVL-231-2002 PO SCH (10:20)
[2022-05-11 16:03] VITALS: BP 80/50
--- NOTE | 2022-05-11 19:08 | NUR ---
RN Closing Notes PT AOx4, able to express his own concerns. Provided care and medications as prescribed, pt able to provide self care. Ambulates freely through unit with no balance or gait problems. All safety precautions taken, call light and table within reach, bed at lowest position.
--- NOTE | 2022-05-11 19:30 | NUR ---
RN OPENING NOTE PATIENT IN ROOM, A/O X 4, ABLE TO MAKE NEEDS KNOWN. PATIENT IS A CLINICAL TRIAL PATIENT OF DR. CARBAJAL. PATIENT IS ON RA, TOLERATING WELL, NO SOB OR RESPIRATORY DISTRESS NOTED. DOES NOT REPORT ANY PAIN AT THIS TIME. INDEPENDENT WITH ACTIVITIES. PATIENT IS CALM AND COOPERATIVE AT THIS TIME. SAFETY MEASURES IN PLACE: BED LOCKED AND IN LOWEST POSITION, CALL LIGHT WITHIN REACH, SIDE RAILS UP. WILL MONITOR PATIENT CLOSELY.
[2022-05-11 20:40] VITALS: BP 101/70
--- NOTE | 2022-05-11 20:59 | NUR ---
RN NOTE PATIENT REQUESTED FOR AMBIEN. GIVEN AMBIEN AND PATIENT MADE AWARE THAT AMBIEN AND ATIVAN IS TO BE HELD AFTER 9 PM.
--- NOTE | 2022-05-12 06:55 | NUR ---
RN CLOSING NOTE PATIENT IN BED, SLEEPING EASILY AWAKENED. PATIENT IS ON RA, TOLERATING WELL, NO SOB OR RESPIRATORY DISTRESS NOTED. DOES NOT REPORT ANY PAIN AT THIS TIME. PATIENT REMAINED CALM, NOT IN ANY APPARENT DISTRESS. SAFETY MEASURES IMPLEMENTED. ALL ORDERS CARRIED OUT. WILL ENDORSE TO DAY SHIFT NURSE FOR AVANI.
[2022-05-12 08:00] VITALS: BP 88/66
[2022-05-12] MEDS: INVEST MED CVL-231-2002 PO SCH (10:43)
[2022-05-12] MEDS ORDERED: LORAZEPAM 1 MG TABLET FOR AGITATION PO PRN (13:00)
[2022-05-12 16:00] VITALS: BP 123/60
--- NOTE | 2022-05-12 19:40 | NUR ---
RN OPENING NOTE PATIENT IN BED, SLEEPING EASILY AWAKENED. PATIENT IS ON RA, TOLERATING WELL, NO SOB OR RESPIRATORY DISTRESS NOTED. DOES NOT REPORT ANY PAIN AT THIS TIME. PATIENT REMAINED CALM, NOT IN ANY APPARENT DISTRESS. SAFETY MEASURES IMPLEMENTED.
[2022-05-12 20:00] VITALS: BP 103/68
[2022-05-12] MEDS: ZOLPIDEM TARTRATE 10 MG TABLET PO PRN (22:38)
[2022-05-13 08:00] VITALS: BP 89/57
[2022-05-13] MEDS: INVEST MED CVL-231-2002 PO SCH ×2 (10:04→10:37)
--- NOTE | 2022-05-13 10:23 | NUR ---
RN NOTES REMINDED PATIENT TO BE BACK AT 10AM FOR HIS MEDICATION WHEN HE WAS LEAVING THE UNIT AROUND 0920, STILL NOT BACK, LEFT A NOTE AT HIS DOOR. INFORMED DR CARBAJAL.
--- NOTE | 2022-05-13 10:38 | NUR ---
RN NOTES PATIENT JUST GOT IN HIS ROOM, HIS 10 AM DUE MED HAS BEEN GIVEN.
--- NOTE | 2022-05-13 18:51 | NUR ---
MS RN CLOSING NOTES PATIENT AWAKE AND RESTING IN BED. A/O X4, ABLE TO VERBALIZED NEEDS. DENIES ANY DISCOMFORTS AT THIS TIME. STABLE ON ROOM AIR, NO SOB NOTED, BREATHING EVEN AND UNLABORED. PT ON CLINICAL TRIAL, NO IV ACCESS PER PROTOCOL. CALL LIGHT W/I REACH. ALL NEEDS MET. WILL ENDORSE TO THE LEAD SCIENTIST NURSE.
--- NOTE | 2022-05-13 19:30 | NUR ---
MS RN OPENING NOTES RECEIVED PT AWAKE LYING COMFORTABLY IN BED. A/O X4. BREATHING EVEN AND NON-LABORED ON ROOM AIR. NO C/O PAIN AT THIS TIME. NOT IN APPARENT DISTRESS. PT ON CLINICAL TRIAL, NO IV ACCESS PER PROTOCOL. SAFETY PRECAUTIONS IN PLACE: BED LOW AND LOCKED, SIDE RAILS UP X2, CALL LIGHT WITHIN REACH. WILL CONTINUE POC.
[2022-05-13 20:00] VITALS: BP 117/81
[2022-05-13] MEDS: ZOLPIDEM TARTRATE 10 MG TABLET PO PRN (22:01)
--- NOTE | 2022-05-14 06:23 | NUR ---
MS RN CLOSING NOTES PT LYING IN BED ASLEEP, EASY TO AROUSE. A/O X4, ABLE TO MAKE NEEDS KNOWN. NO SOB OR NOTED. TOLERATING ROOM AIR WELL. NO C/O PAIN OR DISCOMFORT. AFEBRILE. NO IV ACCESS, PT IS ON CLINICAL TRIAL. ALL DUE MEDS GIVEN AND NEEDS ATTENDED. DRUG ADMINISTRATION EDUCATION GIVEN. SAFETY MEASURES MAINTAINED: BED LOW AND LOCKED, SIDE RAILS UP X2, CALL LIGHT WITHIN REACH. WILL ENDORSE TO AM NURSE FOR AVANI.
--- NOTE | 2022-05-14 07:35 | NUR ---
RN OPENING NOTES RECEIVED PT SLEEPING IN BED, EASILY AWAKEN. AOx4, ABLE TO MAKE NEEDS. NO IV ACCESS D/T CLINICAL TRIAL STATUS. SAFETY PRECAUTIONS IN PLACE: BED IN LOWEST, LOCKED POSITION, SIDERAILS UPx2, AND BRAKES ON. TABLE AND CALL LIGHT WITHIN REACH. WILL CONTINUE PLAN OF CARE.
[2022-05-14 08:00] VITALS: BP 104/68
[2022-05-14] MEDS: INVEST MED CVL-231-2002 PO SCH (10:28)
--- NOTE | 2022-05-14 10:29 | NUR ---
RN NOTES INVESTIGATIONAL MEDS GIVEN LATE BECAUSE PHARMACY HANDED IT LATE
[2022-05-14 16:00] VITALS: BP 103/71
--- NOTE | 2022-05-14 18:42 | NUR ---
MS RN CLOSING NOTES PT LYING IN BED ASLEEP, EASY TO AROUSE. A/O X4, ABLE TO MAKE NEEDS KNOWN. NO SOB OR NOTED. TOLERATING ROOM AIR WELL. NO C/O PAIN OR DISCOMFORT. AFEBRILE. NO IV ACCESS, PT IS ON CLINICAL TRIAL. ALL DUE MEDS GIVEN AND NEEDS ATTENDED. DRUG ADMINISTRATION EDUCATION GIVEN, ADVISED NPO TONIGHT AFTER 2100, PATIENT ACKNOWLEDGED. SAFETY MEASURES MAINTAINED: BED LOW AND LOCKED, SIDE RAILS UP X2, CALL LIGHT WITHIN REACH. WILL ENDORSE TO AM NURSE FOR AVANI.
--- NOTE | 2022-05-14 19:30 | NUR ---
MS RN OPENING NOTES RECEIVED PT STANDING BY HIS BEDSIDE. A/O X4. BREATHING EVEN AND NON-LABORED ON ROOM AIR. NO C/O PAIN AT THIS TIME. RESTLESSNESS NOTED. PT REQUESTING FOR AMBIEN AND ATIVAN, EDUCATED HE CAN TAKE THESE MEDS 10 HOURS APART, PT VERBALIZED UNDERSTANDING. ON CLINICAL TRIAL, NO IV ACCESS PER PROTOCOL. REMINDED HE WILL BE NPO AFTER 2100, NO FOOD BUT WATER IS OKAY. SAFETY PRECAUTIONS IN PLACE: BED LOW AND LOCKED, SIDE RAILS UP X2, CALL LIGHT WITHIN REACH. WILL CONTINUE POC.
[2022-05-14 20:00] VITALS: BP 100/69
--- NOTE | 2022-05-14 20:15 | NUR ---
MS RN NOTES PT IS ANXIOUS AND RESTLESS. PRN ATIVAN 1MG GIVEN AND TOLERATED WELL.
--- NOTE | 2022-05-15 06:20 | NUR ---
MS RN CLOSING NOTES PT LYING IN BED ASLEEP, EASY TO AROUSE. A/O X4, ABLE TO MAKE NEEDS KNOWN. NO SOB OR NOTED. TOLERATING ROOM AIR WELL. DENIES PAIN OR DISCOMFORT. AFEBRILE. NO IV ACCESS, PT IS ON CLINICAL TRIAL. ALL DUE MEDS GIVEN AND NEEDS ATTENDED. CURRENTLY NPO. SAFETY MEASURES MAINTAINED: BED LOW AND LOCKED, SIDE RAILS UP X2, CALL LIGHT WITHIN REACH. WILL ENDORSE TO AM NURSE FOR AVANI.
--- NOTE | 2022-05-15 07:30 | NUR ---
RN OPENING NOTES RECEIVED PATIENT ON BED RESTING AND A/O X4. ON ROOM AIR TOLERATING WELL. NO SOB NOTED. NOT IN DISTRESS. NO CHANGES OF BEHAVIOR. WITH NO IV ACCESS. ON CLINICAL TRIAL. ON NPO EXCEPT MEDS. SAFETY MEASURES IN PLACED. CALL LIGHT WITHIN REACH. BED ON LOWEST LOCKED POSITION, SIDE RAILS UP X2. WILL CONTINUE TO MONITOR.
[2022-05-15 08:08] VITALS: BP 80/48
[2022-05-15] MEDS: INVEST MED CVL-231-2002 PO SCH (10:00)
[2022-05-15 20:56] VITALS: BP 104/78
[2022-05-15] MEDS: ZOLPIDEM TARTRATE 10 MG TABLET PO PRN (21:00)
--- NOTE | 2022-05-16 06:37 | NUR ---
RN CLOSING NOTES PATIENT ON BED RESTING AND A/O X4. ON ROOM AIR TOLERATING WELL. NO SOB NOTED. NOT IN DISTRESS. NO CHANGES OF BEHAVIOR. WITH NO IV ACCESS. ON CLINICAL TRIAL. ON NPO EXCEPT MEDS. SAFETY MEASURES IN PLACED. CALL LIGHT WITHIN REACH. BED ON LOWEST LOCKED POSITION, SIDE RAILS UP X2. WILL ENDORSE TO NEXT SHIFT FOR AVANI.
--- NOTE | 2022-05-16 07:20 | NUR ---
RN OPENING NOTES RECEIVED PATIENT IN BED AWAKE, A/O X4, VERBALLY RESPONSIVE. NO SIGNS OF ACUTE DISTRESS NOTED. STABLE ON ROOM AIR, NO SOB NOTED, BREATHING EVEN AND UNLABORED. DENIES ANY PAIN OR DISCOMFORT AT THIS TIME. ON CLINICAL TRIAL. NO IV ACCESS. PATIENT PLEASANT. SAFETY MEASURE IN PLACE, BED IN LOWEST AND LOCKED POSITION, SIDE RAILS UP X2, CALL LIGHT PLACED WITHIN EASY REACH. WILL CONTINUE TO MONITOR PATIENT.
[2022-05-16 08:25] VITALS: BP 92/61
[2022-05-16] MEDS: INVEST MED CVL-231-2002 PO SCH (09:56)
--- NOTE | 2022-05-16 17:45 | NUR ---
DEBURRING TECHNICIAN NOTE PATIENT DISCHARGED TO HOME IN STABLE CONDITION. PATIENT REMAINS A/O X4, VERBALLY RESPONSIVE AND ABLE TO MAKE NEEDS KNOWN. REMAINS STABLE ON ROOM AIR. DISCHARGE INSTRUCTIONS PROVIDED TO PATIENT WITH VERBALIZATION OF UNDERSTANDING. ALL BELONGINGS ACCOUNTED FOR. FORMS SIGNED BY PATIENT. PATIENT TO FOLLOW-UP WITH DR. CARBAJAL AFTER DISCHARGE. PATIENT LEFT UNIT @1730. CN AWARE OF DISCHARGE.
== END 2022-05-16 17:15 | disposition home or self-care (01) | DRG 951 ==
LOC: MED 14:16
PROVIDERS: ADMIT Psychiatry & Neurology Psychiatry; ATTEND Psychiatry & Neurology Psychiatry
DX: Z00.6 Encounter for examination for normal comparison and control in clinical research program (principal); F20.0 Paranoid schizophrenia; Z79.899 Other long term (current) drug therapy; Z81.8 Family history of other mental and behavioral disorders; Z91.14 Patient's other noncompliance with medication regimen; F41.9 Anxiety disorder, unspecified; G47.00 Insomnia, unspecified
CPT/HCPCS: 87081-TC; 94799-TC; G0378

== ENCOUNTER 2024-11-14 09:02 | Inpatient (IN) | payer OTHER ==
[~2024-11-14] VITALS: Ht 170.2 cm; Wt 44.9 kg
[2024-11-14] MEDS ORDERED: IBUPROFEN 200 MG TABLET PO PRN (17:30)
[2024-11-14] MEDS ORDERED: LORAZEPAM 1 MG TABLET FOR AGITATION PO PRN (17:30)
[2024-11-14] MEDS ORDERED: MAGNESIUM HYDROXIDE 30 ML UDC PO PRN (17:30)
[2024-11-14] MEDS ORDERED: ACETAMINOPHEN ES 500 MG TABLET PO PRN (17:30)
[2024-11-14 17:50] VITALS: BP 101/77; TEMP 97.3; O2SAT 99
[2024-11-14 21:00] VITALS: BP 108/80; TEMP 97.7; O2SAT 100
[2024-11-14 21:16] VITALS: BP 108/80; TEMP 97.7; O2SAT 100
[2024-11-14] MEDS: ZOLPIDEM TARTRATE 10 MG TABLET PO PRN (22:32)
[2024-11-14] MEDS: LURASIDONE 40 MG PO SCH (22:33)
[2024-11-15 08:00] VITALS: BP 70/50; TEMP 97.3; O2SAT 99
[2024-11-15 16:00] VITALS: BP 102/83; TEMP 98.1; O2SAT 100
[2024-11-15 20:00] VITALS: BP 108/84; TEMP 98.8; O2SAT 98
[2024-11-16 08:00] VITALS: BP 96/70; TEMP 97.3; O2SAT 100
[2024-11-16 16:00] VITALS: BP 108/82; TEMP 98.2; O2SAT 100
[2024-11-16] MEDS ORDERED: LORA-258 PO (19:34)
[2024-11-16] MEDS ORDERED: ZOLP10TA2 PO (19:34)
[2024-11-16] MEDS ORDERED: LURA40TA PO (19:34)
[2024-11-16 20:00] VITALS: BP 112/79; TEMP 98.1; O2SAT 99
[2024-11-17 08:00] VITALS: BP 101/82; TEMP 97.5; O2SAT 96
[2024-11-17 10:00] VITALS: BP 101/82; TEMP 97.5; O2SAT 96
[2024-11-17 16:00] VITALS: BP 104/82; TEMP 98.2; O2SAT 94
[2024-11-17 20:00] VITALS: BP 119/89; TEMP 98.2; O2SAT 95
[2024-11-18 08:00] VITALS: BP 100/79; TEMP 97.5; O2SAT 96
[2024-11-18 20:00] VITALS: BP 125/80; TEMP 98; O2SAT 99
[2024-11-19 04:00] VITALS: BP 128/79; TEMP 98; O2SAT 99
[2024-11-19 16:00] VITALS: BP 106/80; TEMP 98.1; O2SAT 94
[2024-11-19 20:00] VITALS: BP 109/82; TEMP 97.3; O2SAT 95
[2024-11-20 08:37] VITALS: BP 98/73; TEMP 98.1; O2SAT 99
[2024-11-20 16:00] VITALS: BP 110/84; TEMP 97.3; O2SAT 100
[2024-11-21 08:00] VITALS: BP 108/80; TEMP 97.7; O2SAT 97
[2024-11-21 16:00] VITALS: BP 108/84; TEMP 97.3; O2SAT 98
[2024-11-21 20:00] VITALS: BP 113/80; TEMP 97.9; O2SAT 95
[2024-11-22 20:00] VITALS: BP 112/85; TEMP 97.5; O2SAT 99
[2024-11-23 07:30] VITALS: BP 93/66; TEMP 97.5; O2SAT 97
[2024-11-23 16:32] VITALS: BP 109/82; TEMP 97.7; O2SAT 99
[2024-11-23 22:00] VITALS: BP 100/78; TEMP 98.2; O2SAT 98
[2024-11-24 07:30] VITALS: BP 126/77; TEMP 97.9; O2SAT 96
[2024-11-24 16:30] VITALS: BP 112/79; TEMP 97.5; O2SAT 97
[2024-11-24 20:00] VITALS: BP 104/80; TEMP 97.9; O2SAT 98
[2024-11-25 08:00] VITALS: BP 89/68; TEMP 97.9; O2SAT 98
[2024-11-25 20:45] VITALS: BP 120/98; TEMP 97.5; O2SAT 98
[2024-11-26 08:30] VITALS: BP 97/66; TEMP 98.4; O2SAT 98
[2024-11-26 17:53] VITALS: BP 107/70; TEMP 97.3; O2SAT 98
[2024-11-26 20:00] VITALS: BP 106/79; TEMP 97.7; O2SAT 98
[2024-11-27 08:00] VITALS: BP_SYST 100; BP_SYST 97; BP_DIAS 71; TEMP 97.5; O2SAT 100
[2024-11-27 20:00] VITALS: BP 120/81; TEMP 97.5; O2SAT 96
[2024-11-28 08:25] VITALS: BP 90/70; TEMP 97.9; O2SAT 99
[2024-11-28] MEDS ORDERED: LORAZEPAM 1 MG TABLET FOR AGITATION PO PRN (13:00)
[2024-11-28] MEDS: INVEST MED OTSUKA 382-201-00035 PO SCH (20:40)
[2024-11-28] MEDS: ZOLPIDEM TARTRATE 10 MG TABLET PO PRN (22:42)
[2024-11-29 07:30] VITALS: BP 96/68; TEMP 97.7; O2SAT 98
[2024-11-29 21:18] VITALS: BP 106/79; TEMP 98.2; O2SAT 99
[2024-11-30 20:00] VITALS: BP 104/79; TEMP 98.2; O2SAT 96
[2024-12-01 20:00] VITALS: BP 111/85; TEMP 97.9; O2SAT 97
[2024-12-02 08:00] VITALS: BP 95/64; TEMP 97.5; O2SAT 100
[2024-12-02 08:36] VITALS: BP 84/69; TEMP 97.8; O2SAT 100
[2024-12-02 20:00] VITALS: BP 118/71; TEMP 98.2; O2SAT 98
[2024-12-03 16:00] VITALS: BP 134/80; TEMP 98; TEMP 98.1; O2SAT 91; O2SAT 99
[2024-12-04 07:30] VITALS: BP 84/63; TEMP 98.4; O2SAT 12
[2024-12-04 21:05] VITALS: BP 111/75; TEMP 98.6; O2SAT 99
[2024-12-05 07:30] VITALS: BP 86/60; TEMP 98.2; O2SAT 98
[2024-12-05] MEDS ORDERED: LORAZEPAM 1 MG TABLET FOR AGITATION PO PRN (13:00)
[2024-12-05 15:50] VITALS: BP 92/69; TEMP 97.7; O2SAT 98
[2024-12-05 20:00] VITALS: BP 97/74; TEMP 98.4; O2SAT 99
[2024-12-06 16:00] VITALS: BP 108/78; TEMP 97.9; O2SAT 97
[2024-12-06 20:00] VITALS: BP 109/82; TEMP 98.5; O2SAT 97
[2024-12-06] MEDS: ZOLPIDEM TARTRATE 10 MG TABLET PO PRN (21:52)
[2024-12-07 16:00] VITALS: BP 105/79; TEMP 98.2; O2SAT 96
[2024-12-07 20:00] VITALS: BP 116/88; TEMP 97.7; O2SAT 98
[2024-12-08 07:30] VITALS: BP 95/76; TEMP 98.2; O2SAT 99
[2024-12-08 12:40] VITALS: BP 95/76; TEMP 98.2
[2024-12-08 20:00] VITALS: BP 109/87; TEMP 98.2; O2SAT 98
[2024-12-08 20:48] VITALS: BP 109/87; TEMP 98.2; O2SAT 98
[2024-12-09 08:41] VITALS: BP 93/72; TEMP 98; O2SAT 96
[2024-12-09 16:25] VITALS: BP_SYST 113; BP_SYST 135; BP_DIAS 62; BP_DIAS 85; TEMP 98; O2SAT 96
[2024-12-09 20:00] VITALS: BP 106/83; TEMP 98.1; O2SAT 98
[2024-12-10 08:00] VITALS: BP 102/84; TEMP 98.2; O2SAT 96
[2024-12-10 16:00] VITALS: BP 117/86; TEMP 97.9; O2SAT 100
[2024-12-10 20:00] VITALS: BP_SYST 127; BP_DIAS 90; BP_DIAS 98; TEMP 97.5; O2SAT 97
[2024-12-11 09:04] VITALS: BP 108/81; TEMP 98; O2SAT 98
[2024-12-11 20:00] VITALS: BP 108/84; TEMP 98.4; O2SAT 98
[2024-12-12] MEDS ORDERED: LORAZEPAM 1 MG TABLET FOR AGITATION PO PRN (13:00)
[2024-12-12 16:00] VITALS: BP 122/90; TEMP 97.1; O2SAT 100
[2024-12-12 20:00] VITALS: BP 115/84; TEMP 98.2; O2SAT 98
[2024-12-12] MEDS: ZOLPIDEM TARTRATE 10 MG TABLET PO PRN (20:08)
[2024-12-13 08:00] VITALS: BP 114/85; TEMP 98.4; O2SAT 98
[2024-12-13 16:00] VITALS: BP_SYST 122; BP_DIAS 100; BP_DIAS 89; TEMP 98.2; O2SAT 96
[2024-12-13 20:00] VITALS: BP 111/97; TEMP 98.2; O2SAT 99
[2024-12-14 16:00] VITALS: BP 130/95; TEMP 98.4; O2SAT 99
[2024-12-14 20:00] VITALS: BP 120/98; TEMP 98.2; O2SAT 97
[2024-12-14] MEDS: MAG HYDROX/AL HYDROX/SIMETH 30 ML UDC PO PRN (20:05)
[2024-12-15 16:00] VITALS: BP 122/96; TEMP 98.6; O2SAT 96
[2024-12-15 20:00] VITALS: BP 123/79; TEMP 98.7; O2SAT 99
[2024-12-15] MEDS ORDERED: ZOLPIDEM TARTRATE 10 MG TABLET ONE (21:54)
[2024-12-16 20:00] VITALS: BP 122/93; TEMP 98.1; O2SAT 97
[2024-12-16] MEDS ORDERED: ZOLPIDEM TARTRATE 10 MG TABLET ONE (21:36)
[2024-12-17 08:00] VITALS: BP 120/75; TEMP 98.2; O2SAT 98
[2024-12-17] MEDS: ENSURE ENLIVE 237 ML LIQUID (VANILLA) PO SCH (12:41)
[2024-12-17 16:00] VITALS: BP 118/71; TEMP 98.1; O2SAT 98
[2024-12-17 20:00] VITALS: BP 134/81; TEMP 97.7; O2SAT 100
[2024-12-17] MEDS ORDERED: ZOLPIDEM TARTRATE 10 MG TABLET ONE (21:56)
[2024-12-18 07:00] VITALS: BP 102/71; TEMP 98.1; O2SAT 94
[2024-12-18 08:00] VITALS: BP 113/88; TEMP 98.1
[2024-12-19 04:36] VITALS: BP 119/87; TEMP 98.9; O2SAT 99
[2024-12-19 08:00] VITALS: BP 106/89; TEMP 98.4; O2SAT 96
[2024-12-19] MEDS ORDERED: LORAZEPAM 1 MG TABLET FOR AGITATION PO PRN (13:00)
[2024-12-19 18:00] VITALS: BP 112/80; TEMP 97.8
[2024-12-19] MEDS: BENZTROPINE MESYLATE (1 MG) 1 MG TABLET PO SCH (18:00)
[2024-12-19 20:00] VITALS: BP 144/74; TEMP 98.6; O2SAT 100
[2024-12-19] MEDS ORDERED: ZOLPIDEM TARTRATE 10 MG TABLET ONE (20:40)
[2024-12-19] MEDS: ZOLPIDEM TARTRATE 10 MG TABLET PO PRN (20:42)
[2024-12-20 17:15] VITALS: BP 126/73; TEMP 97.9; O2SAT 99
[2024-12-20 20:24] VITALS: BP 100/82; TEMP 97.9; O2SAT 98
[2024-12-20] MEDS ORDERED: ZOLPIDEM TARTRATE 10 MG TABLET ONE (20:50)
[2024-12-21 08:00] VITALS: BP 91/65; TEMP 98.1; O2SAT 100
[2024-12-21 16:00] VITALS: BP 151/96; TEMP 98.2; O2SAT 99
[2024-12-21 20:00] VITALS: BP 115/83; TEMP 97.5; O2SAT 97
[2024-12-22 08:00] VITALS: BP 120/72; TEMP 97.8; O2SAT 98
[2024-12-22 20:27] VITALS: BP 113/85; TEMP 98; O2SAT 98
[2024-12-23 08:00] VITALS: BP 121/77; TEMP 97.9; O2SAT 99
[2024-12-23 16:00] VITALS: BP 124/81; TEMP 97.8; O2SAT 99
[2024-12-23 20:34] VITALS: BP 104/73; TEMP 97.9; O2SAT 99
[2024-12-24 20:40] VITALS: BP 113/77; TEMP 98.1; O2SAT 96
[2024-12-25 08:00] VITALS: BP 120/80; TEMP 97.9; O2SAT 97
[2024-12-25 20:00] VITALS: BP 117/89; TEMP 97.8; O2SAT 99
[2024-12-26 08:00] VITALS: BP 106/72; TEMP 97.5; O2SAT 98
[2024-12-26] MEDS ORDERED: LORAZEPAM 1 MG TABLET FOR AGITATION PO PRN (13:00)
[2024-12-26 20:00] VITALS: BP 117/79; TEMP 98.6; O2SAT 100
[2024-12-26] MEDS: ZOLPIDEM TARTRATE 10 MG TABLET PO PRN (21:31)
[2024-12-27 08:00] VITALS: BP 108/77; TEMP 97.9; O2SAT 100
[2024-12-27 16:00] VITALS: BP 111/78; TEMP 97.5; O2SAT 96
[2024-12-27 20:00] VITALS: BP 109/79; TEMP 98.4; O2SAT 100
[2024-12-28 08:00] VITALS: BP 105/69; TEMP 97.7; O2SAT 100
[2024-12-28 16:00] VITALS: BP 115/80; TEMP 98.1; O2SAT 98
[2024-12-28 20:00] VITALS: BP 109/76; TEMP 98.2; O2SAT 100
[2024-12-29 08:00] VITALS: BP 106/78; TEMP 98.1; O2SAT 100
[2024-12-29 16:00] VITALS: BP 108/79; TEMP 98.4; O2SAT 99
[2024-12-29 20:00] VITALS: BP 132/87; TEMP 97.7; O2SAT 98
[2024-12-30 08:00] VITALS: BP 97/76; TEMP 98.2; O2SAT 97
[2024-12-30 16:00] VITALS: BP 118/77; TEMP 98.4; O2SAT 100
[2024-12-30 20:00] VITALS: BP 107/77; TEMP 98.2; O2SAT 99
[2024-12-31 08:00] VITALS: BP 96/66; TEMP 98.6; O2SAT 97
[2024-12-31 20:00] VITALS: BP 111/78; TEMP 97.9; O2SAT 99
[2025-01-01 08:00] VITALS: BP 114/71; TEMP 98.7; O2SAT 99
[2025-01-01 16:00] VITALS: BP 96/65; TEMP 98.7; O2SAT 95
[2025-01-01 20:00] VITALS: BP 105/83; TEMP 97.6; O2SAT 99
[2025-01-02 08:00] VITALS: BP 101/78; TEMP 98.6; O2SAT 97
[2025-01-02] MEDS ORDERED: LORAZEPAM 1 MG TABLET FOR AGITATION PO PRN (13:00)
[2025-01-02 16:00] VITALS: BP 111/76; TEMP 97.3; O2SAT 100
[2025-01-02 20:00] VITALS: BP 110/76; TEMP 98.1; O2SAT 100
[2025-01-02] MEDS: ZOLPIDEM TARTRATE 10 MG TABLET PO PRN (21:18)
[2025-01-03 08:00] VITALS: BP 92/70; TEMP 98.4; O2SAT 98
[2025-01-03 16:00] VITALS: BP 111/77; TEMP 97.5; O2SAT 100
[2025-01-03 20:00] VITALS: BP 127/65; TEMP 97.5; O2SAT 97
[2025-01-04 08:00] VITALS: BP 90/58; TEMP 98.1; O2SAT 99
[2025-01-04 20:50] VITALS: BP 103/81; TEMP 98.9; O2SAT 99
[2025-01-05 08:00] VITALS: BP 105/75; TEMP 98.4; O2SAT 98
[2025-01-05 16:00] VITALS: BP 105/68; TEMP 97.7; O2SAT 98
[2025-01-05 20:00] VITALS: BP 108/77; TEMP 99; O2SAT 100
[2025-01-06 08:00] VITALS: BP 90/73; TEMP 98.1; O2SAT 99
[2025-01-06 16:00] VITALS: BP 92/61; TEMP 97.5; O2SAT 98
[2025-01-06 20:00] VITALS: BP 101/69; TEMP 98.6; O2SAT 100
[2025-01-07 08:00] VITALS: BP 88/61; TEMP 98.6; O2SAT 100
[2025-01-07 16:00] VITALS: BP 111/75; TEMP 98.2; O2SAT 96
[2025-01-07 20:00] VITALS: BP 109/70; TEMP 98.2; O2SAT 100
[2025-01-08 08:00] VITALS: BP 102/79; TEMP 96.8; O2SAT 100
[2025-01-08 16:00] VITALS: BP 98/75; TEMP 97.9; O2SAT 100
[2025-01-08 20:00] VITALS: BP 116/87; TEMP 98.3; O2SAT 100
[2025-01-09 08:00] VITALS: BP 118/68; TEMP 97.9; O2SAT 99
[2025-01-09 21:43] VITALS: BP 100/68; TEMP 98.6; O2SAT 97
[2025-01-10] MEDS: ZOLPIDEM TARTRATE 10 MG TABLET PO ONE (21:31)
[2025-01-10 22:40] VITALS: BP 107/77; TEMP 98.4; O2SAT 99
[2025-01-11 08:00] VITALS: BP 110/83; TEMP 97.5; O2SAT 98
== END 2025-01-11 10:07 | disposition home or self-care (01) | DRG 951 ==
LOC: MED 17:09 → MEDSG2 12-15 19:01 → UNDODISIN 01-10 08:59
PROVIDERS: ADMIT Psychiatry & Neurology Psychiatry; ATTEND Psychiatry & Neurology Psychiatry
DX: Z00.6 Encounter for examination for normal comparison and control in clinical research program (principal); F20.0 Paranoid schizophrenia; Z81.8 Family history of other mental and behavioral disorders; Z79.899 Other long term (current) drug therapy; F41.9 Anxiety disorder, unspecified; M62.522 Muscle wasting and atrophy, not elsewhere classified, left upper arm; G25.71 Drug induced akathisia
CPT/HCPCS: G0378

== ENCOUNTER 2025-06-06 10:34 | Inpatient (IN) | payer OTHER ==
[~2025-06-06] VITALS: Ht 170.2 cm; Wt 49.9 kg
[~2025-06-06 10:34] MED LIST: LORA-258 PO; LURA40TA PO; ZOLP10TA2 PO
[2025-06-06] MEDS ORDERED: ACETAMINOPHEN ES 500 MG TABLET PO PRN (17:00)
[2025-06-06] MEDS ORDERED: ONDANSETRON 4 MG TAB.RAPDIS PO PRN (17:00)
[2025-06-06] MEDS ORDERED: IBUPROFEN 200 MG TABLET PO PRN (17:00)
[2025-06-06] MEDS ORDERED: MAGNESIUM HYDROXIDE 30 ML UDC PO PRN (17:00)
[2025-06-06] MEDS ORDERED: MAG HYDROX/AL HYDROX/SIMETH 30 ML UDC PO PRN (17:00)
[2025-06-06 18:00] VITALS: BP 111/84; TEMP 98.4; O2SAT 98
[2025-06-06 20:00] VITALS: BP 111/91; TEMP 98.4; O2SAT 96
[2025-06-06] MEDS ORDERED: LORAZEPAM 1 MG TABLET FOR AGITATION PO PRN (22:00)
[2025-06-06] MEDS: LURASIDONE 40 MG PO SCH (22:05)
[2025-06-07 08:00] VITALS: BP 86/63; TEMP 98.1; O2SAT 99
[2025-06-07 16:00] VITALS: BP 106/81; TEMP 98.1; O2SAT 100
[2025-06-07 20:00] VITALS: BP 117/92; TEMP 97.9; O2SAT 97
[2025-06-07] MEDS: ZOLPIDEM TARTRATE 10 MG TABLET PO PRN (21:18)
[2025-06-08 07:00] VITALS: BP 95/75; TEMP 97.5; O2SAT 98
[2025-06-08 16:00] VITALS: BP 110/82; TEMP 97.6; O2SAT 98
[2025-06-08 20:00] VITALS: BP 115/89; TEMP 97.7; O2SAT 97
[2025-06-09 07:30] VITALS: BP 90/58; TEMP 98.1; O2SAT 99
[2025-06-09 20:00] VITALS: BP 112/87; TEMP 97.5; O2SAT 99
[2025-06-10 08:00] VITALS: BP 107/70; TEMP 98.5; O2SAT 100
[2025-06-10 16:00] VITALS: BP 107/86; TEMP 98.5; O2SAT 95
[2025-06-10 20:00] VITALS: BP 111/86; TEMP 98.2; O2SAT 98
[2025-06-11 08:00] VITALS: BP 108/69; TEMP 98.6; O2SAT 100
[2025-06-11 16:00] VITALS: BP 135/77; TEMP 98.1; O2SAT 94
[2025-06-11 20:00] VITALS: BP 111/78; TEMP 97.7; O2SAT 95
[2025-06-12 20:00] VITALS: BP 114/84; TEMP 98; O2SAT 98
[2025-06-13 08:00] VITALS: BP 91/67; TEMP 97.9; O2SAT 99
[2025-06-13 16:00] VITALS: BP 112/89; TEMP 98; O2SAT 99
[2025-06-13 20:00] VITALS: BP 109/82; TEMP 97.7; O2SAT 100
[2025-06-14 09:00] VITALS: BP 95/67; TEMP 98.2; O2SAT 100
[2025-06-14 20:00] VITALS: BP 121/86; TEMP 98.1; O2SAT 100
[2025-06-15 08:05] VITALS: BP 105/84; TEMP 98.5; O2SAT 98
[2025-06-15 16:03] VITALS: BP 101/61; TEMP 98; O2SAT 99
[2025-06-15 20:00] VITALS: BP 110/79; TEMP 97.9; O2SAT 100
[2025-06-16] MEDS: INVEST MED ML-007C-A-211 1 TAB EA BOTTLE AM PO SCH (06:31)
[2025-06-16 08:00] VITALS: BP 121/99; TEMP 97; O2SAT 98
[2025-06-16 10:55] VITALS: BP 115/72; TEMP 98.5; O2SAT 100
[2025-06-16] MEDS ORDERED: LORAZEPAM 1 MG TABLET FOR AGITATION PO PRN (13:00)
[2025-06-16 15:39] VITALS: BP 104/83; TEMP 97.5; O2SAT 98
[2025-06-16 16:40] VITALS: TEMP 98.6
[2025-06-16] MEDS: INVEST MED ML-007C-A-211 1TAB EA BOTTLE PM PO SCH (18:30)
[2025-06-16 20:00] VITALS: BP 119/87; TEMP 97.7; O2SAT 99
[2025-06-16] MEDS: ZOLPIDEM TARTRATE 10 MG TABLET PO PRN (20:11)
[2025-06-17] MEDS ORDERED: INVEST MED ML-007C-A-211 1 TAB EA BOTTLE AM PO SCH (06:30)
[2025-06-17] MEDS: INVEST MED ML-007C-A-211 1 TAB EA BOTTLE AM PO SCH (06:31)
[2025-06-17 08:00] VITALS: BP 103/82; TEMP 96.9; O2SAT 97
[2025-06-17 16:00] VITALS: BP 106/87; TEMP 98.4; O2SAT 99
[2025-06-17] MEDS ORDERED: INVEST MED ML-007C-A-211 1TAB EA BOTTLE PM PO SCH (18:30)
[2025-06-17 20:08] VITALS: BP 118/94; TEMP 98.1; O2SAT 100
[2025-06-18] MEDS ORDERED: INVEST MED ML-007C-A-211 1 TAB EA BOTTLE AM PO SCH (06:30)
[2025-06-18 08:00] VITALS: BP 102/71; TEMP 97.3; O2SAT 98
[2025-06-18 16:00] VITALS: BP 121/97; TEMP 97.3; O2SAT 98
[2025-06-18 19:37] VITALS: BP 114/93; TEMP 96.1; O2SAT 98
[2025-06-19 08:06] VITALS: BP 103/76; TEMP 98; O2SAT 98
[2025-06-19 16:02] VITALS: BP 105/79; TEMP 97.8; O2SAT 99
[2025-06-19 20:00] VITALS: BP 113/79; TEMP 98.1; O2SAT 98
[2025-06-20 09:24] VITALS: BP 116/96; TEMP 97.8; O2SAT 98
[2025-06-20 20:00] VITALS: BP 117/84; TEMP 97.7; O2SAT 99
[2025-06-21 08:00] VITALS: BP 118/84; TEMP 97.7; O2SAT 100
[2025-06-21 16:00] VITALS: BP 118/95; TEMP 97.9; O2SAT 100
[2025-06-21 20:00] VITALS: BP 133/84; TEMP 98; O2SAT 96
[2025-06-22 08:00] VITALS: BP 109/63; TEMP 98.1; O2SAT 100
[2025-06-22 16:00] VITALS: BP 117/92; TEMP 98; O2SAT 99
[2025-06-22 20:00] VITALS: BP 109/88; TEMP 97.8; O2SAT 98
[2025-06-23 08:05] VITALS: BP 115/87; TEMP 97.9; O2SAT 98
[2025-06-23] MEDS ORDERED: LORAZEPAM 1 MG TABLET FOR AGITATION PO PRN (13:00)
[2025-06-23 20:00] VITALS: BP 119/94; TEMP 98.1; O2SAT 99
[2025-06-24 08:00] VITALS: BP 95/78; TEMP 97.7; O2SAT 100
[2025-06-24 10:00] VITALS: BP 100/71; TEMP 97.9; O2SAT 98
[2025-06-24 15:00] VITALS: BP 116/88; TEMP 98.2; O2SAT 100
[2025-06-24 20:00] VITALS: BP 128/95; TEMP 97.9; O2SAT 99
[2025-06-24] MEDS: ZOLPIDEM TARTRATE 10 MG TABLET PO PRN (21:11)
[2025-06-25 08:05] VITALS: BP 114/87; TEMP 98; O2SAT 98
[2025-06-25 16:05] VITALS: BP 122/80; TEMP 97.9; O2SAT 98
[2025-06-25 20:00] VITALS: BP 130/90; TEMP 98.2; O2SAT 97
[2025-06-26 08:00] VITALS: BP 114/91; TEMP 98.1; O2SAT 100
[2025-06-26 16:00] VITALS: BP 120/94; TEMP 98.2; O2SAT 100
[2025-06-26 20:00] VITALS: BP 115/93; TEMP 98.4; O2SAT 98
[2025-06-27 08:04] VITALS: BP 108/84; TEMP 97.8; O2SAT 99
[2025-06-27 20:00] VITALS: BP 126/99; TEMP 98; O2SAT 96
[2025-06-28 08:55] VITALS: BP 104/78; TEMP 97.5; O2SAT 95
[2025-06-28 20:00] VITALS: BP 111/88; TEMP 97.9; O2SAT 98
[2025-06-29 08:00] VITALS: BP 102/87; TEMP 97.5; O2SAT 99
[2025-06-29 16:13] VITALS: BP 116/90; TEMP 97.9; O2SAT 100
[2025-06-29 20:19] VITALS: BP 125/93; TEMP 98.2; O2SAT 98
[2025-06-30 08:00] VITALS: BP 90/70; TEMP 97.5; O2SAT 97
[2025-06-30 20:00] VITALS: BP 116/95; TEMP 98.1; O2SAT 98
[2025-06-30] MEDS: ZOLPIDEM TARTRATE 10 MG TABLET PO PRN (20:28)
[2025-07-01 08:13] VITALS: BP 101/85; TEMP 98.2; O2SAT 98
[2025-07-01 10:00] VITALS: BP 120/83; TEMP 98.2; O2SAT 98
[2025-07-01 20:00] VITALS: BP 105/85; TEMP 97.9; O2SAT 98
[2025-07-02 10:16] VITALS: BP 100/76; TEMP 97.7; O2SAT 98
[2025-07-02 20:05] VITALS: BP 118/82; TEMP 98.2; O2SAT 98
[2025-07-03 09:01] VITALS: BP 101/70; TEMP 97.7; O2SAT 97
[2025-07-03 16:00] VITALS: BP 110/88; TEMP 98.1; O2SAT 96
[2025-07-03 20:00] VITALS: BP 106/82; TEMP 97.7; O2SAT 99
[2025-07-04 08:12] VITALS: BP 102/74; TEMP 97.8; O2SAT 96
[2025-07-04 20:00] VITALS: BP 121/89; TEMP 98.2; O2SAT 98
[2025-07-05 09:29] VITALS: BP 96/61; TEMP 98.2; O2SAT 98
[2025-07-05 20:00] VITALS: BP 120/91; TEMP 97.9; O2SAT 98
[2025-07-05] MEDS: LORAZEPAM 1 MG TABLET FOR AGITATION PO PRN (20:28)
[2025-07-06 18:52] VITALS: BP 105/84; TEMP 98.4; O2SAT 98
[2025-07-06 20:00] VITALS: BP 108/81; TEMP 98; O2SAT 99
[2025-07-07 08:00] VITALS: BP 94/70; TEMP 97.9; O2SAT 97
[2025-07-07] MEDS ORDERED: LORAZEPAM 1 MG TABLET FOR AGITATION PO PRN (13:00)
[2025-07-07 15:00] VITALS: BP 99/75; TEMP 98.4; O2SAT 96
[2025-07-07 20:00] VITALS: BP 91/68; TEMP 97.7; O2SAT 98
[2025-07-08 08:00] VITALS: BP 107/88; TEMP 97.7; O2SAT 97
[2025-07-08 12:00] VITALS: BP 102/75; TEMP 98.3; O2SAT 98
[2025-07-08 16:00] VITALS: BP 106/82; TEMP 97.8; O2SAT 98
[2025-07-08 20:00] VITALS: BP 96/65; TEMP 98.1; O2SAT 97
[2025-07-09 08:00] VITALS: BP 89/67; TEMP 97.3; O2SAT 98
[2025-07-09 15:30] VITALS: BP 96/72; TEMP 98.2; O2SAT 98
[2025-07-09 20:00] VITALS: BP 111/89; TEMP 98.1; O2SAT 100
[2025-07-10 08:00] VITALS: BP 104/79; TEMP 97.5; O2SAT 97
[2025-07-10 20:00] VITALS: BP 102/63; TEMP 97.9; O2SAT 99
[2025-07-11] MEDS ORDERED: ENSURE ENLIVE CHOC 237 ML CAN PO SCH (08:00)
[2025-07-11 08:07] VITALS: BP 104/76; TEMP 97.9; O2SAT 96
[2025-07-11] MEDS: ENSURE ENLIVE CHOC 237 ML CAN PO SCH (18:23)
[2025-07-11] MEDS: ZOLPIDEM TARTRATE 10 MG TABLET PO PRN (19:49)
[2025-07-11 20:12] VITALS: BP 114/64; TEMP 97.6; O2SAT 99
[2025-07-12 08:00] VITALS: BP 98/76; TEMP 97.6; O2SAT 99
[2025-07-12 20:00] VITALS: BP 111/84; TEMP 98.4; O2SAT 98
[2025-07-13 08:08] VITALS: BP 100/76; TEMP 98.1; O2SAT 96
[2025-07-13 16:00] VITALS: BP 108/83; TEMP 98.2; O2SAT 98
[2025-07-13 20:00] VITALS: BP 119/84; TEMP 97.7; O2SAT 97
[2025-07-14 08:14] VITALS: BP 99/70; TEMP 98.2; O2SAT 99
[2025-07-14] MEDS ORDERED: LORAZEPAM 1 MG TABLET FOR AGITATION/ANXIETY PO PRN (13:00)
[2025-07-14 20:00] VITALS: BP 115/97; TEMP 98.4; O2SAT 100
[2025-07-14] MEDS: ZOLPIDEM TARTRATE 10 MG TABLET PO PRN (20:08)
[2025-07-15 08:00] VITALS: BP 100/82; TEMP 97.5; O2SAT 100
[2025-07-15 20:10] VITALS: BP 108/82; TEMP 97.7; O2SAT 99
[2025-07-16 08:00] VITALS: BP 101/72; TEMP 97.9; O2SAT 98
[2025-07-16 20:48] VITALS: BP 125/86; TEMP 97.9; O2SAT 98
[2025-07-17 08:00] VITALS: BP 112/80; TEMP 97.7; O2SAT 99
[2025-07-17 16:30] VITALS: BP_SYST 116; BP_SYST 123; BP_DIAS 86; BP_DIAS 89; TEMP 98.1; O2SAT 96; O2SAT 99
[2025-07-17 20:00] VITALS: BP 98/80; TEMP 98.1; O2SAT 98
[2025-07-18 08:00] VITALS: BP 115/96; TEMP 98.3; O2SAT 97
[2025-07-18 12:00] VITALS: BP 109/85; TEMP 98.1; O2SAT 97
[2025-07-18 16:00] VITALS: BP 121/85; TEMP 97.7; O2SAT 97
[2025-07-18 20:00] VITALS: BP 114/85; TEMP 97.7; O2SAT 97
[2025-07-19 08:00] VITALS: BP 120/91; TEMP 97.7; O2SAT 99
[2025-07-19 20:00] VITALS: BP 113/84; TEMP 98.4; O2SAT 99
[2025-07-20 08:00] VITALS: BP 110/76; TEMP 97.8; O2SAT 99
[2025-07-20 15:57] VITALS: BP 115/79; TEMP 97.9; O2SAT 98
[2025-07-20 20:00] VITALS: BP 110/77; TEMP 97.9; O2SAT 85
[2025-07-21 08:00] VITALS: BP 112/78; TEMP 98.1; O2SAT 98
[2025-07-21 20:05] VITALS: BP 109/75; TEMP 98.4; O2SAT 99
[2025-07-22 08:00] VITALS: BP 112/84; TEMP 97.7; O2SAT 98
[2025-07-22 16:00] VITALS: BP 128/88; TEMP 98.2
[2025-07-22 20:04] VITALS: BP 112/82; TEMP 98.1; O2SAT 98
[2025-07-23 08:00] VITALS: BP 106/86; TEMP 98.2; O2SAT 98
[2025-07-23 20:00] VITALS: BP 116/81; TEMP 98.8; O2SAT 97
== END 2025-07-24 12:00 | disposition home or self-care (01) | DRG 951 ==
LOC: MED 16:21 → MEDSG2 06-12 13:21
PROVIDERS: ADMIT Psychiatry & Neurology Psychiatry; ATTEND Psychiatry & Neurology Psychiatry
DX: Z00.6 Encounter for examination for normal comparison and control in clinical research program (principal); F20.0 Paranoid schizophrenia; Z79.899 Other long term (current) drug therapy; Z81.8 Family history of other mental and behavioral disorders
CPT/HCPCS: G0378